=== PATIENT | female | born 1935 | race Caucasian/White ===

== ENCOUNTER 2017-02-02 20:00 | Inpatient (IN) ==
--- NOTE | 2017-02-02 20:14 | Emergency Department Note ---
Disposition Clinical Impression: Hypercalcemia, Frail elderly, Confusion, Fall, Diabetes, Head injury, Chest wall injury, Back injury, Epigastric abdominal pain, Thyroid nodule, Anemia, Renal failure, Rib fractures, Lactic acidosis, Abnormal urinalysis, Hypertension Disposition: Admitted As Inpatient General Adult HPI - General Stated complaint: fall, AMS, heartburn Time Seen by Provider: 02/02/17 20:06 - History of Present Illness HPI Narrative: 81-year-old female brought in by 2 relatives who she lives with, her son and [id number], they are concerned because the patien has been progressively confused worsening this week. The patient also fell down today. She was at home and had a simple fall. She fell onto her buttocks and then went backward and hit her head. The patient complains of left rib pain as well as low back pain. She also complains of anterior abdominal pain in the midepigastric area. She thinks she may have heartburn. She denies any upper chest pain there is no history of left arm or left jaw pain. No lacerations or convulsions. No loss of consciousness. The patient has had no unilateral weakness or numbness in arms or legs. No paresis or bowel or bladder dysfunction there is no history of fever or cough no vomiting diarrhea or bleeding. The patient is usually fairly self-sufficient and can be left alone at home. The family members report a definite change in the patient's mental status, perseveration, forgetfulness and disorientation regarding time. There is no history of laceration or bleeding. No upper or lower extremity pain. The patient is known to be diabetic. She is type II. - Related Data Home Medications Medication Instructions Recorded Confirmed Atenolol [Tenormin] 50 mg PO DAILY 08/14/16 08/14/16 Atorvastatin Calcium [Lipitor] 20 mg PO DAILY 08/14/16 08/14/16 Calcitriol 0.5 mcg PO DAILY 08/14/16 08/14/16 Calcium Carbonate [Calcium] 600 mg PO DAILY 08/14/16 08/14/16 Denosumab [Prolia (For Outpatient 60 mg SQ [id number] 08/14/16 08/14/16 Infusion)] Ferrous Sulfate 325 mg PO BIDWM 08/14/16 08/14/16 Furosemide [Lasix] 20 mg PO DAILY 08/14/16 08/14/16 Gemfibrozil [Lopid] 600 mg PO BIDWM 08/14/16 08/14/16 Glipizide/Metformin HCl 1 tab PO DAILY 08/14/16 08/14/16 [Glipizide-Metformin 2.5-500 mg] Losartan Potassium [Cozaar] 100 mg PO DAILY 08/14/16 08/14/16 Multivitamin [Multi-Day Vitamins] 1 tab PO DAILY 08/14/16 08/14/16 Omeprazole [PriLOSEC] 20 mg PO DAILY 08/14/16 08/14/16 Sitagliptin Phosphate [Januvia] 50 mg PO DAILY 08/14/16 08/14/16 Vit C/Vit E/Lutein/Min/Juntura-3 1 cap PO DAILY 08/14/16 08/14/16 [Ocuvite Softgel] Allergies Allergy/AdvReac Type Severity Reaction Status Date / Time Penicillins Allergy Intermediate Hives Verified 12/29/15 11:31 All systems ED: reviewed and negative except as stated. Past Medical History - Past Medical History Medical history: Reports: diabetes, GERD, hyperlipidemia, hypertension Surgical history: Reports: cholecystectomy Psychiatric history: Reports: no psych history - Social History Smoking Status: Never smoker Smokeless Tobacco Status: No Alcohol use: Reports: none Drug use: Reports: none Physical Exam - General Limitations: no limitations General appearance: alert, in no apparent distress - Head Head exam: atraumatic, normocephalic, normal inspection - Eye Eye exam: Present: normal appearance, PERRL, EOMI. Absent: scleral icterus, conjunctival injection, miosis, mydriasis - ENT ENT exam: normal exam, normal oropharynx, mucous membranes moist, TM's normal bilaterally, normal external ear exam - Neck Neck exam: Present: normal inspection, full ROM, trachea midline. Absent: tenderness - Chest Chest inspection: Present: normal inspection, symmetric chest wall rise, tenderness (Left ribs) - Respiratory Respiratory exam: Present: normal lung sounds bilaterally. Absent: respiratory distress - Cardiovascular Cardiovascular exam: Present: regular rate, normal rhythm, normal heart sounds - Abdominal Exam Abdominal exam: Present: soft, trauma. Absent: distention, guarding, rebound, rigidity, normal bowel sounds, pulsatile mass Abdominal tenderness: Present: epigastrium - Extremities Exam Extremities exam: Present: normal inspection, full ROM, normal capillary refill. Absent: tenderness, pedal edema, joint swelling, calf tenderness - Expanded Lower Extremity Exam Hip/Pelvis exam: Present: full ROM. Absent: tenderness, deformity Upper leg exam: Present: full ROM. Absent: tenderness, deformity Knee exam: Present: full ROM. Absent: tenderness, deformity Lower leg exam: Present: full ROM. Absent: tenderness, Homans' sign Foot/toe exam: Present: full ROM. Absent: tenderness, deformity Neurovascular/Tendon exam: Absent: motor deficit, sensory deficit, tendon deficit, extremity cold to touch, pallor - Back Exam Back exam: Present: normal inspection, full ROM, tenderness, other (Low lumbar region tenderness no obvious trauma apart from some erythema in the thoracic area). Absent: CVA tenderness (L) - Neurological Exam Neurological exam: Present: alert, CN II-XII intact. Absent: motor sensory deficit - Psychiatric Psychiatric exam: Present: normal affect, normal mood - Skin Skin exam: Present: warm, dry, intact, normal color. Absent: rash, cyanosis, diaphoresis, erythema, pallor, mottled Course - Reevaluation(s) Reevaluation #1: The patient appears to have rib fractures, she has defecated in the bed, where awaiting a urinalysis. The patient does have an elevated white count, as well as a low-grade lactic acid, fluids and been initiated. A clear source for infection has not been identified yet. A Mojica catheter was ordered urinalysis is pending. He acidosis may simply be secondary to her diabetic state on Glucophage, her white count may be just due to demargination and not related to infection. If the patient does have a UTI she will certainly be treated with antibiotics. Cultures were ordered. The patient is currently stable. I discussed the case with the hospitalist on-call who has accepted the patient to their care. Vital Signs Temperature 98.3 F 02/02/17 20:12 Pulse Rate 60 02/02/17 20:12 Respiratory Rate 14 02/02/17 20:12 Blood Pressure 166/61 02/02/17 20:12 O2 Sat by Pulse Oximetry 99 02/02/17 20:12 Temperature 97.3 F L 02/03/17 01:29 Pulse Rate 64 02/03/17 01:34 Respiratory Rate 20 02/03/17 01:34 Blood Pressure 177/67 02/03/17 01:34 O2 Sat by Pulse Oximetry 98 02/03/17 01:34 Oxygen Delivery Oxygen Delivery Room Air Medical Decision Making - MDM Narrative Medical decision making narrative: The patient is elderly, has been progressively confused and fell today. She is not really oriented to time. The patient appears to have a nondisplaced 11th 12th rib fractures on the left. She also has thyroid nodules in association with the significantly elevated calcium. The patient's renal failure is also worsening, she is beyond baseline regarding her BUN/creatinine an element of dehydration is also possible and/or acute kidney injury. The patient's urinalysis came back abnormal, Cipro has been ordered. A second lactate level has been ordered. The patient's acidosis may be secondary to diabetic medication. Particularly Glucophage. Alternatively the patient may meet sepsis criteria based on an elevated white count, an element of tachypnea, potential infection, elevated lactate, elevated creatinine, and confusion. Based on multiple abnormal findings, I thought it would be appropriate to admit the patient to the hospital. The patient received IV fluids in the ED, I discussed the case with the hospitalist on-call who has accepted the patient to their care. - Lab Data Lab results reviewed: Yes I reviewed the patient's lab results. Result diagrams: 02/02/17 20:44 02/02/17 20:44 Lab Results 02/02/17 02/02/17 02/02/17 Range/Units 20:19 20:44 20:44 WBC 15.3 H (4.3-11.1) K/mcL RBC 3.58 L (3.82-4.97) M/mcL Hgb 11.2 L (11.5-15.4) g/dL Hct 35.1 L (35.3-44.9) % MCV 98.0 (83.0-100.0) fL MCH 31.3 (28.0-33.3) pg MCHC 31.9 (31.6-35.5) g/dL RDW 12.9 (11.5-14.5) % Plt Count 263 (140-400) K/mcL MPV 11.0 (9.4-12.4) fL Immature Gran % 0.7 (0-4) % Seg Neutrophils % 85.8 % Lymphocytes % 8.3 % Monocytes % 4.4 % Eosinophils % 0.5 % Basophils % 0.3 % Neutrophils # 13.1 H (1.6-8.9) K/mcL Lymphocytes # 1.3 (0.6-4.6) K/mcL Monocytes # 0.7 (0.0-1.3) K/mcL Eosinophils # 0.1 (0.0-0.6) K/mcL Basophils # 0.1 (0.0-0.2) K/mcL PT 13.0 H (9.4-12.1) Seconds INR 1.2 APTT 29.0 (26.0-36.0) Seconds Sodium (136-145) mEq/L Potassium (3.5-4.5) mEq/L Chloride (98-109) mEq/L Carbon Dioxide (19-29) mEq/L BUN (7-20) mg/dL Creatinine (0.57-1.11) mg/dL Est GFR ( Amer) (> 60) Est GFR (Non-Af Amer) (> 60) BUN/Creatinine Ratio (6-26) Glucose (70-99) mg/dL POC Glucose 123 H (58-89) Calculated Osmolality (280-300) Lactic Acid (0.5-2.2) mmol/L Calcium (8.6-10.8) mg/dL Total Bilirubin (0.2-1.2) mg/dL Direct Bilirubin (0.0-0.5) mg/dL Indirect Bilirubin (0.0-1.2) mg/dL AST (5-34) Units/L ALT (0-55) Units/L Alkaline Phosphatase (38-126) Units/L Troponin I (0-0.03) ng/mL C-Reactive Protein (Less than 5) mg/L Serum Total Protein (6.0-8.3) g/dL Albumin (3.5-5.0) g/dL Globulin (2.4-3.5) g/dL Albumin/Globulin Ratio (1.1-2.2) Lipase (8-78) Units/L TSH (0.350-4.840) mcIU/mL Free T4 (0.70-1.48) ng/dl Urine Color (Yellow) Urine Clarity (Clear) Urine pH (5.0-8.0) pH Units Ur Specific Dittmer (1.010-1.025) Urine Protein (Neg-Trace) mg/dL Urine Glucose (UA) (Normal) mg/dL Urine Ketones (Negative) mg/dL Urine Blood (Negative) Urine Nitrite (Negative) Urine Bilirubin (Negative) Urine Urobilinogen (Normal) mg/dL Ur Leukocyte Esterase (Negative) Urine Microscopic RBC (0-3) per hpf Urine Microscopic WBC (0-3) per hpf Ur Squamous Epith Cells (None-Few) per lpf Urine Bacteria (None-Few) per hpf Hyaline Casts (None-Few) per lpf Ur Culture Indicated? (NO) 02/02/17 02/02/17 02/02/17 Range/Units 20:44 20:44 20:44 WBC (4.3-11.1) K/mcL RBC (3.82-4.97) M/mcL Hgb (11.5-15.4) g/dL Hct (35.3-44.9) % MCV (83.0-100.0) fL MCH (28.0-33.3) pg MCHC (31.6-35.5) g/dL RDW (11.5-14.5) % Plt Count (140-400) K/mcL MPV (9.4-12.4) fL Immature Gran % (0-4) % Seg Neutrophils % % Lymphocytes % % Monocytes % % Eosinophils % % Basophils % % Neutrophils # (1.6-8.9) K/mcL Lymphocytes # (0.6-4.6) K/mcL Monocytes # (0.0-1.3) K/mcL Eosinophils # (0.0-0.6) K/mcL Basophils # (0.0-0.2) K/mcL PT (9.4-12.1) Seconds INR APTT (26.0-36.0) Seconds Sodium 142 (136-145) mEq/L Potassium 3.9 (3.5-4.5) mEq/L Chloride 99 (98-109) mEq/L Carbon Dioxide 28 (19-29) mEq/L BUN 50 H (7-20) mg/dL Creatinine 2.07 H (0.57-1.11) mg/dL Est GFR ( Amer) 28 L (> 60) Est GFR (Non-Af Amer) 23 L (> 60) BUN/Creatinine Ratio 24 (6-26) Glucose 140 H (70-99) mg/dL POC Glucose (58-89) Calculated Osmolality 310 H (280-300) Lactic Acid 2.4 H (0.5-2.2) mmol/L Calcium 13.6 H* (8.6-10.8) mg/dL Total Bilirubin 0.5 (0.2-1.2) mg/dL Direct Bilirubin 0.2 (0.0-0.5) mg/dL Indirect Bilirubin 0.3 (0.0-1.2) mg/dL AST 23 (5-34) Units/L ALT 15 (0-55) Units/L Alkaline Phosphatase 94 (38-126) Units/L Troponin I (0-0.03) ng/mL C-Reactive Protein 0 (Less than 5) mg/L Serum Total Protein 7.5 (6.0-8.3) g/dL Albumin 3.9 (3.5-5.0) g/dL Globulin 3.6 H (2.4-3.5) g/dL Albumin/Globulin Ratio 1.1 (1.1-2.2) Lipase 47 (8-78) Units/L TSH (0.350-4.840) mcIU/mL Free T4 (0.70-1.48) ng/dl Urine Color (Yellow) Urine Clarity (Clear) Urine pH (5.0-8.0) pH Units Ur Specific Dittmer (1.010-1.025) Urine Protein (Neg-Trace) mg/dL Urine Glucose (UA) (Normal) mg/dL Urine Ketones (Negative) mg/dL Urine Blood (Negative) Urine Nitrite (Negative) Urine Bilirubin (Negative) Urine Urobilinogen (Normal) mg/dL Ur Leukocyte Esterase (Negative) Urine Microscopic RBC (0-3) per hpf Urine Microscopic WBC (0-3) per hpf Ur Squamous Epith Cells (None-Few) per lpf Urine Bacteria (None-Few) per hpf Hyaline Casts (None-Few) per lpf Ur Culture Indicated? (NO) 02/02/17 02/02/17 02/02/17 Range/Units 20:44 20:44 23:30 WBC (4.3-11.1) K/mcL RBC (3.82-4.97) M/mcL Hgb (11.5-15.4) g/dL Hct (35.3-44.9) % MCV (83.0-100.0) fL MCH (28.0-33.3) pg MCHC (31.6-35.5) g/dL RDW (11.5-14.5) % Plt Count (140-400) K/mcL MPV (9.4-12.4) fL Immature Gran % (0-4) % Seg Neutrophils % % Lymphocytes % % Monocytes % % Eosinophils % % Basophils % % Neutrophils # (1.6-8.9) K/mcL Lymphocytes # (0.6-4.6) K/mcL Monocytes # (0.0-1.3) K/mcL Eosinophils # (0.0-0.6) K/mcL Basophils # (0.0-0.2) K/mcL PT (9.4-12.1) Seconds INR APTT (26.0-36.0) Seconds Sodium (136-145) mEq/L Potassium (3.5-4.5) mEq/L Chloride (98-109) mEq/L Carbon Dioxide (19-29) mEq/L BUN (7-20) mg/dL Creatinine (0.57-1.11) mg/dL Est GFR ( Amer) (> 60) Est GFR (Non-Af Amer) (> 60) BUN/Creatinine Ratio (6-26) Glucose (70-99) mg/dL POC Glucose (58-89) Calculated Osmolality (280-300) Lactic Acid (0.5-2.2) mmol/L Calcium (8.6-10.8) mg/dL Total Bilirubin (0.2-1.2) mg/dL Direct Bilirubin (0.0-0.5) mg/dL Indirect Bilirubin (0.0-1.2) mg/dL AST (5-34) Units/L ALT (0-55) Units/L Alkaline Phosphatase (38-126) Units/L Troponin I 0.01 (0-0.03) ng/mL C-Reactive Protein (Less than 5) mg/L Serum Total Protein (6.0-8.3) g/dL Albumin (3.5-5.0) g/dL Globulin (2.4-3.5) g/dL Albumin/Globulin Ratio (1.1-2.2) Lipase (8-78) Units/L TSH 3.386 (0.350-4.840) mcIU/mL Free T4 1.02 (0.70-1.48) ng/dl Urine Color Yellow (Yellow) Urine Clarity Slightly Hazy (Clear) Urine pH 6.0 (5.0-8.0) pH Units Ur Specific Dittmer 1.013 (1.010-1.025) Urine Protein Negative (Neg-Trace) mg/dL Urine Glucose (UA) Normal (Normal) mg/dL Urine Ketones Negative (Negative) mg/dL Urine Blood Negative (Negative) Urine Nitrite Negative (Negative) Urine Bilirubin Negative (Negative) Urine Urobilinogen Normal (Normal) mg/dL Ur Leukocyte Esterase Small H (Negative) Urine Microscopic RBC 3-5 H (0-3) per hpf Urine Microscopic WBC 5-15 H (0-3) per hpf Ur Squamous Epith Cells Many H (None-Few) per lpf Urine Bacteria Many H (None-Few) per hpf Hyaline Casts None Seen (None-Few) per lpf Ur Culture Indicated? YES A (NO) - Radiology Data Radiology results reviewed: Yes I reviewed the patient's radiology results.
[2017-02-02] MEDS ORDERED: 0.9 % Sodium Chloride 1,000 ML IVC ONE ×2 (20:35→23:07)
[2017-02-02 20:58] LABS: Basophils # 0.1 K/mcL (0.0-0.2); Basophils % 0.3 %; Eosinophils # 0.1 K/mcL (0.0-0.6); Eosinophils % 0.5 %; Hematocrit 35.1 % (35.3-44.9); Hemoglobin 11.2 g/dL (11.5-15.4); Immature Granulocytes % 0.7 % (0-4); Lymphocytes # 1.3 K/mcL (0.6-4.6); Lymphocytes % 8.3 %; Mean Corpuscular HGB Conc 31.9 g/dL (31.6-35.5); Mean Corpuscular Hemoglobin 31.3 pg (28.0-33.3); Monocytes # 0.7 K/mcL (0.0-1.3); Monocytes % 4.4 %; Neutrophils # 13.1 K/mcL (1.6-8.9); Platelet Count 263 K/mcL (140-400); Red Blood Count 3.58 M/mcL (3.82-4.97); Red Cell Distribution Width 12.9 % (11.5-14.5); Segmented Neutrophils % 85.8 %
[2017-02-02 21:03] LABS: INR 1.2
[2017-02-02 21:11] LABS: Potassium 3.9 mEq/L (3.5-4.5)
[2017-02-02 21:12] LABS: Albumin 3.9 g/dL (3.5-5.0); Albumin/Globulin Ratio 1.1 (1.1-2.2); Bilirubin,Direct 0.2 mg/dL (0.0-0.5); Bilirubin,Indirect 0.3 mg/dL (0.0-1.2); Bilirubin,Total 0.5 mg/dL (0.2-1.2); Globulin 3.6 g/dL (2.4-3.5); Total Protein 7.5 g/dL (6.0-8.3)
[2017-02-02 21:14] LABS: Calcium 13.6 mg/dL (8.6-10.8)
[2017-02-02 23:39] LABS: Thyroid Stimulating Hormone 3.386 mcIU/mL (0.350-4.840)
[2017-02-02 23:39] LABS: Bilirubin,Urine Negative (Negative); Blood,Urine Negative (Negative); Color,Urine Yellow (Yellow); Glucose,Urine (UA) Normal (Normal); Ketones,Urine Negative (Negative); Leukocyte Esterase,Urine Small (Negative); Nitrite,Urine Negative (Negative); Protein,Urine Negative (Neg-Trace); Specific Gravity,Urine 1.013 (1.010-1.025); Urobilinogen,Urine Normal (Normal)
[2017-02-02 23:40] LABS: Bacteria,Urine Many per hpf (None-Few); Clarity,Urine Slightly Hazy (Clear); Hyaline Casts,Urine None Seen per lpf (None-Few); Squamous Epithelial Cell,Urine Many per lpf (None-Few)
[2017-02-03] MEDS ORDERED: Ondansetron 4 MG/2 ML VIAL IVP PRN (02:32)
[2017-02-03] MEDS ORDERED: Acetaminophen 325 MG TABLET PO PRN (02:32)
[2017-02-03] MEDS ORDERED: Naloxone 0.4 MG/ML INJ IVP PRN (02:32)
--- NOTE | 2017-02-03 03:07 | Internal Med History&Physical ---
Date of Encounter: 02/03/17 Time of Encounter: 02:00 Assessment and Plan (1) Altered mental status, unspecified Status: Acute . Qualifiers: Altered mental status type: disorientation Qualified Code(s): R41.0 - Disorientation, unspecified (2) Toxic metabolic encephalopathy Status: Acute . (3) Delirium due to conditions classified elsewhere Status: Acute . (4) Multiple falls Status: Acute . (5) Acute kidney injury superimposed on CKD Status: Acute . (6) UTI (urinary tract infection) Status: Suspected . Qualifiers: Urinary tract infection type: site unspecified Hematuria presence: without hematuria Qualified Code(s): N39.0 - Urinary tract infection, site not specified (7) SIRS due to infectious process with acute organ dysfunction Status: Acute . (8) Sepsis Status: Acute . Qualifiers: Sepsis type: sepsis due to unspecified organism Qualified Code(s): A41.9 - Sepsis, unspecified organism (9) Hypercalcemia of malignancy Status: Acute . (10) High anion gap metabolic acidosis Status: Acute . (11) Osteoarthritis involving multiple joints on both sides of body Status: Chronic . (12) Osteoporosis Status: Chronic . Qualifiers: Osteoporosis type: age-related Presence of current pathological fracture: with current pathological fracture Encounter type: initial encounter Qualified Code(s): M80.00XA - Age-related osteoporosis with current pathological fracture, unspecified site, initial encounter for fracture (13) Anemia Status: Chronic . Qualifiers: Anemia type: unspecified type Qualified Code(s): D64.9 - Anemia, unspecified (14) Back injury Status: Acute . Qualifiers: Encounter type: initial encounter Qualified Code(s): S39.92XA - Unspecified injury of lower back, initial encounter (15) Chest wall injury Status: Acute . Qualifiers: Encounter type: initial encounter Qualified Code(s): S29.9XXA - Unspecified injury of thorax, initial encounter (16) Diabetes Status: Chronic . 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 (19) Head injury Status: Acute . Qualifiers: Encounter type: initial encounter Qualified Code(s): S09.90XA - Unspecified injury of head, initial encounter (20) Hypertension Status: Chronic . Qualifiers: Hypertension type: essential hypertension Qualified Code(s): I10 - Essential (primary) hypertension (21) Lactic acidosis Status: Acute . (22) Rib fractures Status: Acute . Qualifiers: Encounter type: initial encounter Rib fracture type: multiple ribs Fracture type: closed Laterality: left Qualified Code(s): S22.42XA - Multiple fractures of ribs, left side, initial encounter for closed fracture (23) Thyroid nodule Status: Acute . Internal Medicine - H&P: HPI Chief complaint: Confusion. Admitted From: Emergency Dept Plans for Post Hospital Care: Home History of present illness: Ms. Mann is a 81 year old female admitted with concerns of alteration in mental status, generalized weakness associated with mechanical fall and loss of ability to complete activities of daily living safely and independently. Symptoms seemed progressive over a week's period of time noticed by her son and [id number] whom she lives with. Additional findings suggest delirium in the setting of sepsis/SIRS with stage IV acute kidney injury, severe hypercalcemia of uncertin etiology (worrisome for malignancy) with high anion gap metabolic acidosis-lactic acidosis and associated UTI. Workup and treatments will proceed comprehensively. The patient was visited and interviewed and examined. Cumulative laboratory and radiographic data base will be considered and discussed. Pertinent ancillary medical records including ECW and PCI documentation when available was reviewed and considered. Given the patient's presenting concerns, past medical history, clinical findings and symptoms, she is admitted at this time will undergo further evaluation and disposition. Orders were written as per Computerized physician pharmacy order entry technician system.......................................................................... .................... Consultative opinion and will be sought as clinical circumstances justify. Pain management needs will be addressed. Laboratory radiographic data base will be updated as appropriate. Studies include: Cultures of blood and urine and sputum, Coag's, cardiac injury panel, BNP, UA, UDS, metabolic and hematologic panel, magnesium phosphorus, ionized calcium, thyroid panel lipid profile, A1c C-peptide, CRP sedimentation rate, respiratory infection profile, respiratory virus panel, blood gas, lactic acid, serologies, etc. Precautions: Aspiration, fall, delirium protocol/surveillance initiated. Telemetry with continuous hemodynamic monitoring and pulse oximetry initiated. Empiric antibiotic coverage: Intravenous Azactam pending culture data. Special studies: CT chest, CT head, chest x-ray, telemetry, EKG. Pulmonary toilet: Incentive spirometry, aerosol bronchodilator, mucolytic, antitussive, supplemental oxygen. Corticosteroid therapy prn. CPAP/BiPAP supplemental oxygen delivery employed. Aerosol Mucomyst therapy may be employed. Fluid and electrolyte repletion efforts will proceed. Careful attention to fluid balance and renal recovery will be emphasized. Avoidance of nephrotoxic exposure and adverse drug drug interaction in the setting of impaired renal function will be monitored closely. Acute coronary syndrome protocol/surveillance initiated. DVT and PUD prophylaxis initiated: PPI therapy, intermittent pneumatic cuffs. Subcutaneous heparin. Early ambulation will be encouraged. Immunization updates recommended. Influenza and pneumococcal vaccinations as part of ongoing preventative healthcare recommendations strongly recommended. Smoke cessation counseling addressed. Patient is a nonsmoker. Advanced care directive discussion briefly addressed. Patient does not declare any healthcare restrictions at this time. Cardiovascular risk appraisal and cardiovascular risk reduction efforts will be emphasized. Physical occupational therapy may be counseled to evaluate patient's function capacity and progressive mobility of her circumstances justify. Sliding scale insulin coverage, ADA dietary restraint and schedule an as-needed basis fingerstick glucose assessments were initiated. Nutrition/diabetes education counseling may be considered as circumstances justify. Outpatient medication schedules will be reviewed confirmed and facilitated as appropriate. Reconciliation of home treatments including adjustment substitutions and reintroduction into the treatment regimen as necessary maintenance therapies for chronic pre-existing medical conditions. Plan of care has been reviewed and discussed in detail with the patient's family. Questions addressed. Hospital course dictated by clinical findings, treatment response and potential consultative interventions. Patient is a risk for further acute clinical decline due to her age, chief complaints and comorbid conditions. Condition is serious. Prognosis is guarded. CODE STATUS is full. Past Med Surg Social Fam HX - Past Medical History Source: old records reviewed Medical history: arthritis, diabetes, GERD, hyperlipidemia, hypertension, osteoporosis (Remedy deficiency), renal disease (CKD III.), other (Iron deficiency anemia) Psychiatric history: no psych history - Past Surgical History Surgical History: cholecystectomy, orthopedic, other (Back surgery.), other ( Colonoscopy.) - Social History Smoking Status: Never smoker Smokeless Tobacco Status: No Alcohol use: none Drug use: none Occupational status: retired Current living situation: Home - Independent Activity Level: Independent ambulation, Mostly sedentary Recent Out of Country Travel Within the Last 8 Weeks: No Exposure or Possible Exposure to Illness During Travel: No Internal Medicine - H&P: Meds Atenolol [Tenormin] 50 mg PO DAILY 08/14/16 [History] Atorvastatin Calcium [Lipitor] 20 mg PO DAILY 08/14/16 [History] Calcitriol 0.5 mcg PO DAILY 08/14/16 [History] Calcium Carbonate [Calcium] 600 mg PO DAILY 08/14/16 [History] Denosumab [Prolia (For Outpatient Infusion)] 60 mg SQ [id number] 08/14/16 [History ] Ferrous Sulfate 325 mg PO BIDWM 08/14/16 [History] Furosemide [Lasix] 20 mg PO DAILY 08/14/16 [History] Gemfibrozil [Lopid] 600 mg PO BIDWM 08/14/16 [History] Losartan Potassium [Cozaar] 100 mg PO DAILY 08/14/16 [History] Multivitamin [Multi-Day Vitamins] 1 tab PO DAILY 08/14/16 [History] Omeprazole [PriLOSEC] 20 mg PO DAILY 08/14/16 [History] Sitagliptin Phosphate [Januvia] 50 mg PO DAILY 08/14/16 [History] Vit C/Vit E/Lutein/Min/Herbster-3 [Ocuvite Softgel] 1 cap PO DAILY 08/14/16 [ History] Amlodipine [Norvasc] 10 mg PO DAILY #30 tablet 02/06/17 [Rx] GlipiZIDE [Glucotrol Xl] 2.5 mg PO QPM #30 tab.er.24 02/06/17 [Rx] GlipiZIDE [Glucotrol] 5 mg PO 0800 #30 tablet 02/06/17 [Rx] Oxycodone HCl/Acetaminophen [Percocet 5-325 mg Tablet] 1 each PO Q6H PRN #20 tablet 02/06/17 [Rx] Allergies Penicillins Allergy (Intermediate, Verified 12/29/15 11:31) Hives ROS unobtainable: due to mental status All Systems PM: A 10-system review of systems was performed and is negative for pertinent findings except as documented above in the HPI. - Constitutional Constitutional: as per HPI - EENT Eyes: as per HPI Ears: as per HPI Nose, mouth and throat: as per HPI - Cardiovascular Cardiovascular ROS IM: as per HPI - Respiratory Respiratory: as per HPI - Gastrointestinal Gastrointestinal: as per HPI - Genitourinary Genitourinary: as per HPI - Musculoskeletal Musculoskeletal ROS IM: as per HPI - Integumentary Integumentary IM: as per HPI - Neurological Neurological ROS: as per HPI - Psychiatric Psychiatric: as per HPI - Endocrine Endocrine IM: as per HPI - Hematologic/Lymphatic Hematologic/Lymphatic: as per HPI - Allergic/Immunologic Allergic/Immunologic: as per HPI - Constitutional Vitals: Temp Pulse Resp BP Pulse Ox 97.3 F L 64 20 177/67 98 02/03/17 01:29 02/03/17 01:34 02/03/17 01:34 02/03/17 01:34 02/03/17 01:34 General appearance: Present: A&O X 1, disheveled, no acute distress. Absent: cooperative, answers questions appropriately - Head Head exam: Present: atraumatic, normocephalic - Eye Eye exam: Present: EOMI, PERRL, conjuntiva pink, sclera anicteric Pupils: Present: normal accommodation, PERRL - ENT ENT exam: Present: mucous membranes moist, normal oropharynx - Neck Neck exam general surgery: Present: supple, trachea midline. Absent: lymphadenopathy - Respiratory Respiratory exam: Present: chest wall tenderness, decreased breath sounds. Absent: accessory muscle use, CTAB, rales, rhonchi, wheezes - Cardiovascular Cardiovascular exam: Present: distant heart sounds, RRR, +S1, +S2. Absent: diastolic murmur, gallop, rubs, systolic murmur - GI/Abdominal GI/Abdominal exam: Present: normal bowel sounds, soft, no peritoneal signs. Absent: distended, tenderness - Extremities Exam Extremities exam: Present: warm, radial pulses palpable and symetrical. Absent : calf tenderness, cyanotic, pedal edema - Neurological Exam Neurological exam: Present: alert, altered, CN II-XII intact, oriented X3, no focal deficits. Absent: pronater drift, facial droop, speech deficit - Expanded Neurological Exam Neurological exam expanded: Present: ataxia, inattentive, protecting the airway. Absent: expressive aphasia, receptive aphasia Patient oriented to: Present: person. Absent: place, time Speech: Present: garbled Coma Scale Eye Opening: To Voice Coma Scale Motor Response: Localizes to Pain Coma Scale Verbal Response: Inappropriate Coma Scale Total: 11 - Psychiatric Psychiatric exam: Present: agitated, flat affect - Skin Skin exam: Present: dry, intact, warm Internal Med - H&P Results - Labs CBC & Chem 7: 02/06/17 04:19 02/06/17 04:19 Labs: Vital Signs Temp Pulse Resp BP Pulse Ox 02/03/17 01:34 64 20 177/67 98 02/03/17 01:29 97.3 F L 70 19 197/83 100 02/03/17 00:18 16 171/64 02/02/17 22:05 67 16 153/56 97 02/02/17 21:34 72 16 160/65 97 02/02/17 20:50 65 16 162/55 97 02/02/17 20:12 98.3 F 60 14 166/61 99 Intake and Output 02/02/17 02/02/17 02/03/17 15:59 23:59 07:59 Intake Total 1000 / 1000 Balance 1000 / 1000 Intake: IV Fluids 1000 / 1000 0.9 % Sodium Chloride 1, 1000 / 1000 000 ML @ 3750 mls/hr IVC .Q16M ONE Rx#:[id number] Other: Weight 54.431 kg 54.3 kg Blood Glucose* 123 Patient Weight 02/03/17 23:59 Weight 54.3 kg Short CBC 02/02/17 Range/Units 20:44 WBC 15.3 H (4.3-11.1) K/mcL Hgb 11.2 L (11.5-15.4) g/dL Hct 35.1 L (35.3-44.9) % Plt Count 263 (140-400) K/mcL Neutrophils # 13.1 H (1.6-8.9) K/mcL BMP 02/02/17 Range/Units 20:44 Sodium 142 (136-145) mEq/L Potassium 3.9 (3.5-4.5) mEq/L Chloride 99 (98-109) mEq/L Carbon Dioxide 28 (19-29) mEq/L BUN 50 H (7-20) mg/dL Creatinine 2.07 H (0.57-1.11) mg/dL Glucose 140 H (70-99) mg/dL Calcium 13.6 H* (8.6-10.8) mg/dL Cardiac Enzymes 02/02/17 Range/Units 20:44 Troponin I 0.01 (0-0.03) ng/mL Liver Function 02/02/17 Range/Units 20:44 Total Bilirubin 0.5 (0.2-1.2) mg/dL Direct Bilirubin 0.2 (0.0-0.5) mg/dL AST 23 (5-34) Units/L ALT 15 (0-55) Units/L Alkaline Phosphatase 94 (38-126) Units/L Albumin 3.9 (3.5-5.0) g/dL Urine 02/02/17 Range/Units 23:30 Urine Color Yellow (Yellow) Urine Clarity Slightly Hazy (Clear) Urine pH 6.0 (5.0-8.0) pH Units Ur Specific [place] 1.013 (1.010-1.025) Urine Protein Negative (Neg-Trace) mg/dL Urine Glucose (UA) Normal (Normal) mg/dL Allergies Allergy/AdvReac Type Severity Reaction Status Date / Time Penicillins Allergy Intermediate Hives Verified 12/29/15 11:31 - Impressions Abnormal lab results WBC 15.3 K/mcL (4.3-11.1) H 02/02/17 20:44 RBC 3.58 M/mcL (3.82-4.97) L 02/02/17 20:44 Hgb 11.2 g/dL (11.5-15.4) L 02/02/17 20:44 Hct 35.1 % (35.3-44.9) L 02/02/17 20:44 Neutrophils # 13.1 K/mcL (1.6-8.9) H 02/02/17 20:44 PT 13.0 Seconds (9.4-12.1) H 02/02/17 20:44 BUN 50 mg/dL (7-20) H 02/02/17 20:44 Creatinine 2.07 mg/dL (0.57-1.11) H 02/02/17 20:44 Est GFR ( Amer) 28 (> 60) L 02/02/17 20:44 Est GFR (Non-Af Amer) 23 (> 60) L 02/02/17 20:44 Glucose 140 mg/dL (70-99) H 02/02/17 20:44 POC Glucose 123 (58-89) H 02/02/17 20:19 Calculated Osmolality 310 (280-300) H 02/02/17 20:44 Calcium 13.6 mg/dL (8.6-10.8) H* 02/02/17 20:44 Globulin 3.6 g/dL (2.4-3.5) H 02/02/17 20:44 Ur Leukocyte Esterase Small (Negative) H 02/02/17 23:30 Urine Microscopic RBC 3-5 per hpf (0-3) H 02/02/17 23:30 Urine Microscopic WBC 5-15 per hpf (0-3) H 02/02/17 23:30 Ur Squamous Epith Cells Many per lpf (None-Few) H 02/02/17 23:30 Urine Bacteria Many per hpf (None-Few) H 02/02/17 23:30 Ur Culture Indicated? YES (NO) A 02/02/17 23:30 Laboratory Results WBC 15.3 K/mcL (4.3-11.1) H 02/02/17 20:44 RBC 3.58 M/mcL (3.82-4.97) L 02/02/17 20:44 Hgb 11.2 g/dL (11.5-15.4) L 02/02/17 20:44 Hct 35.1 % (35.3-44.9) L 02/02/17 20:44 MCV 98.0 fL (83.0-100.0) 02/02/17 20:44 MCH 31.3 pg (28.0-33.3) 02/02/17 20:44 MCHC 31.9 g/dL (31.6-35.5) 02/02/17 20:44 RDW 12.9 % (11.5-14.5) 02/02/17 20:44 Plt Count 263 K/mcL (140-400) 02/02/17 20:44 MPV 11.0 fL (9.4-12.4) 02/02/17 20:44 Immature Gran % 0.7 % (0-4) 02/02/17 20:44 Seg Neutrophils % 85.8 % 02/02/17 20:44 Lymphocytes % 8.3 % 02/02/17 20:44 Monocytes % 4.4 % 02/02/17 20:44 Eosinophils % 0.5 % 02/02/17 20:44 Basophils % 0.3 % 02/02/17 20:44 Neutrophils # 13.1 K/mcL (1.6-8.9) H 02/02/17 20:44 Lymphocytes # 1.3 K/mcL (0.6-4.6) 02/02/17 20:44 Monocytes # 0.7 K/mcL (0.0-1.3) 02/02/17 20:44 Eosinophils # 0.1 K/mcL (0.0-0.6) 02/02/17 20:44 Basophils # 0.1 K/mcL (0.0-0.2) 02/02/17 20:44 PT 13.0 Seconds (9.4-12.1) H 02/02/17 20:44 INR 1.2 02/02/17 20:44 APTT 29.0 Seconds (26.0-36.0) 02/02/17 20:44 Sodium 142 mEq/L (136-145) 02/02/17 20:44 Potassium 3.9 mEq/L (3.5-4.5) 02/02/17 20:44 Chloride 99 mEq/L (98-109) 02/02/17 20:44 Carbon Dioxide 28 mEq/L (19-29) 02/02/17 20:44 BUN 50 mg/dL (7-20) H 02/02/17 20:44 Creatinine 2.07 mg/dL (0.57-1.11) H 02/02/17 20:44 Est GFR ( Amer) 28 (> 60) L 02/02/17 20:44 Est GFR (Non-Af Amer) 23 (> 60) L 02/02/17 20:44 BUN/Creatinine Ratio 24 (6-26) 02/02/17 20:44 Glucose 140 mg/dL (70-99) H 02/02/17 20:44 POC Glucose 123 (58-89) H 02/02/17 20:19 Calculated Osmolality 310 (280-300) H 02/02/17 20:44 Lactic Acid 1.0 mmol/L (0.5-2.2) 02/03/17 02:44 Calcium 13.6 mg/dL (8.6-10.8) H* 02/02/17 20:44 Total Bilirubin 0.5 mg/dL (0.2-1.2) 02/02/17 20:44 Direct Bilirubin 0.2 mg/dL (0.0-0.5) 02/02/17 20:44 Indirect Bilirubin 0.3 mg/dL (0.0-1.2) 02/02/17 20:44 AST 23 Units/L (5-34) 02/02/17 20:44 ALT 15 Units/L (0-55) 02/02/17 20:44 Alkaline Phosphatase 94 Units/L (38-126) 02/02/17 20:44 Troponin I 0.01 ng/mL (0-0.03) 02/02/17 20:44 C-Reactive Protein 0 mg/L (Less than 5) 02/02/17 20:44 Serum Total Protein 7.5 g/dL (6.0-8.3) 02/02/17 20:44 Albumin 3.9 g/dL (3.5-5.0) 02/02/17 20:44 Globulin 3.6 g/dL (2.4-3.5) H 02/02/17 20:44 Albumin/Globulin Ratio 1.1 (1.1-2.2) 02/02/17 20:44 Lipase 47 Units/L (8-78) 02/02/17 20:44 TSH 3.386 mcIU/mL (0.350-4.840) 02/02/17 20:44 Free T4 1.02 ng/dl (0.70-1.48) 02/02/17 20:44 Urine Color Yellow (Yellow) 02/02/17 23:30 Urine Clarity Slightly Hazy (Clear) 02/02/17 23:30 Urine pH 6.0 pH Units (5.0-8.0) 02/02/17 23:30 Ur Specific [place] 1.013 (1.010-1.025) 02/02/17 23:30 Urine Protein Negative mg/dL (Neg-Trace) 02/02/17 23:30 Urine Glucose (UA) Normal mg/dL (Normal) 02/02/17 23:30 Urine Ketones Negative mg/dL (Negative) 02/02/17 23:30 Urine Blood Negative (Negative) 02/02/17 23:30 Urine Nitrite Negative (Negative) 02/02/17 23:30 Urine Bilirubin Negative (Negative) 02/02/17 23:30 Urine Urobilinogen Normal mg/dL (Normal) 02/02/17 23:30 Ur Leukocyte Esterase Small (Negative) H 02/02/17 23:30 Urine Microscopic RBC 3-5 per hpf (0-3) H 02/02/17 23:30 Urine Microscopic WBC 5-15 per hpf (0-3) H 02/02/17 23:30 Ur Squamous Epith Cells Many per lpf (None-Few) H 02/02/17 23:30 Urine Bacteria Many per hpf (None-Few) H 02/02/17 23:30 Hyaline Casts None Seen per lpf (None-Few) 02/02/17 23:30 Ur Culture Indicated? YES (NO) A 02/02/17 23:[address] 02/02/17 20:37 IMPRESSION: No acute intracranial abnormality. D/ / Raoul Bullock MD / Raoul Bullock MD Interpreting Provider: Raoul Bullock MD Abdomen/Pelvis CT 02/02/17 20:38 IMPRESSION: No acute abnormality detected. D/ / Raoul Bullock MD / Raoul Bullock MD Interpreting Provider: Raoul Bullock MD Cervical Spine CT 02/02/17 20:38 IMPRESSION: 1. Spondylosis with no definite fracture. 2. Heterogeneous thyroid gland left-sided nodules. Thyroid ultrasound is recommended unless the patient has significant comorbidities or has a limited life expectancy. D/ / Nii Brown MD / Nii Brown MD Interpreting Provider: Nii Brown MD Chest CT 02/02/17 20:39 IMPRESSION: No evidence of an acute injury. Mild thyroid goiter. D/ / Guanakito Decker MD / Guanakito Decker MD Interpreting Provider: Guanakito Decker MD Lumbar Spine CT 02/02/17 20:39 IMPRESSION: 1. Spondylosis with no acute spine fracture. 2. Acute or subacute fracture of the left 12th rib at the costovertebral facet D/ / Nii Brown MD / Nii Brown MD Interpreting Provider: Nii Brown MD Thoracic Spine CT 02/02/17 20:39 IMPRESSION: Acute nondisplaced fractures of the posteromedial aspects of the left 11th and 12th ribs. D/ / Guanakito Decker MD / Guanakito Decker MD Interpreting Provider: Guanakito Decker MD - Attending Attestation Allergies Penicillins Allergy (Intermediate, Verified 12/29/15 11:31) Hives Home Medications Medication Instructions Recorded Confirmed Type Atenolol [Tenormin] 50 mg PO DAILY 08/14/16 02/03/17 History Atorvastatin Calcium [Lipitor] 20 mg PO DAILY 08/14/16 02/03/17 History Calcitriol 0.5 mcg PO DAILY 08/14/16 02/03/17 History Calcium Carbonate [Calcium] 600 mg PO DAILY 08/14/16 02/03/17 History Denosumab [Prolia (For Outpatient 60 mg SQ [id number] 08/14/16 02/03/17 History Infusion)] Ferrous Sulfate 325 mg PO BIDWM 08/14/16 02/03/17 History Furosemide [Lasix] 20 mg PO DAILY 08/14/16 02/03/17 History Gemfibrozil [Lopid] 600 mg PO BIDWM 08/14/16 02/03/17 History Losartan Potassium [Cozaar] 100 mg PO DAILY 08/14/16 02/03/17 History Multivitamin [Multi-Day Vitamins] 1 tab PO DAILY 08/14/16 02/03/17 History Omeprazole [PriLOSEC] 20 mg PO DAILY 08/14/16 02/03/17 History Sitagliptin Phosphate [Januvia] 50 mg PO DAILY 08/14/16 02/03/17 History Vit C/Vit E/Lutein/Min/Herbster-3 1 cap PO DAILY 08/14/16 02/03/17 History [Ocuvite Softgel] Prescriptions Medication Instructions Recorded Type Amlodipine [Norvasc] 10 mg PO DAILY #30 tablet 02/06/17 Rx GlipiZIDE [Glucotrol Xl] 2.5 mg PO QPM #30 tab.er.24 02/06/17 Rx GlipiZIDE [Glucotrol] 5 mg PO 0800 #30 tablet 02/06/17 Rx Oxycodone HCl/Acetaminophen 1 each PO Q6H PRN #20 tablet 02/06/17 Rx [Percocet 5-325 mg Tablet] Medications Discontinued Medications Acetaminophen (Tylenol) 650 mg PO Q6HR PRN PRN Reason: Mild Pain (1-3) Stop: 08/05/17 02:33 Last Admin: 02/04/17 13:47 Dose: 650 mg Amlodipine Besylate (Norvasc) 5 mg PO DAILY KWAME PRN Reason: Protocol Stop: 08/05/17 09:31 Last Admin: 02/04/17 09:53 Dose: 5 mg Amlodipine Besylate (Norvasc) 10 mg PO DAILY KWAME PRN Reason: Protocol Stop: 08/05/17 09:31 Last Admin: 02/06/17 10:47 Dose: 10 mg Atenolol (Tenormin) 50 mg PO DAILY KWAME Stop: 08/05/17 09:01 Last Admin: 02/06/17 10:45 Dose: 50 mg Dextrose/Water (Dextrose 50% (Syg)) 25 ml IVP AD PRN PRN Reason: Hypoglycemia Stop: 08/06/17 12:19 Diphenhydramine HCl (Benadryl) 25 mg PO HS PRN PRN Reason: sleeplessness Stop: 08/05/17 19:22 Last Admin: 02/05/17 00:35 Dose: 25 mg Docusate Sodium (Colace) 100 mg PO BID PRN PRN Reason: Constipation Stop: 08/05/17 02:33 Gemfibrozil (Lopid) 600 mg PO BIDWM [facility] Stop: 08/05/17 08:01 Glucagon (Glucagen) 1 mg IM ONCE PRN PRN Reason: Hypoglycemia Stop: 08/06/17 12:19 Glucose (Gluctose) 15 gm PO ONCE PRN PRN Reason: Hypoglycemia Stop: 08/06/17 12:19 Glucose (Gluctose) 30 gm PO ONCE PRN PRN Reason: Hypoglycemia Stop: 08/06/17 12:19 Heparin Sodium (Porcine) (Heparin) 5,000 unit SQ Q12HCO [facility] Stop: 08/05/17 18:01 Last Admin: 02/06/17 05:53 Dose: 5,000 unit Hydralazine HCl (Hydralazine) 10 mg IVP Q6HR PRN PRN Reason: SBP>170 OR DBP>110 Stop: 08/05/17 09:23 Last Admin: 02/05/17 07:44 Dose: 10 mg Sodium Chloride (0.9 % Sodium Chloride) 1,000 mls @ 3,750 mls/hr IVC .Q16M ONE Stop: 02/02/17 20:50 Last Infusion: 02/02/17 23:36 Dose: 0 mls/hr Sodium Chloride (0.9 % Sodium Chloride) 1,000 mls @ 3,750 mls/hr IVC .Q16M ONE Stop: 02/02/17 23:22 Last Admin: 02/02/17 23:51 Dose: 3,750 mls/hr Ciprofloxacin Lactate (Cipro 400 Mg/200 Ml) 400 mg in 200 mls @ 200 mls/hr IVPB ONCE ONE Stop: 02/03/17 02:34 Last Infusion: 02/03/17 11:22 Dose: 0 mls/hr Sodium Chloride (0.9 % Sodium Chloride) 1,000 mls @ 100 mls/hr IVC .Q10H [facility] Stop: 08/05/17 02:46 Last Admin: 02/03/17 22:00 Dose: 100 mls/hr Ceftriaxone Sodium 1,000 mg/ (Dextrose) 100 mls @ 200 mls/hr IVPB Q24H [facility] Stop: 08/05/17 03:01 Last Admin: 02/04/17 06:21 Dose: 200 mls/hr Aztreonam 1,000 mg/ Dextrose 100 mls @ 200 mls/hr IVPB Q8HR [facility] Stop: 08/05/17 08:01 Magnesium Sulfate 2 gm/ (Dextrose) 104 mls @ 100 mls/hr IVPB ONCE ONE Stop: 02/03/17 10:30 Last Infusion: 02/03/17 14:21 Dose: 0 mls/hr Dextrose (Dextrose 5%) 1,000 mls @ 100 mls/hr IV CONT PRN PRN Reason: HYPOGLYCEMIA Stop: 08/06/17 12:19 Sodium Chloride (0.9 % Sodium Chloride) 1,000 mls @ 60 mls/hr IVC .[id number] [facility] Stop: 08/05/17 02:46 Last Admin: 02/06/17 13:53 Dose: 60 mls/hr Insulin Human Lispro (Humalog) 0 units SQ HS [facility] PRN Reason: Protocol Stop: 08/06/17 21:01 Last Admin: 02/05/17 20:29 Dose: 4 units Comments: accu check 290 Insulin Human Lispro (Humalog) 0 units SQ TIDAC [facility] PRN Reason: Protocol Stop: 08/06/17 16:31 Last Admin: 02/06/17 13:52 Dose: 12 units Morphine Sulfate (Morphine Sulfate) 2 mg IVP Q4HR PRN PRN Reason: Severe Pain (7-10) Stop: 08/05/17 02:33 Last Admin: 02/05/17 00:35 Dose: 2 mg Re-Assess: [facility] [facility] Pain Assessment Document 02/05/17 01:05 SALOMON (Rec: 02/05/17 03:38 DWT [id number]) Patient's Stated Pain Level Pain Intensity 0 Naloxone HCl (Narcan) 0.4 mg IVP Q2MIN PRN PRN Reason: Opioid Reversal Stop: 08/05/17 02:33 Omeprazole (Prilosec) 20 mg PO DAILY@0630 [facility] PRN Reason: Protocol Stop: 08/07/17 06:31 Last Admin: 02/06/17 05:53 Dose: 20 mg Ondansetron HCl (Zofran) 4 mg IVP Q8HR PRN PRN Reason: Nausea And Vomiting Stop: 08/05/17 02:33 Oxycodone HCl (Roxicodone) 5 mg PO Q6HR PRN PRN Reason: Moderate Pain (4-6) Stop: 08/05/17 02:33 Last Admin: 02/05/17 09:21 Dose: 5 mg Re-Assess: PHYLLIS Pain Assessment Document 02/05/17 10:06 NCF (Rec: 02/05/17 12:33 NCF [id number]) Patient's Stated Pain Level Pain Intensity 5 Oxycodone HCl (Roxicodone) 10 mg PO Q6HR PRN PRN Reason: Moderate Pain Stop: 08/07/17 12:32 Last Admin: 02/06/17 15:48 Dose: 10 mg Pantoprazole Sodium (Protonix) 40 mg IVP DAILY KWAME Stop: 08/05/17 09:01 Last Admin: 02/04/17 09:53 Dose: 40 mg Polyethylene Glycol (Miralax) 17 gm PO DAILY PRN PRN Reason: Constipation Stop: 08/07/17 18:33 Simvastatin (Zocor) 10 mg PO DAILY KWAME Stop: 08/05/17 09:01 Last Admin: 02/06/17 10:45 Dose: 10 mg Microbiology Results 02/02/17 23:41 Peripheral Venipuncture Blood Culture - Final No growth. 02/02/17 23:36 Peripheral Venipuncture Blood Culture - Final No growth. 02/02/17 23:30 Urine,Clean Catch Urine Culture - Final Culture is grossly mixed, unable to properly interpret. Please repeat if indicated. Nursing Notes 02/06/17 16:27 Nurse Note by Kaylen Camacho RN gave report to marck at [facility] faxed report RN is calling for ambulance. Initialized on 02/06/17 16:27 - END OF NOTE 02/06/17 15:38 PT Acute Daily Note by Josette Tony Physical Therapy PT Acute Daily Note. Start: 02/05/17 12: 55 Freq: Status: Active Document 02/06/17 15:30 ADH (Rec: 02/06/17 15:37 ADH [id number]) General/Subjective General Date of Admission 02/03/17 Referring Provider Kellie Bowens PT Visit # 2 Diagnosis Disorientation, unspecified PT Treatment Diagnosis Other abnormalities of gait and mobility Subjective Subjective Pt sitting in chair upon entry with [id number] present. Pt agreeable to work with PICU NURSE but also requesting asssit to restroom to have a BM. Precautions Restrictions/Precautions Fall Precautions/Risk Restrictions/Precautions Rib fx L side - No UE theraband. Objective Functional Mobility Transfers Pt performed all functional transfers with CGA noting pt to have good stability and was cued to place less WB through L arm due to having pain from rib fractures. Gait Pt ambulated with PERFORMANCE ARCHITECT into restroom 2x15 ft noting pt to have good stability and not LOB observed with this activity. Therapeutic Exercise General Exercise Trunk/Lower Extremity Seated Hip Abduction/Adduction Alternating Seated Long Arc Quad Alernating Seated Ankle Heel/Toe Raises Standing Hip Flexion (January) Regional Exercise Completed Bilateral Lower Extremity Exercise Type Active Range of Motion # Sets 1 Repetitions 10 Exercise Tolerance Good Exercise Comment Pt attempted to perform hip flexion exercise in sitting with reports of pain in L side at ribs with this movement. Attempted to reduce the motion but pt stil reported pain therefore performed in standing with PERFORMANCE ARCHITECT noting pt to tolerate transition very well with no LOB observed while standing. Pt performed all other tasks well. Assessment and Plan Assessment Assessment Pt is compliant and pleasant with good family support noted . Pt was stable with activity and showed good ROM with exercises. More of her family entered room therefore pt elected to remain seated in chair. Disposition at end of Eval/Treatment Up in chair Lines intact Family in room Call light/phone within reach Tray table within reach All needs met Plan Plan Continue to progress gait training. Time Started 14:28 Time Ended 14:45 Total Treatment Time (Min) (min) 17 Timed Code Treatment Minutes (min) 15 D/C Needs Estimated PT Needs at Discharge SNF/ECF Charge Sheet G-Code Therapies Therapeutic Exercise 1 Documentation Complete PT Charges/Documentation Finished? Yes Last Visit Is patient being discharged from PT No today? Preliminary Draft Until Electronically Signed by Supervising Therapist Initialized on 02/06/17 15:38 - END OF NOTE 02/06/17 13:30 OT Acute/Nursery Daily N. by Pipo Dominguez Occupational Therapy OT Acute Daily Note Start: 02/05/17 14: 01 Freq: Status: Active Document 02/06/17 13:25 MDS (Rec: 02/06/17 13:29 MDS [id number]) General/Subjective General Date of Admission 02/03/17 Referring Provider Kellie Bowens OT Visit # 2 Diagnosis Disorientation, unspecified OT Treatment Diagnosis Weakness Subjective Subjective Upon arrival pt was sitting in bed side chair. Pt stated that she was feeling alright today. Pt pleasant and willing to participate in therapy. Precautions Restrictions/Precautions Fall Precautions/Risk Restrictions/Precautions Rib fx L side - No UE theraband. Objective Functional Ability Transfers Pt perforing 3 sit-stands with CGA using walker. Pt performed functional mobility through room while being educated on safety with transfers and walker with CGA using walker. Balance F+ Endurance F+ Rehab Education Education Provided Education Topic ADLs Transfers Safety Awareness Conservation Techniques Teaching Recipient Patient Teaching Method Verbal Response to Teaching Verbalize understanding Assessment/Plan Assessment Assessment Pt needing mod rest breaks throughout treatment and min verbal cues for safety. Progression Toward Goals Pt progressing well towards goals at this time. Disposition at end of Eval/Treatment Up in chair Lines intact Family in room Call light/phone within reach Tray table within reach All needs met Plan Plan Continue to increase I with adls and transfers while collaborating with OTR. Time Started 10:00 Time Ended 10:10 Total Treatment Time (Min) (min) 10 Timed Code Treatment Minutes (min) 10 Estimated OT Needs at Discharge SNF/ECF Charge Sheet G-Code Therapies Therapeutic Activity 1 Documentation Complete OT Charges/Documentation Finished? Yes Last Visit Is patient being discharged from OT No today? Preliminary Draft Until Electronically Signed by Supervising Therapist Initialized on 02/06/17 13:30 - END OF NOTE 02/06/17 09:07 Social Work Note by Abbey Irene SURVEYOR HELPER notified Britney at [facility] of possible d/c today. Initialized on 02/06/17 09:07 - END OF NOTE 02/05/17 14:09 OT Evaluation by Pina Mayer (Please sign and return this section for non-electronic signatures) I have reviewed, and agree with, the below stated plan of care: Referring Provider Signature/Printed Name Date OT Treatment Diagnosis Weakness Assessment pt demo'ed the above areas of OT concern during acute OT eval. Pt can benefit from skilled OT services to increase functional (I) during acute stay. Based on current performance, highly recommend Pt d/c to SNF. Rehab Potential Good Planned OT Interventions Therapeutic Exercise,Therapeutic Activity,Self Care/Home Management,OT Evaluation,Re- Evaluation OT Treatment Frequency Once a Day, Mon-Fri Estimated OT Needs at SNF/ECF Discharge Patient will participate Minimal Assistance Patient will improve AM-PAC 6 CLICKS Patient will perform paced 5-7 minutes functional activity/ADLs while st Patient will improve B/L ue WITH 1-3 LB FREE WEIGHTS ONLY strength by 1/2 grade Patient will complete 10-15 min with breaks Patient will complete bed Modified Independent Patient will improve Modified Independent Patient will verbally/ Walker Safety/Assistive D demonstrate recall of precautio Occupational Therapy OT Acute Eval Start: 02/05/17 14: 01 Freq: Status: Active Document 02/05/17 14:01 WERNERB (Rec: 02/05/17 14:08 TNB [id number]) Inpatient Rehab Intake History Date of Admission 02/03/17 Chief Complaint confusion, fall PMH/Surgical History Relevant to Rehab arthritis, DM, GERD, HTN, osteoporosis, CKD, iron deficiency anemia, back surgery Factors/Comorbidities Impacting POC DM HTN Prior Treatment/Testing x-ray - fx. ribs left 11th and 12th Medical Diagnosis Diagnosis Disorientation, unspecified Reason for Referral/Orders Evaluate, develop, and implement POC Safety/Limitations History of falls in past 6 months Has fallen 1-2 times Restrictions/Precautions Fall Precautions/Risk Additional Restrictions/Precautions Rib fx L side - No UE theraband. Home/PLOF History Provided By Patient Lives With: lives with son and his family. They are not available 24/06 Type of Dwelling Single Family Home Number of Floors (Floors) 2 Number of Stairs to Enter (Stairs) 5 Are there handrails? Bilateral Bathing Environment Shower Home Environment Details first floor setup from pt. Current DME Front Wheeled Walker Four Wheeled Walker/Rollator Cane Shower Chair Grab Bars in Shower Prior Level Of Function independent Prior Mobility Level independent Driving yes, son can also provide transportation Patient/Family Goal Return home but open to rehab Pain Assessment Pain Present Pain Present Reports Pain Pain left ribs Intensity 8 Scale Used when moving Functional Mobility Assessment Bed Mobility Bed Mobility Ability Minimum Assistance 1 Person Assist Bed Mobility Assistive Devices Bed Rail Elevated HOB Bed Transfers Bed Transfer Ability Minimum Assistance 1 Person Assist Bed Transfer Assistive Devices Rolling Walker Transfer Belt Chair Transfers Chair Transfer Ability Minimum Assistance 1 Person Assist Chair Transfer Assistive Devices Rolling Walker Transfer Belt Balance Static Sitting Balance Ability Good Dynamic Sitting Balance Ability Good Static Standing Balance Ability Good -/Fair + Dynamic Standing Balance Ability Good -/Fair + Ambulation Assistive Devices Rolling Walker Endurance Activity Tolerance Good ADL Assessment Grooming Grooming Ability Setup Upper Body Dressing Upper Body Dressing Ability Setup Lower Body Dressing Lower Body Dressing Ability Minimum Assistance Bathing Washing/Drying Upper Body Ability Setup Washing/Drying Lower Extremities Ability Minimum Assistance Eating Eating (Feeding) Ability Setup Toileting Performing Toilet Hygiene Ability Setup Managing Clothing Ability Minimum Assistance Functional Activity Tolerance Activity Tolerance Fair Comment ADL's pt able to stand for ~3 minutes with use of FWW before requiring sit down rest break with minimal physical exertion. Gross Strength/ROM Upper Extremity Gross UE Strength Other (See Detail) Gross UE ROM Other (See Detail) UE ROM/Strength Detail No MMT performed 2/2 to Rib fx 's and pain. UE weakness observed with bed mobility and functional transfers . Edema/Skin Integrity Skin Integrity Comment intact and functional Gross Sensorimotor Sensory Gross Sensation No Deficit Noted Coordination Gross Coordination No Deficit Noted Fine Motor Coordination No Deficit Noted Cognition/Visual Assessment Alertness/Orientation Level of Alertness Alert Active Patient Orientation Person Place Date of Awareness/Safety Safety Awareness Situational Awareness Attention to Task No Deficits Noted Safety Awareness Comment Pt with intermittent confusion noted. Son had to re-orient patient at times. Visual Visual Acuity No Deficits Noted Visual Processing Visual Spatial Deficit No Deficits Noted Auditory Hearing Ability Normal Comprehension Ability to Follow Directions Follows Two Step Comprehension Ability No Impairment Expression/Communication Patient Behavior Appropriate Cooperative Speech Pattern Clear Appropriate Eye Contact Maintains Eye Contact Problem Solving Problem Solving Ability Able To Solve Simple Problems Rehab Education Education Provided Education Topic Bed Mobility Transfers Gait Safety Awareness Teaching Recipient Patient Teaching Method Verbal Response to Teaching Return demonstration Verbalize understanding Acute OT POC Stroke Is patient being assessed for No rehabilitation for diagnosis of stroke? Summary [facility] OT Inpatient Daily Activity Raw 20 Score -[facility] 0-100% Impaired Score 38 Problems/Impairments/Functional Decreased Functional Endurance Limitation Decreased ADL's/IADL's Decreased Safety/Judgement/ Cognition Decreased Functional Mobility/ Transfers Decreased Standing Tolerance Needs AE/Compensatory Education Decreased Functional Reach Assessment pt demo'ed the above areas of OT concern during acute OT eval. Pt can benefit from skilled OT services to increase functional (I) during acute stay. Based on current performance, highly recommend Pt d/c to SNF. Rehab Potential Good Disposition at end of Eval/Treatment Up in chair Lines intact Family in room Call light/phone within reach Tray table within reach All needs met Plan of Care OT Treatment Diagnosis Weakness Planned OT Interventions Therapeutic Exercise Therapeutic Activity Self Care/Home Management OT Evaluation Re-Evaluation OT Treatment Frequency Once a Day, Mon-Fri Estimated OT Needs at Discharge SNF/ECF OT Estimated DME Needs at D/C Front Wheeled Walker Shower Chair Grab Bars in Shower ADL/Outcome Goals Patient will participate in ADLs of Minimal Assistance various media (dressing,bathing) with___ __ to improve ADL I/participation by hospital discharge. Patient will improve functional outcome [facility] 6 CLICKS score on by noted improvement of score (increase or decrease as measured on tool by 2 points) within short term hospitalization stay. Strength/ROM/Endurance Goals Patient will perform paced functional 5-7 minutes activity/ADLs while standing for to improve functional activity tolerance as needed for improved ADL performance prior to discharge. Patient will improve strength by 1 B/L ue WITH 1-3 LB FREE /2 grade to improve ADL participation & WEIGHTS ONLY independence by short term hospial stay. Patient will complete of paced 10-15 min with breaks therapeutic exercise to improve functional stamina as needed for daily routine & ADLs by hosptial discharge. Functional Mobility/Standing Goals Patient will complete bed mobility to Modified Independent improve functional mobility as needed for ADL participation with by hospital discharge. Patient will improve functional transfer Modified Independent ability to to improve independence with ADLs by dicharge from hospital. Compensation/Educational Goals Patient will verbally/demonstrate recall Walker Safety/Assistive Device of precautions in order to increase safety with ADLs & promote proper healing by discharge. Supervising Therapist Supervising Therapist Pina Mayer Eval and Re-Eval Charges G-Code Evaluation Time Evaluation Time: Minutes with Patient 35 Complexity Eval/Re-eval Occupational Therapy Evaluation Moderate Yes Complexity Documentation Complete OT Charges/Documentation Finished? Yes Last Visit Is patient being discharged from OT No today? Business Needs Financial Class MCR Secondary Payer Y OT G-code Therapy Billing Start: 02/05/17 14: 01 Freq: Status: Active Document 02/05/17 14:08 TNB (Rec: 02/05/17 14:09 TNB [id number]) OT G-codes G-Code Required G-code Required For This Visit No Current G-code Status OT Current Status Carry OT Current Status Modifier At least 20% but less than 40% impaired, limited or restricted Goal G-code Status OT Goal Status Self Care OT Goal Status Modifier At least 20% but less than 40% impaired, limited or restricted Preliminary Draft Until Electronically Signed by Supervising Therapist Initialized on 02/05/17 14:09 - END OF NOTE 02/05/17 13:34 Clinical Case Mgmt by Nayeli Stiles Clinical Case Mgmt Is Patient Currently Being No Followed By Navigation What Brought The Patient To [facility] on CKD; Fall; Hyperkalemia; Rib fractures; The Hospital Poss UTI Does The Patient Have A Yes Physician That They See Regularly Regular Provider Jody Ellington Does The PT Have Any Trouble No Getting To Their Appointment Are There Any Meds The PT Has No Trouble Getting Filled Monthly Does The Patient Plan To No: Referral to [facility] for rehab Return Home Is The Patient Appropriate For No Case Management Is The Patient Appropriate For Yes: Referral to [facility] for rehab. Social Work Consult Referrals Made Yes Is The PT Appropriate For No Navigation Or Payer Case Mgmt Initialized on 02/05/17 13:34 - END OF NOTE 02/05/17 13:11 PT Evaluation by Ursula Ramírez (Please sign and return this section for non-electronic signatures) I have reviewed, and agree with, the below stated plan of care: Referring Provider Signature/Printed Name Date Assessment Pt. is an 81y/o female admitted with disorientation and fall sustaining left rib fxs. x 2. Pt. lives with son and his family but is alone throughout the day d/t their work schedules. Pt. independent with all mobility prior to admit without device. Pt. now min/CGA for all mobility using WW. Recommend continued PT during hospital and discharge to SNF for continued therapy services for strengthening, pt . education, mobility, and gait to increase independence for return home PT Treatment Diagnosis Other abnormalities of gait and mobility Rehab Potential Good Planned Interventions Therapeutic Exercise,Therapeutic Activity,Gait Training,Re-Evaluation PT Treatment Frequency Once a Day, Mon-Fri Duration of Treatment 10 visits Estimated PT Needs at SNF/ECF Discharge Pt. will perform all bed Contact Guard Assistance mobility Pt. will perform all transfers Contact Guard Assistance Pt. will demonstrate at least 50 feet with WW and SBA static/dynamic balance Pt. will verbally recall Walker Safety/Assistive D precautions without cues Physical Therapy PT Acute Eval Start: 02/05/17 12: 55 Freq: Status: Active Document 02/05/17 12:55 GREG (Rec: 02/05/17 13:10 GREG [id number]) Inpatient Rehab Intake History Date of Admission 02/03/17 Chief Complaint confusion, fall PMH/Surgical History Relevant to Rehab arthritis, DM, GERD, HTN, osteoporosis, CKD, iron deficiency anemia, back surgery Factors/Comorbidities Impacting POC DM HTN Prior Treatment/Testing x-ray - fx. ribs left 11th and 12th Medical Diagnosis Diagnosis Disorientation, unspecified Reason for Referral/Orders Evaluate, develop, and implement POC Safety/Limitations History of falls in past 6 months Has fallen 1-2 times Restrictions/Precautions Fall Precautions/Risk Home/PLOF History Provided By Patient Lives With: lives with son and his family. They are not available 24/06 Type of Dwelling Single Family Home Number of Floors (Floors) 2 Number of Stairs to Enter (Stairs) 5 Are there handrails? Bilateral Bathing Environment Shower Home Environment Details first floor setup from pt. Current DME Front Wheeled Walker Four Wheeled Walker/Rollator Cane Shower Chair Grab Bars in Shower Prior Level Of Function independent Prior Mobility Level independent Driving yes, son can also provide transportation Patient/Family Goal Return home but open to rehab Pain Assessment Pain Present Pain Present Reports Pain Pain left ribs Pain Description With Movement Highest Pain Intensity 8 Lowest Pain Intensity 0 Scale Used Numeric (1 - 10) Functional Mobility Assessment Bed Mobility Bed Mobility Ability Minimum Assistance 1 Person Assist Bed Mobility Assistive Devices Bed Rail Elevated HOB Bed Transfers Bed Transfer Ability Minimum Assistance 1 Person Assist Bed Transfer Assistive Devices Rolling Walker Transfer Belt Chair Transfers Chair Transfer Ability Minimum Assistance 1 Person Assist Chair Transfer Assistive Devices Rolling Walker Transfer Belt Balance Static Sitting Balance Ability Good Dynamic Sitting Balance Ability Good Static Standing Balance Ability Good -/Fair + Dynamic Standing Balance Ability Good -/Fair + Ambulation Assistive Devices Rolling Walker Endurance Activity Tolerance Good Additional Info Additional Information Pt. required cueing for proper hand placement for safety with transfers. No shortness of breath with activity. Increased pain geoffrey. with transitional movements Gait/Stairs Deviation Assess. General Ambulation Ability Contact Guard Assist (CGA) 1 Person Assist Ambulation Distance (ft) (feet) 22 Ambulation Assistive Device Rolling Walker Gait Belt General Gait Pattern Trunk Anterior to Pelvis Ambulation Ability Comments Decreased ant with gait. Pt. normally independent ambulator without device but now requiring WW for increased stability Gross Strength/ROM Upper Extremity UE ROM/Strength Detail See OT eval Lower Extremity Gross LE Strength Impaired Gross LE ROM Within Functional Limits LE ROM/Strength Detail 4- to 4/5 Torso/Spine Torso/Spine Detail trunk 4/5 Limitations/Factors of Tone Rating Muscle Tone Description Normal Edema/Skin Integrity Skin Integrity Comment intact Gross Sensorimotor Sensory Gross Sensation No Deficit Noted Coordination Assessment General Gross Coordination No Deficit Noted Cognition/Visual Assessment Alertness/Orientation Level of Alertness Alert Patient Orientation Person Place Date of Awareness/Safety Safety Awareness Situational Awareness Attention to Task No Deficits Noted Visual Visual Acuity No Deficits Noted Visual Processing Visual Spatial Deficit No Deficits Noted Auditory Hearing Ability Normal Comprehension Ability to Follow Directions Follows Two Step Comprehension Ability No Impairment Expression/Communication Patient Behavior Appropriate Cooperative Speech Pattern Clear Appropriate Eye Contact Maintains Eye Contact Problem Solving Problem Solving Ability Able To Solve Simple Problems Rehab Education Education Provided Education Topic Bed Mobility Transfers Gait Safety Awareness Teaching Recipient Patient Teaching Method Verbal Response to Teaching Return demonstration Verbalize understanding Acute Care PT POC Stroke Is patient being assessed for No rehabilitation for diagnosis of stroke? Summary [facility] PT Basic Mobility Raw Score 14 [facility] CMS 0-100% Impaired Score 48 Standardized Testing/Functional Outcomes [facility] 5 items Utilized/Results Problems/Impairments/Functional Decreased Functional Mobility/ Limitation Transfers Decreased Standing Tolerance Needs AE/Compensatory Education Balance Impaired Gait Decreased Strength Assessment Pt. is an 81y/o female admitted with disorientation and fall sustaining left rib fxs. x 2. Pt. lives with son and his family but is alone throughout the day d/t their work schedules. Pt. independent with all mobility prior to admit without device. Pt. now min/CGA for all mobility using WW. Recommend continued PT during hospital and discharge to SNF for continued therapy services for strengthening, pt. education, mobility, and gait to increase independence for return home Rehab Potential Good Disposition at end of Eval/Treatment Up in chair Lines intact Family in room Call light/phone within reach Tray table within reach All needs met Plan of Care PT Treatment Diagnosis Other abnormalities of gait and mobility Planned Interventions Therapeutic Exercise Therapeutic Activity Gait Training Re-Evaluation PT Treatment Frequency Once a Day, Mon-Fri Duration of Treatment 10 visits Goals Determined With Patient/Family Yes Estimated PT Needs at Discharge SNF/ECF Functional Mobility Goals Pt. will perform all bed mobility with__ Contact Guard Assistance ___to increase functional indendence. Pt. will perform all transfers with Contact Guard Assistance to increase safe functional mobility and independence. Pt. will demonstrate static/dynamic at least 50 feet with WW and balance during all functional activities SBA allowing increased safety awareness. Education Goals Pt. will verbally recall precautions Walker Safety/Assistive Device without cues for increased safety & compliance in discharge environment. Supervising Therapist Supervising Therapist Ursula Ramírez Eval and Re-Eval Charges G-Code Evaluation Time Evaluation Time: Minutes with Patient 21 Complexity Eval/Re-eval Physical Therapy Evaluation Low Yes Complexity Documentation Complete PT Charges/Documentation Finished? Yes Last Visit Is patient being discharged from PT No today? Business Needs Please Select All That Apply To Today's Myra-godes Documented Visit Financial Class MCR Secondary Payer Y PT G-code Therapy Billing Start: 02/05/17 12: 55 Freq: Status: Active Document 02/05/17 12:55 GREG (Rec: 02/05/17 13:10 GREG PTC12) PT G-codes G-Code Required G-code Required For This Visit No Current G-code Status PT Current Status Mobility PT Current Status Modifier At least 40% but less than 60% impaired, limited or restricted Goal G-code Status PT Goal Status Mobility PT Goal Status Modifer At least 20% but less than 40% impaired, limited or restricted Preliminary Draft Until Electronically Signed by Supervising Therapist Initialized on 02/05/17 13:11 - END OF NOTE 02/05/17 12:57 Cooler Conveyor Loader Note by Glo Dick Spoke with Britney/rosario via phone. Stated they needed further info on pt. Printed notes and faxed to her. Initialized on 02/05/17 12:57 - END OF NOTE 02/05/17 10:50 Social Work Note by Abbey Irene Addendum entered and electronically signed by Abbey Irene 02/05/17 16:06 : SURVEYOR HELPER faxed PT OT notes to [facility] when they became available. Britney from [facility] contacted SURVEYOR HELPER stating that patient is approved for their facility. SURVEYOR HELPER relayed this to LISA Rowan. SURVEYOR HELPER attempted to meet with patient to relay information, but patient had visitors in room. HENS complete. Original Note: SURVEYOR HELPER received a request for PT OT and nursing notes from Britney at [facility]. SURVEYOR HELPER passed request on to Margarette [facility], and SURVEYOR HELPER also let Britney at [facility] know that PT OT notes were not yet available. Initialized on 02/05/17 10:50 - END OF NOTE 02/05/17 05:20 Nurse Note by Ilana Demarco informed primary RN of current BP: current BP 179/62 previous 148/61 Initialized on 02/05/17 05:20 - END OF NOTE 02/05/17 00:21 Nurse Note by Ilana Demarco informed primary RN of current BP: 169/68. provided [facility] . patient denies needs at this time Initialized on 02/05/17 00:21 - END OF NOTE 02/04/17 21:16 Nurse Note by Ilana Demarco patient denies needs at this time Initialized on 02/04/17 21:16 - END OF NOTE 02/04/17 14:55 Cooler Conveyor Loader Note by Glo Dick Per request from [facility] sent referral packet to [facility]. Initialized on 02/04/17 14:55 - END OF NOTE 02/04/17 14:38 Social Work Note by Abbey Irene SURVEYOR HELPER met with patient and daughter in law to discuss ECF placement. Daughter in law stated that she preferred [facility] or [facility]. Patient stated she would prefer to go to [facility], as she has friends who are there. SURVEYOR HELPER left a voicemail for Britney at [facility], and Margarette from [facility] will fax clinical info. Initialized on 02/04/17 14:38 - END OF NOTE 02/04/17 14:19 Medicare IM by Domenica Ayers A Important Message from Medicare reviewed with Gerri Mann and patient verbalized understanding. Original notice provided to patient and signed copy placed on chart. Initialized on 02/04/17 14:19 - END OF NOTE 02/04/17 07:41 Transport Report by Josefa Peng Date: 02/04/17 Transport Method: Ambulatory Penicillins Allergy (Intermediate, Verified 12/29/15 11:31) Hives Resuscitation Status 02/04/17 08:00 US thyroid [US] Routine Mode Of Transportation: Ambulatory Reason For Exam: hypercalcemia; thyroid goiter Order Doctor: Juma Mina Exam Performed At:: [facility] Additional Notes/Special Instructions: FLOOR AWARE, TRANSPORT AWARE Oxygen: Room Air Mental Status: Agitation/Confusion Fall Risk: Isolation: Nurse Required for Transport: No ___ Yes Limb Restrictions: No ___ Yes Behavioral issue/Risk for Elopement: No ___ Yes Telemetry Room Notification: Destination: MRI XRAY STRESS ULTRASOUND CT DIALYSIS ENDO OTHER: Depart Time: Nurse: Transporter: Arrive Time: Received by: ___ Return Time: Nurse: Transporter: ] Initialized on 02/04/17 07:41 - END OF NOTE 02/03/17 18:21 Nurse Note by Mary Anne Mercado charting by student nurse Libia Lama reviewed Initialized on 02/03/17 18:21 - END OF NOTE 02/03/17 10:10 (created 02/03/17 11:01) Nurse Note by Mary Anne Mercado returned from testing without incident - assisted back into bed with call light in reach - family at bedside Initialized on 02/03/17 11:01 - END OF NOTE 02/03/17 09:50 (created 02/03/17 10:50) Nurse Note by Mary Anne Mercado patient off of unit in W/C accompanied by transport staff for testing Initialized on 02/03/17 10:50 - END OF NOTE 02/02/17 20:51 Transport Report by Colby Mccabe Date: 02/02/17 Transport Method: Ambulatory Penicillins Allergy (Intermediate, Verified 12/29/15 11:31) Hives Resuscitation Status 02/02/17 20:36 ECG 12 lead ECG [ECG] Stat Mode Of Transportation: Ambulatory Reason For Exam: Fall, confusion Order Doctor: Bipin Kingston Exam Performed At:: [facility] 02/02/17 20:37 CT head/brain wo con [CT] Stat Mode Of Transportation: Ambulatory Reason For Exam: Confusion, fall, head injury Order Doctor: Bipin Kingston Exam Performed At:: [facility] Allergic to Contrast: No 02/02/17 20:38 CT abd pelvis w iv no oral [CT] Stat Mode Of Transportation: Ambulatory Quantity: 1 Reason For Exam: Fall, abdominal pain Order Doctor: Bipin Kingston Exam Performed At:: [facility] Allergic to Contrast: No CT cervical spine wo con [CT] Stat Mode Of Transportation: Ambulatory Reason For Exam: Confusion, fall, head injury Order Doctor: Bipin Kingston Exam Performed At:: [facility] 02/02/17 20:39 CT chest w con [CT] Stat Mode Of Transportation: Ambulatory Reason For Exam: Fall, chest pain left side Order Doctor: Bipin Kingston Exam Performed At:: [facility] Allergic to Contrast: No CT lumbar spine wo con [CT] Stat Mode Of Transportation: Ambulatory Reason For Exam: Fall, back pain Order Doctor: Bipin Kingston Exam Performed At:: [facility] Allergic to Contrast: No CT thoracic spine wo con [CT] Stat Mode Of Transportation: Ambulatory Reason For Exam: Fall, chest and back pain Order Doctor: Bipin Kingston Exam Performed At:: [facility] Allergic to Contrast: No Oxygen: Mental Status: Fall Risk: Isolation: Nurse Required for Transport: No ___ Yes Limb Restrictions: No ___ Yes Behavioral issue/Risk for Elopement: No ___ Yes Telemetry Room Notification: Destination: MRI XRAY STRESS ULTRASOUND CT DIALYSIS ENDO OTHER: Depart Time: Nurse: Transporter: Arrive Time: Received by: ___ Return Time: Nurse: Transporter: ] Initialized on 02/02/17 20:51 - END OF NOTE Orders 02/02/17 20:19 POC Glucometer Test [POC] Routine 02/02/17 20:35 Saline lock [RC] .ONCE 0.9 % Sodium Chloride 1,000 ml IVC 3,750 mls/hr 02/02/17 20:36 ECG 12 lead ECG [ECG] Stat Mode Of Transportation: Ambulatory Reason For Exam: Fall, confusion Order Doctor: Bipin Kingston Exam Performed At:: [facility] 02/02/17 20:37 12 lead ECG assessment [RC] NOW CT head/brain wo con [CT] Stat Mode Of Transportation: Ambulatory Reason For Exam: Confusion, fall, head injury Order Doctor: Bipin Kingston Exam Performed At:: [facility] Allergic to Contrast: No 02/02/17 20:38 CT abd pelvis wo no iv no oral [CT] Stat Mode Of Transportation: Ambulatory Reason For Exam: Fall, abdominal pain Order Doctor: Bipin Kingston Exam Performed At:: [facility] Allergic to Contrast: No CT cervical spine wo con [CT] Stat Mode Of Transportation: Ambulatory Reason For Exam: Confusion, fall, head injury Order Doctor: Bipin Kingston Exam Performed At:: [facility] 02/02/17 20:39 CT chest wo con [CT] Stat Mode Of Transportation: Ambulatory Reason For Exam: Fall, chest pain left side Order Doctor: Bipin Kingston Exam Performed At:: [facility] Allergic to Contrast: No CT lumbar spine wo con [CT] Stat Mode Of Transportation: Ambulatory Reason For Exam: Fall, back pain Order Doctor: Bipin Kingston Exam Performed At:: [facility] Allergic to Contrast: No CT thoracic spine wo con [CT] Stat Mode Of Transportation: Ambulatory Reason For Exam: Fall, chest and back pain Order Doctor: Bipin Kingston Exam Performed At:: [facility] Allergic to Contrast: No 02/02/17 20:44 Activated Partial Thrombo Time [COAG] Stat Comment: Specimen: Send someone from the department to collect Basic Metabolic Panel Stat Comment: Specimen: Send someone from the department to collect CRP [C-Reactive Protein] Stat Comment: Specimen: Send someone from the department to collect Complete Blood Count [HEME] Stat Comment: Specimen: Send someone from the department to collect Lactic Acid ([facility] Only) Stat Comment: Specimen: Send someone from the department to collect Lipase Stat Comment: Specimen: Send someone from the department to collect Parathyroid Hormone Intact Routine Prothrombin Time INR [COAG] Stat Comment: Specimen: Send someone from the department to collect TSH [Thyroid Stimulating Hormone] Stat Comment: Specimen: Send someone from the department to collect Thyroxine (T4) Free Stat Troponin I Stat Comment: Specimen: Send someone from the department to collect liver [Hepatic Panel] Stat Comment: Specimen: Send someone from the department to collect 02/02/17 23:07 0.9 % Sodium Chloride 1,000 ml IVC 3,750 mls/hr 02/02/17 23:[address] Stat Comment: Reason for Visit: Fall, rib fx, Hypercalcemia, confusion 02/02/17 23:29 Mojica [Urinary cath initate/manage] [RC] .ONCE 02/02/17 23:30 Culture,Urine [RM] Stat LAKISHA Source: C Specimen Description: Urinalysis Reflex Cult & Micro [URIN] Stat Comment: Specimen: Has been collected 02/02/17 23:36 Culture,Blood [BC] Stat Comment: LAKISHA Source: Peripheral Venipuncture Quantity: 1 Specimen: Send someone from the department to collect Specimen Description: 02/02/17 23:41 Culture,Blood,Additional [BC] Stat Comment: [place] Source: Peripheral Venipuncture Quantity: 2 Specimen: Send someone from the department to collect Specimen Description: 02/03/17 01:16 POC Glucometer Test [POC] Routine 02/03/17 01:35 Ciprofloxacin 400 MG/200 ML [Cipro 400 MG/200 ML] 400 mg in 200 ml IVPB ONCE 02/03/17 02:32 Bed rest [RC] .CONT Physician Instructions: Bed rest w/bedside commode [RC] .PRN Cardiac Monitoring Med/Surg [RC] .CONT Telemetry Reason: Stroke/Syncope/TIA Continuous pulse oximetry [RC] CONT Comment: Measure intake and output [RC] QSHIFT Measure weight [RC] DAILY Peripheral IV [RC] CONT Placement to Observation Routine Physician Instructions: Reason for Visit: Altered mental status Is VTE Prophylaxis Indicated?: Yes Vital Signs Assessment [RC] Q4H Acetaminophen [Tylenol] 650 mg PO Q6HR PRN Docusate [Colace] 100 mg PO BID PRN Morphine [Morphine Sulfate] 2 mg IVP Q4HR PRN Naloxone [Narcan] 0.4 mg IVP Q2MIN PRN Ondansetron [Zofran] 4 mg IVP Q8HR PRN OxyCODONE Immed Rel [Roxicodone] 5 mg PO Q6HR PRN 02/03/17 02:33 Oxygen via nasal cannula Nasal Cannula 2 lpm Comment: Titrate O2 to main O2 sat greater than: 92% RT has an order or consult [RC] NOW 02/03/17 02:37 Consult to Occupational Therapy [CONS] Routine Comment: Evaluate, develop and implement POC Consult to Physical Therapy [CONS] Routine Comment: Evaluate, develop and implement POC 02/03/17 02:44 Lactic Acid ([facility] Only) Stat Comment: Yes #2 Specimen: Send someone from the department to collect 02/03/17 02:45 0.9 % Sodium Chloride 1,000 ml IVC 100 mls/hr Up with Assist Daily Comment: Physician Instructions: 02/03/17 02:52 CT soft tissue neck wo con [CT] Routine Mode Of Transportation: Ambulatory Reason For Exam: thyoid nodules;hypercalcemia Order Doctor: Juma Mina Exam Performed At:: [facility] Allergic to Contrast: No 02/03/17 02:58 B-Type Natriuretic Peptide AM 0400 Comment: Specimen: Send someone from the department to collect Complete Blood Count [HEME] AM 0400 Comment: Specimen: Send someone from the department to collect Troponin I Q6H Comment: Specimen: Send someone from the department to collect 02/03/17 03:00 CefTRIAXone [Rocephin] 1,000 mg D5% in Water (Mini-Bag+) [Dextrose 5% (Minibag +) 100 ML] 100 ml IVPB Q24H 02/03/17 03:43 Comprehensive Metabolic Panel Routine Ionized Calcium AM 0400 Comment: Specimen: Send someone from the department to collect Lipid Panel Routine Magnesium Routine Parathormone Related Peptide AM 0400 Comment: Specimen: Send someone from the department to collect Phosphorous Routine Thyroxine (T4) Free AM 0400 Comment: Specimen: Send someone from the department to collect Thyroxine (T4) Total AM 0400 Comment: Specimen: Send someone from the department to collect 02/03/17 07:21 POC Glucometer Test [POC] Routine 02/03/17 08:00 Aztreonam [Azactam] 1,000 mg D5% in Water (Mini-Bag+) [Dextrose 5% (Minibag+) 100 ML] 100 ml IVPB Q8HR Gemfibrozil [Lopid] 600 mg PO BIDWM 02/03/17 09:00 Atenolol [Tenormin] 50 mg PO DAILY Pantoprazole [Protonix] 40 mg IVP DAILY Simvastatin [Zocor] 10 mg PO DAILY How will this medication be supplied?: Pharmacy to Subsitute 02/03/17 09:22 HydrALAZINE 10 mg IVP Q6HR PRN 02/03/17 09:25 Troponin I Q6H Comment: Specimen: Send someone from the department to collect 02/03/17 09:28 Magnesium Sulfate 2 gm D5% in Water [Dextrose 5%] 100 ml IVPB ONCE 02/03/17 09:30 Amlodipine [Norvasc] 5 mg PO DAILY 02/03/17 10:21 Admit as Inpatient Routine Estimated Total Length of Stay (Days): 2 Plans for Post Hospital Care: Home Inpatient Status Required: Unable to take po meds Explain each choice below Explain Concerns: IV antibiotics, hydration, PT/OT Potential Adverse Outcome: Sepsis Is VTE Prophylaxis Indicated?: Yes 02/03/17 11:37 POC Glucometer Test [POC] Routine 02/03/17 14:44 Troponin I Q6H Comment: Specimen: Send someone from the department to collect 02/03/17 15:55 POC Glucometer Test [POC] Routine 02/03/17 18:00 Heparin 5,000 unit SQ Q12HCO 02/03/17 19:21 DiphenhydraMINE [Benadryl] 25 mg PO HS PRN 02/03/17 21:05 POC Glucometer Test [POC] Routine 02/03/17 Breakfast Diabetic Diet Diet Modifications: 02/04/17 02:45 Up with Assist Daily Comment: Physician Instructions: 02/04/17 06:00 Basic Metabolic Panel AM 0400 Comment: Specimen: Send someone from the department to collect Complete Blood Count [HEME] AM 0400 Comment: Specimen: Send someone from the department to collect 02/04/17 08:00 US thyroid [US] Routine Mode Of Transportation: Ambulatory Reason For Exam: hypercalcemia; thyroid goiter Order Doctor: Juma Mina Exam Performed At:: [facility] Additional Notes/Special Instructions: FLOOR AWARE, TRANSPORT AWARE 02/04/17 08:13 POC Glucometer Test [POC] Routine 02/04/17 11:06 Consult to Coal Inspector [CONS] Routine Reason for SW Consult: Possible home health or placement 02/04/17 11:43 POC Glucometer Test [POC] Routine 02/04/17 12:18 Glucose, blood poc measurement [RC] ACHS Hypoglycemia Treatment Orders [RC] .once Notify provider [RC] once Physician Instructions: D5% in Water [Dextrose 5%] 1,000 ml IV CONT Dextrose 50 % in Water (Syg) [Dextrose 50% (Syg)] 25 ml IVP AD PRN Dextrose Gel [Gluctose] 15 gm PO ONCE PRN Dextrose Gel [Gluctose] 30 gm PO ONCE PRN Glucagon, Human Recombinant [GlucaGen] 1 mg IM ONCE PRN 02/04/17 12:27 0.9 % Sodium Chloride 1,000 ml IVC 60 mls/hr 02/04/17 16:18 POC Glucometer Test [POC] Routine 02/04/17 16:30 Insulin LISPRO [HumaLOG] See Protocol SQ TIDAC 02/04/17 20:10 POC Glucometer Test [POC] Routine 02/04/17 21:00 Insulin LISPRO [HumaLOG] See Protocol SQ HS 02/05/17 02:45 Up with Assist Daily Comment: Physician Instructions: 02/05/17 06:10 Basic Metabolic Panel AM 0400 Comment: Specimen: Send someone from the department to collect Complete Blood Count [HEME] AM 0400 Comment: Specimen: Send someone from the department to collect Hgb A1C AM 0400 Comment: Specimen: Send someone from the department to collect 02/05/17 06:30 Omeprazole [PriLOSEC] 20 mg PO DAILY@0630 02/05/17 07:47 POC Glucometer Test [POC] Routine 02/05/17 08:05 Amlodipine [Norvasc] 10 mg PO DAILY 02/05/17 11:34 POC Glucometer Test [POC] Routine 02/05/17 12:31 OxyCODONE Immed Rel [Roxicodone] 10 mg PO Q6HR PRN 02/05/17 16:26 POC Glucometer Test [POC] Routine 02/05/17 18:32 Polyethylene Glycol 3350 [MiraLAX] 17 gm PO DAILY PRN 02/05/17 20:07 POC Glucometer Test [POC] Routine 02/06/17 02:45 Up with Assist Daily Comment: Physician Instructions: 02/06/17 04:19 BMP [Basic Metabolic Panel] AM 0400 Comment: Specimen: Send someone from the department to collect Complete Blood Count [HEME] AM 0400 Comment: Specimen: Send someone from the department to collect Magnesium AM 0400 Comment: Specimen: Send someone from the department to collect 02/06/17 07:06 POC Glucometer Test [POC] Routine 02/06/17 11:37 POC Glucometer Test [POC] Routine 02/06/17 15:46 Discharge Order [DISCHARGE] Routine Comment: 02/06/17 16:23 POC Glucometer Test [POC] Routine Vital Signs Temp Pulse Resp BP Pulse Ox 02/06/17 15:36 98.9 F 67 15 136/56 97 02/06/17 10:00 93 L 02/06/17 07:13 98.9 F 67 15 162/58 93 L 02/06/17 04:39 99.1 F 74 16 168/63 96 02/05/17 20:45 94 L 02/05/17 20:10 98.2 F 65 18 153/55 96 02/05/17 15:28 98.4 F 66 16 138/70 94 L 02/05/17 11:35 98.2 F 62 18 141/55 94 L 02/05/17 07:52 95 02/05/17 07:45 98.2 F 65 16 177/73 95 02/05/17 05:00 98.1 F 68 18 179/62 02/05/17 00:00 98.1 F 66 17 169/68 02/04/17 21:35 97 02/04/17 21:00 98.1 F 69 17 148/61 02/04/17 15:55 98.6 F 65 16 142/54 97 02/04/17 11:39 98.3 F 58 16 145/56 98 02/04/17 08:11 98.5 F 69 16 172/98 96 02/04/17 08:00 98 02/04/17 05:59 97.7 F 57 156 167/59 97 02/04/17 01:16 98.3 F 59 18 140/66 90 L 02/03/17 20:58 98.2 F 67 16 154/55 95 02/03/17 11:37 97.6 F 60 15 138/52 95 02/03/17 09:50 98 02/03/17 07:22 97.4 F L 52 15 162/77 98 02/03/17 05:01 98.1 F 63 16 172/58 94 L 02/03/17 01:34 64 20 177/67 98 02/03/17 01:29 97.3 F L 70 19 197/83 100 02/03/17 00:18 16 171/64 02/02/17 22:05 67 16 153/56 97 02/02/17 21:34 72 16 160/65 97 02/02/17 20:50 65 16 162/55 97 02/02/17 20:12 98.3 F 60 14 166/61 99 Laboratory Results 02/02/17 02/02/17 02/02/17 Range/Units 20:19 20:44 20:44 WBC 15.3 H (4.3-11.1) K/mcL RBC 3.58 L (3.82-4.97) M/mcL Hgb 11.2 L (11.5-15.4) g/dL Hct 35.1 L (35.3-44.9) % MCV 98.0 (83.0-100.0) fL MCH 31.3 (28.0-33.3) pg MCHC 31.9 (31.6-35.5) g/dL RDW 12.9 (11.5-14.5) % Plt Count 263 (140-400) K/mcL MPV 11.0 (9.4-12.4) fL Immature Gran % 0.7 (0-4) % Seg Neutrophils % 85.8 % Lymphocytes % 8.3 % Monocytes % 4.4 % Eosinophils % 0.5 % Basophils % 0.3 % Neutrophils # 13.1 H (1.6-8.9) K/mcL Lymphocytes # 1.3 (0.6-4.6) K/mcL Monocytes # 0.7 (0.0-1.3) K/mcL Eosinophils # 0.1 (0.0-0.6) K/mcL Basophils # 0.1 (0.0-0.2) K/mcL PT 13.0 H (9.4-12.1) Seconds INR 1.2 APTT 29.0 (26.0-36.0) Seconds Sodium (136-145) mEq/L Potassium (3.5-4.5) mEq/L Chloride (98-109) mEq/L Carbon Dioxide (19-29) mEq/L BUN (7-20) mg/dL Creatinine (0.57-1.11) mg/dL Est GFR ( Amer) (> 60) Est GFR (Non-Af Amer) (> 60) BUN/Creatinine Ratio (6-26) Glucose (70-99) mg/dL POC Glucose 123 H (58-89) Est Mean Plasma Glucose mg/dl Hemoglobin A1c ( - 5.6) % Calculated Osmolality (280-300) Lactic Acid (0.5-2.2) mmol/L Calcium (8.6-10.8) mg/dL Ionized Calcium (1.15-1.35) mmol/L Phosphorus (2.3-4.7) mg/dL Magnesium (1.6-2.6) mg/dL Total Bilirubin (0.2-1.2) mg/dL Direct Bilirubin (0.0-0.5) mg/dL Indirect Bilirubin (0.0-1.2) mg/dL AST (5-34) Units/L ALT (0-55) Units/L Alkaline Phosphatase (38-126) Units/L Troponin I (0-0.03) ng/mL C-Reactive Protein (Less than 5) mg/L B-Natriuretic Peptide (0-100) pg/mL Serum Total Protein (6.0-8.3) g/dL Albumin (3.5-5.0) g/dL Globulin (2.4-3.5) g/dL Albumin/Globulin Ratio (1.1-2.2) Triglycerides (< 150) mg/dL Cholesterol (< 200) mg/dL LDL Cholesterol, Calc (0-99) mg/dL VLDL Cholesterol, Calc (< 31) mg/dL HDL Cholesterol (40-59) mg/dL Cholesterol/HDL Ratio (0-4.9) Lipase (8-78) Units/L TSH (0.350-4.840) mcIU/mL Free T4 (0.70-1.48) ng/dl Thyroxine (T4) (4.87-11.72) mcg/dL PTH Intact (8.5-72.5) pg/ml PTH Related Peptide (0.0-3.4) pmol/L Urine Color (Yellow) Urine Clarity (Clear) Urine pH (5.0-8.0) pH Units Ur Specific [place] (1.010-1.025) Urine Protein (Neg-Trace) mg/dL Urine Glucose (UA) (Normal) mg/dL Urine Ketones (Negative) mg/dL Urine Blood (Negative) Urine Nitrite (Negative) Urine Bilirubin (Negative) Urine Urobilinogen (Normal) mg/dL Ur Leukocyte Esterase (Negative) Urine Microscopic RBC (0-3) per hpf Urine Microscopic WBC (0-3) per hpf Ur Squamous Epith Cells (None-Few) per lpf Urine Bacteria (None-Few) per hpf Hyaline Casts (None-Few) per lpf Ur Culture Indicated? (NO) 02/02/17 02/02/17 02/02/17 Range/Units 20:44 20:44 20:44 WBC (4.3-11.1) K/mcL RBC (3.82-4.97) M/mcL Hgb (11.5-15.4) g/dL Hct (35.3-44.9) % MCV (83.0-100.0) fL MCH (28.0-33.3) pg MCHC (31.6-35.5) g/dL RDW (11.5-14.5) % Plt Count (140-400) K/mcL MPV (9.4-12.4) fL Immature Gran % (0-4) % Seg Neutrophils % % Lymphocytes % % Monocytes % % Eosinophils % % Basophils % % Neutrophils # (1.6-8.9) K/mcL Lymphocytes # (0.6-4.6) K/mcL Monocytes # (0.0-1.3) K/mcL Eosinophils # (0.0-0.6) K/mcL Basophils # (0.0-0.2) K/mcL PT (9.4-12.1) Seconds INR APTT (26.0-36.0) Seconds Sodium 142 (136-145) mEq/L Potassium 3.9 (3.5-4.5) mEq/L Chloride 99 (98-109) mEq/L Carbon Dioxide 28 (19-29) mEq/L BUN 50 H (7-20) mg/dL Creatinine 2.07 H (0.57-1.11) mg/dL Est GFR ( Amer) 28 L (> 60) Est GFR (Non-Af Amer) 23 L (> 60) BUN/Creatinine Ratio 24 (6-26) Glucose 140 H (70-99) mg/dL POC Glucose (58-89) Est Mean Plasma Glucose mg/dl Hemoglobin A1c ( - 5.6) % Calculated Osmolality 310 H (280-300) Lactic Acid 2.4 H (0.5-2.2) mmol/L Calcium 13.6 H* (8.6-10.8) mg/dL Ionized Calcium (1.15-1.35) mmol/L Phosphorus (2.3-4.7) mg/dL Magnesium (1.6-2.6) mg/dL Total Bilirubin 0.5 (0.2-1.2) mg/dL Direct Bilirubin 0.2 (0.0-0.5) mg/dL Indirect Bilirubin 0.3 (0.0-1.2) mg/dL AST 23 (5-34) Units/L ALT 15 (0-55) Units/L Alkaline Phosphatase 94 (38-126) Units/L Troponin I (0-0.03) ng/mL C-Reactive Protein 0 (Less than 5) mg/L B-Natriuretic Peptide (0-100) pg/mL Serum Total Protein 7.5 (6.0-8.3) g/dL Albumin 3.9 (3.5-5.0) g/dL Globulin 3.6 H (2.4-3.5) g/dL Albumin/Globulin Ratio 1.1 (1.1-2.2) Triglycerides (< 150) mg/dL Cholesterol (< 200) mg/dL LDL Cholesterol, Calc (0-99) mg/dL VLDL Cholesterol, Calc (< 31) mg/dL HDL Cholesterol (40-59) mg/dL Cholesterol/HDL Ratio (0-4.9) Lipase 47 (8-78) Units/L TSH (0.350-4.840) mcIU/mL Free T4 (0.70-1.48) ng/dl Thyroxine (T4) (4.87-11.72) mcg/dL PTH Intact (8.5-72.5) pg/ml PTH Related Peptide (0.0-3.4) pmol/L Urine Color (Yellow) Urine Clarity (Clear) Urine pH (5.0-8.0) pH Units Ur Specific [place] (1.010-1.025) Urine Protein (Neg-Trace) mg/dL Urine Glucose (UA) (Normal) mg/dL Urine Ketones (Negative) mg/dL Urine Blood (Negative) Urine Nitrite (Negative) Urine Bilirubin (Negative) Urine Urobilinogen (Normal) mg/dL Ur Leukocyte Esterase (Negative) Urine Microscopic RBC (0-3) per hpf Urine Microscopic WBC (0-3) per hpf Ur Squamous Epith Cells (None-Few) per lpf Urine Bacteria (None-Few) per hpf Hyaline Casts (None-Few) per lpf Ur Culture Indicated? (NO) 02/02/17 02/02/17 02/02/17 Range/Units 20:44 20:44 20:44 WBC (4.3-11.1) K/mcL RBC (3.82-4.97) M/mcL Hgb (11.5-15.4) g/dL Hct (35.3-44.9) % MCV (83.0-100.0) fL MCH (28.0-33.3) pg MCHC (31.6-35.5) g/dL RDW (11.5-14.5) % Plt Count (140-400) K/mcL MPV (9.4-12.4) fL Immature Gran % (0-4) % Seg Neutrophils % % Lymphocytes % % Monocytes % % Eosinophils % % Basophils % % Neutrophils # (1.6-8.9) K/mcL Lymphocytes # (0.6-4.6) K/mcL Monocytes # (0.0-1.3) K/mcL Eosinophils # (0.0-0.6) K/mcL Basophils # (0.0-0.2) K/mcL PT (9.4-12.1) Seconds INR APTT (26.0-36.0) Seconds Sodium (136-145) mEq/L Potassium (3.5-4.5) mEq/L Chloride (98-109) mEq/L Carbon Dioxide (19-29) mEq/L BUN (7-20) mg/dL Creatinine (0.57-1.11) mg/dL Est GFR ( Amer) (> 60) Est GFR (Non-Af Amer) (> 60) BUN/Creatinine Ratio (6-26) Glucose (70-99) mg/dL POC Glucose (58-89) Est Mean Plasma Glucose mg/dl Hemoglobin A1c ( - 5.6) % Calculated Osmolality (280-300) Lactic Acid (0.5-2.2) mmol/L Calcium (8.6-10.8) mg/dL Ionized Calcium (1.15-1.35) mmol/L Phosphorus (2.3-4.7) mg/dL Magnesium (1.6-2.6) mg/dL Total Bilirubin (0.2-1.2) mg/dL Direct Bilirubin (0.0-0.5) mg/dL Indirect Bilirubin (0.0-1.2) mg/dL AST (5-34) Units/L ALT (0-55) Units/L Alkaline Phosphatase (38-126) Units/L Troponin I 0.01 (0-0.03) ng/mL C-Reactive Protein (Less than 5) mg/L B-Natriuretic Peptide 27 (0-100) pg/mL Serum Total Protein (6.0-8.3) g/dL Albumin (3.5-5.0) g/dL Globulin (2.4-3.5) g/dL Albumin/Globulin Ratio (1.1-2.2) Triglycerides (< 150) mg/dL Cholesterol (< 200) mg/dL LDL Cholesterol, Calc (0-99) mg/dL VLDL Cholesterol, Calc (< 31) mg/dL HDL Cholesterol (40-59) mg/dL Cholesterol/HDL Ratio (0-4.9) Lipase (8-78) Units/L TSH 3.386 (0.350-4.840) mcIU/mL Free T4 1.02 (0.70-1.48) ng/dl Thyroxine (T4) (4.87-11.72) mcg/dL PTH Intact 13.6 (8.5-72.5) pg/ml PTH Related Peptide (0.0-3.4) pmol/L Urine Color (Yellow) Urine Clarity (Clear) Urine pH (5.0-8.0) pH Units Ur Specific [place] (1.010-1.025) Urine Protein (Neg-Trace) mg/dL Urine Glucose (UA) (Normal) mg/dL Urine Ketones (Negative) mg/dL Urine Blood (Negative) Urine Nitrite (Negative) Urine Bilirubin (Negative) Urine Urobilinogen (Normal) mg/dL Ur Leukocyte Esterase (Negative) Urine Microscopic RBC (0-3) per hpf Urine Microscopic WBC (0-3) per hpf Ur Squamous Epith Cells (None-Few) per lpf Urine Bacteria (None-Few) per hpf Hyaline Casts (None-Few) per lpf Ur Culture Indicated? (NO) 02/02/17 02/03/17 02/03/17 Range/Units 23:30 01:16 02:44 WBC (4.3-11.1) K/mcL RBC (3.82-4.97) M/mcL Hgb (11.5-15.4) g/dL Hct (35.3-44.9) % MCV (83.0-100.0) fL MCH (28.0-33.3) pg MCHC (31.6-35.5) g/dL RDW (11.5-14.5) % Plt Count (140-400) K/mcL MPV (9.4-12.4) fL Immature Gran % (0-4) % Seg Neutrophils % % Lymphocytes % % Monocytes % % Eosinophils % % Basophils % % Neutrophils # (1.6-8.9) K/mcL Lymphocytes # (0.6-4.6) K/mcL Monocytes # (0.0-1.3) K/mcL Eosinophils # (0.0-0.6) K/mcL Basophils # (0.0-0.2) K/mcL PT (9.4-12.1) Seconds INR APTT (26.0-36.0) Seconds Sodium (136-145) mEq/L Potassium (3.5-4.5) mEq/L Chloride (98-109) mEq/L Carbon Dioxide (19-29) mEq/L BUN (7-20) mg/dL Creatinine (0.57-1.11) mg/dL Est GFR ( Amer) (> 60) Est GFR (Non-Af Amer) (> 60) BUN/Creatinine Ratio (6-26) Glucose (70-99) mg/dL POC Glucose 103 H (58-89) Est Mean Plasma Glucose mg/dl Hemoglobin A1c ( - 5.6) % Calculated Osmolality (280-300) Lactic Acid 1.0 (0.5-2.2) mmol/L Calcium (8.6-10.8) mg/dL Ionized Calcium (1.15-1.35) mmol/L Phosphorus (2.3-4.7) mg/dL Magnesium (1.6-2.6) mg/dL Total Bilirubin (0.2-1.2) mg/dL Direct Bilirubin (0.0-0.5) mg/dL Indirect Bilirubin (0.0-1.2) mg/dL AST (5-34) Units/L ALT (0-55) Units/L Alkaline Phosphatase (38-126) Units/L Troponin I (0-0.03) ng/mL C-Reactive Protein (Less than 5) mg/L B-Natriuretic Peptide (0-100) pg/mL Serum Total Protein (6.0-8.3) g/dL Albumin (3.5-5.0) g/dL Globulin (2.4-3.5) g/dL Albumin/Globulin Ratio (1.1-2.2) Triglycerides (< 150) mg/dL Cholesterol (< 200) mg/dL LDL Cholesterol, Calc (0-99) mg/dL VLDL Cholesterol, Calc (< 31) mg/dL HDL Cholesterol (40-59) mg/dL Cholesterol/HDL Ratio (0-4.9) Lipase (8-78) Units/L TSH (0.350-4.840) mcIU/mL Free T4 (0.70-1.48) ng/dl Thyroxine (T4) (4.87-11.72) mcg/dL PTH Intact (8.5-72.5) pg/ml PTH Related Peptide (0.0-3.4) pmol/L Urine Color Yellow (Yellow) Urine Clarity Slightly Hazy (Clear) Urine pH 6.0 (5.0-8.0) pH Units Ur Specific [place] 1.013 (1.010-1.025) Urine Protein Negative (Neg-Trace) mg/dL Urine Glucose (UA) Normal (Normal) mg/dL Urine Ketones Negative (Negative) mg/dL Urine Blood Negative (Negative) Urine Nitrite Negative (Negative) Urine Bilirubin Negative (Negative) Urine Urobilinogen Normal (Normal) mg/dL Ur Leukocyte Esterase Small H (Negative) Urine Microscopic RBC 3-5 H (0-3) per hpf Urine Microscopic WBC 5-15 H (0-3) per hpf Ur Squamous Epith Cells Many H (None-Few) per lpf Urine Bacteria Many H (None-Few) per hpf Hyaline Casts None Seen (None-Few) per lpf Ur Culture Indicated? YES A (NO) 02/03/17 02/03/17 02/03/17 Range/Units 02:58 02:58 03:43 WBC 15.6 H (4.3-11.1) K/mcL RBC 3.22 L (3.82-4.97) M/mcL Hgb 10.5 L (11.5-15.4) g/dL Hct 31.4 L (35.3-44.9) % MCV 97.5 (83.0-100.0) fL MCH 32.6 (28.0-33.3) pg MCHC 33.4 (31.6-35.5) g/dL RDW 13.0 (11.5-14.5) % Plt Count 217 (140-400) K/mcL MPV 11.2 (9.4-12.4) fL Immature Gran % 0.5 (0-4) % Seg Neutrophils % 75.9 % Lymphocytes % 15.4 % Monocytes % 7.8 % Eosinophils % 0.2 % Basophils % 0.2 % Neutrophils # 11.8 H (1.6-8.9) K/mcL Lymphocytes # 2.4 (0.6-4.6) K/mcL Monocytes # 1.2 (0.0-1.3) K/mcL Eosinophils # 0.0 (0.0-0.6) K/mcL Basophils # 0.0 (0.0-0.2) K/mcL PT (9.4-12.1) Seconds INR APTT (26.0-36.0) Seconds Sodium 142 (136-145) mEq/L Potassium 3.7 (3.5-4.5) mEq/L Chloride 105 (98-109) mEq/L Carbon Dioxide 26 (19-29) mEq/L BUN 45 H (7-20) mg/dL Creatinine 1.67 H (0.57-1.11) mg/dL Est GFR ( Amer) 36 L (> 60) Est GFR (Non-Af Amer) 29 L (> 60) BUN/Creatinine Ratio 27 H (6-26) Glucose 97 (70-99) mg/dL POC Glucose (58-89) Est Mean Plasma Glucose mg/dl Hemoglobin A1c ( - 5.6) % Calculated Osmolality 305 H (280-300) Lactic Acid (0.5-2.2) mmol/L Calcium 11.1 H D (8.6-10.8) mg/dL Ionized Calcium 1.55 H (1.15-1.35) mmol/L Phosphorus 2.2 L (2.3-4.7) mg/dL Magnesium 1.4 L (1.6-2.6) mg/dL Total Bilirubin 0.4 (0.2-1.2) mg/dL Direct Bilirubin (0.0-0.5) mg/dL Indirect Bilirubin (0.0-1.2) mg/dL AST 20 (5-34) Units/L ALT 12 (0-55) Units/L Alkaline Phosphatase 85 (38-126) Units/L Troponin I 0.03 (0-0.03) ng/mL C-Reactive Protein (Less than 5) mg/L B-Natriuretic Peptide (0-100) pg/mL Serum Total Protein 6.4 (6.0-8.3) g/dL Albumin 3.3 L (3.5-5.0) g/dL Globulin 3.1 (2.4-3.5) g/dL Albumin/Globulin Ratio 1.1 (1.1-2.2) Triglycerides 75 (< 150) mg/dL Cholesterol 125 (< 200) mg/dL LDL Cholesterol, Calc 72 (0-99) mg/dL VLDL Cholesterol, Calc 15 (< 31) mg/dL HDL Cholesterol 38 L (40-59) mg/dL Cholesterol/HDL Ratio 3.3 (0-4.9) Lipase (8-78) Units/L TSH (0.350-4.840) mcIU/mL Free T4 0.92 (0.70-1.48) ng/dl Thyroxine (T4) 4.96 (4.87-11.72) mcg/dL PTH Intact (8.5-72.5) pg/ml PTH Related Peptide (0.0-3.4) pmol/L Urine Color (Yellow) Urine Clarity (Clear) Urine pH (5.0-8.0) pH Units Ur Specific [place] (1.010-1.025) Urine Protein (Neg-Trace) mg/dL Urine Glucose (UA) (Normal) mg/dL Urine Ketones (Negative) mg/dL Urine Blood (Negative) Urine Nitrite (Negative) Urine Bilirubin (Negative) Urine Urobilinogen (Normal) mg/dL Ur Leukocyte Esterase (Negative) Urine Microscopic RBC (0-3) per hpf Urine Microscopic WBC (0-3) per hpf Ur Squamous Epith Cells (None-Few) per lpf Urine Bacteria (None-Few) per hpf Hyaline Casts (None-Few) per lpf Ur Culture Indicated? (NO) 02/03/17 02/03/17 02/03/17 Range/Units 03:43 07:21 09:25 WBC (4.3-11.1) K/mcL RBC (3.82-4.97) M/mcL Hgb (11.5-15.4) g/dL Hct (35.3-44.9) % MCV (83.0-100.0) fL MCH (28.0-33.3) pg MCHC (31.6-35.5) g/dL RDW (11.5-14.5) % Plt Count (140-400) K/mcL MPV (9.4-12.4) fL Immature Gran % (0-4) % Seg Neutrophils % % Lymphocytes % % Monocytes % % Eosinophils % % Basophils % % Neutrophils # (1.6-8.9) K/mcL Lymphocytes # (0.6-4.6) K/mcL Monocytes # (0.0-1.3) K/mcL Eosinophils # (0.0-0.6) K/mcL Basophils # (0.0-0.2) K/mcL PT (9.4-12.1) Seconds INR APTT (26.0-36.0) Seconds Sodium (136-145) mEq/L Potassium (3.5-4.5) mEq/L Chloride (98-109) mEq/L Carbon Dioxide (19-29) mEq/L BUN (7-20) mg/dL Creatinine (0.57-1.11) mg/dL Est GFR ( Amer) (> 60) Est GFR (Non-Af Amer) (> 60) BUN/Creatinine Ratio (6-26) Glucose (70-99) mg/dL POC Glucose 112 H (58-89) Est Mean Plasma Glucose mg/dl Hemoglobin A1c ( - 5.6) % Calculated Osmolality (280-300) Lactic Acid (0.5-2.2) mmol/L Calcium (8.6-10.8) mg/dL Ionized Calcium (1.15-1.35) mmol/L Phosphorus (2.3-4.7) mg/dL Magnesium (1.6-2.6) mg/dL Total Bilirubin (0.2-1.2) mg/dL Direct Bilirubin (0.0-0.5) mg/dL Indirect Bilirubin (0.0-1.2) mg/dL AST (5-34) Units/L ALT (0-55) Units/L Alkaline Phosphatase (38-126) Units/L Troponin I 0.01 (0-0.03) ng/mL C-Reactive Protein (Less than 5) mg/L B-Natriuretic Peptide (0-100) pg/mL Serum Total Protein (6.0-8.3) g/dL Albumin (3.5-5.0) g/dL Globulin (2.4-3.5) g/dL Albumin/Globulin Ratio (1.1-2.2) Triglycerides (< 150) mg/dL Cholesterol (< 200) mg/dL LDL Cholesterol, Calc (0-99) mg/dL VLDL Cholesterol, Calc (< 31) mg/dL HDL Cholesterol (40-59) mg/dL Cholesterol/HDL Ratio (0-4.9) Lipase (8-78) Units/L TSH (0.350-4.840) mcIU/mL Free T4 (0.70-1.48) ng/dl Thyroxine (T4) (4.87-11.72) mcg/dL PTH Intact (8.5-72.5) pg/ml PTH Related Peptide 3.4 (0.0-3.4) pmol/L Urine Color (Yellow) Urine Clarity (Clear) Urine pH (5.0-8.0) pH Units Ur Specific [place] (1.010-1.025) Urine Protein (Neg-Trace) mg/dL Urine Glucose (UA) (Normal) mg/dL Urine Ketones (Negative) mg/dL Urine Blood (Negative) Urine Nitrite (Negative) Urine Bilirubin (Negative) Urine Urobilinogen (Normal) mg/dL Ur Leukocyte Esterase (Negative) Urine Microscopic RBC (0-3) per hpf Urine Microscopic WBC (0-3) per hpf Ur Squamous Epith Cells (None-Few) per lpf Urine Bacteria (None-Few) per hpf Hyaline Casts (None-Few) per lpf Ur Culture Indicated? (NO) 02/03/17 02/03/17 02/03/17 Range/Units 11:37 14:44 15:55 WBC (4.3-11.1) K/mcL RBC (3.82-4.97) M/mcL Hgb (11.5-15.4) g/dL Hct (35.3-44.9) % MCV (83.0-100.0) fL MCH (28.0-33.3) pg MCHC (31.6-35.5) g/dL RDW (11.5-14.5) % Plt Count (140-400) K/mcL MPV (9.4-12.4) fL Immature Gran % (0-4) % Seg Neutrophils % % Lymphocytes % % Monocytes % % Eosinophils % % Basophils % % Neutrophils # (1.6-8.9) K/mcL Lymphocytes # (0.6-4.6) K/mcL Monocytes # (0.0-1.3) K/mcL Eosinophils # (0.0-0.6) K/mcL Basophils # (0.0-0.2) K/mcL PT (9.4-12.1) Seconds INR APTT (26.0-36.0) Seconds Sodium (136-145) mEq/L Potassium (3.5-4.5) mEq/L Chloride (98-109) mEq/L Carbon Dioxide (19-29) mEq/L BUN (7-20) mg/dL Creatinine (0.57-1.11) mg/dL Est GFR ( Amer) (> 60) Est GFR (Non-Af Amer) (> 60) BUN/Creatinine Ratio (6-26) Glucose (70-99) mg/dL POC Glucose 150 H 204 H (58-89) Est Mean Plasma Glucose mg/dl Hemoglobin A1c ( - 5.6) % Calculated Osmolality (280-300) Lactic Acid (0.5-2.2) mmol/L Calcium (8.6-10.8) mg/dL Ionized Calcium (1.15-1.35) mmol/L Phosphorus (2.3-4.7) mg/dL Magnesium (1.6-2.6) mg/dL Total Bilirubin (0.2-1.2) mg/dL Direct Bilirubin (0.0-0.5) mg/dL Indirect Bilirubin (0.0-1.2) mg/dL AST (5-34) Units/L ALT (0-55) Units/L Alkaline Phosphatase (38-126) Units/L Troponin I 0.02 (0-0.03) ng/mL C-Reactive Protein (Less than 5) mg/L B-Natriuretic Peptide (0-100) pg/mL Serum Total Protein (6.0-8.3) g/dL Albumin (3.5-5.0) g/dL Globulin (2.4-3.5) g/dL Albumin/Globulin Ratio (1.1-2.2) Triglycerides (< 150) mg/dL Cholesterol (< 200) mg/dL LDL Cholesterol, Calc (0-99) mg/dL VLDL Cholesterol, Calc (< 31) mg/dL HDL Cholesterol (40-59) mg/dL Cholesterol/HDL Ratio (0-4.9) Lipase (8-78) Units/L TSH (0.350-4.840) mcIU/mL Free T4 (0.70-1.48) ng/dl Thyroxine (T4) (4.87-11.72) mcg/dL PTH Intact (8.5-72.5) pg/ml PTH Related Peptide (0.0-3.4) pmol/L Urine Color (Yellow) Urine Clarity (Clear) Urine pH (5.0-8.0) pH Units Ur Specific [place] (1.010-1.025) Urine Protein (Neg-Trace) mg/dL Urine Glucose (UA) (Normal) mg/dL Urine Ketones (Negative) mg/dL Urine Blood (Negative) Urine Nitrite (Negative) Urine Bilirubin (Negative) Urine Urobilinogen (Normal) mg/dL Ur Leukocyte Esterase (Negative) Urine Microscopic RBC (0-3) per hpf Urine Microscopic WBC (0-3) per hpf Ur Squamous Epith Cells (None-Few) per lpf Urine Bacteria (None-Few) per hpf Hyaline Casts (None-Few) per lpf Ur Culture Indicated? (NO) 02/03/17 02/04/17 02/04/17 Range/Units 21:05 06:00 06:00 WBC 6.9 D (4.3-11.1) K/mcL RBC 2.76 L (3.82-4.97) M/mcL Hgb 9.0 L D (11.5-15.4) g/dL Hct 27.4 L (35.3-44.9) % MCV 99.3 (83.0-100.0) fL MCH 32.6 (28.0-33.3) pg MCHC 32.8 (31.6-35.5) g/dL RDW 13.2 (11.5-14.5) % Plt Count 155 (140-400) K/mcL MPV 11.4 (9.4-12.4) fL Immature Gran % 0.3 (0-4) % Seg Neutrophils % 55.5 % Lymphocytes % 32.8 % Monocytes % 8.6 % Eosinophils % 2.2 % Basophils % 0.6 % Neutrophils # 3.8 (1.6-8.9) K/mcL Lymphocytes # 2.3 (0.6-4.6) K/mcL Monocytes # 0.6 (0.0-1.3) K/mcL Eosinophils # 0.2 (0.0-0.6) K/mcL Basophils # 0.0 (0.0-0.2) K/mcL PT (9.4-12.1) Seconds INR APTT (26.0-36.0) Seconds Sodium 141 (136-145) mEq/L Potassium 3.7 (3.5-4.5) mEq/L Chloride 108 (98-109) mEq/L Carbon Dioxide 24 (19-29) mEq/L BUN 36 H (7-20) mg/dL Creatinine 1.56 H (0.57-1.11) mg/dL Est GFR ( Amer) 39 L (> 60) Est GFR (Non-Af Amer) 32 L (> 60) BUN/Creatinine Ratio 23 (6-26) Glucose 221 H (70-99) mg/dL POC Glucose 261 H (58-89) Est Mean Plasma Glucose mg/dl Hemoglobin A1c ( - 5.6) % Calculated Osmolality 307 H (280-300) Lactic Acid (0.5-2.2) mmol/L Calcium 9.2 D (8.6-10.8) mg/dL Ionized Calcium (1.15-1.35) mmol/L Phosphorus (2.3-4.7) mg/dL Magnesium (1.6-2.6) mg/dL Total Bilirubin (0.2-1.2) mg/dL Direct Bilirubin (0.0-0.5) mg/dL Indirect Bilirubin (0.0-1.2) mg/dL AST (5-34) Units/L ALT (0-55) Units/L Alkaline Phosphatase (38-126) Units/L Troponin I (0-0.03) ng/mL C-Reactive Protein (Less than 5) mg/L B-Natriuretic Peptide (0-100) pg/mL Serum Total Protein (6.0-8.3) g/dL Albumin (3.5-5.0) g/dL Globulin (2.4-3.5) g/dL Albumin/Globulin Ratio (1.1-2.2) Triglycerides (< 150) mg/dL Cholesterol (< 200) mg/dL LDL Cholesterol, Calc (0-99) mg/dL VLDL Cholesterol, Calc (< 31) mg/dL HDL Cholesterol (40-59) mg/dL Cholesterol/HDL Ratio (0-4.9) Lipase (8-78) Units/L TSH (0.350-4.840) mcIU/mL Free T4 (0.70-1.48) ng/dl Thyroxine (T4) (4.87-11.72) mcg/dL PTH Intact (8.5-72.5) pg/ml PTH Related Peptide (0.0-3.4) pmol/L Urine Color (Yellow) Urine Clarity (Clear) Urine pH (5.0-8.0) pH Units Ur Specific [place] (1.010-1.025) Urine Protein (Neg-Trace) mg/dL Urine Glucose (UA) (Normal) mg/dL Urine Ketones (Negative) mg/dL Urine Blood (Negative) Urine Nitrite (Negative) Urine Bilirubin (Negative) Urine Urobilinogen (Normal) mg/dL Ur Leukocyte Esterase (Negative) Urine Microscopic RBC (0-3) per hpf Urine Microscopic WBC (0-3) per hpf Ur Squamous Epith Cells (None-Few) per lpf Urine Bacteria (None-Few) per hpf Hyaline Casts (None-Few) per lpf Ur Culture Indicated? (NO) 02/04/17 02/04/17 02/04/17 Range/Units 08:13 11:43 16:18 WBC (4.3-11.1) K/mcL RBC (3.82-4.97) M/mcL Hgb (11.5-15.4) g/dL Hct (35.3-44.9) % MCV (83.0-100.0) fL MCH (28.0-33.3) pg MCHC (31.6-35.5) g/dL RDW (11.5-14.5) % Plt Count (140-400) K/mcL MPV (9.4-12.4) fL Immature Gran % (0-4) % Seg Neutrophils % % Lymphocytes % % Monocytes % % Eosinophils % % Basophils % % Neutrophils # (1.6-8.9) K/mcL Lymphocytes # (0.6-4.6) K/mcL Monocytes # (0.0-1.3) K/mcL Eosinophils # (0.0-0.6) K/mcL Basophils # (0.0-0.2) K/mcL PT (9.4-12.1) Seconds INR APTT (26.0-36.0) Seconds Sodium (136-145) mEq/L Potassium (3.5-4.5) mEq/L Chloride (98-109) mEq/L Carbon Dioxide (19-29) mEq/L BUN (7-20) mg/dL Creatinine (0.57-1.11) mg/dL Est GFR ( Amer) (> 60) Est GFR (Non-Af Amer) (> 60) BUN/Creatinine Ratio (6-26) Glucose (70-99) mg/dL POC Glucose 216 H 287 H 262 H (58-89) Est Mean Plasma Glucose mg/dl Hemoglobin A1c ( - 5.6) % Calculated Osmolality (280-300) Lactic Acid (0.5-2.2) mmol/L Calcium (8.6-10.8) mg/dL Ionized Calcium (1.15-1.35) mmol/L Phosphorus (2.3-4.7) mg/dL Magnesium (1.6-2.6) mg/dL Total Bilirubin (0.2-1.2) mg/dL Direct Bilirubin (0.0-0.5) mg/dL Indirect Bilirubin (0.0-1.2) mg/dL AST (5-34) Units/L ALT (0-55) Units/L Alkaline Phosphatase (38-126) Units/L Troponin I (0-0.03) ng/mL C-Reactive Protein (Less than 5) mg/L B-Natriuretic Peptide (0-100) pg/mL Serum Total Protein (6.0-8.3) g/dL Albumin (3.5-5.0) g/dL Globulin (2.4-3.5) g/dL Albumin/Globulin Ratio (1.1-2.2) Triglycerides (< 150) mg/dL Cholesterol (< 200) mg/dL LDL Cholesterol, Calc (0-99) mg/dL VLDL Cholesterol, Calc (< 31) mg/dL HDL Cholesterol (40-59) mg/dL Cholesterol/HDL Ratio (0-4.9) Lipase (8-78) Units/L TSH (0.350-4.840) mcIU/mL Free T4 (0.70-1.48) ng/dl Thyroxine (T4) (4.87-11.72) mcg/dL PTH Intact (8.5-72.5) pg/ml PTH Related Peptide (0.0-3.4) pmol/L Urine Color (Yellow) Urine Clarity (Clear) Urine pH (5.0-8.0) pH Units Ur Specific [place] (1.010-1.025) Urine Protein (Neg-Trace) mg/dL Urine Glucose (UA) (Normal) mg/dL Urine Ketones (Negative) mg/dL Urine Blood (Negative) Urine Nitrite (Negative) Urine Bilirubin (Negative) Urine Urobilinogen (Normal) mg/dL Ur Leukocyte Esterase (Negative) Urine Microscopic RBC (0-3) per hpf Urine Microscopic WBC (0-3) per hpf Ur Squamous Epith Cells (None-Few) per lpf Urine Bacteria (None-Few) per hpf Hyaline Casts (None-Few) per lpf Ur Culture Indicated? (NO) 02/04/17 02/05/17 02/05/17 Range/Units 20:10 06:10 06:10 WBC 8.6 (4.3-11.1) K/mcL RBC 2.74 L (3.82-4.97) M/mcL Hgb 8.7 L (11.5-15.4) g/dL Hct 27.1 L (35.3-44.9) % MCV 98.9 (83.0-100.0) fL MCH 31.8 (28.0-33.3) pg MCHC 32.1 (31.6-35.5) g/dL RDW 13.0 (11.5-14.5) % Plt Count 144 (140-400) K/mcL MPV 11.4 (9.4-12.4) fL Immature Gran % 0.6 (0-4) % Seg Neutrophils % 67.2 % Lymphocytes % 20.4 % Monocytes % 9.0 % Eosinophils % 2.3 % Basophils % 0.5 % Neutrophils # 5.8 (1.6-8.9) K/mcL Lymphocytes # 1.8 (0.6-4.6) K/mcL Monocytes # 0.8 (0.0-1.3) K/mcL Eosinophils # 0.2 (0.0-0.6) K/mcL Basophils # 0.0 (0.0-0.2) K/mcL PT (9.4-12.1) Seconds INR APTT (26.0-36.0) Seconds Sodium 140 (136-145) mEq/L Potassium 3.8 (3.5-4.5) mEq/L Chloride 110 H (98-109) mEq/L Carbon Dioxide 21 (19-29) mEq/L BUN 31 H (7-20) mg/dL Creatinine 1.50 H (0.57-1.11) mg/dL Est GFR ( Amer) 40 L (> 60) Est GFR (Non-Af Amer) 33 L (> 60) BUN/Creatinine Ratio 21 (6-26) Glucose 248 H (70-99) mg/dL POC Glucose 316 H (58-89) Est Mean Plasma Glucose mg/dl Hemoglobin A1c ( - 5.6) % Calculated Osmolality 305 H (280-300) Lactic Acid (0.5-2.2) mmol/L Calcium 8.5 L (8.6-10.8) mg/dL Ionized Calcium (1.15-1.35) mmol/L Phosphorus (2.3-4.7) mg/dL Magnesium (1.6-2.6) mg/dL Total Bilirubin (0.2-1.2) mg/dL Direct Bilirubin (0.0-0.5) mg/dL Indirect Bilirubin (0.0-1.2) mg/dL AST (5-34) Units/L ALT (0-55) Units/L Alkaline Phosphatase (38-126) Units/L Troponin I (0-0.03) ng/mL C-Reactive Protein (Less than 5) mg/L B-Natriuretic Peptide (0-100) pg/mL Serum Total Protein (6.0-8.3) g/dL Albumin (3.5-5.0) g/dL Globulin (2.4-3.5) g/dL Albumin/Globulin Ratio (1.1-2.2) Triglycerides (< 150) mg/dL Cholesterol (< 200) mg/dL LDL Cholesterol, Calc (0-99) mg/dL VLDL Cholesterol, Calc (< 31) mg/dL HDL Cholesterol (40-59) mg/dL Cholesterol/HDL Ratio (0-4.9) Lipase (8-78) Units/L TSH (0.350-4.840) mcIU/mL Free T4 (0.70-1.48) ng/dl Thyroxine (T4) (4.87-11.72) mcg/dL PTH Intact (8.5-72.5) pg/ml PTH Related Peptide (0.0-3.4) pmol/L Urine Color (Yellow) Urine Clarity (Clear) Urine pH (5.0-8.0) pH Units Ur Specific [place] (1.010-1.025) Urine Protein (Neg-Trace) mg/dL Urine Glucose (UA) (Normal) mg/dL Urine Ketones (Negative) mg/dL Urine Blood (Negative) Urine Nitrite (Negative) Urine Bilirubin (Negative) Urine Urobilinogen (Normal) mg/dL Ur Leukocyte Esterase (Negative) Urine Microscopic RBC (0-3) per hpf Urine Microscopic WBC (0-3) per hpf Ur Squamous Epith Cells (None-Few) per lpf Urine Bacteria (None-Few) per hpf Hyaline Casts (None-Few) per lpf Ur Culture Indicated? (NO) 02/05/17 02/05/1717 Range/Units 06:10 07:47 11:34 WBC (4.3-11.1) K/mcL RBC (3.82-4.97) M/mcL Hgb (11.5-15.4) g/dL Hct (35.3-44.9) % MCV (83.0-100.0) fL MCH (28.0-33.3) pg MCHC (31.6-35.5) g/dL RDW (11.5-14.5) % Plt Count (140-400) K/mcL MPV (9.4-12.4) fL Immature Gran % (0-4) % Seg Neutrophils % % Lymphocytes % % Monocytes % % Eosinophils % % Basophils % % Neutrophils # (1.6-8.9) K/mcL Lymphocytes # (0.6-4.6) K/mcL Monocytes # (0.0-1.3) K/mcL Eosinophils # (0.0-0.6) K/mcL Basophils # (0.0-0.2) K/mcL PT (9.4-12.1) Seconds INR APTT (26.0-36.0) Seconds Sodium (136-145) mEq/L Potassium (3.5-4.5) mEq/L Chloride (98-109) mEq/L Carbon Dioxide (19-29) mEq/L BUN (7-20) mg/dL Creatinine (0.57-1.11) mg/dL Est GFR ( Amer) (> 60) Est GFR (Non-Af Amer) (> 60) BUN/Creatinine Ratio (6-26) Glucose (70-99) mg/dL POC Glucose 222 H 217 H (58-89) Est Mean Plasma Glucose 123 mg/dl Hemoglobin A1c 5.9 H ( - 5.6) % Calculated Osmolality (280-300) Lactic Acid (0.5-2.2) mmol/L Calcium (8.6-10.8) mg/dL Ionized Calcium (1.15-1.35) mmol/L Phosphorus (2.3-4.7) mg/dL Magnesium (1.6-2.6) mg/dL Total Bilirubin (0.2-1.2) mg/dL Direct Bilirubin (0.0-0.5) mg/dL Indirect Bilirubin (0.0-1.2) mg/dL AST (5-34) Units/L ALT (0-55) Units/L Alkaline Phosphatase (38-126) Units/L Troponin I (0-0.03) ng/mL C-Reactive Protein (Less than 5) mg/L B-Natriuretic Peptide (0-100) pg/mL Serum Total Protein (6.0-8.3) g/dL Albumin (3.5-5.0) g/dL Globulin (2.4-3.5) g/dL Albumin/Globulin Ratio (1.1-2.2) Triglycerides (< 150) mg/dL Cholesterol (< 200) mg/dL LDL Cholesterol, Calc (0-99) mg/dL VLDL Cholesterol, Calc (< 31) mg/dL HDL Cholesterol (40-59) mg/dL Cholesterol/HDL Ratio (0-4.9) Lipase (8-78) Units/L TSH (0.350-4.840) mcIU/mL Free T4 (0.70-1.48) ng/dl Thyroxine (T4) (4.87-11.72) mcg/dL PTH Intact (8.5-72.5) pg/ml PTH Related Peptide (0.0-3.4) pmol/L Urine Color (Yellow) Urine Clarity (Clear) Urine pH (5.0-8.0) pH Units Ur Specific [place] (1.010-1.025) Urine Protein (Neg-Trace) mg/dL Urine Glucose (UA) (Normal) mg/dL Urine Ketones (Negative) mg/dL Urine Blood (Negative) Urine Nitrite (Negative) Urine Bilirubin (Negative) Urine Urobilinogen (Normal) mg/dL Ur Leukocyte Esterase (Negative) Urine Microscopic RBC (0-3) per hpf Urine Microscopic WBC (0-3) per hpf Ur Squamous Epith Cells (None-Few) per lpf Urine Bacteria (None-Few) per hpf Hyaline Casts (None-Few) per lpf Ur Culture Indicated? (NO) 02/05/17 02/05/17 02/06/17 Range/Units 16:26 20:07 04:19 WBC (4.3-11.1) K/mcL RBC (3.82-4.97) M/mcL Hgb (11.5-15.4) g/dL Hct (35.3-44.9) % MCV (83.0-100.0) fL MCH (28.0-33.3) pg MCHC (31.6-35.5) g/dL RDW (11.5-14.5) % Plt Count (140-400) K/mcL MPV (9.4-12.4) fL Immature Gran % (0-4) % Seg Neutrophils % % Lymphocytes % % Monocytes % % Eosinophils % % Basophils % % Neutrophils # (1.6-8.9) K/mcL Lymphocytes # (0.6-4.6) K/mcL Monocytes # (0.0-1.3) K/mcL Eosinophils # (0.0-0.6) K/mcL Basophils # (0.0-0.2) K/mcL PT (9.4-12.1) Seconds INR APTT (26.0-36.0) Seconds Sodium (136-145) mEq/L Potassium (3.5-4.5) mEq/L Chloride (98-109) mEq/L Carbon Dioxide (19-29) mEq/L BUN (7-20) mg/dL Creatinine (0.57-1.11) mg/dL Est GFR ( Amer) (> 60) Est GFR (Non-Af Amer) (> 60) BUN/Creatinine Ratio (6-26) Glucose (70-99) mg/dL POC Glucose 253 H 290 H (58-89) Est Mean Plasma Glucose mg/dl Hemoglobin A1c ( - 5.6) % Calculated Osmolality (280-300) Lactic Acid (0.5-2.2) mmol/L Calcium (8.6-10.8) mg/dL Ionized Calcium (1.15-1.35) mmol/L Phosphorus (2.3-4.7) mg/dL Magnesium 1.6 (1.6-2.6) mg/dL Total Bilirubin (0.2-1.2) mg/dL Direct Bilirubin (0.0-0.5) mg/dL Indirect Bilirubin (0.0-1.2) mg/dL AST (5-34) Units/L ALT (0-55) Units/L Alkaline Phosphatase (38-126) Units/L Troponin I (0-0.03) ng/mL C-Reactive Protein (Less than 5) mg/L B-Natriuretic Peptide (0-100) pg/mL Serum Total Protein (6.0-8.3) g/dL Albumin (3.5-5.0) g/dL Globulin (2.4-3.5) g/dL Albumin/Globulin Ratio (1.1-2.2) Triglycerides (< 150) mg/dL Cholesterol (< 200) mg/dL LDL Cholesterol, Calc (0-99) mg/dL VLDL Cholesterol, Calc (< 31) mg/dL HDL Cholesterol (40-59) mg/dL Cholesterol/HDL Ratio (0-4.9) Lipase (8-78) Units/L TSH (0.350-4.840) mcIU/mL Free T4 (0.70-1.48) ng/dl Thyroxine (T4) (4.87-11.72) mcg/dL PTH Intact (8.5-72.5) pg/ml PTH Related Peptide (0.0-3.4) pmol/L Urine Color (Yellow) Urine Clarity (Clear) Urine pH (5.0-8.0) pH Units Ur Specific [place] (1.010-1.025) Urine Protein (Neg-Trace) mg/dL Urine Glucose (UA) (Normal) mg/dL Urine Ketones (Negative) mg/dL Urine Blood (Negative) Urine Nitrite (Negative) Urine Bilirubin (Negative) Urine Urobilinogen (Normal) mg/dL Ur Leukocyte Esterase (Negative) Urine Microscopic RBC (0-3) per hpf Urine Microscopic WBC (0-3) per hpf Ur Squamous Epith Cells (None-Few) per lpf Urine Bacteria (None-Few) per hpf Hyaline Casts (None-Few) per lpf Ur Culture Indicated? (NO) 02/06/17 02/06/17 02/06/17 Range/Units 04:19 04:19 07:06 WBC 10.1 (4.3-11.1) K/mcL RBC 2.76 L (3.82-4.97) M/mcL Hgb 8.7 L (11.5-15.4) g/dL Hct 27.3 L (35.3-44.9) % MCV 98.9 (83.0-100.0) fL MCH 31.5 (28.0-33.3) pg MCHC 31.9 (31.6-35.5) g/dL RDW 13.3 (11.5-14.5) % Plt Count 148 (140-400) K/mcL MPV 11.4 (9.4-12.4) fL Immature Gran % 0.5 (0-4) % Seg Neutrophils % 72.6 % Lymphocytes % 16.9 % Monocytes % 7.9 % Eosinophils % 1.8 % Basophils % 0.3 % Neutrophils # 7.3 (1.6-8.9) K/mcL Lymphocytes # 1.7 (0.6-4.6) K/mcL Monocytes # 0.8 (0.0-1.3) K/mcL Eosinophils # 0.2 (0.0-0.6) K/mcL Basophils # 0.0 (0.0-0.2) K/mcL PT (9.4-12.1) Seconds INR APTT (26.0-36.0) Seconds Sodium 141 (136-145) mEq/L Potassium 3.9 (3.5-4.5) mEq/L Chloride 113 H (98-109) mEq/L Carbon Dioxide 18 L (19-29) mEq/L BUN 30 H (7-20) mg/dL Creatinine 1.41 H (0.57-1.11) mg/dL Est GFR ( Amer) 43 L (> 60) Est GFR (Non-Af Amer) 36 L (> 60) BUN/Creatinine Ratio 21 (6-26) Glucose 319 H (70-99) mg/dL POC Glucose 312 H (58-89) Est Mean Plasma Glucose mg/dl Hemoglobin A1c ( - 5.6) % Calculated Osmolality 310 H (280-300) Lactic Acid (0.5-2.2) mmol/L Calcium 8.2 L (8.6-10.8) mg/dL Ionized Calcium (1.15-1.35) mmol/L Phosphorus (2.3-4.7) mg/dL Magnesium (1.6-2.6) mg/dL Total Bilirubin (0.2-1.2) mg/dL Direct Bilirubin (0.0-0.5) mg/dL Indirect Bilirubin (0.0-1.2) mg/dL AST (5-34) Units/L ALT (0-55) Units/L Alkaline Phosphatase (38-126) Units/L Troponin I (0-0.03) ng/mL C-Reactive Protein (Less than 5) mg/L B-Natriuretic Peptide (0-100) pg/mL Serum Total Protein (6.0-8.3) g/dL Albumin (3.5-5.0) g/dL Globulin (2.4-3.5) g/dL Albumin/Globulin Ratio (1.1-2.2) Triglycerides (< 150) mg/dL Cholesterol (< 200) mg/dL LDL Cholesterol, Calc (0-99) mg/dL VLDL Cholesterol, Calc (< 31) mg/dL HDL Cholesterol (40-59) mg/dL Cholesterol/HDL Ratio (0-4.9) Lipase (8-78) Units/L TSH (0.350-4.840) mcIU/mL Free T4 (0.70-1.48) ng/dl Thyroxine (T4) (4.87-11.72) mcg/dL PTH Intact (8.5-72.5) pg/ml PTH Related Peptide (0.0-3.4) pmol/L Urine Color (Yellow) Urine Clarity (Clear) Urine pH (5.0-8.0) pH Units Ur Specific [place] (1.010-1.025) Urine Protein (Neg-Trace) mg/dL Urine Glucose (UA) (Normal) mg/dL Urine Ketones (Negative) mg/dL Urine Blood (Negative) Urine Nitrite (Negative) Urine Bilirubin (Negative) Urine Urobilinogen (Normal) mg/dL Ur Leukocyte Esterase (Negative) Urine Microscopic RBC (0-3) per hpf Urine Microscopic WBC (0-3) per hpf Ur Squamous Epith Cells (None-Few) per lpf Urine Bacteria (None-Few) per hpf Hyaline Casts (None-Few) per lpf Ur Culture Indicated? (NO) 02/06/17 02/06/17 Range/Units 11:37 16:23 WBC (4.3-11.1) K/mcL RBC (3.82-4.97) M/mcL Hgb (11.5-15.4) g/dL Hct (35.3-44.9) % MCV (83.0-100.0) fL MCH (28.0-33.3) pg MCHC (31.6-35.5) g/dL RDW (11.5-14.5) % Plt Count (140-400) K/mcL MPV (9.4-12.4) fL Immature Gran % (0-4) % Seg Neutrophils % % Lymphocytes % % Monocytes % % Eosinophils % % Basophils % % Neutrophils # (1.6-8.9) K/mcL Lymphocytes # (0.6-4.6) K/mcL Monocytes # (0.0-1.3) K/mcL Eosinophils # (0.0-0.6) K/mcL Basophils # (0.0-0.2) K/mcL PT (9.4-12.1) Seconds INR APTT (26.0-36.0) Seconds Sodium (136-145) mEq/L Potassium (3.5-4.5) mEq/L Chloride (98-109) mEq/L Carbon Dioxide (19-29) mEq/L BUN (7-20) mg/dL Creatinine (0.57-1.11) mg/dL Est GFR ( Amer) (> 60) Est GFR (Non-Af Amer) (> 60) BUN/Creatinine Ratio (6-26) Glucose (70-99) mg/dL POC Glucose 352 H 206 H (58-89) Est Mean Plasma Glucose mg/dl Hemoglobin A1c ( - 5.6) % Calculated Osmolality (280-300) Lactic Acid (0.5-2.2) mmol/L Calcium (8.6-10.8) mg/dL Ionized Calcium (1.15-1.35) mmol/L Phosphorus (2.3-4.7) mg/dL Magnesium (1.6-2.6) mg/dL Total Bilirubin (0.2-1.2) mg/dL Direct Bilirubin (0.0-0.5) mg/dL Indirect Bilirubin (0.0-1.2) mg/dL AST (5-34) Units/L ALT (0-55) Units/L Alkaline Phosphatase (38-126) Units/L Troponin I (0-0.03) ng/mL C-Reactive Protein (Less than 5) mg/L B-Natriuretic Peptide (0-100) pg/mL Serum Total Protein (6.0-8.3) g/dL Albumin (3.5-5.0) g/dL Globulin (2.4-3.5) g/dL Albumin/Globulin Ratio (1.1-2.2) Triglycerides (< 150) mg/dL Cholesterol (< 200) mg/dL LDL Cholesterol, Calc (0-99) mg/dL VLDL Cholesterol, Calc (< 31) mg/dL HDL Cholesterol (40-59) mg/dL Cholesterol/HDL Ratio (0-4.9) Lipase (8-78) Units/L TSH (0.350-4.840) mcIU/mL Free T4 (0.70-1.48) ng/dl Thyroxine (T4) (4.87-11.72) mcg/dL PTH Intact (8.5-72.5) pg/ml PTH Related Peptide (0.0-3.4) pmol/L Urine Color (Yellow) Urine Clarity (Clear) Urine pH (5.0-8.0) pH Units Ur Specific [place] (1.010-1.025) Urine Protein (Neg-Trace) mg/dL Urine Glucose (UA) (Normal) mg/dL Urine Ketones (Negative) mg/dL Urine Blood (Negative) Urine Nitrite (Negative) Urine Bilirubin (Negative) Urine Urobilinogen (Normal) mg/dL Ur Leukocyte Esterase (Negative) Urine Microscopic RBC (0-3) per hpf Urine Microscopic WBC (0-3) per hpf Ur Squamous Epith Cells (None-Few) per lpf Urine Bacteria (None-Few) per hpf Hyaline Casts (None-Few) per lpf Ur Culture Indicated? (NO) Assessments/Treatments 12 lead ECG assessment Start: 02/02/17 20: 21 Freq: Status: Complete Document 02/02/17 20:22 LAP (Rec: 02/02/17 20:28 LAP [id number]) EKG Time EKG Completed 20:12 EKG performed by Cy PAYNE EKG shown to and signed by Dr Kingston Ambulation assistance Start: 02/03/17 08: 07 Freq: Status: Discharge Document 02/03/17 15:00 AYW (Rec: 02/03/17 15:02 AYW [id number]) Cardiac Monitoring Med/Surg Start: 02/03/17 02: 32 Freq: .CONT Status: Discharge Document 02/03/17 08:00 AYW (Rec: 02/03/17 12:48 AYW [id number]) Cardiac Monitoring Monitor Number bed 11 Strip placed in Chart Yes Alarms/Limits EKG Method Telemetry Rhythm Paced Rhythm Document 02/03/17 12:50 AYW (Rec: 02/03/17 12:51 AYW [id number]) Cardiac Monitoring Monitor Number HW Strip placed in Chart Yes Alarms/Limits HR Alarm 120/50 Heart Rate 60 EKG Method Telemetry Rhythm Sinus Rhythm [place] Interval 0.14 QRS Interval 0.10 QT Interval 0.43 Document 02/03/17 18:20 AYW (Rec: 02/03/17 18:21 AYW [id number]) Cardiac Monitoring Monitor Number HW Strip placed in Chart Yes Memory Cleared No Alarms/Limits HR Alarm 120/50 Heart Rate 67 EKG Method Telemetry Rhythm Sinus Rhythm [place] Interval 0.10 QRS Interval 0.11 QT Interval 0.54 Document 02/05/17 00:28 DWT (Rec: 02/05/17 00:29 DWT [id number]) Cardiac Monitoring Monitor Number [id number] Strip placed in Chart Yes Alarms/Limits HR Alarm 120/50 Heart Rate 61 EKG Method Telemetry Rhythm Sinus Rhythm Paced Rhythm [place] Interval 0.15 QRS Interval 0.09 QT Interval 0.44 Document 02/05/17 11:56 NCF (Rec: 02/05/17 11:56 NCF [id number]) Cardiac Monitoring Monitor Number [id number] Strip placed in Chart Yes Alarms/Limits HR Alarm 120/50 Heart Rate 64 EKG Method Telemetry Rhythm Sinus Rhythm Document 02/05/17 23:50 DWT (Rec: 02/06/17 04:04 T [id number]) Cardiac Monitoring Monitor Number [id number] Strip placed in Chart Yes Alarms/Limits HR Alarm 120/50 Heart Rate 63 EKG Method Telemetry Rhythm Sinus Rhythm [place] Interval 0.16 QRS Interval 0.08 QT Interval 0.42 Document 02/06/17 08:00 KMR (Rec: 02/06/17 14:39 KMR [id number]) Cardiac Monitoring Monitor Number [id number] Strip placed in Chart Yes Alarms/Limits HR Alarm 120/50 Heart Rate 66 EKG Method Telemetry Rhythm Sinus Rhythm [place] Interval 0.09 QRS Interval 0.02 QT Interval 0.37 Document 02/06/17 11:30 KMR (Rec: 02/06/17 14:40 KMR [id number]) Cardiac Monitoring Monitor Number [id number] Strip placed in Chart Yes Alarms/Limits HR Alarm 120/50 Heart Rate 60 EKG Method Telemetry Rhythm Sinus Bradycardia [place] Interval 0.15 QRS Interval 0.05 QT Interval 0.39 Cardiac monitoring Start: 02/02/17 20: 21 Freq: Status: Discharge Document 02/02/17 20:22 LAP (Rec: 02/02/17 20:28 LAP [id number]) Cardiac Monitoring Heart Rate 67 Monitoring Method Telemetry Rhythm Sinus Rhythm Monitor Number bed 11 Communication, business english instructor Start: 02/03/17 11: 38 Freq: Status: Discharge Document 02/03/17 15:00 AYW (Rec: 02/03/17 15:02 AYW [id number]) Communication, pharmacist Start: 02/03/17 08: 07 Freq: Status: Discharge Document 02/03/17 15:00 AYW (Rec: 02/03/17 15:02 AYW [id number]) Critical Value Reporting Start: 02/02/17 21: 16 Freq: Status: Discharge Document 02/02/17 21:16 LAP (Rec: 02/02/17 21:16 LAP [id number]) Critical Values Reporting Test(s) and Results CA 13.6 Time Results Received 21:16 Lab Results Repeated Back Yes Provider Notified Yes Time Provider Contacted 21:[address] Kingston Discharge Assessment Start: 02/02/17 23: 34 Freq: Status: Discharge Document 02/06/17 15:55 KMR (Rec: 02/06/17 16:03 KMR [id number]) Discharge Assessment Discharge Disposition Inpatient Rehab Unit Mode of Discharge Ambulance/EMS Accompanied By Ambulance Personnel Belongings sent with patient Yes Summary of Care Provided Yes Patient was provided information on Yes accessing patient portal Level Of Consciousness Awake Alert Appropriate Follows Commands Eating (Feeding) Ability Independent Bathing Ability 1 Person Assist Upper Body Dressing Ability Minimum Assistance Lower Body Dressing Ability Moderate Assistance Ambulation Ability Standby Assistance Toileting Ability Moderate Assistance Date of Last Bowel Movement 02/06/17 Bowel Continent Bladder Occasionally Incontinent Doctor's Appointment Made Yes Patient Education Given Yes Discharge Instructions Given To Patient Discharge Instructions Address Medications Follow Up Patient instructed regarding new Yes medications and to provide the list to their Primary Care Provider Patient instructed to carry their Yes medication list with them at all times in case of emergency Prescriptions Given To Patient Was patient discharged on Warfarin for No confirmed VTE diagnosis? Was patient discharged with diagnosis of No ischemic or hemmorrhagic stroke? Flu Vaccine Given No Reason Flu Vaccine Not Given Previously Received Current Flu Season Vaccine administration documented on No EMAR Nursing Summary IV was removed. report was called to rosario, patient had a fall at home and fractured her left ribs. Daughter in law is at bedside and has the patient's belonings. ED Discharge Assessment Start: 02/02/17 20: 21 Freq: Status: Discharge Document 02/03/17 00:18 LAP (Rec: 02/03/17 00:19 LAP [id number]) ED Discharge Assessment ED Discharge Disposition Admitted ED Condition on Discharge Good Med Rec/Patient Pharmacy Completed? No Admitted to 2NE Bed assigned 2NE20 Transported by technician test systems Transported with IV Report given to Nurse Care transferred to (name/credentials) Rehana RN Information relayed patient's care treatments medications given condition recent/anticipated changes Clinical Documentation Summary Provided Yes Pain Scale 0 Pain Scale Used Standard (1-10) Blood Pressure 171/64 Heart rate 66 Respiratory Rate 16 Oxygen Delivery Room Air Oxygen Saturation 98 Critical Care Minutes 0 ED Fall Assessment Start: 02/02/17 20: 21 Freq: Status: Discharge Document 02/02/17 20:22 LAP (Rec: 02/02/17 20:28 LAP [id number]) Fall Assessment Symptoms/Complaint Fall Onset 1800 today Fall From Standing Fall Comment pt fell on her behind then hit back of head, pt states she went to bathroom and fell again in bathroom hitting her rt ribs on vainty. pt denies loc, lightheaded or dizzines, states she "just lost her balance" Fall Witnessed Yes, by Family Place Fall Occurred Home Loss of Consciousness None Prolonged Down Time No Symptoms Prior to Fall None Context Unknown Associated Symptoms Denies Level Of Consciousness Awake Alert Appropriate Follows Commands Patient Orientation Person Place Time Name Age Date of Day of Month Day of Week Month Year Time of Day Respiratory Depth Normal Respiratory Effort Spontaneous Non-Labored Right Chest Intensity 7 Scale Used Numeric (1 - 10) Coma Scale Eye Opening Spontaneous Coma Scale Motor Response Obeys Commands Coma Scale Verbal Response Oriented Education, hyperglycemia signs/symptoms Start: 02/03/17 11: 38 Freq: Status: Discharge Document 02/03/17 15:00 AYW (Rec: 02/03/17 15:02 AYW [id number]) Education, hypoglycemia signs/symptoms Start: 02/03/17 11: 38 Freq: Status: Discharge Document 02/03/17 15:00 AYW (Rec: 02/03/17 15:02 AYW [id number]) Education, postdischarge follow-up Start: 02/03/17 11: 38 Freq: Status: Discharge Document 02/03/17 15:00 AYW (Rec: 02/03/17 15:02 AYW [id number]) Encourage expression of feelings Start: 02/03/17 14: 59 Freq: Status: Discharge Document 02/03/17 15:00 AYW (Rec: 02/03/17 15:02 AYW [id number]) Environmental safety management Start: 02/03/17 08: 07 Freq: Status: Discharge Document 02/03/17 15:00 AYW (Rec: 02/03/17 15:02 AYW [id number]) Fall Precautions Acute Start: 02/03/17 01: 20 Freq: Q12H Status: Discharge Document 02/03/17 02:32 [facility] (Rec: 02/03/17 08:07 [facility] [id number]) [facility] Fall Risk Assessment Tool Age greater than or equal to 80 years (3 points) Fall History No falls within last 6 months (0 points) Elimination, Bowel, and Urine N/A (0 pts) Medications: Includes MILKER MACHINE/opiates, On 1 high fall risk drug (3 antivulsants, ant-hypertensives, points) diuretics, hypnotics, Patient Care Equipment: Any equipment One present (1 point) that tethers patient (e.g. IV infusions, chest tube, indwelling Mobility N/A (0 points) Cognition Altered awareness of immediate physical environment (1 point ) N/A (0 points) Total Fall Risk Score 8 Fall Risk Category Moderate Risk (6-13) Fall Risk Interventions Low Risk Interventions Bed in lowest position Top side rails up x 2 Secure brake on bed Use properly fitting non-skid footwear Call light and frequently needed objects within reach Encourage patients/families to call for assistance when needed Fall education including risk assessment, injury risk and routine/ Inspect environment for safety and communication risk Supervise and assist with toileting/ADLs as needed Moderate Risk Interventions Institue fall-risk tooklit ( yellow flag, yellow non-skid socks and Document 02/03/17 09:50 AYW (Rec: 02/03/17 10:59 AYW [id number]) [facility] Fall Risk Assessment Tool High Fall Risk-Implement High Fall Risk History of more than one fall interventions per protocol within 6 months before admission Fall Risk Category High Risk Fall Risk Interventions Low Risk Interventions Bed in lowest position Top side rails up x 2 Secure brake on bed Use properly fitting non-skid footwear Call light and frequently needed objects within reach Encourage patients/families to call for assistance when needed Fall education including risk assessment, injury risk and routine/ Inspect environment for safety and communication risk Supervise and assist with toileting/ADLs as needed Moderate Risk Interventions Institue fall-risk tooklit ( yellow flag, yellow non-skid socks and Frequent reorientation for confused patients High Risk Interventions Remain with patient while toileting Activate bed/chair exit Move patient to room with best visual access Obtain PT consult, if pat Document 02/03/17 21:00 LE (Rec: 02/03/17 23:50 LE [id number]) [facility] Fall Risk Assessment Tool High Fall Risk-Implement High Fall Risk History of more than one fall interventions per protocol within 6 months before admission Fall Risk Category High Risk Fall Risk Interventions Low Risk Interventions Bed in lowest position Top side rails up x 2 Secure brake on bed Use properly fitting non-skid footwear Call light and frequently needed objects within reach Encourage patients/families to call for assistance when needed Fall education including risk assessment, injury risk and routine/ Inspect environment for safety and communication risk Supervise and assist with toileting/ADLs as needed Moderate Risk Interventions Institue fall-risk tooklit ( yellow flag, yellow non-skid socks and High Risk Interventions Remain with patient while toileting Document 02/04/17 08:00 BES (Rec: 02/04/17 12:39 BES [id number]) [facility] Fall Risk Assessment Tool High Fall Risk-Implement High Fall Risk History of more than one fall interventions per protocol within 6 months before admission Fall Risk Category High Risk Fall Risk Interventions Low Risk Interventions Bed in lowest position Top side rails up x 2 Secure brake on bed Use properly fitting non-skid footwear Call light and frequently needed objects within reach Encourage patients/families to call for assistance when needed Fall education including risk assessment, injury risk and routine/ Inspect environment for safety and communication risk Supervise and assist with toileting/ADLs as needed Moderate Risk Interventions Institue fall-risk tooklit ( yellow flag, yellow non-skid socks and High Risk Interventions Remain with patient while toileting Activate bed/chair exit Obtain PT consult, if pat Document 02/04/17 21:35 DWT (Rec: 02/05/17 00:20 DWT [id number]) [facility] Fall Risk Assessment Tool High Fall Risk-Implement High Fall Risk History of more than one fall interventions per protocol within 6 months before admission Fall Risk Category High Risk Fall Risk Interventions Low Risk Interventions Bed in lowest position Top side rails up x 2 Secure brake on bed Use properly fitting non-skid footwear Call light and frequently needed objects within reach Encourage patients/families to call for assistance when needed Fall education including risk assessment, injury risk and routine/ Inspect environment for safety and communication risk Supervise and assist with toileting/ADLs as needed Moderate Risk Interventions Institue fall-risk tooklit ( yellow flag, yellow non-skid socks and High Risk Interventions Remain with patient while toileting Activate bed/chair exit Obtain PT consult, if pat Document 02/05/17 07:52 NCF (Rec: 02/05/17 07:55 NCF [id number]) [facility] Fall Risk Assessment Tool High Fall Risk-Implement High Fall Risk History of more than one fall interventions per protocol within 6 months before admission Fall Risk Category High Risk Fall Risk Interventions Low Risk Interventions Bed in lowest position Top side rails up x 2 Secure brake on bed Use properly fitting non-skid footwear Call light and frequently needed objects within reach Encourage patients/families to call for assistance when needed Fall education including risk assessment, injury risk and routine/ Inspect environment for safety and communication risk Supervise and assist with toileting/ADLs as needed Moderate Risk Interventions Institue fall-risk tooklit ( yellow flag, yellow non-skid socks and High Risk Interventions Remain with patient while toileting Activate bed/chair exit Obtain PT consult, if pat Document 02/05/17 20:45 DWT (Rec: 02/05/17 20:53 DWT [id number]) [facility] Fall Risk Assessment Tool High Fall Risk-Implement High Fall Risk History of more than one fall interventions per protocol within 6 months before admission Fall Risk Category High Risk Fall Risk Interventions Low Risk Interventions Bed in lowest position Top side rails up x 2 Secure brake on bed Use properly fitting non-skid footwear Call light and frequently needed objects within reach Encourage patients/families to call for assistance when needed Fall education including risk assessment, injury risk and routine/ Inspect environment for safety and communication risk Supervise and assist with toileting/ADLs as needed Moderate Risk Interventions Institue fall-risk tooklit ( yellow flag, yellow non-skid socks and High Risk Interventions Remain with patient while toileting Activate bed/chair exit Obtain PT consult, if pat Document 02/06/17 10:00 KMR (Rec: 02/06/17 11:08 KMR [id number]) [facility] Fall Risk Assessment Tool High Fall Risk-Implement High Fall Risk History of more than one fall interventions per protocol within 6 months before admission Fall Risk Category High Risk Fall Risk Interventions Low Risk Interventions Bed in lowest position Top side rails up x 2 Secure brake on bed Use properly fitting non-skid footwear Call light and frequently needed objects within reach Encourage patients/families to call for assistance when needed Fall education including risk assessment, injury risk and routine/ Inspect environment for safety and communication risk Supervise and assist with toileting/ADLs as needed Moderate Risk Interventions Institue fall-risk tooklit ( yellow flag, yellow non-skid socks and High Risk Interventions Remain with patient while toileting Activate bed/chair exit Obtain PT consult, if pat Flu Vaccine Screen Start: 02/02/17 23: 34 Freq: Status: Discharge Document 02/06/17 15:55 KMR (Rec: 02/06/17 16:03 KMR [id number]) Flu Vaccine Screen Influenza vaccine indications 6 months of age or older Flu Vaccine Contraindications Previously Received Current Flu Season Vaccine Information Sheet Given(Version No 07/08/2015) Patient meets criteria for vaccination No and consents to receive it Glucose, blood point of care measurement Start: 02/02/17 20: 21 Freq: Status: Complete Document 02/02/17 20:22 LAP (Rec: 02/02/17 20:28 LAP [id number]) Blood Glucose Assessment Blood Glucose* 123 Hypoglycemia Symptoms None Hyperglycemia Symptoms None Glucose, blood point of care measurement Start: 02/03/17 07: 21 Freq: ACHS Status: Discharge Document 02/03/17 07:22 [id number] (Rec: 02/03/17 07:25 [id number]) Blood Glucose Assessment Blood Glucose* 112 Hypoglycemia Symptoms None Hyperglycemia Symptoms None Action Taken NURSE NOTIFIED Document 02/03/17 11:37 [id number] (Rec: 02/03/17 11:38 [id number]) Blood Glucose Assessment Blood Glucose* 150 Hypoglycemia Symptoms None Hyperglycemia Symptoms None Action Taken NURSE NOTIFIED Document 02/03/17 21:02 WJS (Rec: 02/03/17 21:06 WJS [id number]) Blood Glucose Assessment Blood Glucose* 261 Action Taken RN Notified Document 02/04/17 08:11 JAB (Rec: 02/04/17 08:16 JAB [id number]) Blood Glucose Assessment Blood Glucose* 216 Document 02/04/17 11:39 JAB (Rec: 02/04/17 11:44 JAB [id number]) Blood Glucose Assessment Blood Glucose* 287 Glucose, blood point of care measurement Start: 02/04/17 12: 18 Freq: ACHS Status: Discharge Document 02/04/17 16:17 JAB (Rec: 02/04/17 16:19 JAB [id number]) Blood Glucose Assessment Blood Glucose* 262 Document 02/04/17 21:00 TRM (Rec: 02/04/17 21:16 TRM [id number]) Blood Glucose Assessment Blood Glucose* 316 Hypoglycemia Symptoms None Hyperglycemia Symptoms None Action Taken informing primary RN 02/04/17 21:16 Nurse Note by Ilana Demarco patient denies needs at this time Initialized on 02/04/17 21:16 - END OF NOTE Document 02/05/17 07:45 Z (Rec: 02/05/17 07:49 [id number] Blood Glucose Assessment Blood Glucose* 222 Action Taken rn notified Document 02/05/17 11:35 ZC (Rec: 02/05/17 11:36 Z [id number]) Blood Glucose Assessment Blood Glucose* 217 Action Taken rn notified Document 02/05/17 16:00 ZC (Rec: 02/05/17 16:28 Z [id number]) Blood Glucose Assessment Blood Glucose* 253 Action Taken rn notified Document 02/05/17 20:10 WJS (Rec: 02/05/17 22:55 WJS [id number]) Blood Glucose Assessment Blood Glucose* 290 Action Taken RN Notified Document 02/06/17 07:13 [id number] (Rec: 02/06/17 07:14 [id number]) Blood Glucose Assessment Blood Glucose* 312 Hypoglycemia Symptoms None Hyperglycemia Symptoms None Action Taken RN NOITFIED Document 02/06/17 11:36 [id number] (Rec: 02/06/17 11:38 [id number]) Blood Glucose Assessment Blood Glucose* 352 Hypoglycemia Symptoms None Hyperglycemia Symptoms None Action Taken RN NOTIFIED Document 02/06/17 16:24 [id number] (Rec: 02/06/17 16:24 [id number]) Blood Glucose Assessment Blood Glucose* 206 Hypoglycemia Symptoms None Hyperglycemia Symptoms None Action Taken RN NOTIFIED Hygiene activity Start: 02/03/17 01: 20 Freq: .PRN Status: Discharge Document 02/06/17 10:10 [id number] (Rec: 02/06/17 10:10 [id number]) Hygiene Bath Type Shower Bathing Ability Independent [place] Care Completed By N/A Linen Change Complete Oral Care Teeth Brushing Oral Care Assist Independent IV-Invasive Line Management Start: 02/03/17 01: 20 Freq: Q4H Status: Discharge Document 02/03/17 02:32 LEH (Rec: 02/03/17 08:07 LE [id number]) IV/Invasive Line Assessment Left Antecubital Date of Insertion 02/03/17 Reason for Line Insertion/Rationale for Replace Lost Fluids Insertion Maintain Electrolyte Balance Line Care Catheter Removed Line Complications Patient Pulled Catheter Out Labs drawn from Line* No Document 02/03/17 06:00 LEH (Rec: 02/03/17 08:08 LEH [id number]) IV/Invasive Line Assessment Left Antecubital Date of Insertion 02/03/17 Reason for Line Insertion/Rationale for Replace Lost Fluids Insertion Maintain Electrolyte Balance Line Care Catheter Removed Line Complications Patient Pulled Catheter Out Labs drawn from Line* No Document 02/03/17 09:50 AYW (Rec: 02/03/17 10:59 AYW [id number]) IV/Invasive Line Assessment Labs drawn from Line* No Document 02/03/17 11:00 AYW (Rec: 02/03/17 11:25 AYW [id number]) IV/Invasive Line Assessment RFA Date of Insertion 02/03/17 Time of Insertion 11:00 Insertion Attempts 3 Reason for Line Insertion/Rationale for Provide Access for IV Insertion Medication(s) Line Insertion Patient Tolerance Tolerated Well Gauge (gauge) 20 IV Catheter Type Peripheral IV Site Observation Patent Site Observation Intervention [place] IV Inserted Dressing Applied Transparent Dressing Dry/Intact Line Care Saline Flush Document 02/03/17 12:50 AYW (Rec: 02/03/17 12:51 AYW [id number]) IV/Invasive Line Assessment RFA Date of Insertion 02/03/17 Reason for Line Insertion/Rationale for Provide Access for IV Insertion Medication(s) Gauge (gauge) 20 IV Catheter Type Peripheral IV Site Observation Patent Site Observation Intervention Inspected Line Dressing Applied Dry/Intact Line Care Saline Flush Labs drawn from Line* No Document 02/03/17 17:04 MARLYN (Rec: 02/03/17 17:11 MARLYN [id number]) IV/Invasive Line Assessment RFA Reason for Line Insertion/Rationale for Provide Access for IV Insertion Medication(s) Provide Access for Emergency Gauge (gauge) 20 IV Catheter Type Peripheral IV Site Observation Patent Site Observation Intervention Inspected Line Dressing Applied Window Dressing Dry/Intact Line Care Saline Flush Labs drawn from Line* No Document 02/03/17 21:00 LEH (Rec: 02/03/17 23:50 LEH [id number]) IV/Invasive Line Assessment RFA Reason for Line Insertion/Rationale for Replace Lost Fluids Insertion Provide Access for IV Medication(s) Provide Access for Emergency Gauge (gauge) 20 IV Catheter Type Peripheral IV Site Observation Patent Site Observation Intervention Inspected Line Dressing Applied Window Dressing Dry/Intact Line Care Saline Flush Labs drawn from Line* No Document 02/04/17 05:00 LEH (Rec: 02/04/17 08:25 LEH [id number]) IV/Invasive Line Assessment RFA Reason for Line Insertion/Rationale for Replace Lost Fluids Insertion Provide Access for IV Medication(s) Provide Access for Emergency Gauge (gauge) 20 IV Catheter Type Peripheral IV Site Observation Patent Site Observation Intervention Inspected Line Dressing Applied Window Dressing Dry/Intact Line Care Saline Flush Document 02/04/17 08:00 BES (Rec: 02/04/17 12:39 BES [id number]) IV/Invasive Line Assessment RFA Reason for Line Insertion/Rationale for Replace Lost Fluids Insertion Provide Access for IV Medication(s) Provide Access for Emergency Gauge (gauge) 20 IV Catheter Type Peripheral IV Site Observation Patent Site Observation Intervention Inspected Line Dressing Applied Window Dressing Dry/Intact Line Care Saline Flush Labs drawn from Line* No Document 02/04/17 21:35 DWT (Rec: 02/05/17 00:20 DWT [id number]) IV/Invasive Line Assessment Left Hand Reason for Line Insertion/Rationale for Maintain Electrolyte Balance Insertion Provide Access for IV Medication(s) Gauge (gauge) 22 IV Catheter Type Peripheral IV Site Observation Patent Dressing Applied Window Dressing Dry/Intact Line Care Saline Flush RFA Reason for Line Insertion/Rationale for Replace Lost Fluids Insertion Provide Access for IV Medication(s) Provide Access for Emergency Gauge (gauge) 20 IV Catheter Type Peripheral IV Site Observation Patent Site Observation Intervention Inspected Line Dressing Applied Window Dressing Dry/Intact Line Care Saline Flush Labs drawn from Line* No Document 02/05/17 00:28 DWT (Rec: 02/05/17 00:29 DWT [id number]) IV/Invasive Line Assessment Left Hand Reason for Line Insertion/Rationale for Maintain Electrolyte Balance Insertion Provide Access for IV Medication(s) Gauge (gauge) 22 IV Catheter Type Peripheral IV Site Observation Patent Dressing Applied Window Dressing Dry/Intact Line Care Saline Flush Labs drawn from Line* No Document 02/05/17 03:40 DWT (Rec: 02/05/17 06:26 DWT [id number]) IV/Invasive Line Assessment Left Hand Reason for Line Insertion/Rationale for Maintain Electrolyte Balance Insertion Provide Access for IV Medication(s) Gauge (gauge) 22 IV Catheter Type Peripheral IV Site Observation Patent Dressing Applied Window Dressing Dry/Intact Line Care Saline Flush Labs drawn from Line* No Document 02/05/17 07:52 NCF (Rec: 02/05/17 07:55 NCF [id number]) IV/Invasive Line Assessment Left Hand Reason for Line Insertion/Rationale for Maintain Electrolyte Balance Insertion Provide Access for IV Medication(s) Gauge (gauge) 22 IV Catheter Type Peripheral IV Site Observation Patent Site Observation Intervention Inspected Line Dressing Applied Window Dressing Dry/Intact Line Care Saline Flush Labs drawn from Line* No Document 02/05/17 11:56 NCF (Rec: 02/05/17 11:56 NCF [id number]) IV/Invasive Line Assessment Left Hand Reason for Line Insertion/Rationale for Maintain Electrolyte Balance Insertion Provide Access for IV Medication(s) Gauge (gauge) 22 IV Catheter Type Peripheral IV Site Observation Patent Site Observation Intervention Inspected Line Dressing Applied Window Dressing Dry/Intact Line Care Saline Flush Labs drawn from Line* No Document 02/05/17 15:17 NCF (Rec: 02/05/17 15:19 NCF [id number]) IV/Invasive Line Assessment Left Hand Reason for Line Insertion/Rationale for Maintain Electrolyte Balance Insertion Provide Access for IV Medication(s) Gauge (gauge) 22 IV Catheter Type Peripheral IV Site Observation Patent Site Observation Intervention Inspected Line Dressing Applied Window Dressing Dry/Intact Line Care Saline Flush Labs drawn from Line* No Document 02/05/17 20:45 DWT (Rec: 02/05/17 20:53 DWT [id number]) IV/Invasive Line Assessment Left Hand Reason for Line Insertion/Rationale for Maintain Electrolyte Balance Insertion Provide Access for IV Medication(s) Gauge (gauge) 22 IV Catheter Type Peripheral IV Site Observation Patent Site Observation Intervention Inspected Line Dressing Applied Window Dressing Dry/Intact Line Care Saline Flush Labs drawn from Line* No Document 02/06/17 04:53 DWT (Rec: 02/06/17 04:56 DWT [id number]) IV/Invasive Line Assessment Left Hand Reason for Line Insertion/Rationale for Maintain Electrolyte Balance Insertion Provide Access for IV Medication(s) Gauge (gauge) 22 IV Catheter Type Peripheral IV Site Observation Patent Site Observation Intervention Inspected Line Dressing Applied Window Dressing Dry/Intact Line Care Saline Flush Labs drawn from Line* No Document 02/06/17 05:30 DWT (Rec: 02/06/17 07:04 DWT [id number]) IV/Invasive Line Assessment Right Hand Date of Insertion 02/06/17 Time of Insertion 05:30 Reason for Line Insertion/Rationale for Maintain Electrolyte Balance Insertion Provide Access for IV Medication(s) Line Insertion Patient Tolerance Tolerated Well Gauge (gauge) 22 IV Catheter Type Peripheral IV Site Observation Patent Dressing Applied Window Dressing Dry/Intact Line Care Saline Flush Date IV Line Discontinued 02/06/17 Time IV Line Discontinued 05:30 IV Line Discontinue Reason patient pulled out Condition of IV Line Removed catheter tip intact, bleeding controlled IV Line Removal Patient Tolerance Tolerated Well Sterile Dressing Applied IV removed/ tip intact Bleeding Controlled Education Completed Expresses Understanding Document 02/06/17 10:00 KMR (Rec: 02/06/17 11:08 KMR [id number]) IV/Invasive Line Assessment Right Hand Date of Insertion 02/06/17 Time of Insertion 05:30 Reason for Line Insertion/Rationale for Maintain Electrolyte Balance Insertion Provide Access for IV Medication(s) Line Insertion Patient Tolerance Tolerated Well Gauge (gauge) 22 IV Catheter Type Peripheral IV Site Observation Patent Dressing Applied Window Dressing Dry/Intact Line Care Saline Flush Labs drawn from Line* No Initial Patient Assessment Start: 02/03/17 01: 20 Freq: .ONCE Status: Discharge Document 02/03/17 01:22 [facility] (Rec: 02/03/17 01:27 [facility] [id number]) General Questions Date of Arrival on Unit 02/03/17 Time of Arrival on Unit 01:22 Admitted From Emergency Dept Chief Complaint Fall Onset of Chief Complaint 02/03/17 Emergency Contact Name Serafin mann Relationship to Patient Son Emergency Contact Bands applied ID band Patient Health Portal Patient was provided information on Yes accessing patient portal Patient Requests Portal Enrollment Yes Reason No Portal Enrollment Patient Declines Malnutrition Screening Tool (MST) Have You Recently Lost Weight Without No Trying Advance Directives Advance Directives No Advance Directives Information Provided No Reason Not Provided Patient declined Patient Rights Copy of Rights Given and Verbalizes Yes Understanding Tobacco Free [place]: Copy of [facility] Yes Statement Given and Patient Verbalizes Understanding Communication Ability Preferred Language Sinhala Qa Test Analyst Required No Ability to Follow Directions Good Able to Read Yes Able to Write Yes Hearing Ability Normal Visual Assistive Devices Glasses Pain Assessment Do You Have Any Ongoing (Chronic) Pain No Problems Educated on Pain Scale Yes Past Medical History Medical history diabetes GERD hyperlipidemia hypertension Female Surgical History cholecystectomy Psychiatric history no psych history Smoking Status Never smoker Smokeless Tobacco Status No Alcohol use none Drug use none Recent Out of Country Travel Within the No Last 8 Weeks Exposure or Possible Exposure to Illness No During Travel Spiritual Needs Spiritual Referral None Psychosocial Over Age 75 and Lives Alone or Over Age No 80 Potential Need for Follow-up Care (ECF, No Home Health, ECT) Developmentally Disabled or History of No 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 Need or No Terminal Implications Responsible for Care of Others No Financial Concerns No Suspected Abuse or Neglect No Suicidal or Homicidal Ideation No Social Service Consult Needed No Functional Assessment Eating (Feeding) Ability Independent Bathing Ability Independent Upper Body Dressing Ability Independent Lower Body Dressing Ability Independent Ambulation Ability Independent Toileting Ability Independent Intake and Output, Strict Start: 02/03/17 01: 20 Freq: Q8H Status: Discharge Document 02/03/17 05:01 WJS (Rec: 02/03/17 05:02 WJS [id number]) Intake and Output Intake, Oral Amount 0 Number of Voids 0 Document 02/03/17 07:22 [id number] (Rec: 02/03/17 07:25 [id number]) Intake and Output Intake, Oral Amount 0 Output, Urine Amount 0 Document 02/03/17 11:37 [id number] (Rec: 02/03/17 11:38 [id number]) Intake and Output Intake, Oral Amount 0 Output, Urine Amount 0 Document 02/03/17 13:30 KSR (Rec: 02/03/17 13:30 KSR [id number]) Intake and Output Intake, Oral Amount 100 Meal Lunch Percent of Meal Consumed 60% Oral Supplements* None Document 02/03/17 17:56 MARLYN (Rec: 02/03/17 17:57 MARLYN [id number]) Intake and Output Meal Dinner Percent of Meal Consumed 80% Oral Supplements* None Document 02/03/17 20:58 WJS (Rec: 02/03/17 21:01 WJS [id number]) Intake and Output Intake, Oral Amount 360 Meal Dinner Percent of Meal Consumed 100% Oral Supplements* None Number of Voids 0 Document 02/04/17 01:16 WJS (Rec: 02/04/17 01:20 WJS [id number]) Intake and Output Intake, Oral Amount 0 Number of Voids 0 Document 02/04/17 05:59 WJS (Rec: 02/04/17 06:02 WJS [id number]) Intake and Output Intake, Oral Amount 0 Number of Voids 0 Document 02/04/17 15:55 JAB (Rec: 02/04/17 15:56 JAB [id number]) Intake and Output Number of Voids 2 Document 02/05/17 09:42 JTD (Rec: 02/05/17 09:42 JTD [id number]) Intake and Output Intake, Oral Amount 240 Meal Breakfast Percent of Meal Consumed 100% Oral Supplements* None Document 02/05/17 11:38 ZC (Rec: 02/05/17 11:39 ZC [id number]) Intake and Output Intake, Oral Amount 250 Document 02/05/17 20:10 WJS (Rec: 02/05/17 22:55 WJS [id number]) Intake and Output Intake, Oral Amount 0 Number of Voids 0 Document 02/05/17 22:19 [id number] (Rec: 02/05/17 22:19 [id number]) Intake and Output Output, Urine Amount 300 Urine Color Bright Yellow Document 02/06/17 04:39 WJS (Rec: 02/06/17 04:42 WJS [id number]) Intake and Output Intake, Oral Amount 100 Number of Voids 0 Document 02/06/17 13:17 JAB (Rec: 02/06/17 13:17 JAB [id number]) Intake and Output Intake, Oral Amount 240 Meal Lunch Percent of Meal Consumed 100% Oral Supplements* None Measure intake and output Start: 02/03/17 02: 32 Freq: QSHIFT Status: Discharge Document 02/03/17 09:57 KSR (Rec: 02/03/17 09:58 KSR [id number]) Intake and Output Intake, Oral Amount 240 Meal Breakfast Percent of Meal Consumed 100% Oral Supplements* None Document 02/03/17 21:00 LEH (Rec: 02/03/17 23:50 LEH [id number]) Intake and Output Output, Urine Amount 200 Urine Color Bright Yellow Document 02/04/17 08:11 JAB (Rec: 02/04/17 08:16 JAB [id number]) Intake and Output Number of Voids 1 Document 02/04/17 14:10 JAB (Rec: 02/04/17 14:11 JAB [id number]) Intake and Output Intake, Oral Amount 360 Meal Breakfast Percent of Meal Consumed 100% Oral Supplements* None Document 02/04/17 21:00 TRM (Rec: 02/04/17 21:16 TRM [id number]) Intake and Output Intake, Oral Amount 0 Output, Urine Amount 0 Document 02/05/17 00:00 TRM (Rec: 02/05/17 00:22 TRM [id number]) Intake and Output Intake, Oral Amount 200 Number of Voids 2 02/05/17 00:21 Nurse Note by Ilana Demarco informed primary RN of current BP: 169/68. provided caridad care . patient denies needs at this time Initialized on 02/05/17 00:21 - END OF NOTE Document 02/05/17 05:00 TRM (Rec: 02/05/17 05:20 TRM [id number]) Intake and Output Intake, Oral Amount 100 Output, Urine Amount 0 Document 02/05/17 08:00 ZC (Rec: 02/05/17 08:01 ZC [id number]) Intake and Output Output, Urine Amount 100 Document 02/06/17 07:13 [id number] (Rec: 02/06/17 07:[id number] [place], [place] [id number]) Intake and Output Intake, Oral Amount 0 Output, Urine Amount 0 Document 02/06/17 09:00 [id number] (Rec: 02/06/17 10:[id number] [place], [place] [id number]) Intake and Output Intake, Oral Amount 600 Meal Breakfast Percent of Meal Consumed 100% Oral Supplements* None Output, Urine Amount 500 Number of Bowel Movements 2 Stool Size Moderate Stool Consistency loose Stool Characteristics Normal for Patient Stool Color Brown Document 02/06/17 15:36 [id number] (Rec: 02/06/17 15:[id number] [place], [place] [id number]) Intake and Output Intake, Oral Amount 300 Output, Urine Amount 200 Measure weight Start: 02/03/17 01: 20 Freq: Status: Discharge Document 02/03/17 01:29 [facility] (Rec: 02/03/17 01:30 [facility] [id number]) Height and Weight Weight 54.3 kg Weight Measurement Method Built in Bedscale Measure weight Start: 02/03/17 02: 32 Freq: DAILY Status: Discharge Document 02/04/17 05:59 WJS (Rec: 02/04/17 06:02 WJS [id number]) Height and Weight Weight 55.3 kg Weight Measurement Method Built in Bedscale Document 02/05/17 00:00 TRM (Rec: 02/05/17 00:22 TRM [id number]) Height and Weight Weight 56.6 kg Weight Measurement Method Built in Bedscale Document 02/05/17 05:00 TRM (Rec: 02/05/17 05:20 TRM [id number]) Height and Weight Weight 56.6 kg Weight Measurement Method Built in Bedscale 02/05/17 05:20 Nurse Note by Ilana Demarco informed primary RN of current BP: current BP 179/62 previous 148/61 Initialized on 02/05/17 05:20 - END OF NOTE Document 02/06/17 04:39 WJS (Rec: 02/06/17 04:42 WJS [id number]) Height and Weight Weight 57.6 kg Weight Measurement Method Built in Bedscale Document 02/06/17 09:00 [id number] (Rec: 02/06/17 10:09 [id number]) Height and Weight Weight 57.6 kg Weight Measurement Method Built in Bedscale Med [facility] [employer] Start: 02/03/17 15: 01 Freq: Status: Discharge Document 02/03/17 15:01 MRB (Rec: 02/03/17 15:02 MRB [id number]) Pharmacy Med [facility] [employer] Home Medicatons Reconciled? Yes Was this to catch up from previous day Yes Does patient take 10 or more medications Yes ? Does patient request medication Yes education Do home meds include Coumadin, Xarelto, No Pradaxa, Eliquis Added Patient Preferred Pharmacy Yes Verified Allergies Yes Would Patient Like to use [facility] No Patient Pharmacy Notify provider Start: 02/04/17 12: 18 Freq: once Status: Discharge Document 02/05/17 20:45 DWT (Rec: 02/05/17 20:53 DWT [id number]) OT Acute Daily Note Start: 02/05/17 14: 01 Freq: Status: Discharge Document 02/06/17 13:25 MDS (Rec: 02/06/17 13:29 MDS [id number]) General/Subjective Date of Admission 02/03/17 Referring Provider Kellie Bowens OT Visit # 2 Diagnosis Disorientation, unspecified OT Treatment Diagnosis Weakness Subjective Upon arrival pt was sitting in bed side chair. Pt stated that she was feeling alright today. Pt pleasant and willing to participate in therapy. Restrictions/Precautions Fall Precautions/Risk Restrictions/Precautions Rib fx L side - No UE theraband. Objective Transfers Pt perforing 3 sit-stands with CGA using walker. Pt performed functional mobility through room while being educated on safety with transfers and walker with CGA using walker. Balance F+ Endurance F+ Rehab Education Education Topic ADLs Transfers Safety Awareness Conservation Techniques Teaching Recipient Patient Teaching Method Verbal Response to Teaching Verbalize understanding Assessment/Plan Assessment Pt needing mod rest breaks throughout treatment and min verbal cues for safety. Progression Toward Goals Pt progressing well towards goals at this time. Disposition at end of Eval/Treatment Up in chair Lines intact Family in room Call light/phone within reach Tray table within reach All needs met Plan Continue to increase I with adls and transfers while collaborating with OTR. Time Started 10:00 Time Ended 10:10 Total Treatment Time (Min) (min) 10 Timed Code Treatment Minutes (min) 10 Estimated OT Needs at Discharge SNF/ECF Charge Sheet Therapeutic Activity 1 OT Charges/Documentation Finished? Yes Is patient being discharged from OT No today? OT Acute Eval Start: 02/05/17 14: 01 Freq: Status: Discharge Document 02/05/17 14:01 TNB (Rec: 02/05/17 14:08 TNB [id number]) Inpatient Rehab Intake Date of Admission 02/03/17 Chief Complaint confusion, fall PMH/Surgical History Relevant to Rehab arthritis, DM, GERD, HTN, osteoporosis, CKD, iron deficiency anemia, back surgery Factors/Comorbidities Impacting POC DM HTN Prior Treatment/Testing x-ray - fx. ribs left 11th and 12th Diagnosis Disorientation, unspecified Reason for Referral/Orders Evaluate, develop, and implement POC History of falls in past 6 months Has fallen 1-2 times Restrictions/Precautions Fall Precautions/Risk Additional Restrictions/Precautions Rib fx L side - No UE theraband. History Provided By Patient Lives With: lives with son and his family. They are not available 24/06 Type of Dwelling Single Family Home Number of Floors (Floors) 2 Number of Stairs to Enter (Stairs) 5 Are there handrails? Bilateral Bathing Environment Shower Home Environment Details first floor setup from pt. Current DME Front Wheeled Walker Four Wheeled Walker/Rollator Cane Shower Chair Grab Bars in Shower Prior Level Of Function independent Prior Mobility Level independent Driving yes, son can also provide transportation Patient/Family Goal Return home but open to rehab Pain Assessment Pain Present Reports Pain left ribs Intensity 8 Scale Used when moving Functional Mobility Assessment Bed Mobility Ability Minimum Assistance 1 Person Assist Bed Mobility Assistive Devices Bed Rail Elevated HOB Bed Transfer Ability Minimum Assistance 1 Person Assist Bed Transfer Assistive Devices Rolling Walker Transfer Belt Chair Transfer Ability Minimum Assistance 1 Person Assist Chair Transfer Assistive Devices Rolling Walker Transfer Belt Static Sitting Balance Ability Good Dynamic Sitting Balance Ability Good Static Standing Balance Ability Good -/Fair + Dynamic Standing Balance Ability Good -/Fair + Ambulation Assistive Devices Rolling Walker Activity Tolerance Good ADL Assessment Grooming Ability Setup Upper Body Dressing Ability Setup Lower Body Dressing Ability Minimum Assistance Washing/Drying Upper Body Ability Setup Washing/Drying Lower Extremities Ability Minimum Assistance Eating (Feeding) Ability Setup Performing Toilet Hygiene Ability Setup Managing Clothing Ability Minimum Assistance Activity Tolerance Fair ADL's pt able to stand for ~3 minutes with use of FWW before requiring sit down rest break with minimal physical exertion. Gross Strength/ROM Gross UE Strength Other (See Detail) Gross UE ROM Other (See Detail) UE ROM/Strength Detail No MMT performed 2/2 to Rib fx 's and pain. UE weakness observed with bed mobility and functional transfers . Edema/Skin Integrity Comment intact and functional Gross Sensorimotor Gross Sensation No Deficit Noted Gross Coordination No Deficit Noted Fine Motor Coordination No Deficit Noted Cognition/Visual Assessment Level of Alertness Alert Active Patient Orientation Person Place Date of Safety Awareness Situational Awareness Attention to Task No Deficits Noted Safety Awareness Comment Pt with intermittent confusion noted. Son had to re-orient patient at times. Visual Acuity No Deficits Noted Visual Spatial Deficit No Deficits Noted Hearing Ability Normal Ability to Follow Directions Follows Two Step Comprehension Ability No Impairment Patient Behavior Appropriate Cooperative Speech Pattern Clear Appropriate Eye Contact Maintains Eye Contact Problem Solving Ability Able To Solve Simple Problems Rehab Education Education Topic Bed Mobility Transfers Gait Safety Awareness Teaching Recipient Patient Teaching Method Verbal Response to Teaching Return demonstration Verbalize understanding Acute OT POC Is patient being assessed for No rehabilitation for diagnosis of stroke? [facility] OT Inpatient Daily Activity Raw 20 Score [facility] CMS 0-100% Impaired Score 38 Problems/Impairments/Functional Decreased Functional Endurance Limitation Decreased ADL's/IADL's Decreased Safety/Judgement/ Cognition Decreased Functional Mobility/ Transfers Decreased Standing Tolerance Needs AE/Compensatory Education Decreased Functional Reach Assessment pt demo'ed the above areas of OT concern during acute OT eval. Pt can benefit from skilled OT services to increase functional (I) during acute stay. Based on current performance, highly recommend Pt d/c to SNF. Rehab Potential Good Disposition at end of Eval/Treatment Up in chair Lines intact Family in room Call light/phone within reach Tray table within reach All needs met OT Treatment Diagnosis Weakness Planned OT Interventions Therapeutic Exercise Therapeutic Activity Self Care/Home Management OT Evaluation Re-Evaluation OT Treatment Frequency Once a Day, Mon-Fri Estimated OT Needs at Discharge SNF/ECF OT Estimated DME Needs at D/C Front Wheeled Walker Shower Chair Grab Bars in Shower Patient will participate in ADLs of Minimal Assistance various media (dressing,bathing) with___ __ to improve ADL I/participation by hospital discharge. Patient will improve functional outcome AM-PAC 6 CLICKS score on by noted improvement of score (increase or decrease as measured on tool by 2 points) within short term hospitalization stay. Patient will perform paced functional 5-7 minutes activity/ADLs while standing for to improve functional activity tolerance as needed for improved ADL performance prior to discharge. Patient will improve strength by 1 B/L ue WITH 1-3 LB FREE /2 grade to improve ADL participation & WEIGHTS ONLY independence by short term hospial stay. Patient will complete of paced 10-15 min with breaks therapeutic exercise to improve functional stamina as needed for daily routine & ADLs by hosptial discharge. Patient will complete bed mobility to Modified Independent improve functional mobility as needed for ADL participation with by hospital discharge. Patient will improve functional transfer Modified Independent ability to to improve independence with ADLs by dicharge from hospital. Patient will verbally/demonstrate recall Walker Safety/Assistive Device of precautions in order to increase safety with ADLs & promote proper healing by discharge. Supervising Therapist Pina Zhengal and Re-Eval Charges Evaluation Time: Minutes with Patient 35 Occupational Therapy Evaluation Moderate Yes Complexity OT Charges/Documentation Finished? Yes Is patient being discharged from OT No today? Financial Class MCR Secondary Payer Y OT G-code Therapy Billing Start: 02/05/17 14: 01 Freq: Status: Discharge Document 02/05/17 14:08 TNB (Rec: 02/05/17 14:09 TNB [id number]) OT G-codes G-code Required For This Visit No OT Current Status Carry OT Current Status Modifier At least 20% but less than 40% impaired, limited or restricted OT Goal Status Self Care OT Goal Status Modifier At least 20% but less than 40% impaired, limited or restricted Oxygen administration Start: 02/03/17 01: 20 Freq: Q12H Status: Discharge Document 02/03/17 09:50 AYW (Rec: 02/03/17 10:59 AYW [id number]) Oxygen Heart rate 52 O2 Sat by Pulse Oximetry (95-100) 98 Oxygen Delivery Method Room Air Document 02/04/17 08:00 BES (Rec: 02/04/17 12:39 BES [id number]) Oxygen O2 Sat by Pulse Oximetry (95-100) 98 Oxygen Delivery Method Nasal Cannula Oxygen Flow Rate (LPM) 2 Document 02/04/17 21:35 DWT (Rec: 02/05/17 00:20 DWT [id number]) Oxygen Heart rate 64 O2 Sat by Pulse Oximetry (95-100) 97 Oxygen Delivery Method Room Air Oxygen Flow Rate (LPM) 0 FIO2 (%) 21 Document 02/05/17 07:52 NCF (Rec: 02/05/17 07:55 NCF [id number]) Oxygen O2 Sat by Pulse Oximetry (95-100) 95 Oxygen Delivery Method Room Air Document 02/05/17 20:45 DWT (Rec: 02/05/17 20:53 DWT [id number]) Oxygen Heart rate 62 O2 Sat by Pulse Oximetry (95-100) 94 L Oxygen Delivery Method Room Air Oxygen Flow Rate (LPM) 0 FIO2 (%) 21 Document 02/06/17 10:00 KMR (Rec: 02/06/17 11:08 KMR [id number]) Oxygen Heart rate 74 O2 Sat by Pulse Oximetry (95-100) 93 L Oxygen Delivery Method Room Air Comment ax3 sitting in chair educated on code sta PT Acute Daily Note. Start: 02/05/17 12: 55 Freq: Status: Discharge Document 02/06/17 15:30 ADH (Rec: 02/06/17 15:37 ADH [id number]) General/Subjective Date of Admission 02/03/17 Referring Provider Kellie Bowens PT Visit # 2 Diagnosis Disorientation, unspecified PT Treatment Diagnosis Other abnormalities of gait and mobility Subjective Pt sitting in chair upon entry with [id number] present. Pt agreeable to work with PICU NURSE but also requesting asssit to restroom to have a BM. Restrictions/Precautions Fall Precautions/Risk Restrictions/Precautions Rib fx L side - No UE theraband. Objective Transfers Pt performed all functional transfers with CGA noting pt to have good stability and was cued to place less WB through L arm due to having pain from rib fractures. Gait Pt ambulated with PERFORMANCE ARCHITECT into restroom 2x15 ft noting pt to have good stability and not LOB observed with this activity. General Exercise Trunk/Lower Extremity Seated Hip Abduction/Adduction Alternating Seated Long Arc Quad Alernating Seated Ankle Heel/Toe Raises Standing Hip Flexion (January) Regional Exercise Completed Bilateral Lower Extremity Exercise Type Active Range of Motion # Sets 1 Repetitions 10 Exercise Tolerance Good Exercise Comment Pt attempted to perform hip flexion exercise in sitting with reports of pain in L side at ribs with this movement. Attempted to reduce the motion but pt stil reported pain therefore performed in standing with PERFORMANCE ARCHITECT noting pt to tolerate transition very well with no LOB observed while standing. Pt performed all other tasks well. Assessment and Plan Assessment Pt is compliant and pleasant with good family support noted . Pt was stable with activity and showed good ROM with exercises. More of her family entered room therefore pt elected to remain seated in chair. Disposition at end of Eval/Treatment Up in chair Lines intact Family in room Call light/phone within reach Tray table within reach All needs met Plan Continue to progress gait training. Time Started 14:28 Time Ended 14:45 Total Treatment Time (Min) (min) 17 Timed Code Treatment Minutes (min) 15 Estimated PT Needs at Discharge SNF/ECF Charge Sheet Therapeutic Exercise 1 PT Charges/Documentation Finished? Yes Is patient being discharged from PT No today? PT Acute Eval Start: 02/05/17 12: 55 Freq: Status: Discharge Document 02/05/17 12:55 GREG (Rec: 02/05/17 13:10 GREG [id number]) Inpatient Rehab Intake Date of Admission 02/03/17 Chief Complaint confusion, fall PMH/Surgical History Relevant to Rehab arthritis, DM, GERD, HTN, osteoporosis, CKD, iron deficiency anemia, back surgery Factors/Comorbidities Impacting POC DM HTN Prior Treatment/Testing x-ray - fx. ribs left 11th and 12th Diagnosis Disorientation, unspecified Reason for Referral/Orders Evaluate, develop, and implement POC History of falls in past 6 months Has fallen 1-2 times Restrictions/Precautions Fall Precautions/Risk History Provided By Patient Lives With: lives with son and his family. They are not available 24/06 Type of Dwelling Single Family Home Number of Floors (Floors) 2 Number of Stairs to Enter (Stairs) 5 Are there handrails? Bilateral Bathing Environment Shower Home Environment Details first floor setup from pt. Current DME Front Wheeled Walker Four Wheeled Walker/Rollator Cane Shower Chair Grab Bars in Shower Prior Level Of Function independent Prior Mobility Level independent Driving yes, son can also provide transportation Patient/Family Goal Return home but open to rehab Pain Assessment Pain Present Reports Pain left ribs Pain Description With Movement Highest Pain Intensity 8 Lowest Pain Intensity 0 Scale Used Numeric (1 - 10) Functional Mobility Assessment Bed Mobility Ability Minimum Assistance 1 Person Assist Bed Mobility Assistive Devices Bed Rail Elevated HOB Bed Transfer Ability Minimum Assistance 1 Person Assist Bed Transfer Assistive Devices Rolling Walker Transfer Belt Chair Transfer Ability Minimum Assistance 1 Person Assist Chair Transfer Assistive Devices Rolling Walker Transfer Belt Static Sitting Balance Ability Good Dynamic Sitting Balance Ability Good Static Standing Balance Ability Good -/Fair + Dynamic Standing Balance Ability Good -/Fair + Ambulation Assistive Devices Rolling Walker Activity Tolerance Good Additional Information Pt. required cueing for proper hand placement for safety with transfers. No shortness of breath with activity. Increased pain geoffrey. with transitional movements Gait/Stairs Deviation Assess. Ambulation Ability Contact Guard Assist (CGA) 1 Person Assist Ambulation Distance (ft) (feet) 22 Ambulation Assistive Device Rolling Walker Gait Belt General Gait Pattern Trunk Anterior to Pelvis Ambulation Ability Comments Decreased ant with gait. Pt. normally independent ambulator without device but now requiring WW for increased stability Gross Strength/ROM UE ROM/Strength Detail See OT eval Gross LE Strength Impaired Gross LE ROM Within Functional Limits LE ROM/Strength Detail 4- to 4/5 Torso/Spine Detail trunk 4/5 Limitations/Factors of Tone Muscle Tone Description Normal Edema/Skin Integrity Comment intact Gross Sensorimotor Gross Sensation No Deficit Noted Coordination Assessment Gross Coordination No Deficit Noted Cognition/Visual Assessment Level of Alertness Alert Patient Orientation Person Place Date of Safety Awareness Situational Awareness Attention to Task No Deficits Noted Visual Acuity No Deficits Noted Visual Spatial Deficit No Deficits Noted Hearing Ability Normal Ability to Follow Directions Follows Two Step Comprehension Ability No Impairment Patient Behavior Appropriate Cooperative Speech Pattern Clear Appropriate Eye Contact Maintains Eye Contact Problem Solving Ability Able To Solve Simple Problems Rehab Education Education Topic Bed Mobility Transfers Gait Safety Awareness Teaching Recipient Patient Teaching Method Verbal Response to Teaching Return demonstration Verbalize understanding Acute Care PT POC Is patient being assessed for No rehabilitation for diagnosis of stroke? [facility] PT Basic Mobility Raw Score 14 [facility] CMS 0-100% Impaired Score 48 Standardized Testing/Functional Outcomes [facility] 5 items Utilized/Results Problems/Impairments/Functional Decreased Functional Mobility/ Limitation Transfers Decreased Standing Tolerance Needs AE/Compensatory Education Balance Impaired Gait Decreased Strength Assessment Pt. is an 81y/o female admitted with disorientation and fall sustaining left rib fxs. x 2. Pt. lives with son and his family but is alone throughout the day d/t their work schedules. Pt. independent with all mobility prior to admit without device. Pt. now min/CGA for all mobility using WW. Recommend continued PT during hospital and discharge to SNF for continued therapy services for strengthening, pt. education, mobility, and gait to increase independence for return home Rehab Potential Good Disposition at end of Eval/Treatment Up in chair Lines intact Family in room Call light/phone within reach Tray table within reach All needs met PT Treatment Diagnosis Other abnormalities of gait and mobility Planned Interventions Therapeutic Exercise Therapeutic Activity Gait Training Re-Evaluation PT Treatment Frequency Once a Day, Mon-Fri Duration of Treatment 10 visits Goals Determined With Patient/Family Yes Estimated PT Needs at Discharge SNF/ECF Pt. will perform all bed mobility with__ Contact Guard Assistance ___to increase functional indendence. Pt. will perform all transfers with Contact Guard Assistance to increase safe functional mobility and independence. Pt. will demonstrate static/dynamic at least 50 feet with WW and balance during all functional activities SBA allowing increased safety awareness. Pt. will verbally recall precautions Walker Safety/Assistive Device without cues for increased safety & compliance in discharge environment. Supervising Therapist Ursula Ramírez Eval and Re-Eval Charges Evaluation Time: Minutes with Patient 21 Physical Therapy Evaluation Low Yes Complexity PT Charges/Documentation Finished? Yes Is patient being discharged from PT No today? Please Select All That Apply To Today's Elly Documented Visit Financial Class MCR Secondary Payer Y PT G-code Therapy Billing Start: 02/05/17 12: 55 Freq: Status: Discharge Document 02/05/17 12:55 GREG (Rec: 02/05/17 13:10 GREG [id number]) PT G-codes G-code Required For This Visit No PT Current Status Mobility PT Current Status Modifier At least 40% but less than 60% impaired, limited or restricted PT Goal Status Mobility PT Goal Status Modifer At least 20% but less than 40% impaired, limited or restricted Patient Belongings Start: 02/03/17 01: 20 Freq: .ONCE Status: Discharge Document 02/03/17 02:32 [facility] (Rec: 02/03/17 08:07 [facility] [id number]) Patient Belongings Belongings With Patient on Admission No Patient Rounding Start: 02/03/17 01: 20 Freq: Q1H Status: Discharge Document 02/03/17 01:29 [facility] (Rec: 02/03/17 01:30 [facility] [id number]) Hourly Rounding Hourly Rounding Checked for Patient Positioning Patient Personal Items Placed Within Reach Hourly Rounding Completed Yes Patient Awake Is family present? Yes Safety Call Light Within Reach Bed Position Low Phone Within Reach Bed Brake On Side Rails Up X2 Are the Floors Free From Trip Hazards? Yes Is the Room Free From Clutter? Yes Turn and Postion Bedrest No Turn Q 2HR No Patient Position Back Document 02/03/17 02:32 LE (Rec: 02/03/17 08:07 [facility] [id number]) Hourly Rounding Hourly Rounding Checked for Patient Positioning Patient Personal Items Placed Within Reach Checked Patient Pain Level Hourly Rounding Completed Yes Patient Resting With Eyes Closed Is family present? No Equipment in Use Specialty Bed Safety Call Light Within Reach Bed Position Low Bed Exit Alarm Fall Precautions Phone Within Reach Bed Brake On Side Rails Up X2 Are the Floors Free From Trip Hazards? Yes Is the Room Free From Clutter? Yes Turn and Postion Bedrest Yes Turn Q 2HR No Patient Position Back Positioning Aides Pillows Document 02/03/17 04:30 [facility] (Rec: 02/03/17 04:31 [facility] [id number]) Hourly Rounding Hourly Rounding Checked for Patient Positioning Patient Personal Items Placed Within Reach Checked Patient Pain Level Hourly Rounding Completed Yes Patient Awake Is family present? No Safety Call Light Within Reach Bed Position Low Phone Within Reach Bed Brake On Side Rails Up X2 Are the Floors Free From Trip Hazards? Yes Is the Room Free From Clutter? Yes Turn and Postion Bedrest No Turn Q 2HR No Patient Position Back Positioning Aides Pillows Document 02/03/17 05:01 WJS (Rec: 02/03/17 05:02 WJS [id number]) Hourly Rounding Hourly Rounding Checked for Patient Positioning Checked Patient Pain Level Hourly Rounding Completed Yes Patient Awake Is family present? No Safety Call Light Within Reach Bed Position Low Bed Exit Alarm Fall Precautions Phone Within Reach Bed Brake On Side Rails Up X2 Are the Floors Free From Trip Hazards? Yes Is the Room Free From Clutter? Yes Document 02/03/17 06:00 LE (Rec: 02/03/17 08:08 [facility] [id number]) Hourly Rounding Hourly Rounding Checked for Patient Positioning Checked Patient Pain Level Hourly Rounding Completed Yes Patient Awake Is family present? No Equipment in Use Specialty Bed Safety Call Light Within Reach Bed Position Low Bed Exit Alarm Fall Precautions Phone Within Reach Bed Brake On Side Rails Up X2 Are the Floors Free From Trip Hazards? Yes Is the Room Free From Clutter? Yes Turn and Postion Bedrest No Turn Q 2HR No Patient Position Back Positioning Aides Pillows Document 02/03/17 07:00 AYW (Rec: 02/03/17 11:00 AYW [id number]) Hourly Rounding Hourly Rounding Checked for Patient Positioning Patient Personal Items Placed Within Reach Checked Patient Pain Level Hourly Rounding Completed Yes Patient Awake Is family present? No Equipment in Use Specialty Bed Safety Call Light Within Reach Bed Position Low Bed Exit Alarm Fall Precautions Phone Within Reach Bed Brake On Side Rails Up X2 Are the Floors Free From Trip Hazards? Yes Is the Room Free From Clutter? Yes Turn and Postion Bedrest No Turn Q 2HR No Patient Position Back Head of Bed Position (degrees) 35 Document 02/03/17 09:50 AYW (Rec: 02/03/17 10:59 AYW [id number]) Hourly Rounding Hourly Rounding Checked for Patient Positioning Patient Personal Items Placed Within Reach Checked Patient Pain Level Hourly Rounding Completed Yes Patient Awake Is family present? Yes Equipment in Use Specialty Bed Safety Call Light Within Reach Bed Position Low Bed Exit Alarm Fall Precautions Phone Within Reach Bed Brake On Side Rails Up X2 Are the Floors Free From Trip Hazards? Yes Is the Room Free From Clutter? Yes Turn and Postion Bedrest No Turn Q 2HR No Patient Position Back Positioning Aides Pillows Head of Bed Position (degrees) 35 Document 02/03/17 11:20 AYW (Rec: 02/03/17 12:49 AYW [id number]) Hourly Rounding Hourly Rounding Checked for Patient Positioning Patient Personal Items Placed Within Reach Checked Patient Pain Level Hourly Rounding Completed Yes Patient Awake Is family present? Yes Equipment in Use Specialty Bed Safety Call Light Within Reach Bed Position Low Bed Exit Alarm Fall Precautions Phone Within Reach Bed Brake On Side Rails Up X2 Are the Floors Free From Trip Hazards? Yes Is the Room Free From Clutter? Yes Turn and Postion Bedrest No Turn Q 2HR No Patient Position Back Head of Bed Position (degrees) 35 Document 02/03/17 13:55 AYW (Rec: 02/03/17 14:22 AYW [id number]) Hourly Rounding Hourly Rounding Checked for Patient Positioning Patient Helped to Bathroom or Assisted with Bedpan or Urinal Patient Personal Items Placed Within Reach Checked Patient Pain Level Hourly Rounding Completed Yes Patient Awake Is family present? Yes Equipment in Use Specialty Bed Safety Call Light Within Reach Bed Position Low Bed Exit Alarm Fall Precautions Phone Within Reach Bed Brake On Side Rails Up X2 Are the Floors Free From Trip Hazards? Yes Is the Room Free From Clutter? Yes Turn and Postion Bedrest No Turn Q 2HR No Document 02/03/17 15:00 AYW (Rec: 02/03/17 18:20 AYW [id number]) Hourly Rounding Hourly Rounding Checked for Patient Positioning Patient Personal Items Placed Within Reach Checked Patient Pain Level Hourly Rounding Completed Yes Patient Awake Is family present? Yes Equipment in Use Specialty Bed Safety Call Light Within Reach Bed Position Low Bed Exit Alarm Fall Precautions Phone Within Reach Bed Brake On Side Rails Up X2 Are the Floors Free From Trip Hazards? Yes Is the Room Free From Clutter? Yes Turn and Postion Bedrest No Turn Q 2HR No Patient Position Back Positioning Aides Pillows Head of Bed Position (degrees) 30 Document 02/03/17 17:04 [facility] (Rec: 02/03/17 17:11 [facility] [id number]) Hourly Rounding Hourly Rounding Checked for Patient Positioning Patient Personal Items Placed Within Reach Checked Patient Pain Level Hourly Rounding Completed Yes Patient Awake Is family present? Yes Equipment in Use Specialty Bed Safety Call Light Within Reach Bed Position Low Bed Exit Alarm Fall Precautions Phone Within Reach Bed Brake On Side Rails Up X2 Are the Floors Free From Trip Hazards? Yes Is the Room Free From Clutter? Yes Turn and Postion Bedrest No Turn Q 2HR No Patient Position Back Positioning Aides Pillows Document 02/03/17 17:55 AY (Rec: 02/03/17 18:01 AY [id number]) Hourly Rounding Hourly Rounding Checked for Patient Positioning Patient Personal Items Placed Within Reach Checked Patient Pain Level Hourly Rounding Completed Yes Patient Awake Is family present? Yes Equipment in Use Specialty Bed Safety Call Light Within Reach Bed Position Low Bed Exit Alarm Fall Precautions Phone Within Reach Bed Brake On Side Rails Up X2 Are the Floors Free From Trip Hazards? Yes Is the Room Free From Clutter? Yes Turn and Postion Bedrest No Turn Q 2HR No Patient Position Sitting on Side of Bed Positioning Aides Pillows Document 02/03/17 20:58 WJS (Rec: 02/03/17 21:01 WJS [id number]) Hourly Rounding Hourly Rounding Checked for Patient Positioning Patient Personal Items Placed Within Reach Hourly Rounding Completed Yes Patient Awake Is family present? No Safety Call Light Within Reach Bed Position Low Bed Exit Alarm Fall Precautions Phone Within Reach Bed Brake On Side Rails Up X3 Are the Floors Free From Trip Hazards? Yes Is the Room Free From Clutter? Yes Document 02/03/17 21:00 [facility] (Rec: 02/03/17 23:50 [id number] Hourly Rounding Hourly Rounding Checked for Patient Positioning Patient Helped to Bathroom or Assisted with Bedpan or Urinal Patient Personal Items Placed Within Reach Checked Patient Pain Level Hourly Rounding Completed Yes Patient Awake Is family present? No Equipment in Use Specialty Bed Safety Call Light Within Reach Bed Position Low Bed Exit Alarm Fall Precautions Phone Within Reach Bed Brake On Side Rails Up X3 Are the Floors Free From Trip Hazards? Yes Is the Room Free From Clutter? Yes Turn and Postion Bedrest No Turn Q 2HR No Patient Position Back Positioning Aides Pillows Document 02/04/17 01:16 WJS (Rec: 02/04/17 01:20 WJS [id number]) Hourly Rounding Hourly Rounding Checked for Patient Positioning Patient Personal Items Placed Within Reach Hourly Rounding Completed Yes Patient Resting With Eyes Closed Is family present? No Safety Call Light Within Reach Bed Position Low Bed Exit Alarm Fall Precautions Phone Within Reach Bed Brake On Side Rails Up X2 Are the Floors Free From Trip Hazards? Yes Is the Room Free From Clutter? Yes Document 02/04/17 05:59 WJS (Rec: 02/04/17 06:02 WJS [id number]) Hourly Rounding Hourly Rounding Checked for Patient Positioning Patient Personal Items Placed Within Reach Hourly Rounding Completed Yes Patient Awake Is family present? No Safety Call Light Within Reach Bed Position Low Bed Exit Alarm Fall Precautions Phone Within Reach Bed Brake On Side Rails Up X3 Are the Floors Free From Trip Hazards? Yes Is the Room Free From Clutter? Yes Document 02/04/17 07:53 [facility] (Rec: 02/04/17 07:55 [id number] Hourly Rounding Hourly Rounding Checked for Patient Positioning Patient Personal Items Placed Within Reach Checked Patient Pain Level Hourly Rounding Completed Yes Patient Awake Is family present? No Equipment in Use Specialty Bed Safety Call Light Within Reach Bed Position Low Bed Exit Alarm Fall Precautions Phone Within Reach Bed Brake On Side Rails Up X3 Are the Floors Free From Trip Hazards? Yes Is the Room Free From Clutter? Yes Turn and Postion Bedrest No Turn Q 2HR No Patient Position Back Positioning Aides Pillows Document 02/04/17 08:11 [facility] (Rec: 02/04/17 08:16 RAD[facility] [id number]) Hourly Rounding Hourly Rounding Checked for Patient Positioning Patient Personal Items Placed Within Reach Hourly Rounding Completed Yes Patient Awake Is family present? Yes Safety Call Light Within Reach Bed Position Low Fall Precautions Phone Within Reach Bed Brake On Side Rails Up X3 Are the Floors Free From Trip Hazards? Yes Is the Room Free From Clutter? Yes Turn and Postion Bedrest No Turn Q 2HR No Document 02/04/17 11:39 [facility] (Rec: 02/04/17 11:44 RADHA [id number]) Hourly Rounding Hourly Rounding Checked for Patient Positioning Patient Personal Items Placed Within Reach Hourly Rounding Completed Yes Patient Awake Is family present? Yes Safety Call Light Within Reach Bed Position Low Fall Precautions Side Rails Up X2 Are the Floors Free From Trip Hazards? Yes Is the Room Free From Clutter? Yes Turn and Postion Bedrest No Turn Q 2HR No Document 02/04/17 15:55 [facility] (Rec: 02/04/17 15:56 [facility] [id number]) Hourly Rounding Hourly Rounding Checked for Patient Positioning Patient Personal Items Placed Within Reach Hourly Rounding Completed Yes Patient Awake Is family present? Yes Safety Call Light Within Reach Bed Position Low Fall Precautions Phone Within Reach Bed Brake On Side Rails Up X2 Are the Floors Free From Trip Hazards? Yes Is the Room Free From Clutter? Yes Turn and Postion Bedrest No Turn Q 2HR No Document 02/04/17 21:00 [facility] (Rec: 02/04/17 21:16 [facility] [id number]) Hourly Rounding Hourly Rounding Checked for Patient Positioning Patient Helped to Bathroom or Assisted with Bedpan or Urinal Patient Personal Items Placed Within Reach Checked Patient Pain Level Hourly Rounding Completed Yes Patient Awake Is family present? No Safety Call Light Within Reach Bed Position Low Phone Within Reach Bed Brake On Side Rails Up X2 Are the Floors Free From Trip Hazards? Yes Is the Room Free From Clutter? Yes Turn and Postion Bedrest No Turn Q 2HR No Document 02/04/17 21:35 DWT (Rec: 02/05/17 00:20 [facility] [id number]) Hourly Rounding Hourly Rounding Checked for Patient Positioning Patient Personal Items Placed Within Reach Checked Patient Pain Level Hourly Rounding Completed Yes Patient Awake Is family present? No Comment rib pain Equipment in Use Specialty Bed Safety Call Light Within Reach Bed Position Low Bed Exit Alarm Fall Precautions Phone Within Reach Bed Brake On Side Rails Up X2 Are the Floors Free From Trip Hazards? Yes Is the Room Free From Clutter? Yes Turn and Postion Bedrest No Turn Q 2HR No Patient Position Back Document 02/05/17 00:00 [facility] (Rec: 02/05/17 00:22 [facility] [id number]) Hourly Rounding Hourly Rounding Checked for Patient Positioning Patient Helped to Bathroom or Assisted with Bedpan or Urinal Patient Personal Items Placed Within Reach Checked Patient Pain Level Hourly Rounding Completed Yes Patient Awake Is family present? No Safety Call Light Within Reach Bed Position Low Bed Exit Alarm Fall Precautions Phone Within Reach Bed Brake On Side Rails Up X3 Are the Floors Free From Trip Hazards? Yes Is the Room Free From Clutter? Yes Turn and Postion Bedrest No Turn Q 2HR No Document 02/05/17 00:28 [facility] (Rec: 02/05/17 00:29 [facility] [id number]) Hourly Rounding Hourly Rounding Checked for Patient Positioning Patient Personal Items Placed Within Reach Hourly Rounding Completed Yes Patient Resting With Eyes Closed Is family present? No Equipment in Use Specialty Bed Safety Call Light Within Reach Bed Position Low Bed Exit Alarm Fall Precautions Phone Within Reach Bed Brake On Side Rails Up X3 Are the Floors Free From Trip Hazards? Yes Is the Room Free From Clutter? Yes Turn and Postion Bedrest No Turn Q 2HR No Patient Position Back Document 02/05/17 03:40 DWT (Rec: 02/05/17 06:26 DWT [id number]) Hourly Rounding Hourly Rounding Checked for Patient Positioning Patient Helped to Bathroom or Assisted with Bedpan or Urinal Patient Personal Items Placed Within Reach Checked Patient Pain Level Hourly Rounding Completed Yes Patient Awake Is family present? No Equipment in Use Specialty Bed Safety Call Light Within Reach Bed Position Low Bed Exit Alarm Fall Precautions Phone Within Reach Bed Brake On Side Rails Up X2 Are the Floors Free From Trip Hazards? Yes Is the Room Free From Clutter? Yes Turn and Postion Bedrest No Turn Q 2HR No Patient Position Back Document 02/05/17 05:00 TRM (Rec: 02/05/17 05:20 TRM [id number]) Hourly Rounding Hourly Rounding Checked for Patient Positioning Patient Helped to Bathroom or Assisted with Bedpan or Urinal Patient Personal Items Placed Within Reach Checked Patient Pain Level Hourly Rounding Completed Yes Patient Awake Is family present? No Safety Call Light Within Reach Bed Position Low Bed Exit Alarm Fall Precautions Phone Within Reach Bed Brake On Side Rails Up X2 Are the Floors Free From Trip Hazards? Yes Is the Room Free From Clutter? Yes Turn and Postion Bedrest No Turn Q 2HR No Document 02/05/17 08:00 (Rec: 02/05/17 08:01 [id number]) Hourly Rounding Hourly Rounding Checked for Patient Positioning Patient Personal Items Placed Within Reach Hourly Rounding Completed Yes Patient Awake Is family present? No Equipment in Use Specialty Bed Safety Call Light Within Reach Bed Position Low Bed Exit Alarm Fall Precautions Phone Within Reach Bed Brake On Side Rails Up X2 Are the Floors Free From Trip Hazards? Yes Is the Room Free From Clutter? Yes Document 02/05/17 10:00 (Rec: 02/05/17 12:10 [id number]) Hourly Rounding Hourly Rounding Checked for Patient Positioning Patient Personal Items Placed Within Reach Hourly Rounding Completed Yes Patient Awake Is family present? No Equipment in Use Specialty Bed Safety Call Light Within Reach Bed Position Low Bed Exit Alarm Fall Precautions Phone Within Reach Bed Brake On Side Rails Up X2 Are the Floors Free From Trip Hazards? Yes Is the Room Free From Clutter? Yes Document 02/05/17 12:10 (Rec: 02/05/17 12:10 [id number] Hourly Rounding Hourly Rounding Checked for Patient Positioning Patient Personal Items Placed Within Reach Hourly Rounding Completed Yes Patient Awake Is family present? No Equipment in Use Specialty Bed Safety Call Light Within Reach Bed Position Low Bed Exit Alarm Fall Precautions Phone Within Reach Bed Brake On Side Rails Up X2 Are the Floors Free From Trip Hazards? Yes Is the Room Free From Clutter? Yes Document 02/05/17 14:00 (Rec: 02/05/17 15:28 [id number]) Hourly Rounding Hourly Rounding Checked for Patient Positioning Patient Personal Items Placed Within Reach Hourly Rounding Completed Yes Patient Awake Is family present? No Equipment in Use Specialty Bed Safety Call Light Within Reach Bed Position Low Bed Exit Alarm Fall Precautions Phone Within Reach Bed Brake On Side Rails Up X2 Are the Floors Free From Trip Hazards? Yes Is the Room Free From Clutter? Yes Document 02/05/17 16:00 (Rec: 02/05/17 16:28 [id number]) Hourly Rounding Hourly Rounding Checked for Patient Positioning Patient Personal Items Placed Within Reach Hourly Rounding Completed Yes Patient Awake Is family present? No Equipment in Use Specialty Bed Safety Call Light Within Reach Bed Position Low Bed Exit Alarm Fall Precautions Phone Within Reach Bed Brake On Side Rails Up X2 Are the Floors Free From Trip Hazards? Yes Is the Room Free From Clutter? Yes Document 02/05/17 20:10 WJS (Rec: 02/05/17 22:55 WJS [id number]) Hourly Rounding Hourly Rounding Checked for Patient Positioning Patient Personal Items Placed Within Reach Hourly Rounding Completed Yes Patient Awake Is family present? No Safety Call Light Within Reach Bed Position Low Bed Exit Alarm Fall Precautions Phone Within Reach Bed Brake On Side Rails Up X2 Side Rails Up X3 Are the Floors Free From Trip Hazards? Yes Is the Room Free From Clutter? Yes Document 02/05/17 20:45 DWT (Rec: 02/05/17 20:53 DWT [id number]) Hourly Rounding Hourly Rounding Checked for Patient Positioning Patient Helped to Bathroom or Assisted with Bedpan or Urinal Patient Personal Items Placed Within Reach Checked Patient Pain Level Hourly Rounding Completed Yes Patient Awake Is family present? No Comment patient denies pain at this time Equipment in Use Specialty Bed Safety Call Light Within Reach Bed Position Low Bed Exit Alarm Fall Precautions Phone Within Reach Bed Brake On Side Rails Up X2 Are the Floors Free From Trip Hazards? Yes Is the Room Free From Clutter? Yes Turn and Postion Bedrest No Turn Q 2HR No Patient Position Back Document 02/05/17 23:50 DW (Rec: 02/06/17 04:04 [id number] Hourly Rounding Hourly Rounding Checked for Patient Positioning Patient Personal Items Placed Within Reach Hourly Rounding Completed Yes Patient Sleeping Is family present? No Equipment in Use Specialty Bed Safety Call Light Within Reach Bed Position Low Bed Exit Alarm Fall Precautions Phone Within Reach Bed Brake On Side Rails Up X2 Are the Floors Free From Trip Hazards? Yes Is the Room Free From Clutter? Yes Turn and Postion Bedrest No Turn Q 2HR No Patient Position Back Document 02/06/17 00:00 W (Rec: 02/06/17 00:22 [id number] Hourly Rounding Hourly Rounding Checked for Patient Positioning Patient Personal Items Placed Within Reach Hourly Rounding Completed Yes Patient Resting With Eyes Closed Is family present? No Safety Call Light Within Reach Bed Position Low Bed Exit Alarm Fall Precautions Phone Within Reach Bed Brake On Side Rails Up X3 Are the Floors Free From Trip Hazards? Yes Is the Room Free From Clutter? Yes Document 02/06/17 04:39 W (Rec: 02/06/17 04:42 [id number]) Hourly Rounding Hourly Rounding Checked for Patient Positioning Patient Personal Items Placed Within Reach Hourly Rounding Completed Yes Patient Awake Is family present? No Safety Call Light Within Reach Bed Position Low Bed Exit Alarm Fall Precautions Phone Within Reach Bed Brake On Side Rails Up X3 Are the Floors Free From Trip Hazards? Yes Is the Room Free From Clutter? Yes Document 02/06/17 04:53 DW (Rec: 02/06/17 04:56 [id number]) Hourly Rounding Hourly Rounding Checked for Patient Positioning Patient Helped to Bathroom or Assisted with Bedpan or Urinal Patient Personal Items Placed Within Reach Checked Patient Pain Level Hourly Rounding Completed Yes Patient Awake Is family present? No Equipment in Use Specialty Bed Safety Call Light Within Reach Bed Position Low Bed Exit Alarm Fall Precautions Phone Within Reach Bed Brake On Side Rails Up X3 Are the Floors Free From Trip Hazards? Yes Is the Room Free From Clutter? Yes Turn and Postion Bedrest No Turn Q 2HR No Patient Position Back Document 02/06/17 06:00 [id number] (Rec: 02/06/17 07:14 [id number]) Hourly Rounding Hourly Rounding Checked for Patient Positioning Patient Personal Items Placed Within Reach Hourly Rounding Completed Yes Patient Awake Is family present? No Equipment in Use Specialty Bed Safety Call Light Within Reach Bed Position Low Bed Exit Alarm Fall Precautions Phone Within Reach Bed Brake On Side Rails Up X3 Are the Floors Free From Trip Hazards? Yes Is the Room Free From Clutter? Yes Turn and Postion Bedrest No Turn Q 2HR No Patient Position Back Document 02/06/17 08:00 [id number] (Rec: 02/06/17 10:10 [id number]) Hourly Rounding Hourly Rounding Checked for Patient Positioning Patient Personal Items Placed Within Reach Hourly Rounding Completed Yes Patient Awake Is family present? No Equipment in Use Specialty Bed Safety Call Light Within Reach Bed Position Low Bed Exit Alarm Fall Precautions Phone Within Reach Bed Brake On Side Rails Up X3 Are the Floors Free From Trip Hazards? Yes Is the Room Free From Clutter? Yes Turn and Postion Bedrest No Turn Q 2HR No Patient Position Back Document 02/06/17 10:00 KMR (Rec: 02/06/17 11:08 KMR [id number]) Hourly Rounding Hourly Rounding Checked for Patient Positioning Patient Helped to Bathroom or Assisted with Bedpan or Urinal Patient Personal Items Placed Within Reach Checked Patient Pain Level Hourly Rounding Completed Yes Patient Awake Is family present? No Equipment in Use Specialty Bed Safety Call Light Within Reach Bed Position Low Bed Exit Alarm Fall Precautions Phone Within Reach Bed Brake On Side Rails Up X3 Are the Floors Free From Trip Hazards? Yes Is the Room Free From Clutter? Yes Turn and Postion Bedrest No Turn Q 2HR No Patient Position Back Document 02/06/17 12:00 (Rec: 02/06/17 14:11 [id number]) Hourly Rounding Hourly Rounding Checked for Patient Positioning Patient Personal Items Placed Within Reach Hourly Rounding Completed Yes Patient Awake Is family present? No Equipment in Use Specialty Bed Safety Call Light Within Reach Bed Position Low Bed Exit Alarm Fall Precautions Phone Within Reach Bed Brake On Side Rails Up X3 Are the Floors Free From Trip Hazards? Yes Is the Room Free From Clutter? Yes Turn and Postion Bedrest No Turn Q 2HR No Patient Position Chair Document 02/06/17 14:00 [id number] (Rec: 02/06/17 15:38 [id number]) Hourly Rounding Hourly Rounding Checked for Patient Positioning Patient Personal Items Placed Within Reach Hourly Rounding Completed Yes Patient Awake Is family present? No Equipment in Use Specialty Bed Safety Call Light Within Reach Bed Position Low Bed Exit Alarm Fall Precautions Phone Within Reach Bed Brake On Side Rails Up X3 Are the Floors Free From Trip Hazards? Yes Is the Room Free From Clutter? Yes Turn and Postion Bedrest No Turn Q 2HR No Patient Position Chair Document 02/06/17 15:36 (Rec: 02/06/17 15:38 [id number]) Hourly Rounding Hourly Rounding Checked for Patient Positioning Patient Personal Items Placed Within Reach Hourly Rounding Completed Yes Patient Awake Is family present? No Equipment in Use Specialty Bed Safety Call Light Within Reach Bed Position Low Bed Exit Alarm Fall Precautions Phone Within Reach Bed Brake On Side Rails Up X3 Are the Floors Free From Trip Hazards? Yes Is the Room Free From Clutter? Yes Turn and Postion Bedrest No Turn Q 2HR No Patient Position Chair Peripheral venous cannula mgmt/flush Start: 02/03/17 02: 32 Freq: CONT Status: Discharge Document 02/03/17 09:50 AYW (Rec: 02/03/17 10:59 AYW [id number]) Document 02/04/17 08:00 BES (Rec: 02/04/17 12:39 BES [id number]) RT Continuous Pulse Oximetry Start: 02/03/17 02: 32 Freq: CONT Status: Discharge Document 02/03/17 09:50 AYW (Rec: 02/03/17 10:59 AYW [id number]) Pulse Oximetry O2 Sat by Pulse Oximetry (95-100) 98 Heart rate 52 Oxygen Delivery Method Room Air Saline lock insertion/management Start: 02/02/17 20: 35 Freq: .ONCE Status: Complete Document 02/02/17 20:47 LAP (Rec: 02/02/17 20:47 LAP [id number]) IV Insertion/Site Assessment IV Attempt 1 Successful Successful Blood drawn and sent to Lab Yes Left Antecubital Date of Insertion 02/02/17 Time of Insertion 20:47 Reason for IV Insertion Replace Lost Fluids IV Catheter Type Peripheral IV Gauge (gauge) 20 Site Observation Patent [place] Dressing Applied Transparent Dressing Dry/Intact Patient Tolerance Tolerated Well Sepsis Screening Start: 02/03/17 01: 20 Freq: Q8H Status: Discharge Document 02/03/17 02:32 LEH (Rec: 02/03/17 08:07 LEH [id number]) Sepsis Screening Sepsis Infection Criteria Present none Sepsis SIRS Criteria none Sepsis Screen No Definite Risk Sepsis Action Taken no action required Document 02/03/17 09:50 AYW (Rec: 02/03/17 10:59 AYW [id number]) Sepsis Screening Sepsis Infection Criteria Present suspected infection Sepsis SIRS Criteria WBC > 12k or < 4k or bands > 10% Sepsis Screen No Definite Risk Sepsis Action Taken no action required Document 02/03/17 17:04 MARLYN (Rec: 02/03/17 17:11 MARLYN [id number]) Sepsis Screening Sepsis Infection Criteria Present suspected infection Sepsis SIRS Criteria WBC > 12k or < 4k or bands > 10% Sepsis Screen No Definite Risk Sepsis Action Taken no action required Document 02/03/17 21:00 LEH (Rec: 02/03/17 23:50 LEH [id number]) Sepsis Screening Sepsis Infection Criteria Present suspected infection Sepsis SIRS Criteria none Sepsis Screen No Definite Risk Sepsis Action Taken no action required Document 02/04/17 05:00 LEH (Rec: 02/04/17 08:25 LEH [id number]) Sepsis Screening Sepsis Infection Criteria Present suspected infection Sepsis SIRS Criteria none Sepsis Screen No Definite Risk Sepsis Action Taken no action required Document 02/04/17 08:00 BES (Rec: 02/04/17 12:39 BES [id number]) Sepsis Screening Sepsis Infection Criteria Present suspected infection Sepsis SIRS Criteria none Sepsis Screen No Definite Risk Sepsis Action Taken no action required Document 02/04/17 21:35 DWT (Rec: 02/05/17 00:20 DWT [id number]) Sepsis Screening Sepsis Infection Criteria Present confirmed infection Sepsis SIRS Criteria none Sepsis Screen No Definite Risk Sepsis Action Taken no action required Document 02/05/17 03:40 DWT (Rec: 02/05/17 06:26 DWT [id number]) Sepsis Screening Sepsis Infection Criteria Present confirmed infection Sepsis SIRS Criteria none Sepsis Screen No Definite Risk Sepsis Action Taken no action required Document 02/05/17 07:52 NCF (Rec: 02/05/17 07:55 NCF [id number]) Sepsis Screening Sepsis Infection Criteria Present confirmed infection Sepsis SIRS Criteria none Sepsis Screen No Definite Risk Sepsis Action Taken no action required Document 02/05/17 15:17 NCF (Rec: 02/05/17 15:19 NCF [id number]) Sepsis Screening Sepsis Infection Criteria Present none Sepsis SIRS Criteria none Sepsis Screen No Definite Risk Sepsis Action Taken no action required Document 02/05/17 20:45 DWT (Rec: 02/05/17 20:53 DWT [id number]) Sepsis Screening Sepsis Infection Criteria Present none Sepsis SIRS Criteria none Sepsis Screen No Definite Risk Sepsis Action Taken no action required Document 02/06/17 04:53 DWT (Rec: 02/06/17 04:56 DWT [id number]) Sepsis Screening Sepsis Infection Criteria Present none Sepsis SIRS Criteria none Sepsis Screen No Definite Risk Sepsis Action Taken no action required Document 02/06/17 10:00 KMR (Rec: 02/06/17 11:08 KMR [id number]) Sepsis Screening Sepsis Infection Criteria Present none Sepsis SIRS Criteria none Sepsis Screen No Definite Risk Sepsis Action Taken no action required Skin Risk Assessment Scale Start: 02/03/17 01: 20 Freq: Q12H Status: Discharge Document 02/03/17 02:32 LEH (Rec: 02/03/17 08:07 LEH [id number]) Skin Risk Assessment Scale Moisture Risk Occasionally Moist Sensory Perception Slightly Limited Activity Risk Walks Frequently Mobility Risk Very Limited Nutrition Risk Adequate Friction & Shear Risk No Apparent Problem Skin Risk Total Score (points) 18 Document 02/03/17 09:50 AYW (Rec: 02/03/17 10:59 AYW [id number]) Skin Risk Assessment Scale Moisture Risk Occasionally Moist Sensory Perception Slightly Limited Activity Risk Walks Occasionally Mobility Risk Slightly Limited Nutrition Risk Probably Inadequate Friction & Shear Risk Potential Problem Skin Risk Total Score (points) 16 Document 02/03/17 21:00 LEH (Rec: 02/03/17 23:50 LEH [id number]) Skin Risk Assessment Scale Moisture Risk Occasionally Moist Sensory Perception Slightly Limited Activity Risk Walks Occasionally Mobility Risk Slightly Limited Nutrition Risk Probably Inadequate Friction & Shear Risk Potential Problem Skin Risk Total Score (points) 16 Document 02/04/17 08:00 BES (Rec: 02/04/17 12:39 BES [id number]) Skin Risk Assessment Scale Moisture Risk Occasionally Moist Sensory Perception Slightly Limited Activity Risk Walks Occasionally Mobility Risk Slightly Limited Nutrition Risk Probably Inadequate Friction & Shear Risk Potential Problem Skin Risk Total Score (points) 16 Document 02/04/17 21:35 DWT (Rec: 02/05/17 00:20 DWT [id number]) Skin Risk Assessment Scale Moisture Risk Occasionally Moist Sensory Perception Slightly Limited Activity Risk Walks Occasionally Mobility Risk Slightly Limited Nutrition Risk Probably Inadequate Friction & Shear Risk Potential Problem Skin Risk Total Score (points) 16 Document 02/05/17 07:52 NCF (Rec: 02/05/17 07:55 NCF [id number]) Skin Risk Assessment Scale Moisture Risk Occasionally Moist Sensory Perception Slightly Limited Activity Risk Walks Occasionally Mobility Risk Slightly Limited Nutrition Risk Probably Inadequate Friction & Shear Risk Potential Problem Skin Risk Total Score (points) 16 Document 02/05/17 20:45 DWT (Rec: 02/05/17 20:53 DWT [id number]) Skin Risk Assessment Scale Moisture Risk Occasionally Moist Sensory Perception Slightly Limited Activity Risk Walks Occasionally Mobility Risk Slightly Limited Nutrition Risk Probably Inadequate Friction & Shear Risk Potential Problem Skin Risk Total Score (points) 16 Document 02/06/17 10:00 KMR (Rec: 02/06/17 11:08 KMR [id number]) Skin Risk Assessment Scale Moisture Risk Occasionally Moist Sensory Perception Slightly Limited Activity Risk Walks Occasionally Mobility Risk Slightly Limited Nutrition Risk Probably Inadequate Friction & Shear Risk Potential Problem Skin Risk Total Score (points) 16 System Review Start: 02/03/17 01: 20 Freq: Q8H Status: Discharge Document 02/03/17 02:32 LEH (Rec: 02/03/17 08:07 LEH [id number]) Pain Assessment Pain Present Reports No Pain Neurological Assessment Eye Opening Spontaneous Motor Obeys Commands Verbal Confused Coma Scale Total 14 Neurologic Status Agitation/Confusion Patient Orientation Person Time Arousable To Name Speech Pattern Normal rate Normal rhythm Normal tone Patient Behavior Confused Manager Banking Strength Equal Push/Pull Equal Numbness/Tingling No Facial Symmetry Symmetrical Cardiovascular Assessment Signs and Symptoms None Dizziness Heart Sounds S1 & S2 Jugular Vein Distention None Capillary Refill < 3 Seconds Circulatory Tenderness Description None Right Radial 2+ Left Radial 2+ Right Dorsalis Pedis 1+ Left Dorsalis Pedis 1+ Has Confirmed Diagnosis of DVT, PE or No VTE VTE Prophylaxis SQ Treatment Mechanical Prophylaxis No Respiratory Assessment Respiratory Symptoms None Effort Spontaneous Depth Normal Respiratory Pattern Regular Chest Shape Normal Expansion Symmetrical All Lung Narayan Clear Sputum Amount None Gastrointestinal Assessment Abdomen Description Soft 3 or more loose stools, in less than 24 No hours Nausea/Vomiting Presence None All Four Quadrants Active Integumentary Assessment Temperature Warm Moisture Dry Turgor Normal Color Pale All Pressure Points Assessed Yes Evidence of Incision/Wounds/Breakdown No Mucous membranes moist, pink and intact Yes Musculoskeletal Assessment Musculoskeletal Symptoms Generalized Weakness Document 02/03/17 09:50 AYW (Rec: 02/03/17 10:59 AYW [id number]) Pain Assessment Pain Present Reports No Pain Neurological Assessment Eye Opening Spontaneous Motor Obeys Commands Verbal Confused Coma Scale Total 14 Neurologic Status Agitation/Confusion Patient Orientation Person Place Arousable To Name Speech Pattern Normal rate Normal rhythm Normal tone Clear Coherent Patient Behavior Cooperative Confused Mood Description Calm Relaxed Bilateral Pupil Reaction Reactive Pupil [place] Equal Scleral Edema No Manager Banking Strength Equal Push/Pull Equal Numbness/Tingling No Facial Symmetry Symmetrical Cardiovascular Assessment Signs and Symptoms None Heart Sounds S1 & S2 Jugular Vein Distention None Capillary Refill < 3 Seconds Circulatory Tenderness Description None Right Radial 2+ Left Radial 2+ Right Dorsalis Pedis 1+ Left Dorsalis Pedis 1+ Has Confirmed Diagnosis of DVT, PE or No VTE VTE Prophylaxis SQ Treatment Mechanical Prophylaxis No Respiratory Assessment Respiratory Symptoms None Effort Normal for Patient Spontaneous Non-Labored Depth Normal Respiratory Pattern Regular Chest Shape Normal Expansion Symmetrical All Lung Narayan Clear Oxygen Delivery Method Room Air Cough Description None Sputum Amount None Gastrointestinal Assessment Abdomen Description Flat Soft Non-Tender 3 or more loose stools, in less than 24 No hours Nausea/Vomiting Presence None All Four Quadrants Active Genitourinary Assessment Genitourinary Symptoms None Bladder Pattern Normal Voiding Method Toilet Bladder Distention None Suprapubic Tenderness with Palpation No Comment: no urine to assess at this time Integumentary Assessment Nail Bed Appearance Pale Temperature Warm Moisture Dry Turgor Loose Color Normal All Pressure Points Assessed Yes Evidence of Incision/Wounds/Breakdown No Mucous membranes moist, pink and intact Yes Oral Cavity Normal Musculoskeletal Assessment Musculoskeletal Symptoms Generalized Weakness Document 02/03/17 17:04 [facility] (Rec: 02/03/17 17:11 [facility] [id number]) Pain Assessment Pain Present Reports No Pain Neurological Assessment Eye Opening Spontaneous Motor Obeys Commands Verbal Confused Coma Scale Total 14 Neurologic Status Agitation/Confusion Patient Orientation Person Place Arousable To Name Speech Pattern Normal rate Normal rhythm Normal tone Clear Coherent Patient Behavior Cooperative Confused Mood Description Calm Sad Bilateral Pupil Reaction Reactive Pupil [place] Equal Scleral Edema No Manager Banking Strength Equal Push/Pull Equal Numbness/Tingling No Facial Symmetry Symmetrical Cardiovascular Assessment Signs and Symptoms None Heart Sounds S1 & S2 Jugular Vein Distention None Capillary Refill < 3 Seconds Circulatory Tenderness Description None Right Radial 2+ Left Radial 2+ Right Dorsalis Pedis 1+ Left Dorsalis Pedis 1+ Has Confirmed Diagnosis of DVT, PE or No VTE VTE Prophylaxis SQ Treatment Mechanical Prophylaxis No Cardiac Monitoring Monitoring Method Dial Maker Number HW Strip placed in Chart Yes Monitor History Reviewed Yes Memory Cleared No Respiratory Assessment Respiratory Symptoms None Effort Normal for Patient Spontaneous Non-Labored Depth Normal Respiratory Pattern Regular Chest Shape Normal Expansion Symmetrical All Lung Narayan Clear Oxygen Delivery Method Room Air Cough Description None Sputum Amount None Gastrointestinal Assessment Abdomen Description Flat Soft Non-Tender 3 or more loose stools, in less than 24 No hours Nausea/Vomiting Presence None All Four Quadrants Active Right Upper Quadrant Active Left Upper Quadrant Active Right Lower Quadrant Active Left Lower Quadrant Active Genitourinary Assessment Genitourinary Symptoms None Bladder Pattern Normal Voiding Method Toilet Bladder Distention None Suprapubic Tenderness with Palpation No Comment: No urine to assess at this time. Integumentary Assessment Nail Bed Appearance Pale [place] Temperature Warm Moisture Dry Turgor Normal Color Normal All Pressure Points Assessed Yes Evidence of Incision/Wounds/Breakdown No Mucous membranes moist, pink and intact Yes Oral Cavity Normal Musculoskeletal Assessment Musculoskeletal Symptoms Generalized Weakness Document 02/03/17 21:00 [facility] (Rec: 02/03/17 23:50 [facility] [id number]) Neurological Assessment Eye Opening Spontaneous Motor Obeys Commands Verbal Confused Coma Scale Total 14 Neurologic Status Agitation/Confusion Patient Orientation Person Place Arousable To Name Speech Pattern Normal rate Normal rhythm Normal tone Patient Behavior Cooperative Confused Mood Description Calm Sad Bilateral Pupil Reaction Reactive Pupil [place] Equal Scleral Edema No Manager Banking Strength Equal Push/Pull Equal Numbness/Tingling No Facial Symmetry Symmetrical Cardiovascular Assessment Signs and Symptoms None Heart Sounds S1 & S2 Jugular Vein Distention None Capillary Refill < 3 Seconds Circulatory Tenderness Description None Right Radial 2+ Left Radial 2+ Right Dorsalis Pedis 1+ Left Dorsalis Pedis 1+ Chest Pain Complaint No Has Confirmed Diagnosis of DVT, PE or No VTE VTE Prophylaxis SQ Treatment Mechanical Prophylaxis No Respiratory Assessment Respiratory Symptoms None Effort Spontaneous Non-Labored Depth Normal Respiratory Pattern Regular Chest Shape Normal Expansion Symmetrical All Lung Narayan Clear Oxygen Delivery Method Room Air Cough Description None Sputum Amount None Gastrointestinal Assessment Abdomen Description Flat Soft Non-Tender 3 or more loose stools, in less than 24 No hours Nausea/Vomiting Presence None All Four Quadrants Active Integumentary Assessment Temperature Warm Moisture Dry Turgor Normal Color Normal All Pressure Points Assessed Yes Evidence of Incision/Wounds/Breakdown No Musculoskeletal Assessment Musculoskeletal Symptoms Generalized Weakness Document 02/04/17 05:00 LE (Rec: 02/04/17 08:25 LE [id number]) Neurological Assessment Eye Opening Spontaneous Motor Obeys Commands Verbal Confused Coma Scale Total 14 Neurologic Status Alert Patient Orientation Person Place Arousable To Name Speech Pattern Normal rate Normal rhythm Normal tone Patient Behavior Cooperative Confused Mood Description Calm Sad Bilateral Pupil Reaction Reactive Pupil [place] Equal Scleral Edema No Manager Banking Strength Equal Push/Pull Equal Numbness/Tingling No Facial Symmetry Symmetrical Neurological Comment: Pt remains confused and is now refusing care. primary made aware. son was called and Vicenta, daughter in law, to come in and calm patient Cardiovascular Assessment Signs and Symptoms None Chest Pain Complaint No Has Confirmed Diagnosis of DVT, PE or No VTE VTE Prophylaxis SQ Treatment Mechanical Prophylaxis No Respiratory Assessment Respiratory Symptoms None Effort Spontaneous Non-Labored Depth Normal Respiratory Pattern Regular Chest Shape Normal Expansion Symmetrical All Lung Narayan Clear Oxygen Delivery Method Room Air Cough Description None Sputum Amount None Gastrointestinal Assessment Abdomen Description Soft All Four Quadrants Active Integumentary Assessment Temperature Warm Moisture Dry Turgor Normal Color Normal All Pressure Points Assessed Yes Evidence of Incision/Wounds/Breakdown No Musculoskeletal Assessment Musculoskeletal Symptoms Generalized Weakness Document 02/04/17 08:00 BES (Rec: 02/04/17 12:39 BES [id number]) Pain Assessment Pain Present Reports No Pain Neurological Assessment Eye Opening Spontaneous Motor Obeys Commands Verbal Confused Coma Scale Total 14 Neurologic Status Alert Patient Orientation Person Arousable To Name Speech Pattern Normal rate Normal rhythm Normal tone Patient Behavior Resistive to Care Confused Mood Description Suspicious Bilateral Pupil Reaction Reactive Pupil [place] Equal Scleral Edema No Manager Banking Strength Equal Push/Pull Equal Numbness/Tingling No Facial Symmetry Symmetrical Blink Present Cough/Gag Normal Neurological Comment: Alert and Oriented to self only. Cardiovascular Assessment Signs and Symptoms None Heart Sounds S1 & S2 Jugular Vein Distention None Capillary Refill < 3 Seconds Circulatory Tenderness Description None Right Radial 2+ Left Radial 2+ Right Dorsalis Pedis 1+ Left Dorsalis Pedis 1+ Chest Pain Complaint No Has Confirmed Diagnosis of DVT, PE or No VTE VTE Prophylaxis SQ Treatment Mechanical Prophylaxis No Cardiac Monitoring Heart Rate 59 Monitoring Method Telemetry Rhythm Sinus Rhythm Paced Rhythm [place] Interval 0.16 QRS Interval 0.8 QT Interval 0.40 Monitor Number HW Strip placed in Chart Yes Monitor History Reviewed Yes Memory Cleared No Respiratory Assessment Respiratory Symptoms None Effort Spontaneous Non-Labored Depth Normal Respiratory Pattern Regular Chest Shape Normal Expansion Symmetrical All Lung Narayan Clear Oxygen Delivery Method Nasal Cannula Oxygen Flow Rate (LPM) 2 Cough Description None Sputum Amount None Gastrointestinal Assessment Abdomen Description Soft Nausea/Vomiting Presence None All Four Quadrants Active Genitourinary Assessment Genitourinary Symptoms None Bladder Pattern Normal Voiding Method Toilet Suprapubic Tenderness with Palpation No Comment: No urine to assess at this time. Integumentary Assessment Nail Bed Appearance Pale [place] Temperature Warm Moisture Dry Turgor Normal Color Normal All Pressure Points Assessed Yes Evidence of Incision/Wounds/Breakdown No Mucous membranes moist, pink and intact Yes Oral Cavity Normal Musculoskeletal Assessment Musculoskeletal Symptoms Generalized Weakness Document 02/04/17 21:35 [facility] (Rec: 02/05/17 00:20 [facility] [id number]) Pain Assessment Pain Present Reports Pain Right Chest Pain Intensity 6 Description Sharp Scale Used Numeric (1 - 10) Pain Intervention Medication Position Reduced Environmental Stimuli Darkened Room Neurological Assessment Eye Opening Spontaneous Motor Obeys Commands Verbal Oriented Coma Scale Total 15 Neurologic Status Alert Patient Orientation Person Place Time Arousable To Name Speech Pattern Normal rate Normal rhythm Normal tone Patient Behavior Appropriate Cooperative Resistive to Care Confused Mood Description Calm Relaxed Suspicious Bilateral Pupil Reaction Reactive Pupil Size (mm) 2 Pupil [place] Equal Scleral Edema No Manager Banking Strength Equal Push/Pull Equal Numbness/Tingling No Facial Symmetry Symmetrical Blink Present Cough/Gag Normal Doll's-Eye Absent Neurological Comment: Patient at this time is alert and oriented x 3. Patient states that she becomes confused at times and does not recall anything from that point on. Will continue to monitor but at this time patient is alert and oriented x 3 Cardiovascular Assessment Signs and Symptoms None Heart Sounds S1 & S2 Jugular Vein Distention None Capillary Refill < 3 Seconds Circulatory Tenderness Description None Right Radial 2+ Left Radial 2+ Right Dorsalis Pedis 1+ Left Dorsalis Pedis 1+ Chest Pain Complaint No Has Confirmed Diagnosis of DVT, PE or No VTE VTE Prophylaxis SQ Treatment Mechanical Prophylaxis No Cardiac Monitoring Heart Rate 64 Monitoring Method Telemetry Rhythm Sinus Rhythm Paced Rhythm [place] Interval 0.14 QRS Interval 0.07 QT Interval 0.42 Monitor Number [id number] Strip placed in Chart Yes Respiratory Assessment Respiratory Symptoms Pain with Cough Pain on Inspiration Effort Spontaneous Non-Labored Depth Normal Respiratory Pattern Regular Chest Shape Normal Expansion Symmetrical Right Upper Lobe Clear Right Middle Lobe Clear Right Lower Lobe Clear Left Upper Lobe Clear Left Lower Lobe Clear Right Upper Lobe Clear Right Middle Lobe Clear Right Lower Lobe Fine Crackles Left Upper Lobe Clear Left Lower Lobe Fine Crackles Oxygen Delivery Method Nasal Cannula Oxygen Flow Rate (LPM) 2 Cough Description None Sputum Amount None Respiratory Comment: patient denies SOB at this time will continue to monitor, patient complains of pain on inspiration and expiration Gastrointestinal Assessment Abdomen Description Soft Nausea/Vomiting Presence None GI Comment: patient states BM 17 All Four Quadrants Active Right Upper Quadrant Active Left Upper Quadrant Active Right Lower Quadrant Active Left Lower Quadrant Active Flatus Presence Absent Genitourinary Assessment Genitourinary Symptoms None Bladder Pattern Normal Voiding Method Toilet Bladder Distention None Suprapubic Tenderness with Palpation No Comment: No urine to assess at this time. Integumentary Assessment Nail Bed Appearance Pale [place] Temperature Warm Moisture Dry Turgor Normal Color Normal All Pressure Points Assessed Yes Evidence of Incision/Wounds/Breakdown No Mucous membranes moist, pink and intact Yes Oral Cavity Normal Integumentary Comment: Patient has brusing noted on bilateral upper extremities Musculoskeletal Assessment Musculoskeletal Symptoms Generalized Weakness Document 02/05/17 03:40 DWT (Rec: 02/05/17 06:26 T [id number]) Pain Assessment Pain Present Reports No Pain Neurological Assessment Eye Opening Spontaneous Motor Obeys Commands Verbal Oriented Coma Scale Total 15 Neurologic Status Alert Patient Orientation Person Place Time Arousable To Name Speech Pattern Normal rate Normal rhythm Normal tone Patient Behavior Appropriate Cooperative Resistive to Care Confused Mood Description Calm Relaxed Suspicious Bilateral Pupil Reaction Reactive Pupil Size (mm) 2 Pupil [place] Equal Scleral Edema No Manager Banking Strength Equal Push/Pull Equal Numbness/Tingling No Facial Symmetry Symmetrical Blink Present Cough/Gag Normal Doll's-Eye Absent Neurological Comment: Patient remained alert and oriented x 3 throughout the night, still continuing to monitor Cardiovascular Assessment Signs and Symptoms None Heart Sounds S1 & S2 Jugular Vein Distention None Capillary Refill < 3 Seconds Circulatory Tenderness Description None Right Radial 2+ Left Radial 2+ Right Dorsalis Pedis 1+ Left Dorsalis Pedis 1+ Chest Pain Complaint No Has Confirmed Diagnosis of DVT, PE or No VTE VTE Prophylaxis SQ Treatment Mechanical Prophylaxis No Cardiac Monitoring Heart Rate 66 Monitoring Method Telemetry Rhythm Sinus Rhythm Paced Rhythm [place] Interval 0.15 QRS Interval 0.11 QT Interval 0.40 Monitor Number [id number] Strip placed in Chart Yes Respiratory Assessment Respiratory Symptoms Pain with Cough Pain on Inspiration Effort Spontaneous Non-Labored Depth Normal Respiratory Pattern Regular Chest Shape Normal Expansion Symmetrical All Lung Narayan Clear Right Upper Lobe Clear Right Middle Lobe Clear Right Lower Lobe Clear Left Upper Lobe Clear Left Lower Lobe Clear Right Upper Lobe Clear Right Middle Lobe Clear Right Lower Lobe Fine Crackles Left Upper Lobe Clear Left Lower Lobe Fine Crackles Oxygen Delivery Method Room Air Oxygen Flow Rate (LPM) 0 FIO2 (%) (%) 21 Cough Description None Sputum Amount None Respiratory Comment: patient denies SOB at this time will continue to monitor, patient complains of pain on inspiration and expiration Gastrointestinal Assessment Abdomen Description Soft Nausea/Vomiting Presence None GI Comment: patient states BM 3-6-17 All Four Quadrants Active Right Upper Quadrant Active Left Upper Quadrant Active Right Lower Quadrant Active Left Lower Quadrant Active Flatus Presence Absent Genitourinary Assessment Genitourinary Symptoms None Bladder Pattern Normal Voiding Method Toilet Color Bright Yellow Bladder Distention None Suprapubic Tenderness with Palpation No Comment: No urine to assess at this time. Integumentary Assessment Nail Bed Appearance Pale [place] Temperature Warm Moisture Dry Turgor Normal Color Normal All Pressure Points Assessed Yes Evidence of Incision/Wounds/Breakdown No Mucous membranes moist, pink and intact Yes Oral Cavity Normal Integumentary Comment: Patient has brusing noted on bilateral upper extremities Musculoskeletal Assessment Musculoskeletal Symptoms Generalized Weakness Document 02/05/17 07:52 NCF (Rec: 02/05/17 07:55 NCF [id number]) Pain Assessment Pain Present Reports No Pain Neurological Assessment Eye Opening Spontaneous Motor Obeys Commands Verbal Oriented Coma Scale Total 15 Neurologic Status Alert Patient Orientation Person Place Time Arousable To Name Speech Pattern Normal rate Normal rhythm Normal tone Patient Behavior Appropriate Cooperative Resistive to Care Confused Mood Description Calm Relaxed Suspicious Bilateral Pupil Reaction Reactive Pupil Size (mm) 2 Pupil [place] Equal Scleral Edema No Manager Banking Strength Equal Push/Pull Equal Numbness/Tingling No Facial Symmetry Symmetrical Blink Present Cough/Gag Normal Doll's-Eye Absent Neurological Comment: Patient remained alert and oriented x 3 throughout the night, still continuing to monitor Cardiovascular Assessment Signs and Symptoms None Heart Sounds S1 & S2 Jugular Vein Distention None Capillary Refill < 3 Seconds Circulatory Tenderness Description None Right Radial 2+ Left Radial 2+ Right Dorsalis Pedis 1+ Left Dorsalis Pedis 1+ Chest Pain Complaint No Has Confirmed Diagnosis of DVT, PE or No VTE VTE Prophylaxis PO Treatment Mechanical Prophylaxis No Cardiac Monitoring Heart Rate 65 Monitoring Method Telemetry Rhythm Sinus Rhythm Monitor Number [id number] Strip placed in Chart Yes Respiratory Assessment Respiratory Symptoms Pain with Cough Pain on Inspiration Effort Spontaneous Non-Labored Depth Normal Respiratory Pattern Regular Chest Shape Normal Expansion Symmetrical All Lung Narayan Clear Right Upper Lobe Clear Right Middle Lobe Clear Right Lower Lobe Clear Left Upper Lobe Clear Left Lower Lobe Clear Right Upper Lobe Clear Right Middle Lobe Clear Right Lower Lobe Clear Left Upper Lobe Clear Left Lower Lobe Clear Oxygen Delivery Method Room Air Oxygen Flow Rate (LPM) 0 FIO2 (%) (%) 21 Cough Description None Sputum Amount None Respiratory Comment: patient denies SOB at this time will continue to monitor, patient complains of pain on inspiration and expiration Gastrointestinal Assessment Abdomen Description Soft 3 or more loose stools, in less than 24 No hours Nausea/Vomiting Presence None GI Comment: patient states BM 3-6-17 All Four Quadrants Active Right Upper Quadrant Active Left Upper Quadrant Active Right Lower Quadrant Active Left Lower Quadrant Active Flatus Presence Absent Genitourinary Assessment Genitourinary Symptoms None Bladder Pattern Normal Voiding Method Toilet Urine Appearance Clear Color Bright Yellow Odor Normal Bladder Distention None Suprapubic Tenderness with Palpation No Comment: No urine to assess at this time. Integumentary Assessment Nail Bed Appearance Pale [place] Temperature Warm Moisture Dry Turgor Normal Color Normal All Pressure Points Assessed Yes Evidence of Incision/Wounds/Breakdown No Mucous membranes moist, pink and intact Yes Oral Cavity Normal Integumentary Comment: Patient has brusing noted on bilateral upper extremities Musculoskeletal Assessment Musculoskeletal Symptoms Generalized Weakness Document 02/05/17 15:17 NCF (Rec: 02/05/17 15:19 NCF [id number]) Pain Assessment Pain Present Reports Pain left ribs Pain Intensity 5 Description Ache Scale Used Numeric (1 - 10) Pain Intervention Medication Neurological Assessment Eye Opening Spontaneous Motor Obeys Commands Verbal Oriented Coma Scale Total 15 Neurologic Status Alert Patient Orientation Person Place Time Arousable To Name Speech Pattern Normal rate Normal rhythm Normal tone Patient Behavior Appropriate Cooperative Mood Description Calm Relaxed Suspicious Bilateral Pupil Reaction Reactive Pupil Size (mm) 2 Pupil [place] Equal Scleral Edema No Manager Banking Strength Equal Push/Pull Equal Numbness/Tingling No Facial Symmetry Symmetrical Blink Present Cough/Gag Normal Doll's-Eye Absent Neurological Comment: . Cardiovascular Assessment Signs and Symptoms None Heart Sounds S1 & S2 Jugular Vein Distention None Capillary Refill < 3 Seconds Circulatory Tenderness Description None Right Radial 2+ Left Radial 2+ Right Dorsalis Pedis 1+ Left Dorsalis Pedis 1+ Chest Pain Complaint No Has Confirmed Diagnosis of DVT, PE or No VTE VTE Prophylaxis PO Treatment Mechanical Prophylaxis No Cardiac Monitoring Heart Rate 63 Monitoring Method Telemetry Rhythm Sinus Rhythm Monitor Number [id number] Strip placed in Chart Yes Respiratory Assessment Respiratory Symptoms Pain with Cough Pain on Inspiration Effort Spontaneous Non-Labored Depth Normal Respiratory Pattern Regular Chest Shape Normal Expansion Symmetrical All Lung Narayan Clear Right Upper Lobe Clear Right Middle Lobe Clear Right Lower Lobe Clear Left Upper Lobe Clear Left Lower Lobe Clear Right Upper Lobe Clear Right Middle Lobe Clear Right Lower Lobe Clear Left Upper Lobe Clear Left Lower Lobe Clear Oxygen Delivery Method Room Air Oxygen Flow Rate (LPM) 0 FIO2 (%) (%) 21 Cough Description None Sputum Amount None Respiratory Comment: patient denies SOB at this time will continue to monitor, patient complains of pain on inspiration and expiration Gastrointestinal Assessment Abdomen Description Soft 3 or more loose stools, in less than 24 No hours Nausea/Vomiting Presence None GI Comment: patient states BM 3-6-17 All Four Quadrants Active Right Upper Quadrant Active Left Upper Quadrant Active Right Lower Quadrant Active Left Lower Quadrant Active Flatus Presence Absent Genitourinary Assessment Genitourinary Symptoms None Bladder Pattern Normal Voiding Method Toilet Urine Appearance Clear Color Bright Yellow Odor Normal Bladder Distention None Suprapubic Tenderness with Palpation No Comment: No urine to assess at this time. Integumentary Assessment Nail Bed Appearance Pale [place] Temperature Warm Moisture Dry Turgor Normal Color Normal All Pressure Points Assessed Yes Evidence of Incision/Wounds/Breakdown No Mucous membranes moist, pink and intact Yes Oral Cavity Normal Integumentary Comment: Patient has brusing noted on bilateral upper extremities Musculoskeletal Assessment Musculoskeletal Symptoms Generalized Weakness Document 02/05/17 20:45 DWT (Rec: 02/05/17 20:53 [facility] [id number]) Pain Assessment Pain Present Reports No Pain Neurological Assessment Eye Opening Spontaneous Motor Obeys Commands Verbal Oriented Coma Scale Total 15 Neurologic Status Alert Patient Orientation Person Place Time Arousable To Name Speech Pattern Normal rate Normal rhythm Normal tone Patient Behavior Appropriate Cooperative Mood Description Calm Relaxed Suspicious Bilateral Pupil Reaction Reactive Pupil Size (mm) 2 Pupil [place] Equal Scleral Edema No Manager Banking Strength Equal Push/Pull Equal Numbness/Tingling No Facial Symmetry Symmetrical Blink Present Cough/Gag Normal Doll's-Eye Absent Neurological Comment: Patient continues to be alert and oriented x 3, will continue to monitor Cardiovascular Assessment Signs and Symptoms None Heart Sounds S1 & S2 Jugular Vein Distention None Capillary Refill < 3 Seconds Circulatory Tenderness Description None Right Radial 2+ Left Radial 2+ Right Dorsalis Pedis 1+ Left Dorsalis Pedis 1+ Bilateral Lower Extremity Type None Chest Pain Complaint No Has Confirmed Diagnosis of DVT, PE or No VTE VTE Prophylaxis PO Treatment Mechanical Prophylaxis No Cardiac Monitoring Heart Rate 62 Monitoring Method Telemetry Rhythm Sinus Rhythm [place] Interval 0.14 QRS Interval 0.08 QT Interval 0.41 Monitor Number [id number] [employer] Limits 120-50 Strip placed in Chart Yes Respiratory Assessment Respiratory Symptoms Pain with Cough Pain on Inspiration Effort Spontaneous Non-Labored Depth Normal Respiratory Pattern Regular Chest Shape Normal Expansion Symmetrical All Lung Narayan Clear Right Upper Lobe Clear Right Middle Lobe Clear Right Lower Lobe Clear Left Upper Lobe Clear Left Lower Lobe Clear Right Upper Lobe Clear Right Middle Lobe Clear Right Lower Lobe Clear Left Upper Lobe Clear Left Lower Lobe Clear Oxygen Delivery Method Room Air Oxygen Flow Rate (LPM) 0 FIO2 (%) (%) 21 Cough Description None Sputum Amount None Respiratory Comment: Patient complains of pain when taking deep inspiration and deep expiration Gastrointestinal Assessment Abdomen Description Soft 3 or more loose stools, in less than 24 No hours Nausea/Vomiting Presence None GI Comment: patient states BM 3-6-17 All Four Quadrants Active Right Upper Quadrant Active Left Upper Quadrant Active Right Lower Quadrant Active Left Lower Quadrant Active Flatus Presence Absent Genitourinary Assessment Genitourinary Symptoms None Bladder Pattern Normal Voiding Method Toilet Urine Appearance Clear Color Bright Yellow Odor Normal Bladder Distention None Suprapubic Tenderness with Palpation No Comment: No urine to assess at this time. Integumentary Assessment Nail Bed Appearance Pale [place] Temperature Warm Moisture Dry Turgor Normal Color Normal All Pressure Points Assessed Yes Evidence of Incision/Wounds/Breakdown No Mucous membranes moist, pink and intact Yes Oral Cavity Normal Integumentary Comment: Patient has brusing noted on bilateral upper extremities Musculoskeletal Assessment Musculoskeletal Symptoms Generalized Weakness Document 02/06/17 04:53 DW (Rec: 02/06/17 04:56 [facility] [id number]) Pain Assessment Pain Present Reports No Pain Neurological Assessment Eye Opening Spontaneous Motor Obeys Commands Verbal Oriented Coma Scale Total 15 Neurologic Status Alert Patient Orientation Person Place Time Arousable To Name Speech Pattern Normal rate Normal rhythm Normal tone Patient Behavior Appropriate Cooperative Mood Description Calm Relaxed Suspicious Bilateral Pupil Reaction Reactive Pupil Size (mm) 2 Pupil [place] Equal Scleral Edema No Manager Banking Strength Equal Push/Pull Equal Numbness/Tingling No Facial Symmetry Symmetrical Blink Present Cough/Gag Normal Doll's-Eye Absent Neurological Comment: Patient continues to be alert and oriented x 3, will continue to monitor Cardiovascular Assessment Signs and Symptoms None Heart Sounds S1 & S2 Jugular Vein Distention None Capillary Refill < 3 Seconds Circulatory Tenderness Description None Right Radial 2+ Left Radial 2+ Right Dorsalis Pedis 1+ Left Dorsalis Pedis 1+ Bilateral Lower Extremity Type None Chest Pain Complaint No Has Confirmed Diagnosis of DVT, PE or No VTE VTE Prophylaxis PO Treatment Mechanical Prophylaxis No Cardiac Monitoring Heart Rate 72 Monitoring Method Telemetry Rhythm Sinus Rhythm [place] Interval 0.14 QRS Interval 0.08 QT Interval 0.40 Monitor Number [id number] Strip placed in Chart Yes Respiratory Assessment Respiratory Symptoms Pain with Cough Pain on Inspiration Effort Spontaneous Non-Labored Depth Normal Respiratory Pattern Regular Chest Shape Normal Expansion Symmetrical All Lung Narayan Clear Right Upper Lobe Clear Right Middle Lobe Clear Right Lower Lobe Clear Left Upper Lobe Clear Left Lower Lobe Clear Right Upper Lobe Clear Right Middle Lobe Clear Right Lower Lobe Clear Left Upper Lobe Clear Left Lower Lobe Clear Oxygen Delivery Method Room Air Oxygen Flow Rate (LPM) 0 FIO2 (%) (%) 21 Cough Description None Sputum Amount None Respiratory Comment: . Gastrointestinal Assessment Abdomen Description Soft 3 or more loose stools, in less than 24 No hours Nausea/Vomiting Presence None GI Comment: patient states BM 17 All Four Quadrants Active Right Upper Quadrant Active Left Upper Quadrant Active Right Lower Quadrant Active Left Lower Quadrant Active Flatus Presence Absent Genitourinary Assessment Genitourinary Symptoms None Bladder Pattern Normal Voiding Method Toilet Urine Appearance Clear Color Bright Yellow Odor Normal Bladder Distention None Suprapubic Tenderness with Palpation No Comment: No urine to assess at this time. Integumentary Assessment Nail Bed Appearance Pale [place] Temperature Warm Moisture Dry Turgor Normal Color Normal All Pressure Points Assessed Yes Evidence of Incision/Wounds/Breakdown No Mucous membranes moist, pink and intact Yes Oral Cavity Normal Integumentary Comment: Patient has brusing noted on bilateral upper extremities Musculoskeletal Assessment Musculoskeletal Symptoms Generalized Weakness Document 02/06/17 10:00 K[facility] (Rec: 02/06/17 11:08 KMR [id number]) Pain Assessment Pain Present Reports No Pain Neurological Assessment Eye Opening Spontaneous Motor Obeys Commands Verbal Oriented Coma Scale Total 15 Neurologic Status Alert Patient Orientation Person Place Time Arousable To Name Speech Pattern Normal rate Normal rhythm Normal tone Patient Behavior Appropriate Cooperative Mood Description Calm Relaxed Suspicious Bilateral Pupil Reaction Reactive Pupil Size (mm) 2 Pupil [place] Equal Scleral Edema No Manager Banking Strength Equal Push/Pull Equal Numbness/Tingling No Facial Symmetry Symmetrical Blink Present Cough/Gag Normal Doll's-Eye Absent Neurological Comment: Patient continues to be alert and oriented x 3, will continue to monitor Cardiovascular Assessment Signs and Symptoms None Heart Sounds S1 & S2 Jugular Vein Distention None Capillary Refill < 3 Seconds Circulatory Tenderness Description None Right Radial 2+ Left Radial 2+ Right Dorsalis Pedis 1+ Left Dorsalis Pedis 1+ Bilateral Lower Extremity Type None Chest Pain Complaint No Has Confirmed Diagnosis of DVT, PE or No VTE VTE Prophylaxis SQ Treatment Mechanical Prophylaxis No Cardiac Monitoring Monitoring Method Dial Maker Number [id number] Strip placed in Chart Yes Respiratory Assessment Respiratory Symptoms Pain with Cough Pain on Inspiration Effort Spontaneous Non-Labored Depth Normal Respiratory Pattern Regular Chest Shape Normal Expansion Symmetrical All Lung Narayan Clear Right Upper Lobe Clear Right Middle Lobe Clear Right Lower Lobe Clear Left Upper Lobe Clear Left Lower Lobe Clear Right Upper Lobe Clear Right Middle Lobe Clear Right Lower Lobe Clear Left Upper Lobe Clear Left Lower Lobe Clear Oxygen Delivery Method Room Air Oxygen Flow Rate (LPM) 0 FIO2 (%) (%) 21 Cough Description None Sputum Amount None Respiratory Comment: patient states pain with deep breathes in . Gastrointestinal Assessment Abdomen Description Soft 3 or more loose stools, in less than 24 No hours Nausea/Vomiting Presence None GI Comment: patient states BM 17 All Four Quadrants Active Right Upper Quadrant Active Left Upper Quadrant Active Right Lower Quadrant Active Left Lower Quadrant Active Flatus Presence Absent Genitourinary Assessment Genitourinary Symptoms None Bladder Pattern Normal Voiding Method Toilet Urine Appearance Clear Color Bright Yellow Odor Normal Bladder Distention None Suprapubic Tenderness with Palpation No Comment: urine is clear no complaints of burning or itching Integumentary Assessment Nail Bed Appearance Pale [place] Temperature Warm Moisture Dry Turgor Normal Color Normal All Pressure Points Assessed Yes Evidence of Incision/Wounds/Breakdown No Mucous membranes moist, pink and intact Yes Oral Cavity Normal Integumentary Comment: Patient has brusing noted on bilateral upper extremities Musculoskeletal Assessment Musculoskeletal Symptoms Generalized Weakness Musculoskeletal Comment: OT had the patient using a walker and she stated she felt much safer with a walker Teaching Record Start: 02/03/17 01: 20 Freq: Q12H Status: Discharge Document 02/03/17 09:50 AYW (Rec: 02/03/17 10:59 AYW [id number]) Teaching Record: General Education Topics Procedures/Tests Response Verbalize understanding Methods Discussion Recipient Patient Family Document 02/03/17 21:00 LEH (Rec: 02/03/17 23:50 LEH [id number]) Teaching Record: General Education Topics Hospital Environment Health Status Response Reinforcement needed Unable to comprehend Methods Discussion Recipient Patient Education Provided: Details Pt reoriented to place multiple times this shift Document 02/04/17 08:00 BES (Rec: 02/04/17 12:39 BES [id number]) Teaching Record: General Education Topics Medications Hospital Environment Health Status Response Reinforcement needed Unable to comprehend Methods Discussion Recipient Patient Education Provided: Details Patient oriented to self, reoriented to surroundings. Explained medications, call light use and the need to call for assistance before attempting to get out of bed Document 02/04/17 21:35 DWT (Rec: 02/05/17 00:20 DWT [id number]) Teaching Record: General Education Topics Medications Hospital Environment Health Status Response Verbalize understanding Reinforcement needed Methods Discussion Recipient Patient Education Provided: Details PM medicaiton, insulin, assessment, use of call light if patient needs assistance, pain medication administration Document 02/05/17 07:52 NCF (Rec: 02/05/17 07:55 NCF [id number]) Teaching Record: General Education Topics Hospital Environment Exercise/Activity Health Status Response Verbalize understanding Methods Discussion Recipient Patient Education Provided: Details informed patient to use call light for assistance to reduce the risk of falling. Document 02/05/17 20:45 DWT (Rec: 02/05/17 20:53 DWT [id number]) Teaching Record: General Education Topics Medications Hospital Environment Diet Response Return demonstration Verbalize understanding Recipient Patient Education Provided: Details ADA diet, PM medication, IV line care, fluids, use of call light if patient needs assistance, falls precautions and bed alarm Document 02/06/17 10:00 KMR (Rec: 02/06/17 11:08 KMR [id number]) Teaching Record: General Education Topics Medications Hospital Environment Diet Response Return demonstration Verbalize understanding Recipient Patient Education Provided: Details educated on morning meications and the plan of care and code status Thrombosis Risk Factor Assessment Start: 02/03/17 01: 20 Freq: .ONCE Status: Discharge Document 02/03/17 02:32 LE (Rec: 02/03/17 08:07 LE [id number]) Thrombosis Risk Factor Assessment Other Risk Factors No Triage Start: 02/02/17 20: 07 Freq: Status: Discharge Document 02/02/17 20:12 LAP (Rec: 02/02/17 20:21 LAP [id number]) Triage Chief Complaint triage ED Fall Patient Stated Complaint fall at home, rt rib pain SHEILA 3 Onset (ago) hour(s) Description of Symptoms family states they witnessed pt fall on home monitor just before 1800 today. Pt states she "just lost her balance", family reports weakness and heart burn for past few days. pt states she crawled to bathroom and lost balance again hitting rt rib on vanity . General Appearance alert in no apparent distress Work Related Injury? No Mode of arrival ambulatory Source patient Limitations no limitations Ebola Risk: Travel/Contact With Anyone No From Affected Area/s Has Patient Experienced Ebola Symptoms No Temperature (97.6 F-99.6 F) 98.3 F Temperature Source Oral Pulse Rate 60 Respiratory Rate 14 Blood Pressure 166/61 O2 Sat by Pulse Oximetry (95-100) 99 Oxygen Delivery Room Air Height 1.63 m Weight 54.431 kg Weight Measurement Method Stated by Patient Pain Scale 7 Pain Scale Used Standard (1-10) Medical history diabetes GERD hyperlipidemia hypertension Additional medical history PMH CKD Female surgical history cholecystectomy Additional surgical history PMH Back sx Psychiatric history no psych history Smoking Status Never smoker Smokeless Tobacco Status No Alcohol Use none Drug Use none Patient resides with/at Children Safety Concerns Feels Safe At This Time Do you currently feel hopless, have No thoughts of self harm, or thoughts of harming others History of fall in last 14 days? Yes Influenza vaccine up to date Yes Tetanus UTD unsure Coma Scale Eye Opening Spontaneous Coma Scale Motor Response Obeys Commands Coma Scale Verbal Response Oriented Coma Scale Total 15 Vital Signs Assessment Start: 02/02/17 20: 21 Freq: Status: Discharge Document 02/02/17 20:50 LAP (Rec: 02/02/17 20:50 LAP [id number]) ED Vital Signs Pain Reported No Pain Reported Blood Pressure 162/55 Pulse Rate 65 Respiratory Rate 16 Effort Spontaneous Non-Labored Pulse Oximetry (95-100) 97 Oxygen Delivery Room Air Document 02/02/17 21:34 LAP (Rec: 02/02/17 21:35 LAP [id number]) ED Vital Signs Pain Reported No Pain Reported Blood Pressure 160/65 Pulse Rate 72 Respiratory Rate 16 Effort Spontaneous Non-Labored Pulse Oximetry (95-100) 97 Oxygen Delivery Room Air Document 02/02/17 22:05 LAP (Rec: 02/02/17 22:05 LAP [id number]) ED Vital Signs Pain Reported No Pain Reported Blood Pressure 153/56 Pulse Rate 67 Respiratory Rate 16 Effort Spontaneous Labored Pulse Oximetry (95-100) 97 Oxygen Delivery Room Air Vital Signs Assessment Start: 02/03/17 01: 20 Freq: Q4H Status: Discharge Document 02/03/17 01:29 [facility] (Rec: 02/03/17 01:30 [facility] [id number]) Vital Signs with MEWS Temperature (97.6 F-99.6 F) 97.3 F L Temperature Source Oral Pulse Rate 70 Respiratory Rate 19 Pulse Oximetry (95-100) 100 Oxygen Delivery Room Air Blood Pressure 197/83 Blood Pressure Location Right Arm Source Automatic Cuff Position HOB Elevated Document 02/03/17 01:34 LEH (Rec: 02/03/17 01:35 LEH [id number]) Vital Signs with MEWS Pulse Rate 64 Respiratory Rate 20 Pulse Oximetry (95-100) 98 Oxygen Delivery Room Air Blood Pressure 177/67 Blood Pressure Location Right Arm Position Supine Neuro Status *recalled from last Alert documentation Vital Signs Assessment Start: 02/03/17 02: 32 Freq: Q4H Status: Discharge Document 02/03/17 05:01 WJS (Rec: 02/03/17 05:02 WJS [id number]) Vital Signs with MEWS Temperature (97.6 F-99.6 F) 98.1 F Temperature Source Oral Pulse Rate 63 Respiratory Rate 16 Pulse Oximetry (95-100) 94 L Oxygen Delivery Room Air Blood Pressure 172/58 Blood Pressure Location Right Arm Source Automatic Cuff Position HOB Elevated Document 02/03/17 07:22 [id number] (Rec: 02/03/17 07:25 [id number]) Vital Signs with MEWS Temperature (97.6 F-99.6 F) 97.4 F L Temperature Source Oral Pulse Rate 52 Respiratory Rate 15 Pulse Oximetry (95-100) 98 Oxygen Delivery Room Air Blood Pressure 162/77 Blood Pressure Location Right Arm Source Automatic Cuff Position Supine Neuro Status *recalled from last Agitation/Confusion documentation MEWS Score 2 Document 02/03/17 11:37 [id number] (Rec: 02/03/17 11:38 [id number]) Vital Signs with MEWS Temperature (97.6 F-99.6 F) 97.6 F Temperature Source Oral Pulse Rate 60 Respiratory Rate 15 Pulse Oximetry (95-100) 95 Oxygen Delivery Room Air Blood Pressure 138/52 Blood Pressure Location Left Arm Source Automatic Cuff Position Supine Document 02/03/17 20:58 WJS (Rec: 02/03/17 21:01 WJS [id number]) Vital Signs with MEWS Temperature (97.6 F-99.6 F) 98.2 F Temperature Source Oral Pulse Rate 67 Respiratory Rate 16 Pulse Oximetry (95-100) 95 Oxygen Delivery Room Air Blood Pressure 154/55 Blood Pressure Location Left Arm Source Automatic Cuff Position HOB Elevated Document 02/04/17 01:16 WJS (Rec: 02/04/17 01:20 WJS [id number]) Vital Signs with MEWS Temperature (97.6 F-99.6 F) 98.3 F Temperature Source Oral Pulse Rate 59 Respiratory Rate 18 Pulse Oximetry (95-100) 90 L Oxygen Delivery Room Air Blood Pressure 140/66 Blood Pressure Location Left Arm Source Automatic Cuff Position HOB Elevated Document 02/04/17 05:59 WJS (Rec: 02/04/17 06:02 WJS [id number]) Vital Signs with MEWS Temperature (97.6 F-99.6 F) 97.7 F Temperature Source Oral Pulse Rate 57 Respiratory Rate 156 Pulse Oximetry (95-100) 97 Oxygen Delivery Room Air Blood Pressure 167/59 Blood Pressure Location Right Arm Source Automatic Cuff Position HOB Elevated Document 02/04/17 08:11 JAB (Rec: 02/04/17 08:16 [facility] [id number]) Vital Signs with MEWS Temperature (97.6 F-99.6 F) 98.5 F Temperature Source Axillary Pulse Rate 69 Respiratory Rate 16 Pulse Oximetry (95-100) 96 Oxygen Delivery Room Air Blood Pressure 172/98 Blood Pressure Location Right Arm Source Automatic Cuff Position HOB Elevated Neuro Status *recalled from last Alert documentation MEWS Score 1 Document 02/04/17 11:39 JAB (Rec: 02/04/17 11:44 [facility] [id number]) Vital Signs with MEWS Temperature (97.6 F-99.6 F) 98.3 F Temperature Source Oral Pulse Rate 58 Respiratory Rate 16 Pulse Oximetry (95-100) 98 Oxygen Delivery Room Air Blood Pressure 145/56 Blood Pressure Location Left Arm Source Automatic Cuff Position HOB Elevated Neuro Status *recalled from last Alert documentation MEWS Score 1 Document 02/04/17 15:55 JAB (Rec: 02/04/17 15:56 [facility] [id number]) Vital Signs with MEWS Temperature (97.6 F-99.6 F) 98.6 F Temperature Source Oral Pulse Rate 65 Respiratory Rate 16 Pulse Oximetry (95-100) 97 Oxygen Delivery Room Air Blood Pressure 142/54 Blood Pressure Location Left Arm Source Automatic Cuff Position HOB Elevated Neuro Status *recalled from last Alert documentation MEWS Score 1 Document 02/04/17 21:00 TRM (Rec: 02/04/17 21:16 [facility] [id number]) Vital Signs with MEWS Temperature (97.6 F-99.6 F) 98.1 F Temperature Source Axillary Pulse Rate 69 Respiratory Rate 17 Blood Pressure 148/61 Blood Pressure Location Right Arm Source Automatic Cuff Position Supine Neuro Status *recalled from last Alert documentation Document 02/05/17 00:00 TRM (Rec: 02/05/17 00:22 [facility] [id number]) Vital Signs with MEWS Temperature (97.6 F-99.6 F) 98.1 F Temperature Source Axillary Pulse Rate 66 Respiratory Rate 17 Blood Pressure 169/68 Blood Pressure Location Right Arm Source Automatic Cuff Position Supine Neuro Status *recalled from last Alert documentation Document 02/05/17 05:00 TRM (Rec: 02/05/17 05:20 [id number] Vital Signs with MEWS Temperature (97.6 F-99.6 F) 98.1 F Temperature Source Axillary Pulse Rate 68 Respiratory Rate 18 Blood Pressure 179/62 Blood Pressure Location Right Arm Source Automatic Cuff Position Supine Neuro Status *recalled from last Alert documentation Document 02/05/17 07:45 (Rec: 02/05/17 07:49 [id number]) Vital Signs with MEWS Temperature (97.6 F-99.6 F) 98.2 F Temperature Source Oral Pulse Rate 65 Respiratory Rate 16 Pulse Oximetry (95-100) 95 Oxygen Delivery Room Air Blood Pressure 177/73 Blood Pressure Location Right Arm Source Automatic Cuff Position HOB Elevated Document 02/05/17 11:35 Z (Rec: 02/05/17 11:36 [id number]) Vital Signs with MEWS Temperature (97.6 F-99.6 F) 98.2 F Temperature Source Oral Pulse Rate 62 Respiratory Rate 18 Pulse Oximetry (95-100) 94 L Oxygen Delivery Room Air Blood Pressure 141/55 Blood Pressure Location Right Arm Source Automatic Cuff Position HOB Elevated Document 02/05/17 15:28 ZC (Rec: 02/05/17 15:30 [id number] Vital Signs with MEWS Temperature (97.6 F-99.6 F) 98.4 F Temperature Source Oral Pulse Rate 66 Respiratory Rate 16 Pulse Oximetry (95-100) 94 L Oxygen Delivery Room Air Blood Pressure 138/70 Blood Pressure Location Right Arm Source Automatic Cuff Position HOB Elevated Document 02/05/17 20:10 WJS (Rec: 02/05/17 22:55 WJS [id number]) Vital Signs with MEWS Temperature (97.6 F-99.6 F) 98.2 F Temperature Source Oral Pulse Rate 65 Respiratory Rate 18 Pulse Oximetry (95-100) 96 Oxygen Delivery Room Air Blood Pressure 153/55 Blood Pressure Location Right Arm Source Automatic Cuff Position HOB Elevated Document 02/06/17 04:39 WJS (Rec: 02/06/17 04:42 [id number]) Vital Signs with MEWS Temperature (97.6 F-99.6 F) 99.1 F Temperature Source Oral Pulse Rate 74 Respiratory Rate 16 Pulse Oximetry (95-100) 96 Oxygen Delivery Room Air Blood Pressure 168/63 Blood Pressure Location Right Arm Source Automatic Cuff Position HOB Elevated Document 02/06/17 07:13 [id number] (Rec: 02/06/17 07:14 [id number]) Vital Signs with MEWS Temperature (97.6 F-99.6 F) 98.9 F Temperature Source Oral Pulse Rate 67 Respiratory Rate 15 Pulse Oximetry (95-100) 93 L Oxygen Delivery Room Air Blood Pressure 162/58 Blood Pressure Location Right Arm Source Automatic Cuff Position HOB Elevated Document 02/06/17 15:36 [id number] (Rec: 02/06/17 15:38 [id number]) Vital Signs with MEWS Temperature (97.6 F-99.6 F) 98.9 F Temperature Source Oral Pulse Rate 67 Respiratory Rate 15 Pulse Oximetry (95-100) 97 Oxygen Delivery Room Air Blood Pressure 136/56 Blood Pressure Location Right Arm Source Automatic Cuff Position Sitting Discharge Information ED Provider: Bipin Kingston Status: Departed Time Seen by Provider: 02/02/17 20:06 Condition: Good Triaged At: 02/02/17 20:12 Emergency Discharge Date/Time: 02/03/17 00:46 Emergency Discharge Disposition: Admitted As Inpatient Clinical Impression Hypercalcemia Frail elderly Confusion Fall Diabetes Head injury Chest wall injury Back injury Epigastric abdominal pain Thyroid nodule Anemia Renal failure Rib fractures Lactic acidosis Abnormal urinalysis Hypertension Emergency Discharge Comment: Admit Intervention Last Done ED Fall Assessment 02/02/17 20:22 Query Result Fall Symptoms/Complaint Fall Fall Onset 1800 today Fall From Standing Fall Comment pt fell on her behind then hit back of head, pt states she went to bathroom and fell again in bathroom hitting her rt ribs on vainty. pt denies loc, lightheaded or dizzines, states she "just lost her balance" Fall Witnessed Yes, by Family Place Fall Occurred Home Fall Loss of Consciousness None Fall Prolonged Down Time No Symptoms Prior to Fall None Fall Context Unknown Fall Associated Symptoms Denies Level Of Consciousness Awake Alert Appropriate Follows Commands Patient Orientation Person Place Time Name Age Date of Day of Month Day of Week Month Year Time of Day Respiratory Depth Normal Respiratory Effort Spontaneous Non-Labored Right Chest -Pain Intensity 7 -Pain Scale Used Numeric (1 - 10) Coma Scale Eye Opening Spontaneous Coma Scale Motor Response Obeys Commands Coma Scale Verbal Response Oriented ED Discharge Assessment 02/03/17 00:18 Query Result ED Discharge Disposition Admitted ED Condition on Discharge Good Med Rec/Patient Phamracy completed? No ED Admit to 2NE Bed assigned 2NE20 Transported by technician test systems Transported with IV Report given to Nurse Care transferred to Rehana RN Information relayed patient's care treatments medications given condition recent/anticipated change Clinical Documentation Summary Provided Yes Severity scale (1-10) 0 Pain Scale Used Standard (1-10) Blood Pressure 171/64 Heart rate 66 Respiratory Rate 16 Oxygen Delivery Room Air Pulse Oximetry Reading 98 Critical Care Minutes 0 Inpatient Discharge Date/Time: 02/06/17 17:00 Inpatient Discharge Disposition: Transfer SNF Inpatient Discharge Comment: Observation Discharge Date/Time: Observation Discharge Disposition: Observation Discharge Comment: Instructions: Oxycodone/Acetaminophen (By mouth) Glipizide (By mouth) Amlodipine (By mouth) Anemia (GEN) Stand-Alone Forms: ED Satisfaction Letter Prescriptions: Amlodipine [Norvasc] Kellie Bowens GlipiZIDE [Glucotrol Xl] Kellie Bowens GlipiZIDE [Glucotrol] Kellie Bowens Oxycodone HCl/Acetaminophen [Percocet 5-325 mg Tablet] Kellie Bowens Visit Report - Forms: - Referrals: Jody Ellington MD (Primary Care Provider) Radiology Results Head CT 02/02/17 20:37 IMPRESSION: No acute intracranial abnormality. D/ / Raoul Bullock MD / Raoul Bullock MD Interpreting Provider: Raoul Bullock MD Abdomen/Pelvis CT 02/02/17 20:38 IMPRESSION: No acute abnormality detected. D/ / Raoul Bullock MD / Raoul Bullock MD Interpreting Provider: Raoul Bullock MD Cervical Spine CT 02/02/17 20:38 IMPRESSION: 1. Spondylosis with no definite fracture. 2. Heterogeneous thyroid gland left-sided nodules. Thyroid ultrasound is recommended unless the patient has significant comorbidities or has a limited life expectancy. D/ / Nii Brown MD / Nii Brown MD Interpreting Provider: Nii Brown MD Chest CT 02/02/17 20:39 IMPRESSION: No evidence of an acute injury. Mild thyroid goiter. D/ / Guanakito Decker MD / Guanakito Decker MD Interpreting Provider: Guanakito Decker MD Lumbar Spine CT 02/02/17 20:39 IMPRESSION: 1. Spondylosis with no acute spine fracture. 2. Acute or subacute fracture of the left 12th rib at the costovertebral facet D/ / Nii Brown MD / Nii Brown MD Interpreting Provider: Nii Brown MD Thoracic Spine CT 02/02/17 20:39 IMPRESSION: Acute nondisplaced fractures of the posteromedial aspects of the left 11th and 12th ribs. D/ / Guanakito Decker MD / Guanakito Decker MD Interpreting Provider: Guanakito Decker MD Soft Tissue Neck CT 02/03/17 02:52 IMPRESSION: The thyroid gland is enlarged and heterogeneous which may represent a goiter. There is a tiny lesion that appears separate from the thyroid inferior to the left lobe of the thyroid on image number 61. This may be related to the parathyroid gland. Correlation is suggested. D/ / 02/03/2017 10:51:48 Libia Nesbitt MD / Ashely Camacho Interpreting Provider: Libia Nesbitt MD Thyroid Ultrasound 02/04/17 08:00 IMPRESSION: 1. Heterogeneous thyroid with diffusely increased vascularity compatible with goiter. 2. Bilateral thyroid nodules, the dominant nodules seen in the left mid and inferior pole as detailed. Consider FNA or imaging follow-up as clinically indicated. D/ / 02/04/2017 09:12:55 Jocelyn Michelle MD / codi Interpreting Provider: Jocelyn Michelle MD
[2017-02-03 03:41] LABS: Parathyroid Hormone Intact 13.6 pg/ml (8.5-72.5)
[2017-02-03 04:00] LABS: Basophils % 0.2 %; Eosinophils % 0.2 %; Hematocrit 31.4 % (35.3-44.9); Hemoglobin 10.5 g/dL (11.5-15.4); Immature Granulocytes % 0.5 % (0-4); Lymphocytes # 2.4 K/mcL (0.6-4.6); Lymphocytes % 15.4 %; Mean Corpuscular HGB Conc 33.4 g/dL (31.6-35.5); Mean Corpuscular Hemoglobin 32.6 pg (28.0-33.3); Mean Corpuscular Volume 97.5 fL (83.0-100.0); Mean Platelet Volume 11.2 fL (9.4-12.4); Monocytes # 1.2 K/mcL (0.0-1.3); Monocytes % 7.8 %; Neutrophils # 11.8 K/mcL (1.6-8.9); Platelet Count 217 K/mcL (140-400); Red Blood Count 3.22 M/mcL (3.82-4.97); Segmented Neutrophils % 75.9 %
[2017-02-03 04:21] LABS: Ionized Calcium 1.55 mmol/L (1.15-1.35)
[2017-02-03 04:32] LABS: Albumin 3.3 g/dL (3.5-5.0); Albumin/Globulin Ratio 1.1 (1.1-2.2); Bilirubin,Total 0.4 mg/dL (0.2-1.2); Chol/HDL Ratio 3.3 (0-4.9); Globulin 3.1 g/dL (2.4-3.5); Magnesium 1.4 mg/dL (1.6-2.6); Phosphorous 2.2 mg/dL (2.3-4.7); Potassium 3.7 mEq/L (3.5-4.5); Total Protein 6.4 g/dL (6.0-8.3)
[2017-02-03 04:33] LABS: Calcium 11.1 mg/dL (8.6-10.8)
[2017-02-03] MEDS: 0.9 % Sodium Chloride 1,000 ML IVC SCH ×2 (06:00→22:00)
[2017-02-03] MEDS ORDERED: Aztreonam 1,000 MG in D5% in Water (Mini-Bag+) 100 ML IVPB SCH (08:00)
[2017-02-03] MEDS ORDERED: Magnesium Sulfate 2 GM in D5% in Water 100 ML IVPB ONE (09:28)
--- NOTE | 2017-02-03 10:00 | Event Note ---
Date of Encounter: 02/03/17 Time of Encounter: 09:55 81-year-old female with history of diabetes, hypertension and chronic kidney disease was admitted with confusion and disorientation after sustaining a mechanical fall at home. Patient is seen and examined. Noted to be alert and awake today, able to answer appropriately. Reports some pain in her left ribs. No chest pain or shortness of breath. No vomiting or diarrhea or abdominal pain. Awake, alert and oriented to person and place. Chest-S1, S2 heard. Lungs are clear to auscultation bilaterally. Abdomen- soft and nontender Extremities-full range of motion, no pedal edema Labs reviewed-continues to have stable leukocytosis, serum magnesium 1.4, improving serum calcium 11.1, improving serum creatinine 1.6, lactic acid normal. Severe sepsis from UTI-improving. Continue IV Rocephin and follow up urine culture. IV hydration. Fall with left 11th and 12th rib fractures- supportive care. Pain control with when necessary Tylenol and oxycodone. Physical and occupational therapy evaluation. Left-sided thyroid nodules-incidental finding on CT chest. Follow-up thyroid ultrasound, and requires outpatient follow-up. Acute on chronic kidney disease-stage III-likely prerenal etiology due to dehydration and underlying sepsis. Serum creatinine noted to be improving with IV hydration. Continue to hold diuretics, ARB at this time. Hypercalcemia-parathyroid hormone level noted to be normal. Follow-up CT neck to evaluate thyroid and parathyroid further. Patient is also noted to be on calcium supplements and calcitriol at home, we will hold these at this time. Serum calcium noted to improve with IV hydration. Essential hypertension-uncontrolled hypertension. Hold Lasix and losartan but continue atenolol. Start Norvasc. We will use when necessary IV hydralazine for appropriate blood pressure control. Plan of care explained to patient and her son at bedside.
[2017-02-03] MEDS: amLODIPine 5 MG TABLET PO SCH (10:23)
[2017-02-03] MEDS: Pantoprazole 40 MG VIAL IVP SCH (11:13)
[2017-02-03] MEDS: *HR* Heparin 5,000 UNIT/ML VIAL SQ SCH (18:08)
[2017-02-03] MEDS: *HR* Morphine 2 MG/ML SYRINGE IVP PRN (21:18)
[2017-02-04] MEDS: *HR* Heparin 5,000 UNIT/ML VIAL SQ SCH ×2 (06:22→20:00)
[2017-02-04 06:42] LABS: Basophils % 0.6 %; Eosinophils # 0.2 K/mcL (0.0-0.6); Eosinophils % 2.2 %; Hematocrit 27.4 % (35.3-44.9); Immature Granulocytes % 0.3 % (0-4); Lymphocytes # 2.3 K/mcL (0.6-4.6); Lymphocytes % 32.8 %; Mean Corpuscular HGB Conc 32.8 g/dL (31.6-35.5); Mean Corpuscular Hemoglobin 32.6 pg (28.0-33.3); Mean Corpuscular Volume 99.3 fL (83.0-100.0); Mean Platelet Volume 11.4 fL (9.4-12.4); Monocytes # 0.6 K/mcL (0.0-1.3); Monocytes % 8.6 %; Neutrophils # 3.8 K/mcL (1.6-8.9); Platelet Count 155 K/mcL (140-400); Red Blood Count 2.76 M/mcL (3.82-4.97); Red Cell Distribution Width 13.2 % (11.5-14.5); Segmented Neutrophils % 55.5 %
[2017-02-04 07:02] LABS: Potassium 3.7 mEq/L (3.5-4.5)
[2017-02-04 07:03] LABS: Calcium 9.2 mg/dL (8.6-10.8)
--- NOTE | 2017-02-04 07:25 | Electrocardiograph Report ---
[address] [place] [id number] Test Date: 2017-02-02 Pat Name: Gerri Jalloh Department: 104 Room: 2NE20 Gender: F Bear Keeper: : 1935 Requested By: Bipin Kingston Order Number: [id number] Reading MD: Vinicius Rayo MD Measurements Intervals [place] Rate: 69 P: 32 MA: 181 QRS: -2 QRSD: 89 T: 5 QT: 382 QTc: 401 Interpretive Statements SINUS RHYTHM WITH SINUS ARRHYTHMIA MINIMAL VOLTAGE CRITERIA FOR LVH SEPTAL MYOCARDIAL INFARCTION, OF INDETERMINATE AGE Electronically Signed On 02-04-2017 7:23:32 EST by Vinicius Raoy MD
[2017-02-04] MEDS: amLODIPine 5 MG TABLET PO SCH (09:53)
[2017-02-04] MEDS: Pantoprazole 40 MG VIAL IVP SCH (09:53)
[2017-02-04] MEDS ORDERED: D5% in Water 1,000 ML IV PRN (12:18)
[2017-02-04] MEDS ORDERED: Dextrose Gel 15 GM PO PRN ×2 (12:18)
[2017-02-04] MEDS ORDERED: *HR* Dextrose 50 % in Water (Syg) 50 ML SYRINGE IVP PRN (12:18)
--- NOTE | 2017-02-04 12:19 | Internal Med Progress Note ---
Date of Encounter: 02/04/17 Time of Encounter: 11:00 - Assessment and plan (1) Acute kidney injury superimposed on CKD Current Visit: Yes Status: Acute Assessment and plan: Likely related to dehydration/prerenal etiology. Improving with IV hydration. Avoid nephrotoxic agents and continue to monitor serum creatinine closely. (2) Fall Current Visit: Yes Status: Acute Assessment and plan: Mechanical fall due to gait imbalance/elderly. Physical and occupational therapy evaluation pending. Fall precautions and supportive care. Qualifiers: Encounter type: initial encounter Qualified Code(s): W19.XXXA - Unspecified fall, initial encounter (3) Hypercalcemia Current Visit: Yes Status: Acute Assessment and plan: Improved. Continue IV hydration. Continue to hold home medications are calcitriol and calcium supplements for now. Patient will need outpatient follow -up for nodular goiter and possible enlarged parathyroid gland. Serum intact PTH is within normal limits. (4) Rib fractures Current Visit: Yes Status: Acute Assessment and plan: Related to mechanical fall. Left-sided 11th and 12th rib nondisplaced fractures. Pain control with when necessary Tylenol, avoid narcotics due to delirium and confusion. Physical therapy. Qualifiers: Encounter type: initial encounter Rib fracture type: multiple ribs Fracture type: closed Laterality: left Qualified Code(s): S22.42XA - Multiple fractures of ribs, left side, initial encounter for closed fracture (5) Thyroid nodule Current Visit: Yes Status: Acute Assessment and plan: Reviewed CT neck and thyroid ultrasound results- diffusely heterogeneous thyroid , compatible with colitis with predominant left-sided nodule and cyst. Thyroid function testing within normal limits. Patient may need follow-up imaging versus FNAC as outpatient. Results have been discussed with family at bedside. (6) UTI (urinary tract infection) Current Visit: Yes Status: Suspected Assessment and plan: Urine culture shows contamination with no significant bacterial growth. We will hold IV Rocephin for now. Qualifiers: Urinary tract infection type: site unspecified Hematuria presence: without hematuria Qualified Code(s): N39.0 - Urinary tract infection, site not specified (7) Diabetes Current Visit: Yes Status: Chronic Assessment and plan: Sugars noted to be elevated today. Continue blood glucose monitoring and start sliding scale insulin. Diabetic diet. Check hemoglobin A1c. Qualifiers: Diabetes mellitus type: type 2 Diabetes mellitus complication status: with unspecified complications Diabetes mellitus vermin exterminator insulin use: without vermin exterminator use Qualified Code(s): E11.8 - Type 2 diabetes mellitus with unspecified complications (8) Hypertension Current Visit: Yes Status: Chronic Assessment and plan: Blood pressure noted to be better controlled today. Continue current medications. Qualifiers: Hypertension type: essential hypertension Qualified Code(s): I10 - Essential (primary) hypertension (9) Osteoarthritis involving multiple joints on both sides of body Current Visit: Yes Status: Chronic - Subjective Interval history: Noted to be confused and slightly disoriented today. Reports some left-sided rib pain due to recent fall, otherwise no chest or abdominal pain, dyspnea, diarrhea. - Constitutional Vitals: Temp Pulse Resp BP Pulse Ox 98.3 F 58 16 145/56 98 02/04/17 11:39 02/04/17 11:39 02/04/17 11:39 02/04/17 11:39 02/04/17 11:39 General appearance: Present: A&O X 1 - Respiratory Respiratory exam: Present: CTAB. Absent: accessory muscle use, rales, rhonchi, wheezes - Cardiovascular Cardiovascular exam: Present: RRR, +S1, +S2. Absent: diastolic murmur, gallop, rubs, systolic murmur - GI/Abdominal GI/Abdominal exam: Present: normal bowel sounds, soft, no peritoneal signs. Absent: distended, tenderness - Extremities Exam Extremities exam: Present: full ROM, warm, radial pulses palpable and symetrical. Absent: calf tenderness, cyanotic, pedal edema - Skin Skin exam: Present: dry, intact Internal Medicine: Result - Labs CBC & Chem 7: 02/04/17 06:00 02/04/17 06:00 Labs: Short CBC 02/04/17 Range/Units 06:00 WBC 6.9 D (4.3-11.1) K/mcL Hgb 9.0 L D (11.5-15.4) g/dL Hct 27.4 L (35.3-44.9) % Plt Count 155 (140-400) K/mcL Neutrophils # 3.8 (1.6-8.9) K/mcL BMP 02/04/17 06:00 Sodium 141 Potassium 3.7 Chloride 108 Carbon Dioxide 24 BUN 36 H Creatinine 1.56 H Glucose 221 H Calcium 9.2 D - ABG Interpretation ABG results: PT/INR, D-dimer PT 13.0 Seconds (9.4-12.1) H 02/02/17 20:44 - Impressions Impressions Thyroid Ultrasound 02/04/17 08:00 IMPRESSION: 1. Heterogeneous thyroid with diffusely increased vascularity compatible with goiter. 2. Bilateral thyroid nodules, the dominant nodules seen in the left mid and inferior pole as detailed. Consider FNA or imaging follow-up as clinically indicated. D/ / 02/04/2017 09:12:55 Jocelyn Michelle MD / codi Interpreting Provider: Jocelyn Michelle MD Consult Discharge Plan - Plan
[2017-02-04] MEDS: 0.9 % Sodium Chloride 1,000 ML IVC SCH (20:00)
[2017-02-04] MEDS: Insulin LISPRO 300 UNITS/3 ML VIAL SQ SCH ×2 (20:25→21:13)
[2017-02-04] MEDS: *HR* OxyCODONE Immed Rel 5 MG TABLET PO PRN (21:24)
[2017-02-05] MEDS: *HR* Morphine 2 MG/ML SYRINGE IVP PRN (00:35)
[2017-02-05] MEDS: 0.9 % Sodium Chloride 1,000 ML IVC SCH ×2 (03:38→20:30)
[2017-02-05] MEDS: *HR* Heparin 5,000 UNIT/ML VIAL SQ SCH ×2 (06:19→18:23)
[2017-02-05 07:02] LABS: Basophils % 0.5 %; Eosinophils # 0.2 K/mcL (0.0-0.6); Eosinophils % 2.3 %; Hematocrit 27.1 % (35.3-44.9); Hemoglobin 8.7 g/dL (11.5-15.4); Immature Granulocytes % 0.6 % (0-4); Lymphocytes # 1.8 K/mcL (0.6-4.6); Lymphocytes % 20.4 %; Mean Corpuscular HGB Conc 32.1 g/dL (31.6-35.5); Mean Corpuscular Hemoglobin 31.8 pg (28.0-33.3); Mean Corpuscular Volume 98.9 fL (83.0-100.0); Mean Platelet Volume 11.4 fL (9.4-12.4); Monocytes # 0.8 K/mcL (0.0-1.3); Neutrophils # 5.8 K/mcL (1.6-8.9); Platelet Count 144 K/mcL (140-400); Red Blood Count 2.74 M/mcL (3.82-4.97); Segmented Neutrophils % 67.2 %
[2017-02-05 07:11] LABS: Hemoglobin A1C 5.9 %
[2017-02-05 07:16] LABS: Calcium 8.5 mg/dL (8.6-10.8); Potassium 3.8 mEq/L (3.5-4.5)
[2017-02-05] MEDS: *HR* OxyCODONE Immed Rel 5 MG TABLET PO PRN ×2 (09:21→13:21)
[2017-02-05] MEDS: amLODIPine 5 MG TABLET PO SCH (09:22)
[2017-02-05] MEDS: Insulin LISPRO 300 UNITS/3 ML VIAL SQ SCH ×4 (09:22→20:29)
--- NOTE | 2017-02-05 15:42 | Internal Med Progress Note ---
Date of Encounter: 02/05/17 Time of Encounter: 10:00 - Assessment and plan (1) Acute kidney injury superimposed on CKD Current Visit: Yes Status: Acute Assessment and plan: Likely related to dehydration/prerenal etiology. Improving with IV hydration. Avoid nephrotoxic agents and continue to monitor serum creatinine closely. (2) Fall Current Visit: Yes Status: Acute Assessment and plan: Mechanical fall due to gait imbalance/elderly. Physical and occupational therapy recommended ECF discharge. Fall precautions and supportive care. Qualifiers: Encounter type: initial encounter Qualified Code(s): W19.XXXA - Unspecified fall, initial encounter (3) Hypercalcemia Current Visit: Yes Status: Acute Assessment and plan: Improved after IV hydration. Continue to hold home medications are calcitriol and calcium supplements for now. Patient will need outpatient follow-up for nodular goiter and possible enlarged parathyroid gland. Serum intact PTH is within normal limits and has been suppressed with hypercalcemia. (4) Rib fractures Current Visit: Yes Status: Acute Assessment and plan: Related to mechanical fall. Left-sided 11th and 12th rib nondisplaced fractures. Pain control with when necessary Tylenol, avoid narcotics due to delirium and confusion. Physical therapy. Qualifiers: Encounter type: initial encounter Rib fracture type: multiple ribs Fracture type: closed Laterality: left Qualified Code(s): S22.42XA - Multiple fractures of ribs, left side, initial encounter for closed fracture (5) Thyroid nodule Current Visit: Yes Status: Acute Assessment and plan: Patient may need follow-up imaging versus FNAC as outpatient. (6) Diabetes Current Visit: Yes Status: Chronic Assessment and plan: Sugars noted to be elevated today. Continue blood glucose monitoring and start sliding scale insulin. Diabetic diet. hemoglobin A1c 5.9. Qualifiers: Diabetes mellitus type: type 2 Diabetes mellitus complication status: with unspecified complications Diabetes mellitus long term acute care registered nurse insulin use: without long term acute care registered nurse use Qualified Code(s): E11.8 - Type 2 diabetes mellitus with unspecified complications (7) Hypertension Current Visit: Yes Status: Chronic Assessment and plan: Blood pressure is still high. Increase amlodipine from 5 mg to 10 mg. Qualifiers: Hypertension type: essential hypertension Qualified Code(s): I10 - Essential (primary) hypertension (8) Osteoarthritis involving multiple joints on both sides of body Current Visit: Yes Status: Chronic Assessment and plan: Pain medication as needed (9) UTI (urinary tract infection) Current Visit: Yes Status: Suspected Assessment and plan: Urine culture shows contamination with no significant bacterial growth. We will hold IV Rocephin. Qualifiers: Urinary tract infection type: site unspecified Hematuria presence: without hematuria Qualified Code(s): N39.0 - Urinary tract infection, site not specified - Time Spent With Patient 25 - 35 minutes - Subjective Interval history: Patient is a 81-year-old female admitted for fall and rib fracture. Past medical history is significant for diabetes, hyperlipidemia, hypertension, CKD. Patient was seen and examined. She is awake alert, oriented 3. Complaint rib pain, controlled by pain medications. Vitals are stable. Hemoglobin drop noticed, possibly dilutional. No signs of active bleeding. We will closely monitor hemoglobin. - Constitutional Vitals: Temp Pulse Resp BP Pulse Ox 98.4 F 66 16 138/70 94 L 02/05/17 15:28 02/05/17 15:28 02/05/17 15:28 02/05/17 15:28 02/05/17 15:28 General appearance: Present: A&O X 3 - Head Head exam: Present: atraumatic, normocephalic - Eye Eye exam: Present: PERRL, conjuntiva pink, sclera anicteric Pupils: Present: PERRL - Neck Neck exam general surgery: Present: supple, trachea midline. Absent: lymphadenopathy - Respiratory Respiratory exam: Present: CTAB. Absent: accessory muscle use, rales, rhonchi, wheezes - Cardiovascular Cardiovascular exam: Present: RRR, +S1, +S2. Absent: diastolic murmur, gallop, rubs, systolic murmur - GI/Abdominal GI/Abdominal exam: Present: normal bowel sounds, soft, no peritoneal signs. Absent: distended, tenderness - Extremities Exam Extremities exam: Present: warm, radial pulses palpable and symetrical. Absent : calf tenderness, cyanotic, pedal edema - Neurological Exam Neurological exam: Present: CN II-XII intact, oriented X3, no focal deficits. Absent: pronater drift, facial droop, speech deficit - Skin Skin exam: Present: dry, intact Internal Medicine: Result - Labs CBC & Chem 7: 02/05/17 06:10 02/05/17 06:10 Labs: Short CBC 02/05/17 Range/Units 06:10 WBC 8.6 (4.3-11.1) K/mcL Hgb 8.7 L (11.5-15.4) g/dL Hct 27.1 L (35.3-44.9) % Plt Count 144 (140-400) K/mcL Neutrophils # 5.8 (1.6-8.9) K/mcL BMP 02/05/17 06:10 Sodium 140 Potassium 3.8 Chloride 110 H Carbon Dioxide 21 BUN 31 H Creatinine 1.50 H Glucose 248 H Calcium 8.5 L - ABG Interpretation ABG results: PT/INR, D-dimer PT 13.0 Seconds (9.4-12.1) H 02/02/17 20:44 Consult Discharge Plan - Plan Referrals: Jody Ellington MD [Primary Care Provider] - 02/14/17 2:00 pm
[2017-02-06 05:27] LABS: Basophils % 0.3 %; Eosinophils # 0.2 K/mcL (0.0-0.6); Eosinophils % 1.8 %; Hematocrit 27.3 % (35.3-44.9); Hemoglobin 8.7 g/dL (11.5-15.4); Immature Granulocytes % 0.5 % (0-4); Lymphocytes # 1.7 K/mcL (0.6-4.6); Lymphocytes % 16.9 %; Mean Corpuscular HGB Conc 31.9 g/dL (31.6-35.5); Mean Corpuscular Hemoglobin 31.5 pg (28.0-33.3); Mean Corpuscular Volume 98.9 fL (83.0-100.0); Mean Platelet Volume 11.4 fL (9.4-12.4); Monocytes # 0.8 K/mcL (0.0-1.3); Monocytes % 7.9 %; Neutrophils # 7.3 K/mcL (1.6-8.9); Platelet Count 148 K/mcL (140-400); Red Blood Count 2.76 M/mcL (3.82-4.97); Red Cell Distribution Width 13.3 % (11.5-14.5); Segmented Neutrophils % 72.6 %
[2017-02-06] MEDS: *HR* Heparin 5,000 UNIT/ML VIAL SQ SCH (05:53)
[2017-02-06 05:56] LABS: Calcium 8.2 mg/dL (8.6-10.8); Potassium 3.9 mEq/L (3.5-4.5)
[2017-02-06] MEDS: amLODIPine 5 MG TABLET PO SCH (10:47)
[2017-02-06] MEDS: Insulin LISPRO 300 UNITS/3 ML VIAL SQ SCH ×2 (10:47→13:52)
[2017-02-06] MEDS: 0.9 % Sodium Chloride 1,000 ML IVC SCH (13:53)
--- NOTE | 2017-02-06 15:02 | Discharge Summary ---
Date of Encounter: 02/06/17 Time of Encounter: 13:00 - Discharge Diagnosis (1) Acute kidney injury superimposed on CKD Priority: Primary Status: Acute (2) Fall Priority: Primary Status: Acute Qualifiers: Encounter type: initial encounter Qualified Code(s): W19.XXXA - Unspecified fall, initial encounter (3) Hypercalcemia Priority: Secondary Status: Acute (4) Rib fractures Priority: Primary Status: Acute Qualifiers: Encounter type: initial encounter Rib fracture type: multiple ribs Fracture type: closed Laterality: left Qualified Code(s): S22.42XA - Multiple fractures of ribs, left side, initial encounter for closed fracture (5) Thyroid nodule Priority: Secondary Status: Acute (6) Diabetes Priority: Secondary Status: Chronic Qualifiers: Diabetes mellitus type: type 2 Diabetes mellitus complication status: with unspecified complications Diabetes mellitus intermodal dispatcher insulin use: without intermodal dispatcher use Qualified Code(s): E11.8 - Type 2 diabetes mellitus with unspecified complications (7) Hypertension Priority: Secondary Status: Chronic Qualifiers: Hypertension type: essential hypertension Qualified Code(s): I10 - Essential (primary) hypertension (8) Osteoarthritis involving multiple joints on both sides of body Priority: Secondary Status: Chronic (9) UTI (urinary tract infection) Priority: Secondary Status: Suspected Qualifiers: Urinary tract infection type: site unspecified Hematuria presence: without hematuria Qualified Code(s): N39.0 - Urinary tract infection, site not specified - Discharge Medications Prescriptions: Amlodipine [Norvasc] 10 mg PO DAILY #30 tablet GlipiZIDE [Glucotrol Xl] 2.5 mg PO QPM #30 tab.er.24 GlipiZIDE [Glucotrol] 5 mg PO 0800 #30 tablet Oxycodone HCl/Acetaminophen [Percocet 5-325 mg Tablet] 1 each PO Q6H PRN #20 tablet PRN Reason: Pain Home Medications: Atenolol [Tenormin] 50 mg PO DAILY 08/14/16 [History] Atorvastatin Calcium [Lipitor] 20 mg PO DAILY 08/14/16 [History] Calcitriol 0.5 mcg PO DAILY 08/14/16 [History] Calcium Carbonate [Calcium] 600 mg PO DAILY 08/14/16 [History] Denosumab [Prolia (For Outpatient Infusion)] 60 mg SQ [id number] 08/14/16 [History ] Ferrous Sulfate 325 mg PO BIDWM 08/14/16 [History] Furosemide [Lasix] 20 mg PO DAILY 08/14/16 [History] Gemfibrozil [Lopid] 600 mg PO BIDWM 08/14/16 [History] Losartan Potassium [Cozaar] 100 mg PO DAILY 08/14/16 [History] Multivitamin [Multi-Day Vitamins] 1 tab PO DAILY 08/14/16 [History] Omeprazole [PriLOSEC] 20 mg PO DAILY 08/14/16 [History] Sitagliptin Phosphate [Januvia] 50 mg PO DAILY 08/14/16 [History] Vit C/Vit E/Lutein/Min/[place]-3 [Ocuvite Softgel] 1 cap PO DAILY 08/14/16 [ History] Amlodipine [Norvasc] 10 mg PO DAILY #30 tablet 02/06/17 [Rx] GlipiZIDE [Glucotrol Xl] 2.5 mg PO QPM #30 tab.er.24 02/06/17 [Rx] GlipiZIDE [Glucotrol] 5 mg PO 0800 #30 tablet 02/06/17 [Rx] Oxycodone HCl/Acetaminophen [Percocet 5-325 mg Tablet] 1 each PO Q6H PRN #20 tablet 02/06/17 [Rx] Allergies/Adverse Reactions: Allergies Penicillins Allergy (Intermediate, Verified 12/29/15 11:31) Hives - Notes to Outpatient Provider 1. Patient has high blood pressure, amlodipine 10 mg by mouth daily was added to her medication list. Please follow-up BP level. 2. Patient has poor renal function, lactate acid level is high on admission, will hold the metformin from home medication list, please follow-up glucose. Date of admission: 02/03/17 15:28 Primary care physician: Jody King Consults: 02/04/17 11:06 Consult to Last Turner [CONS] Routine Reason for SW Consult: Possible home health or placement Discharging clinician: Kellie Bowens Anticipated date of discharge: 02/06/17 - Patient Status Disposition: Transfer SNF Condition: Good Functional capacity at discharge: uses cane/walker Overall status at discharge: patient is progressing back to baseline - Discharge Instructions Follow Up With: Jody Ellington MD [Primary Care Provider] - Forms: ED Satisfaction Letter - Diet and Activity Activity: as per physical therapy Diet: diabetic diet Interval History: 81-year-old female brought in by 2 relatives who she lives with, her son and [id number], they are concerned because the patien has been progressively confused worsening this week. The patient also fell down today. She was at home and had a simple fall. She fell onto her buttocks and then went backward and hit her head. The patient complains of left rib pain as well as low back pain. She also complains of anterior abdominal pain in the midepigastric area. She thinks she may have heartburn. She denies any upper chest pain there is no history of left arm or left jaw pain. No lacerations or convulsions. No loss of consciousness. The patient has had no unilateral weakness or numbness in arms or legs. No paresis or bowel or bladder dysfunction there is no history of fever or cough no vomiting diarrhea or bleeding. The patient is usually fairly self-sufficient and can be left alone at home. The family members report a definite change in the patient's mental status, perseveration, forgetfulness and disorientation regarding time. There is no history of laceration or bleeding. No upper or lower extremity pain. The patient is known to be diabetic. She is type II. Hospital course: Ms. Jalloh is a 81 year old female admitted for fall and rib fracture. She also has some mental status changes on admission. Patient was treated with IV fluid , continuous cardiac monitoring, pain management, and physical therapy. After treatment, her condition has improved. PT OT evaluation recommend the [facility] to [facility]. We will discharge patient today to [facility]. I saw and examined the patient today. She is awake alert, in no acute distress. Vital signs stable. Patient has a low hemoglobin but stable for 3 days, no signs of active bleeding. Patient was found has thyroid nodules, patient and the family was told to follow up US Thyroid in 3 Months, and FNA if necessary. Patient will follow-up with PCP and the [facility] physician. - Time Spent with Patient Total time spent providing and/or coordinating discharge services: 40 minutes Greater than 30 minutes - Constitutional Vitals: Temp Pulse Resp BP Pulse Ox 98.9 F 67 15 162/58 93 L 02/06/17 07:13 02/06/17 07:13 02/06/17 07:13 02/06/17 07:13 02/06/17 10:00 General appearance: Present: A&O X 3, answers questions appropriately - Head Head exam: Present: atraumatic, normocephalic - Eye Eye exam: Present: PERRL, conjuntiva pink, sclera anicteric Pupils: Present: PERRL - Neck Neck exam general surgery: Present: supple, trachea midline. Absent: lymphadenopathy - Respiratory Respiratory exam: Present: CTAB. Absent: accessory muscle use, rales, rhonchi, wheezes - Cardiovascular Cardiovascular exam: Present: RRR, +S1, +S2. Absent: diastolic murmur, gallop, rubs, systolic murmur - GI/Abdominal GI/Abdominal exam: Present: normal bowel sounds, soft, no peritoneal signs. Absent: distended, tenderness - Extremities Exam Extremities exam: Present: warm, radial pulses palpable and symetrical. Absent : calf tenderness, cyanotic, pedal edema - Neurological Exam Neurological exam: Present: CN II-XII intact, oriented X3, no focal deficits. Absent: pronater drift, facial droop, speech deficit - Skin Skin exam: Present: dry, intact
[2017-02-06 15:38] VITALS: BP 136/56
[2017-02-06] MEDS: *HR* OxyCODONE Immed Rel 5 MG TABLET PO PRN (15:48)
--- NOTE | 2017-02-06 15:49 | Physician Discharge Referral ---
[facility] Referral Info Transfer To: F Provider in Charge after Transfer: Other - Diagnosis (1) Acute kidney injury superimposed on CKD Status: Acute (2) Fall Status: Acute (3) Hypercalcemia Status: Acute (4) Rib fractures Status: Acute (5) Thyroid nodule Status: Acute (6) Diabetes Status: Chronic (7) Hypertension Status: Chronic (8) Osteoarthritis involving multiple joints on both sides of body Status: Chronic (9) UTI (urinary tract infection) Status: Suspected - Transfer Medications Prescriptions: Amlodipine [Norvasc] 10 mg PO DAILY #30 tablet GlipiZIDE [Glucotrol Xl] 2.5 mg PO QPM #30 tab.er.24 GlipiZIDE [Glucotrol] 5 mg PO 0800 #30 tablet Oxycodone HCl/Acetaminophen [Percocet 5-325 mg Tablet] 1 each PO Q6H PRN #20 tablet PRN Reason: Pain Home Medications: Atenolol [Tenormin] 50 mg PO DAILY 08/14/16 [History] Atorvastatin Calcium [Lipitor] 20 mg PO DAILY 08/14/16 [History] Calcitriol 0.5 mcg PO DAILY 08/14/16 [History] Calcium Carbonate [Calcium] 600 mg PO DAILY 08/14/16 [History] Denosumab [Prolia (For Outpatient Infusion)] 60 mg SQ [id number] 08/14/16 [History ] Ferrous Sulfate 325 mg PO BIDWM 08/14/16 [History] Furosemide [Lasix] 20 mg PO DAILY 08/14/16 [History] Gemfibrozil [Lopid] 600 mg PO BIDWM 08/14/16 [History] Losartan Potassium [Cozaar] 100 mg PO DAILY 08/14/16 [History] Multivitamin [Multi-Day Vitamins] 1 tab PO DAILY 08/14/16 [History] Omeprazole [PriLOSEC] 20 mg PO DAILY 08/14/16 [History] Sitagliptin Phosphate [Januvia] 50 mg PO DAILY 08/14/16 [History] Vit C/Vit E/Lutein/Min/[place]-3 [Ocuvite Softgel] 1 cap PO DAILY 08/14/16 [ History] Amlodipine [Norvasc] 10 mg PO DAILY #30 tablet 02/06/17 [Rx] GlipiZIDE [Glucotrol Xl] 2.5 mg PO QPM #30 tab.er.24 02/06/17 [Rx] GlipiZIDE [Glucotrol] 5 mg PO 0800 #30 tablet 02/06/17 [Rx] Oxycodone HCl/Acetaminophen [Percocet 5-325 mg Tablet] 1 each PO Q6H PRN #20 tablet 02/06/17 [Rx] Allergies/Adverse Reactions: Allergies Penicillins Allergy (Intermediate, Verified 12/29/15 11:31) Hives - Respiratory Orders Smoking Cessation: Smoking cessation has been advised. For more information, call the [place] Tobacco Quit Line at 2-287-DTKH-NOW. - Mobility Orders Ambulate - Rehabiliation Orders Rehab Potential: Fair Rehab Orders: Evaluation for Physical Therapy, Evaluation for Occupational Therapy CERTIFICATION: I certify that the transfer of the above named patient to an Extended Care Facility is necessary for the continuing treatment of the diagnosis listed. The above information is true and accurate reflection of patient's current condition. Confidential - Redisclosure prohibited without a patient's written consent.
== END 2017-02-06 17:00 | DRG 871 ==
LOC: 2NENU 20:00 → EMEROO 20:00 → 2NENU 02-03 00:46 → SUATTDRO 02-03 15:28
PROVIDERS: ADMIT Internal Medicine; ATTEND Internal Medicine

== ENCOUNTER 2018-09-05 11:51 | Inpatient (IN) ==
[2018-09-05] MEDS ORDERED: 0.9 % Sodium Chloride 1,000 ML IVC ONE ×2 (11:57→13:39)
--- NOTE | 2018-09-05 12:00 | Emergency Department Note ---
Disposition Clinical Impression: Generalized weakness, Failure to thrive in adult, Cachexia UTI (urinary tract infection) Qualifiers: Urinary tract infection type: site unspecified Hematuria presence: without hematuria Qualified Code(s): N39.0 - Urinary tract infection, site not specified Fall Qualifiers: Encounter type: initial encounter Qualified Code(s): W19.XXXA - Unspecified fall, initial encounter Anemia Qualifiers: Anemia type: unspecified type Qualified Code(s): D64.9 - Anemia, unspecified Disposition: Admitted As Inpatient Condition: Fair Referrals: Jody Ellington MD [Primary Care Provider] - Forms: ED Satisfaction Letter General Adult HPI - General Chief complaint: ED Weakness Stated complaint: Weakness Time Seen by Provider: 09/05/18 11:52 Source: family Mode of arrival: EMS Limitations: no limitations Nursing Notes Reviewed: Yes Vital Signs Reviewed: Yes - History of Present Illness HPI Narrative: Patient is an 83-year-old female presenting from home via EMS due to weakness. Son is caregiver at home and provides history. States that for the last 2 weeks she has had pretty much no appetite and really has not want to be interactive. States that he will get home after work and she still laying in bed. States she is usually able to ambulate without difficulty but has started to have to hold on to things to walk. He reports 6 months ago her weight was 113 other doctors check. She is had no appetite and losing weight however she refused to go to her doctor for evaluation. Today he was getting ready for work when he heard her on the ground. She fell hitting her head against her nightstand. He states he is currently taking care of his son who just had knee surgery as well as his mother who has lived with him for 13 years. States that her birthday is in mid July and she is usually upset for a few weeks because her passed around that time however this has persisted since then. Pt Subjective Complaint: Weakness Onset (ago): week(s) Improves with: nothing Worsens with: nothing Treatments Prior to Arrival: none - Related Data Home Medications Medication Instructions Recorded Confirmed Atenolol [Tenormin] 50 mg PO DAILY 08/14/16 03/12/17 Atorvastatin Calcium [Lipitor] 20 mg PO DAILY 08/14/16 03/12/17 Denosumab [Prolia (For Outpatient 60 mg SQ [id number] 08/14/16 03/12/17 Infusion)] Ferrous Sulfate 325 mg PO BIDWM 08/14/16 03/12/17 Furosemide [Lasix] 20 mg PO DAILY 08/14/16 03/12/17 Gemfibrozil [Lopid] 600 mg PO BIDWM 08/14/16 03/12/17 Losartan Potassium [Cozaar] 100 mg PO DAILY 08/14/16 03/12/17 Multivitamin [Multi-Day Vitamins] 1 tab PO DAILY 08/14/16 03/12/17 Omeprazole [PriLOSEC] 20 mg PO DAILY 08/14/16 03/12/17 Sitagliptin Phosphate [Januvia] 50 mg PO DAILY 08/14/16 03/12/17 Vit C/Vit E/Lutein/Min/[place]-3 1 cap PO DAILY 08/14/16 03/12/17 [Ocuvite Softgel] Previous Rx's Medication Instructions Recorded GlipiZIDE [Glucotrol Xl] 2.5 mg PO QPM #30 tab.er.24 02/06/17 Oxycodone HCl/Acetaminophen 1 each PO Q6H PRN #20 tablet 02/06/17 [Percocet 5-325 mg Tablet] amLODIPine [Norvasc] 10 mg PO DAILY #30 tablet 02/06/17 glipiZIDE [Glucotrol] 5 mg PO 0800 #30 tablet 02/06/17 Allergies Allergy/AdvReac Type Severity Reaction Status Date / Time Penicillins Allergy Intermediate Hives Verified 12/29/15 11:31 All systems ED: reviewed and negative except as stated. Constitutional: Denies: fever Cardiovascular: Denies: chest pain Respiratory: Denies: dyspnea Gastrointestinal: Reports: nausea, vomiting. Denies: abdominal pain, diarrhea Genitourinary: Denies: dysuria, hematuria Neurological: Reports: weakness Past Medical History - Past Medical History Attestation: Yes The following information was validated with the patient. Source: patient, obtained from family Medical history: Reports: arthritis, diabetes, GERD, hyperlipidemia, hypertension, osteoporosis, renal disease, other Surgical history: Reports: cholecystectomy, orthopedic, other, other Psychiatric history: Reports: no psych history - Social History Smoking Status: Never smoker Smokeless Tobacco Status: No Alcohol use: Reports: none Drug use: Reports: none Physical Exam - General Limitations: no limitations General appearance: cachectic - Head Head exam: other (abrasion over L eyebrow) - Eye Eye exam: Present: normal appearance - ENT ENT exam: mucous membranes dry - Neck Neck exam: Present: normal inspection - Chest Chest inspection: Present: normal inspection, symmetric chest wall rise - Respiratory Respiratory exam: Present: normal lung sounds bilaterally - Cardiovascular Cardiovascular exam: Present: regular rate, normal rhythm, normal heart sounds - Abdominal Exam Abdominal exam: Present: soft, Non-Tender. Absent: tenderness, distention, rigidity - Extremities Exam Extremities exam: Present: normal inspection, full ROM - Expanded Upper Extremity Exam Shoulder exam: Present: normal inspection, full ROM Arm exam: Present: normal inspection, full ROM Elbow exam: Present: normal inspection, full ROM Forearm/Wrist exam: Present: normal inspection, full ROM Hand exam: Present: normal inspection, full ROM - Expanded Lower Extremity Exam Hip/Pelvis exam: Present: normal inspection, full ROM Upper leg exam: Present: normal inspection, full ROM Knee exam: Present: normal inspection, full ROM Lower leg exam: Present: normal inspection, full ROM Ankle exam: Present: normal inspection, full ROM Foot/toe exam: Present: normal inspection, full ROM - Neurological Exam Neurological exam: Present: alert, other (GCS 15. Answers questions appropriately. Follows commands. Moves all extremities) - Skin Skin exam: Present: warm, dry Course Course Narrative: Patient seen and examined. Vital signs reviewed. Rather cachectic on exam. Plan for labs, CT imaging of her head, chest x-ray, urinalysis, IV fluids and likely admission. - Reevaluation(s) Reevaluation #1: Urinalysis and x-rays UTI. White count of 17. Vitals are stable. Plan to continue IV fluids, Rocephin for UTI and admission. Vital Signs Temperature 98.4 F 09/05/18 11:55 Pulse Rate 88 09/05/18 11:55 Respiratory Rate 16 09/05/18 11:55 Blood Pressure 165/68 09/05/18 11:55 O2 Sat by Pulse Oximetry 100 09/05/18 11:55 Temperature 98.4 F 09/05/18 11:55 Pulse Rate 88 09/05/18 11:55 Respiratory Rate 16 09/05/18 11:55 Blood Pressure 165/68 09/05/18 11:55 O2 Sat by Pulse Oximetry 100 09/05/18 11:55 Oxygen Delivery Oxygen Delivery Room Air Medical Decision Making - [facility] Narrative Medical decision making narrative: 83-year-old female presenting with generalized weakness and foot eversion for 2 weeks. She is very cachectic appearing here and dry on exam. She is hemodynamically stable. Workup demonstrates a UTI with a leukocytosis of 17. Imaging is grossly unremarkable. Patient received 2 L of IV fluids. Rocephin for UTI. Lactate and cultures obtained. Admitted to the hospitalist service. - Lab Data Lab results reviewed: Yes I reviewed the patient's lab results. Result diagrams: 09/05/18 12:07 09/05/18 12:07 Lab Results 09/05/18 09/05/18 09/05/18 Range/Units 12:07 12:07 12:07 WBC 16.9 H (4.3-11.1) K/mcL RBC 2.82 L (3.82-4.97) M/mcL Hgb 7.9 L (11.5-15.4) g/dL Hct 26.8 L (35.3-44.9) % MCV 95.0 (83.0-100.0) fL MCH 28.0 (28.0-33.3) pg MCHC 29.5 L (31.6-35.5) g/dL RDW 16.0 H (11.5-14.5) % Plt Count 407 H (140-400) K/mcL MPV 10.2 (9.4-12.4) fL Immature Gran % 0.9 (0-4) % Seg Neutrophils % 89.7 % Lymphocytes % 3.7 % Monocytes % 5.3 % Eosinophils % 0.3 % Basophils % 0.1 % Neutrophils # 15.1 H (1.6-8.9) K/mcL Lymphocytes # 0.6 (0.6-4.6) K/mcL Monocytes # 0.9 (0.0-1.3) K/mcL Eosinophils # 0.1 (0.0-0.6) K/mcL Basophils # 0.0 (0.0-0.2) K/mcL PT 17.0 H (9.4-12.1) Seconds INR 1.5 Sodium 140 (136-145) mEq/L Potassium 4.5 (3.5-5.1) mEq/L Chloride 114 H (98-107) mEq/L Carbon Dioxide 15 L (23-29) mEq/L BUN 41 H (8-23) mg/dL Creatinine 1.77 H (0.60-1.20) mg/dL Est GFR ( Amer) 33 L (> 60) Est GFR (Non-Af Amer) 27 L (> 60) BUN/Creatinine Ratio 23 (6-26) Glucose 163 H (70-105) mg/dL Calculated Osmolality 304 H (280-300) Calcium 9.1 (8.6-10.3) mg/dL Magnesium 2.0 (1.6-2.6) mg/dL Total Bilirubin 0.2 L (0.3-1.0) mg/dL AST 11 L (13-39) Units/L ALT 6 L (7-52) Units/L Alkaline Phosphatase 131 H (34-104) Units/L Creatine Kinase < 10 L (30-223) Units/L Troponin I < 0.03 (< 0.04) ng/mL Serum Total Protein 7.0 (6.4-8.9) g/dL Albumin 3.1 L (3.5-5.7) g/dL Globulin 3.9 H (2.4-3.5) g/dL Albumin/Globulin Ratio 0.8 L (1.1-2.2) Lipase 27 (11-82) Units/L TSH 0.780 (0.340-5.600) mcIU/mL Urine Color (Yellow) Urine Clarity (Clear) Urine pH (5.0-8.0) pH Units Ur Specific [place] (1.010-1.025) Urine Protein (Neg-Trace) mg/dL Urine Glucose (UA) (Normal) mg/dL Urine Ketones (Negative) mg/dL Urine Blood (Negative) Urine Nitrite (Negative) Urine Bilirubin (Negative) Urine Urobilinogen (Normal) mg/dL Ur Leukocyte Esterase (Negative) Urine Microscopic RBC (0-3) per hpf Urine Microscopic WBC (0-3) per hpf Ur Squamous Epith Cells (None-Few) per lpf Urine Bacteria (None-Few) per hpf Hyaline Casts (None-Few) per lpf 09/05/18 Range/Units 13:00 WBC (4.3-11.1) K/mcL RBC (3.82-4.97) M/mcL Hgb (11.5-15.4) g/dL Hct (35.3-44.9) % MCV (83.0-100.0) fL MCH (28.0-33.3) pg MCHC (31.6-35.5) g/dL RDW (11.5-14.5) % Plt Count (140-400) K/mcL MPV (9.4-12.4) fL Immature Gran % (0-4) % Seg Neutrophils % % Lymphocytes % % Monocytes % % Eosinophils % % Basophils % % Neutrophils # (1.6-8.9) K/mcL Lymphocytes # (0.6-4.6) K/mcL Monocytes # (0.0-1.3) K/mcL Eosinophils # (0.0-0.6) K/mcL Basophils # (0.0-0.2) K/mcL PT (9.4-12.1) Seconds INR Sodium (136-145) mEq/L Potassium (3.5-5.1) mEq/L Chloride (98-107) mEq/L Carbon Dioxide (23-29) mEq/L BUN (8-23) mg/dL Creatinine (0.60-1.20) mg/dL Est GFR ( Amer) (> 60) Est GFR (Non-Af Amer) (> 60) BUN/Creatinine Ratio (6-26) Glucose (70-105) mg/dL Calculated Osmolality (280-300) Calcium (8.6-10.3) mg/dL Magnesium (1.6-2.6) mg/dL Total Bilirubin (0.3-1.0) mg/dL AST (13-39) Units/L ALT (7-52) Units/L Alkaline Phosphatase (34-104) Units/L Creatine Kinase (30-223) Units/L Troponin I (< 0.04) ng/mL Serum Total Protein (6.4-8.9) g/dL Albumin (3.5-5.7) g/dL Globulin (2.4-3.5) g/dL Albumin/Globulin Ratio (1.1-2.2) Lipase (11-82) Units/L TSH (0.340-5.600) mcIU/mL Urine Color Yellow (Yellow) Urine Clarity Cloudy A (Clear) Urine pH 5.0 (5.0-8.0) pH Units Ur Specific [place] 1.008 L (1.010-1.025) Urine Protein 100 H (Neg-Trace) mg/dL Urine Glucose (UA) Normal (Normal) mg/dL Urine Ketones Negative (Negative) mg/dL Urine Blood Small H (Negative) Urine Nitrite Negative (Negative) Urine Bilirubin Negative (Negative) Urine Urobilinogen Normal (Normal) mg/dL Ur Leukocyte Esterase Large H (Negative) Urine Microscopic RBC 0-3 (0-3) per hpf Urine Microscopic WBC TNTC H (0-3) per hpf Ur Squamous Epith Cells Few (None-Few) per lpf Urine Bacteria Many H (None-Few) per hpf Hyaline Casts None Seen (None-Few) per lpf - Radiology Data Radiology results reviewed: Yes I reviewed the patient's radiology results. Chest X-Ray 09/05/18 11:56 IMPRESSION: No acute cardiopulmonary disease D/ / Pipo Smart MD / Pipo Smart MD Interpreting Provider: Pipo Smart MD Head CT 09/05/18 11:56 IMPRESSION: No acute intracranial abnormality. D/ / Franklin Resendez MD / Franklin Resendez MD Interpreting Provider: Franklin Resendez MD - EKG Data EKG #1 EKG attestation: Yes I reviewed and interpreted this EKG. EKG results narrative: EKG demonstrates sinus rhythm rate 92 bpm. Normal axis. Normal intervals. Normal R-wave progression. No gross ST elevations or depressions. No acute ischemic findings. S.B.A.R. - S.B.A.R. Situation: Demographics, MOA Background: Presenting Complaint, Relevant PMH, Meds, & Allergies Assessment: Course and respsone to treatment, Exam Concerns, Patient/Family Expectation, Pertinant Lab Results Recommendation: Barrier(s) to disposition, Recommendation based on pending studies, treatments, or consults S.B.A.R. Report Given to: Dr. Velma Roger Repor Time: 13:56
[2018-09-05 12:22] LABS: Basophils % 0.1 %; Eosinophils # 0.1 K/mcL (0.0-0.6); Eosinophils % 0.3 %; Hematocrit 26.8 % (35.3-44.9); Hemoglobin 7.9 g/dL (11.5-15.4); Immature Granulocytes % 0.9 % (0-4); Lymphocytes # 0.6 K/mcL (0.6-4.6); Lymphocytes % 3.7 %; Mean Corpuscular HGB Conc 29.5 g/dL (31.6-35.5); Mean Platelet Volume 10.2 fL (9.4-12.4); Monocytes # 0.9 K/mcL (0.0-1.3); Monocytes % 5.3 %; Neutrophils # 15.1 K/mcL (1.6-8.9); Platelet Count 407 K/mcL (140-400); Red Blood Count 2.82 M/mcL (3.82-4.97); Segmented Neutrophils % 89.7 %
[2018-09-05 12:27] LABS: INR 1.5
[2018-09-05 12:50] LABS: Troponin I < 0.03 ng/mL (< 0.04)
[2018-09-05 12:53] LABS: Alanine Aminotransferase 6 Units/L (7-52); Albumin 3.1 g/dL (3.5-5.7); Albumin/Globulin Ratio 0.8 (1.1-2.2); Alkaline Phosphatase 131 Units/L (34-104); Aspartate Amino Transferase 11 Units/L (13-39); BUN/Creatinine Ratio 23 (6-26); Bilirubin,Total 0.2 mg/dL (0.3-1.0); Blood Urea Nitrogen 41 mg/dL (8-23); Calcium 9.1 mg/dL (8.6-10.3); Carbon Dioxide 15 mEq/L (23-29); Chloride 114 mEq/L (98-107); Creatine Kinase < 10 Units/L (30-223); Globulin 3.9 g/dL (2.4-3.5); Glucose 163 mg/dL (70-105); Lipase 27 Units/L (11-82); Osmolality,Calculated 304 (280-300); Potassium 4.5 mEq/L (3.5-5.1); Sodium 140 mEq/L (136-145); eGFR For Non-African Americans 27 (> 60)
[2018-09-05 13:23] LABS: Bilirubin,Urine Negative (Negative); Blood,Urine Small (Negative); Clarity,Urine Cloudy (Clear); Color,Urine Yellow (Yellow); Glucose,Urine (UA) Normal (Normal); Ketones,Urine Negative (Negative); Leukocyte Esterase,Urine Large (Negative); Nitrite,Urine Negative (Negative); Protein,Urine 100 mg/dL (Neg-Trace); Specific Gravity,Urine 1.008 (1.010-1.025); Urobilinogen,Urine Normal (Normal)
[2018-09-05 13:28] LABS: Bacteria,Urine Many per hpf (None-Few); Hyaline Casts,Urine None Seen per lpf (None-Few); RBC,Urine 0-3 per hpf (0-3); Squamous Epithelial Cell,Urine Few per lpf (None-Few); WBC,Urine TNTC per hpf (0-3)
[2018-09-05] MEDS ORDERED: cefTRIAXone 1,000 MG in Water for inj. (sterile) 20 ML 10 ML IVP ONE (13:39)
[2018-09-05] MEDS ORDERED: *HR* Dextrose 50 % in Water (Syg) 50 ML SYRINGE IVP PRN (15:32)
[2018-09-05] MEDS ORDERED: Dextrose Gel 15 GM/37.5 ML TUBE PO PRN ×2 (15:32)
[2018-09-05] MEDS ORDERED: D5% in Water 1,000 ML IVC PRN (15:32)
--- NOTE | 2018-09-05 16:13 | Internal Med History&Physical ---
Date of Encounter: 09/05/18 Time of Encounter: 16:11 Internal Medicine - H&P: HPI Chief complaint: fall Admitted From: Home Plans for Post Hospital Care: Home History of present illness: Ms. Jalloh is a 83 year old female with medical history of hypertension and diabetes mellitus, dementia, history of hypercalcemia, osteoporosis on prolia She presented in continue her son for this morning from her bed. History was obtained from the patient's son and the patient herself According to the patient's son, she has been living with him for the past 13 years, however, in the past 12 weeks the patient has been refusing to get out of bed, refusing to eat her meals, stopped doing her daily activities which included reading books and Knitting, no social is in January with family, and acting more confused. He presented to the emergency room this morning because she fell from the bed or trying to get up. He also reports she has been having to hold on to objects while walking, in the past 2 weeks. Prior to this, she was able to ambulate independently. She has also lost a lot of weight her baseline weight is 120 pounds and currently prior to presentation he states she is less than 100 pounds. The patient" NOTHING SOUNDS GOOD TO EAT". She also reports not feeling hungry and that when she does eat, she feels food stuck in her throat. She also denies odynophagia, or change in bowel habits. She reports she has been having nausea and vomiting started 3 weeks ago and that has also made her afraid to eat. She denies hematemesis or hematochezia, she denies hematuria, she denies frequency and change in urinary continence. She does not remember her last screening in terms of mammogram and colonoscopy by primary care. However, she had a visit to her primary care 04/2018 and was told that her blood work was normal. In the ER, work up was initiated and showed Chest x-ray and head CT shows no acute intracranial abnormality. Urine analysis showed mild proteinuria, negative nitrites and large leukocyte esterase. She has leukocytosis with left shift. She has anemia with hemoglobin of 7.9 normocytic. Platelet count is elevated at 407. Renal function is at baseline, slightly elevated. 51. Liver function tests is normal. Ablation panel is normal. EKG was sinus. She is full code and will be placed on observation for suspected UTI, failure to thrive and severe malnutriton, as well as severe depression She denies suicidal ideation and is FULL CODE per her and family Past Med Surg Social Fam HX - Past Medical History Medical history: arthritis, diabetes, GERD, hyperlipidemia, hypertension, osteoporosis, renal disease, other Additional medical history: CKD Psychiatric history: no psych history - Past Surgical History Surgical History: cholecystectomy, orthopedic, other, other Additional surgical history: Back sx - Social History Smoking Status: Never smoker Smokeless Tobacco Status: No Alcohol use: none Drug use: none - Family History Mother History Unknown: Yes Living Status: Hx Family Cardiac Disorders: Yes Father History Unknown: Yes Living Status: Hx Family Cardiac Disorders: Yes Internal Medicine - H&P: Meds Atorvastatin Calcium [Lipitor] 20 mg PO DAILY 08/14/16 [History] Denosumab [Prolia (For Outpatient Infusion)] 60 mg SQ [id number] 08/14/16 [History ] Ferrous Sulfate 325 mg PO BIDWM 08/14/16 [History] Gemfibrozil [Lopid] 600 mg PO BIDWM 08/14/16 [History] Multivitamin [Multi-Day Vitamins] 1 tab PO DAILY 08/14/16 [History] Omeprazole [PriLOSEC] 20 mg PO DAILY 08/14/16 [History] Sitagliptin Phosphate [Januvia] 50 mg PO DAILY 08/14/16 [History] Vit C/Vit E/[place]utein/Min/[place]-3 [Ocuvite Softgel] 1 cap PO DAILY 08/14/16 [ History] Oxycodone HCl/Acetaminophen [Percocet 5-325 mg Tablet] 1 each PO Q6H PRN #20 tablet 02/06/17 [Rx] amLODIPine [Norvasc] 10 mg PO DAILY #30 tablet 02/06/17 [Rx] Memantine HCl/Donepezil HCl [Namzaric 28 mg-10 mg Capsule] 1 tab PO DAILY [History] glipiZIDE [Glucotrol] 2.5 mg PO HS 09/05/18 [History] glipiZIDE [Glucotrol] 5 mg PO QAM 09/05/18 [History] 3 Allergy/AdvReac Type Severity Reaction Status Date / Time Penicillins Allergy Intermediate Hives Verified 12/29/15 11:31 All Systems PM: A 10-system review of systems was performed and is negative for pertinent findings except as documented above in the HPI. - Constitutional Constitutional: anorexia, falls, lethargy, malaise, weight loss, no chills, no fever(s), no night sweats - EENT Eyes: no change in vision, no discharge, no pain, no photophobia Ears: no ear discharge, no ear pain, no tinnitus Nose, mouth and throat: no dysphagia, no nasal discharge, no neck pain, no sore throat - Cardiovascular Cardiovascular ROS IM: no chest pain, no diaphoresis, no dyspnea, no lightheadedness, no palpitations, no syncope - Respiratory Respiratory: no cough, no dyspnea, no wheezing, no excessive phlegm production - Gastrointestinal Gastrointestinal: early satiety, nausea, vomiting, no abdominal pain, no diarrhea, no hematemesis, no hematochezia, no melena, no odynophagia - Genitourinary Genitourinary: no change in urinary stream, no dysuria, no flank pain, no hematuria - Musculoskeletal Musculoskeletal ROS IM: as per HPI - Integumentary Integumentary IM: as per HPI - Neurological Neurological ROS: as per HPI - Hematologic/Lymphatic Hematologic/Lymphatic: as per HPI - Constitutional Vitals: Temp Pulse Resp BP Pulse Ox 97.8 F 76 18 168/67 93 09/05/18 15:44 09/05/18 15:44 09/05/18 15:44 09/05/18 15:44 09/05/18 15:44 General appearance: Present: cachectic, A&O X 3, pleasant, no acute distress, underweight, loss of weight Exam: see below - Head Additional comments: Left. Lipitor bruising from mechanical fall. No hematoma. Patient with alopecia. - Eye Eye exam: Present: PERRL, conjuntiva pink, sclera anicteric Pupils: Present: PERRL - Neck Neck exam general surgery: Present: supple, trachea midline. Absent: lymphadenopathy - Respiratory Respiratory exam: Present: CTAB - Cardiovascular Cardiovascular exam: Present: RRR, +S1, +S2. Absent: systolic murmur - GI/Abdominal GI/Abdominal exam: Present: normal bowel sounds, soft, no peritoneal signs. Absent: tenderness - Extremities Exam Extremities exam: Present: warm, radial pulses palpable and symmetrical. Absent : calf tenderness, cyanotic, pedal edema - Neurological Exam Neurological exam: Present: alert, CN II-XII intact, oriented X3, no focal deficits. Absent: pronater drift, facial droop, speech deficit - Skin Skin exam: Present: dry, intact Internal Med - H&P Results - Labs CBC & Chem 7: 09/05/18 12:07 09/05/18 12:07 - Assessment and plan (1) Anorexia Current Visit: Yes Status: Acute Assessment and plan: Likely due to severe depression Obtain prealbumin, chest, abdomen and pelvis CT without contrast Start ensure-patient prefers chocolate flavor Consult new car driver (2) Depression Current Visit: Yes Status: Acute Assessment and plan: Patient with severe depression based on history of anhedonia, anorexia, loss of appetite, no interest in social activities with associated unintentional weight loss. No suicidal ideation Will start on remeron Will consult psych prior to discharge Qualifiers: Depression Type: major depressive disorder Major depression recurrence: unspecified whether recurrent Active/Remission status: currently active Major depression episode severity: severe Psychotic features: without psychotic features Qualified Code(s): F32.2 - Major depressive disorder, single episode, severe without psychotic features (3) Malnutrition Current Visit: Yes Status: Acute Assessment and plan: suspected, due to poor oral intake Consult new car driver Qualifiers: Malnutrition type: protein-calorie malnutrition Protein-calorie malnutrition severity: moderate Qualified Code(s): E44.0 - Moderate protein- calorie malnutrition (4) HTN (hypertension) Current Visit: Yes Status: Chronic Assessment and plan: controlled at this time, resume home meds Qualifiers: Hypertension type: essential hypertension Qualified Code(s): I10 - Essential (primary) hypertension (5) Anemia Current Visit: Yes Status: Chronic Assessment and plan: Last Hb on record from 2017 10 Presented with Hb of 7.9 without symptoms or signs of bleeding, hemodynamically stable Monitor Hb, type and screen a.m Send anemia work up TSH is WNL Qualifiers: Anemia type: unspecified type Qualified Code(s): D64.9 - Anemia, unspecified (6) CKD (chronic kidney disease), stage III Current Visit: Yes Status: Chronic Assessment and plan: renal function is at her baseline She follows with Dr. Ochoa, no indication for consultation at this time, will consult prn (7) Diabetes Current Visit: Yes Status: Chronic Assessment and plan: hold home meds Check A1C with mrn labs FS ACHS Sliding scale insulin only for now Qualifiers: Diabetes mellitus type: type 2 Diabetes mellitus mcfp insulin use: without mcfp use Diabetes mellitus complication status: with kidney complications Diabetes mellitus complication detail: with chronic kidney disease Chronic kidney disease stage: stage 3 (moderate) Qualified Code(s): E11.22 - Type 2 diabetes mellitus with diabetic chronic kidney disease; N18.3 - Chronic kidney disease, stage 3 (moderate) (8) Failure to thrive in adult Current Visit: Yes Status: Acute Assessment and plan: see nutrition (9) Fall Current Visit: Yes Status: Acute Assessment and plan: falm precautions OOB to chair daily PTOT eval Qualifiers: Encounter type: initial encounter Qualified Code(s): W19.XXXA - Unspecified fall, initial encounter (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: Yes Status: Chronic (11) Hypercalcemia Current Visit: Yes Status: Resolved Assessment and plan: hx of same, resolved, Ca is WNL this time, continue to monitor (12) UTI (urinary tract infection) Current Visit: Yes Status: Suspected Assessment and plan: suspected Continue Ceftriaxone Check urine culture Qualifiers: Urinary tract infection type: site unspecified Hematuria presence: without hematuria Qualified Code(s): N39.0 - Urinary tract infection, site not specified (13) Leukocytosis Current Visit: Yes Status: Acute Qualifiers: Leukocytosis type: unspecified Qualified Code(s): D72.829 - Elevated white blood cell count, unspecified - Time Spent With Patient Total time spent is greater than 50% in coordination of care (as documented) at patient's floor/unit and/or counseling patient:
[2018-09-05] MEDS: Insulin LISPRO 300 UNITS/3 ML VIAL SQ SCH ×2 (17:33→21:07)
--- NOTE | 2018-09-05 17:54 | Electrocardiograph Report ---
[facility] Test Date: 2018-09-05 Pat Name: Gerri Jalloh Department: [id number] Room: 2A26 Gender: F Car Lubricator: : 1935 Requested By: Fabiano Angeles Order Number: [id number] Reading MD: Cruzito Parekh Measurements Intervals [place] Rate: 92 P: 54 MI: 144 QRS: 60 QRSD: 80 T: 27 QT: 386 QTc: 478 Interpretive Statements Sinus rhythm Anteroseptal infarct, old Electronically Signed On 09-05-2018 17:53:00 EDT by Cruzito Parekh
[2018-09-05] MEDS: Ondansetron 4 MG/2 ML VIAL IVP PRN (18:00)
[2018-09-05] MEDS: Ringers Solution, Lactated 1,000 ML IVC SCH (18:02)
--- NOTE | 2018-09-05 18:06 | Event Note ---
Date of Encounter: 09/05/18 Time of Encounter: 17:59 CT ofthe chest, abdomen and pelvis done without contrast showed a severe and proximal R hydroureter with a likely soft tissue mass. I discussed with the radiologist does not believe an MRI would benefit or show more detailed He recommends repeat CT of the abdomen and pelvis with IV and oral contrast with evaluation of the ureters using the patient has chronic kidney disease stage III and I will discuss with her son who is her power of employee benefits attorney and has self prior to obtaining this imaging. I would also consult urology.
[2018-09-05] MEDS: *HR* OxyCODONE/APAP 5/325 TABLET PO PRN (19:42)
[2018-09-05] MEDS: Mirtazapine 15 MG TABLET PO SCH (19:42)
[2018-09-06 03:45] LABS: Basophils % 0.3 %; Eosinophils # 0.2 K/mcL (0.0-0.6); Eosinophils % 1.2 %; Hematocrit 26.7 % (35.3-44.9); Hemoglobin 7.4 g/dL (11.5-15.4); Immature Granulocytes % 0.8 % (0-4); Lymphocytes # 1.1 K/mcL (0.6-4.6); Lymphocytes % 6.9 %; Mean Corpuscular HGB Conc 27.7 g/dL (31.6-35.5); Mean Corpuscular Hemoglobin 27.4 pg (28.0-33.3); Mean Corpuscular Volume 98.9 fL (83.0-100.0); Mean Platelet Volume 10.5 fL (9.4-12.4); Monocytes # 0.9 K/mcL (0.0-1.3); Monocytes % 5.4 %; Neutrophils # 13.6 K/mcL (1.6-8.9); Platelet Count 341 K/mcL (140-400); Red Cell Distribution Width 16.3 % (11.5-14.5); Segmented Neutrophils % 85.4 %
[2018-09-06 03:49] LABS: Basophils # 0.1 K/mcL (0.0-0.2)
[2018-09-06 04:04] LABS: % Iron Saturation 8 % (15-50); Iron 16 mcg/dL (50-170); Transferrin 148 mg/dL (203-362)
[2018-09-06 04:05] LABS: Calcium 8.7 mg/dL (8.6-10.3); Potassium 4.6 mEq/L (3.5-5.1)
[2018-09-06 04:20] LABS: Hypochromasia Present (Not Present); Toxic Granulation Present (Not Present)
[2018-09-06 04:29] LABS: Folate 11.5 ng/mL (3.0-16.0)
[2018-09-06 06:49] LABS: Estimated Average Glucose 151 mg/dl; Hemoglobin A1C 6.9 %
--- NOTE | 2018-09-06 08:43 | Urology - Consult Note ---
Date of Encounter: 09/06/18 Time of Encounter: 08:41 - Assessment and Plan (1) Hydronephrosis Current Visit: Yes Status: Acute Assessment and plan: A 3-year-old woman with concern for right hydroureteronephrosis. I reviewed her CT scan. I am concerned she could have ovarian cancer or colon cancer which is causing obstruction. It is also possible she could have a lymphoma given the location of the soft tissue mass. Further imaging is pending with IV contrast. Management of her right hydronephrosis would be through either a right ureteral stent placement or a right nephrostomy tube. We discussed the cystoscopy and right ureteral stent placement in detail. I reviewed the risks of the procedure which include but are not limited to bleeding, infection, injury to other structures, need for further procedures, potential for recurrent obstruction, and the risk of anesthesia. I will discuss with her son further once he is available. Her renal function is stable and she does not appear septic. Stent placement or nephrostomy tube placement is not urgent at this time. We can discuss further. Urology will follow along. Qualifiers: Hydronephrosis type: unspecified Qualified Code(s): N13.30 - Unspecified hydronephrosis (2) Cachexia Current Visit: Yes Status: Acute Urology CN:HPI Consult date: 09/06/18 Reason for consult Urology: Hydronephrosis Requesting physician: James Vanessa History of present illness: 83-year-old woman is seen in consultation for right hydronephrosis. She has been admitted for failure to thrive and weight loss. She had a CT scan which showed severe right hydroureteronephrosis down into the pelvis and there is evidence of a soft tissue mass which is likely causing right ureteral obstruction. Her creatinine is stable at 1.55. She is not having any flank pain. She says she is able to urinate as normal. Her son is her power of in store representative who cares for her. At the time of my visit he was not present. Past Med Surg Social Fam HX - Past Medical History Medical history: arthritis, diabetes, GERD, hyperlipidemia, hypertension, osteoporosis, renal disease, other Additional medical history: CKD Psychiatric history: no psych history - Past Surgical History Surgical History: cholecystectomy, orthopedic, other, other Additional surgical history: Back sx - Social History Smoking Status: Never smoker Smokeless Tobacco Status: No Alcohol use: none Drug use: none - Family History Mother History Unknown: Yes Living Status: Hx Family Cardiac Disorders: Yes Father History Unknown: Yes Living Status: Hx Family Cardiac Disorders: Yes Medications and Allergies Atorvastatin Calcium [Lipitor] 20 mg PO DAILY 08/14/16 [History] Denosumab [Prolia (For Outpatient Infusion)] 60 mg SQ [id number] 08/14/16 [History ] Ferrous Sulfate 325 mg PO BIDWM 08/14/16 [History] Gemfibrozil [Lopid] 600 mg PO BIDWM 08/14/16 [History] Multivitamin [Multi-Day Vitamins] 1 tab PO DAILY 08/14/16 [History] Omeprazole [PriLOSEC] 20 mg PO DAILY 08/14/16 [History] Sitagliptin Phosphate [Januvia] 50 mg PO DAILY 08/14/16 [History] Vit C/Vit E/Lutein/Min/[place]-3 [Ocuvite Softgel] 1 cap PO DAILY 08/14/16 [ History] Oxycodone HCl/Acetaminophen [Percocet 5-325 mg Tablet] 1 each PO Q6H PRN #20 tablet 02/06/17 [Rx] amLODIPine [Norvasc] 10 mg PO DAILY #30 tablet 02/06/17 [Rx] Memantine HCl/Donepezil HCl [Namzaric 28 mg-10 mg Capsule] 1 tab PO DAILY [History] glipiZIDE [Glucotrol] 2.5 mg PO HS 09/05/18 [History] glipiZIDE [Glucotrol] 5 mg PO QAM 09/05/18 [History] 3 Allergy/AdvReac Type Severity Reaction Status Date / Time Penicillins Allergy Intermediate Hives Verified 12/29/15 11:31 Review of Systems - Constitutional weakness, weight loss, no chills, no fever(s) - EENT Nose, mouth and throat: no dizziness - Cardiovascular no chest pain - Respiratory no dyspnea - Gastrointestinal no nausea, no vomiting - Genitourinary Genitourinary: no flank pain, no hematuria - Musculoskeletal no back pain - Integumentary no erythema, no rash - Neurological no weakness - Psychiatric no suicidal ideation - Hematologic/Lymphatic no easy bleeding - Allergic/Immunologic no wheezing Exam Initial Vital Signs Temp Pulse Resp BP Pulse Ox 98.4 F 88 16 165/68 100 09/05/18 11:55 09/05/18 11:55 09/05/18 11:55 09/05/18 11:55 09/05/18 11:55 - General physical appearance Present: no distress, cachectic - Eyes Absent: icteric - ENT Present: normal nares - Neck Present: trachea midline - Respiratory Present: normal respiratory effort - Cardiovascular Cardiovascular exam IM: RRR - Abdomen Abdomen: Present: soft - Integumentary Present: no rash - Neurologic Present: normal coordination - Musculoskeletal Present: other (Grossly normal) Urology Results - Labs 09/06/18 03:28 09/06/18 03:28 Abnormal lab results WBC 15.9 K/mcL (4.3-11.1) H 09/06/18 03:28 RBC 2.70 M/mcL (3.82-4.97) L 09/06/18 03:28 Hgb 7.4 g/dL (11.5-15.4) L 09/06/18 03:28 Hct 26.7 % (35.3-44.9) L 09/06/18 03:28 MCH 27.4 pg (28.0-33.3) L 09/06/18 03:28 MCHC 27.7 g/dL (31.6-35.5) L 09/06/18 03:28 RDW 16.3 % (11.5-14.5) H 09/06/18 03:28 Neutrophils # 13.6 K/mcL (1.6-8.9) H 09/06/18 03:28 Toxic Granulation Present (Not Present) A 09/06/18 03:28 Hypochromasia Present (Not Present) A 09/06/18 03:28 PT 17.0 Seconds (9.4-12.1) H 09/05/18 12:07 Chloride 117 mEq/L (98-107) H 09/06/18 03:28 Carbon Dioxide 12 mEq/L (23-29) L 09/06/18 03:28 BUN 37 mg/dL (8-23) H 09/06/18 03:28 Creatinine 1.55 mg/dL (0.60-1.20) H 09/06/18 03:28 Est GFR ( Amer) 39 (> 60) L 09/06/18 03:28 Est GFR (Non-Af Amer) 32 (> 60) L 09/06/18 03:28 Glucose 64 mg/dL (70-105) L 09/06/18 03:28 POC Glucose 109 mg/dL (70-99) H 09/05/18 16:27 Hemoglobin A1c 6.9 % (-5.6) H 09/06/18 03:28 Calculated Osmolality 301 (280-300) H 09/06/18 03:28 Iron 16 mcg/dL (50-170) L 09/06/18 03:28 % Saturation 8 % (15-50) L 09/06/18 03:28 Transferrin 148 mg/dL (203-362) L 09/06/18 03:28 Total Bilirubin 0.2 mg/dL (0.3-1.0) L 09/05/18 12:07 AST 11 Units/L (13-39) L 09/05/18 12:07 ALT 6 Units/L (7-52) L 09/05/18 12:07 Alkaline Phosphatase 131 Units/L (34-104) H 09/05/18 12:07 Creatine Kinase < 10 Units/L (30-223) L 09/05/18 12:07 Albumin 3.1 g/dL (3.5-5.7) L 09/05/18 12:07 Globulin 3.9 g/dL (2.4-3.5) H 09/05/18 12:07 Albumin/Globulin Ratio 0.8 (1.1-2.2) L 09/05/18 12:07 Prealbumin 10.4 mg/dL (17.0-34.0) L 09/06/18 03:28 Urine Clarity Cloudy (Clear) A 09/05/18 13:00 Ur Specific [place] 1.008 (1.010-1.025) L 09/05/18 13:00 Urine Protein 100 mg/dL (Neg-Trace) H 09/05/18 13:00 Urine Blood Small (Negative) H 09/05/18 13:00 Ur Leukocyte Esterase Large (Negative) H 09/05/18 13:00 Urine Microscopic WBC TNTC per hpf (0-3) H 09/05/18 13:00 Urine Bacteria Many per hpf (None-Few) H 09/05/18 13:00 Diabetes panel 10/06/18 10/06/18 Range/Units 03:28 03:28 Sodium 142 (136-145) mEq/L Potassium 4.6 (3.5-5.1) mEq/L Chloride 117 H (98-107) mEq/L Carbon Dioxide 12 L (23-29) mEq/L BUN 37 H (8-23) mg/dL Creatinine 1.55 H (0.60-1.20) mg/dL Glucose 64 L (70-105) mg/dL Hemoglobin A1c 6.9 H ( - 5.6) % Calcium 8.7 (8.6-10.3) mg/dL Calcium panel 09/06/18 Range/Units 03:28 Calcium 8.7 (8.6-10.3) mg/dL Pituitary panel 09/06/18 Range/Units 03:28 Sodium 142 (136-145) mEq/L Potassium 4.6 (3.5-5.1) mEq/L Chloride 117 H (98-107) mEq/L Carbon Dioxide 12 L (23-29) mEq/L BUN 37 H (8-23) mg/dL Creatinine 1.55 H (0.60-1.20) mg/dL Glucose 64 L (70-105) mg/dL Calcium 8.7 (8.6-10.3) mg/dL Adrenal panel 09/06/18 Range/Units 03:28 Sodium 142 (136-145) mEq/L Potassium 4.6 (3.5-5.1) mEq/L Chloride 117 H (98-107) mEq/L Carbon Dioxide 12 L (23-29) mEq/L BUN 37 H (8-23) mg/dL Creatinine 1.55 H (0.60-1.20) mg/dL Glucose 64 L (70-105) mg/dL Calcium 8.7 (8.6-10.3) mg/dL All other labs normal. - Imaging CT scan - abdomen: report reviewed, image reviewed CT scan - pelvis: report reviewed, image reviewed Consult Discharge Plan - Plan Referrals: Jody Ellington MD [Primary Care Provider] -
[2018-09-06] MEDS: *HR* Acetylcysteine 20% 600 MG/3 ML ORAL SYRINGE PO SCH (08:52)
[2018-09-06] MEDS: Ondansetron 4 MG/2 ML VIAL IVP PRN (08:52)
[2018-09-06] MEDS: Multivit/Ca/Min/Fe/FA 1 TAB TABLET PO SCH (08:53)
[2018-09-06] MEDS: amLODIPine 5 MG TABLET PO SCH (08:53)
[2018-09-06] MEDS: Ascorbic Acid 500 MG TABLET PO SCH (08:53)
[2018-09-06] MEDS: cefTRIAXone 1,000 MG in Water for inj. (sterile) 20 ML 10 ML IVP SCH (08:55)
[2018-09-06] MEDS: DONEPEZIL HCL PO SCH (08:57)
[2018-09-06] MEDS: MEMANTINE HCL PO SCH (08:57)
[2018-09-06] MEDS: Ringers Solution, Lactated 1,000 ML IVC SCH ×2 (08:57→17:06)
[2018-09-06] MEDS: Insulin LISPRO 300 UNITS/3 ML VIAL SQ SCH ×4 (08:58→20:43)
--- NOTE | 2018-09-06 11:53 | Internal Med Progress Note ---
Hospitalist Progress Note - Encounter Date of Encounter: 09/06/18 Time of Encounter: 11:53 - Subjective Interval History: 83-year-old female with medical history of hypertension and diabetes mellitus was brought in by her son yesterday for recurrent falls, loss of appetite and unintentional weight loss. She also had incidental finding of urinary tract infection. As part of the workup for her cachexia abdomen and pelvis and chest CAT scan was done without contrast 09/05. Imaging findings suggest right severe hydronephrosis and hydroureter and a possible pelvic mass. The patient has chronic kidney disease stage III and the radiologist has recommended a repeat imaging with by mouth and IV contrast. She is seen and evaluated at the bedside this morning, she denies feeling any new symptoms and has unchanged appetite. She has no abdominal swelling. Overnight, she had an episode of urinary retention requiring straight catheterization. Workup also shows severe iron deficiency, we will give iron transfusion from today. Urology has been consulted for hydronephrosis Her son has been contacted multiple times for discussion of possible side effect of IV contrast. The patient was educated about the need for further imaging and she agrees with administration of contrast only if her son also agrees. We will continue current management until we are able to hear back from her son. - Exam Vitals: Temp Pulse Resp BP Pulse Ox 98.8 F 87 17 135/64 98 09/06/18 11:41 09/06/18 11:41 09/06/18 11:41 09/06/18 11:41 09/06/18 11:41 Exam: Gen: NAD, VSS, Awake, alert in bed, cachectic, evidence of muscle wasting noted HEENT: Left frontal bruising from fall, no hematoma Chest: CTAB Heart: S1, S2 only, no m/g/r Abdomen: Scaphoid, no palpable masses Extremities: No pedal edema Neuro: Awake, alert, oriented X3, no focal deficits - Assessment and Plan (1) Anorexia Current Visit: Yes Status: Acute Assessment and Plan: Likely due to severe depression, however, Abd and Pelvis CT shows posssible pelvis mass with severe R hydronephrosis and hydroureter prealbumin is low 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 No suicidal ideation Will start on remeron, continue same Will consult psych prior to discharge (3) Malnutrition Current Visit: Yes Status: Acute Assessment and Plan: suspected, due to poor oral intake Consult facialist (4) HTN (hypertension) Current Visit: Yes Status: Chronic Assessment and Plan: controlled at this time, continue home meds (5) Anemia Current Visit: Yes Status: Chronic Assessment and Plan: see iron deficiency anemia NO current source of bleeding identified (6) CKD (chronic kidney disease), stage III Current Visit: Yes Status: Chronic Assessment and Plan: renal function is at her baseline She follows with Dr. 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 (11) Hypercalcemia Current Visit: Yes Status: Resolved Assessment and Plan: hx of same, resolved, Ca is WNL this time, continue to monitor (12) UTI (urinary tract infection) Current Visit: Yes Status: Suspected Assessment and Plan: suspected Continue Ceftriaxone-day 2 Follow final urine culture (13) Leukocytosis Current Visit: Yes Status: Acute Assessment and Plan: Improving, continue to monitor (14) Mass Current Visit: Yes Status: Acute Assessment and Plan: Repeat abdomen and pelvis imaging with po and IV contrast pending son's approval (15) Hydronephrosis Current Visit: Yes Status: Acute Assessment and Plan: urology consulted, input appreciated Has episode of urinary retention overnight Will place [place] if recurrent (16) Iron deficiency anemia Current Visit: Yes Status: Chronic Assessment and Plan: iron infusion daily X3, then reassess, patient with poor nutrition, Hb stable at this time, will transfuse for HB <7 or hemodynamic instability Vitamin B12 and folate WNL (17) Dementia Current Visit: Yes Status: Chronic Assessment and Plan: continue home meds - Time Spent with Patient Total time spent is greater than 50% in coordination of care (as documented) at patient's floor/unit and/or counseling patient: Plan of Care Discussed with: patient Internal Medicine: Result - Labs CBC & Chem 7: 09/06/18 03:28 09/06/18 03:28 Labs: Short CBC 09/06/18 Range/Units 03:28 WBC 15.9 H (4.3-11.1) K/mcL Hgb 7.4 L (11.5-15.4) g/dL Hct 26.7 L (35.3-44.9) % Plt Count 341 (140-400) K/mcL Neutrophils # 13.6 H (1.6-8.9) K/mcL BMP 09/06/18 03:28 Sodium 142 Potassium 4.6 Chloride 117 H Carbon Dioxide 12 L BUN 37 H Creatinine 1.55 H Glucose 64 L Calcium 8.7 - ABG Interpretation ABG results: PT/INR, D-dimer PT 17.0 Seconds (9.4-12.1) H 09/05/18 12:07 - Impressions Impressions Abdomen/Pelvis CT 09/05/18 16:09 IMPRESSION: 1. Severe right hydronephrosis and proximal hydroureter. In the right hemipelvis, there is a soft tissue density, not well seen due to absence of oral and intravenous contrast. It is unclear whether this finding is related to the hydronephrosis. In the clinical context provided, finding is worrisome for a soft tissue mass. Recommend further evaluation with oral and IV contrast. Delayed images should also be obtained to better assess the course of the ureter. 2. No acute abnormality in the thorax. 3. Coronary artery disease. 4. Mild cardiomegaly. 5. Status post cholecystectomy. 6. Bladder distension. Please correlate with clinical symptoms of urinary retention. D/ / 09/05/2018 18:08:29 Tahir Dinero MD / lgray Interpreting Provider: Tahir Dinero MD Chest CT 09/05/18 16:09 IMPRESSION: 1. Severe right hydronephrosis and proximal hydroureter. In the right hemipelvis, there is a soft tissue density, not well seen due to absence of oral and intravenous contrast. It is unclear whether this finding is related to the hydronephrosis. In the clinical context provided, finding is worrisome for a soft tissue mass. Recommend further evaluation with oral and IV contrast. Delayed images should also be obtained to better assess the course of the ureter. 2. No acute abnormality in the thorax. 3. Coronary artery disease. 4. Mild cardiomegaly. 5. Status post cholecystectomy. 6. Bladder distension. Please correlate with clinical symptoms of urinary retention. D/ / 09/05/2018 18:08:29 Tahir Dinero MD / lgray Interpreting Provider: Tahir Dinero MD Consult Discharge Plan - Plan Referrals: Jody Ellington MD [Primary Care Provider] - (2) Depression Qualifiers: Depression Type: major depressive disorder Major depression recurrence: unspecified whether recurrent Active/Remission status: currently active Major depression episode severity: severe Psychotic features: without psychotic features Qualified Code(s): F32.2 - Major depressive disorder, single episode, severe without psychotic features (3) Malnutrition Qualifiers: Malnutrition type: protein-calorie malnutrition Protein-calorie malnutrition severity: moderate Qualified Code(s): E44.0 - Moderate protein-calorie malnutrition (4) HTN (hypertension) Qualifiers: Hypertension type: essential hypertension Qualified Code(s): I10 - Essential (primary) hypertension (5) Anemia Qualifiers: Anemia type: unspecified type Qualified Code(s): D64.9 - Anemia, unspecified (7) Diabetes Qualifiers: Diabetes mellitus type: type 2 Diabetes mellitus meterman insulin use: without snf use Diabetes mellitus complication status: with kidney complications Diabetes mellitus complication detail: with chronic kidney disease Chronic kidney disease stage: stage 3 (moderate) Qualified Code(s): E11.22 - Type 2 diabetes mellitus with diabetic chronic kidney disease; N18.3 - Chronic kidney disease, stage 3 (moderate) (9) Fall Qualifiers: Encounter type: initial encounter Qualified Code(s): W19.XXXA - Unspecified fall, initial encounter (12) UTI (urinary tract infection) Qualifiers: Urinary tract infection type: site unspecified Hematuria presence: without hematuria Qualified Code(s): N39.0 - Urinary tract infection, site not specified (13) Leukocytosis Qualifiers: Leukocytosis type: unspecified Qualified Code(s): D72.829 - Elevated white blood cell count, unspecified (15) Hydronephrosis Qualifiers: Hydronephrosis type: unspecified Qualified Code(s): N13.30 - Unspecified hydronephrosis (16) Iron deficiency anemia Qualifiers: Iron deficiency anemia type: inadequate dietary iron intake Qualified Code(s) : D50.8 - Other iron deficiency anemias (17) Dementia Qualifiers: Dementia type: unspecified type Dementia behavioral disturbance: without behavioral disturbance Qualified Code(s): F03.90 - Unspecified dementia without behavioral disturbance
[2018-09-06] MEDS: Mirtazapine 15 MG TABLET PO SCH (20:44)
[2018-09-07] MEDS: Ringers Solution, Lactated 1,000 ML IVC SCH ×2 (00:41→12:18)
[2018-09-07] MEDS: *HR* Acetylcysteine 20% 600 MG/3 ML ORAL SYRINGE PO SCH ×3 (00:42→21:14)
[2018-09-07 08:07] LABS: Basophils % 0.3 %; Eosinophils # 0.3 K/mcL (0.0-0.6); Eosinophils % 2.1 %; Hematocrit 22.3 % (35.3-44.9); Hemoglobin 6.5 g/dL (11.5-15.4); Immature Granulocytes % 0.8 % (0-4); Lymphocytes # 0.9 K/mcL (0.6-4.6); Lymphocytes % 7.5 %; Mean Corpuscular HGB Conc 29.1 g/dL (31.6-35.5); Mean Corpuscular Hemoglobin 27.9 pg (28.0-33.3); Mean Corpuscular Volume 95.7 fL (83.0-100.0); Mean Platelet Volume 10.1 fL (9.4-12.4); Monocytes # 0.7 K/mcL (0.0-1.3); Neutrophils # 9.9 K/mcL (1.6-8.9); Platelet Count 321 K/mcL (140-400); Red Blood Count 2.33 M/mcL (3.82-4.97); Red Cell Distribution Width 16.3 % (11.5-14.5); Segmented Neutrophils % 83.3 %
[2018-09-07 08:20] LABS: Calcium 8.4 mg/dL (8.6-10.3); Potassium 4.4 mEq/L (3.5-5.1)
[2018-09-07] MEDS: Insulin LISPRO 300 UNITS/3 ML VIAL SQ SCH ×4 (08:25→20:47)
[2018-09-07] MEDS: cefTRIAXone 1,000 MG in Water for inj. (sterile) 20 ML 10 ML IVP SCH (08:36)
[2018-09-07] MEDS: amLODIPine 5 MG TABLET PO SCH (08:37)
[2018-09-07] MEDS: Multivit/Ca/Min/Fe/FA 1 TAB TABLET PO SCH (08:37)
[2018-09-07] MEDS: Ondansetron 4 MG/2 ML VIAL IVP PRN (08:37)
[2018-09-07] MEDS: Ascorbic Acid 500 MG TABLET PO SCH (08:37)
[2018-09-07] MEDS: *HR* OxyCODONE/APAP 5/325 TABLET PO PRN (08:37)
--- NOTE | 2018-09-07 09:16 | Urology Progress Note ---
Date of Encounter: 09/07/18 Time of Encounter: 09:14 - Assessment and Plan (1) Hydronephrosis Current Visit: Yes Status: Acute Assessment and plan: 83-year-old woman with a history of right hydroureteronephrosis secondary to a pelvic mass. I recommend placement of a right ureteral stent. We reviewed the risks and benefits. I will anticipate trying to get this done on Saturday, 09/09. Qualifiers: Hydronephrosis type: unspecified Qualified Code(s): N13.30 - Unspecified hydronephrosis (2) Cachexia Current Visit: Yes Status: Acute Progress Note Narrative: Doing well today. Catheter was placed for incomplete bladder emptying. Renal function is remaining stable. I spoke with her [id number], Vicenta. I explained the hydronephrosis and my desire to place a right ureteral stent. We reviewed the risks and benefits. She informed me that she will have her , Cristhian, who is the patient's power of a p manager, by tomorrow between 12 and 1 PM to discuss further. Objective Initial Vital Signs Temp Pulse Resp BP Pulse Ox 98.4 F 88 16 165/68 100 09/05/18 11:55 09/05/18 11:55 09/05/18 11:55 09/05/18 11:55 09/05/18 11:55 - General physical appearance Present: well developed, well nourished, no distress - Respiratory Present: normal respiratory effort - Abdomen Present: soft - Genitourinary Urine Appearance: Present: Clear - Labs 09/07/18 07:50 09/07/18 07:50 Diabetes panel 09/07/18 Range/Units 07:50 Sodium 139 (136-145) mEq/L Potassium 4.4 (3.5-5.1) mEq/L Chloride 114 H (98-107) mEq/L Carbon Dioxide 16 L (23-29) mEq/L BUN 31 H (8-23) mg/dL Creatinine 1.62 H (0.60-1.20) mg/dL Glucose 84 (70-105) mg/dL Calcium 8.4 L (8.6-10.3) mg/dL Calcium panel 09/07/18 Range/Units 07:50 Calcium 8.4 L (8.6-10.3) mg/dL Pituitary panel 09/07/18 Range/Units 07:50 Sodium 139 (136-145) mEq/L Potassium 4.4 (3.5-5.1) mEq/L Chloride 114 H (98-107) mEq/L Carbon Dioxide 16 L (23-29) mEq/L BUN 31 H (8-23) mg/dL Creatinine 1.62 H (0.60-1.20) mg/dL Glucose 84 (70-105) mg/dL Calcium 8.4 L (8.6-10.3) mg/dL Adrenal panel 09/07/18 Range/Units 07:50 Sodium 139 (136-145) mEq/L Potassium 4.4 (3.5-5.1) mEq/L Chloride 114 H (98-107) mEq/L Carbon Dioxide 16 L (23-29) mEq/L BUN 31 H (8-23) mg/dL Creatinine 1.62 H (0.60-1.20) mg/dL Glucose 84 (70-105) mg/dL Calcium 8.4 L (8.6-10.3) mg/dL Consult Discharge Plan - Plan Referrals: Jody Ellington MD [Primary Care Provider] -
--- NOTE | 2018-09-07 09:58 | Internal Med Progress Note ---
Hospitalist Progress Note - Encounter Date of Encounter: 09/07/18 Time of Encounter: 09:58 - Subjective Interval History: 83-year-old female with medical history of hypertension and diabetes mellitus was brought in by her son yesterday for recurrent falls, loss of appetite and unintentional weight loss. She also had incidental finding of urinary tract infection. As part of the workup for her cachexia abdomen and pelvis and chest CAT scan was done without contrast 09/05. Imaging findings suggest right severe hydronephrosis and hydroureter and a possible pelvic mass. The patient has chronic kidney disease stage III and the radiologist has recommended a repeat imaging with by mouth and IV contrast. She is seen and evaluated at the bedside this morning, she denies feeling any new symptoms and has unchanged appetite. She has no abdominal swelling. She now has a Kelly catheter She denies any new complains I am yet to hear back from patient's son. urology progress note, noted for presence of family member this a.m The patient told me this a.m, she wants to have the testing with contrast done and that she no longer wishes to wait for her son's decision, she is AAOX3 We will continue renal protection strategy with mucomyst and IVF Ordered Imaging as recommended by radiologist, according to Moriah from radiology , they cannot give contrast due to patient's GFR, she will discuss with the radiologt and get back to me Urine is growing GNR, she is on ceftriaxone - Exam Vitals: Temp Pulse Resp BP Pulse Ox 98.9 F 80 16 127/65 98 09/07/18 08:00 09/07/18 08:00 09/07/18 08:00 09/07/18 08:00 09/07/18 08:00 Exam: Gen: NAD, VSS, Awake, alert in bed, cachectic, evidence of muscle wasting noted HEENT: Left frontal bruising from fall, no hematoma Chest: CTAB Heart: S1, S2 only, no m/g/r Abdomen: Scaphoid, no palpable masses Extremities: No pedal edema : kelly with clear urine Neuro: Awake, alert, oriented X3, no focal deficits - Assessment and Plan (1) Anorexia Current Visit: Yes Status: Acute Assessment and Plan: Likely due to severe depression, however, Abd and Pelvis CT shows possible pelvis mass with severe R hydronephrosis and hydroureter prealbumin is low Sand Shoveler consulted Continue to monitor (2) Depression Current Visit: Yes Status: Acute Assessment and Plan: Patient with severe depression based on history of anhedonia, anorexia, loss of appetite, no interest in social activities with associated unintentional weight loss. No suicidal ideation continue remeron Will consult psych prior to discharge (3) Malnutrition Current Visit: Yes Status: Acute Assessment and Plan: suspected, due to poor oral intake Consult bindery machine setter-recjosé manuel noted, patient has severe PCM (4) HTN (hypertension) Current Visit: Yes Status: Chronic Assessment and Plan: controlled at this time, continue home meds (5) Anemia Current Visit: Yes Status: Chronic Assessment and Plan: see iron deficiency anemia NO current source of bleeding identified (6) CKD (chronic kidney disease), stage III Current Visit: Yes Status: Chronic Assessment and Plan: renal function is at her baseline She follows with Dr. 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 (11) Hypercalcemia Current Visit: Yes Status: Resolved Assessment and Plan: hx of same, resolved, Ca is WNL this time, continue to monitor (12) UTI (urinary tract infection) Current Visit: Yes Status: Acute Assessment and Plan: urine culture with GNR Continue Ceftriaxone-day 3 Follow final urine culture (13) Leukocytosis Current Visit: Yes Status: Acute Assessment and Plan: Improving, continue to monitor (14) Mass Current Visit: Yes Status: Acute Assessment and Plan: Repeat abdomen and pelvis imaging with po and IV contrast pending approval (15) Hydronephrosis Current Visit: Yes Status: Acute (16) Iron deficiency anemia Current Visit: Yes Status: Acute Assessment and Plan: Patient received iron infusion daily X2 Vitamin B12 and folate WNL Hb today 6.5 Will transfuse 2 units of red cells, hold IVF while transfusing Will discontinue iron, hematology will be consulted No source of bleeding identified at this time (17) Dementia Current Visit: Yes Status: Chronic Assessment and Plan: continue home meds - Time Spent with Patient Total time spent is greater than 50% in coordination of care (as documented) at patient's floor/unit and/or counseling patient: Plan of Care Discussed with: nurse Internal Medicine: Result - Labs CBC & Chem 7: 09/07/18 07:50 09/07/18 07:50 Labs: Short CBC 09/07/18 Range/Units 07:50 WBC 11.9 H (4.3-11.1) K/mcL Hgb 6.5 L (11.5-15.4) g/dL Hct 22.3 L (35.3-44.9) % Plt Count 321 (140-400) K/mcL Neutrophils # 9.9 H (1.6-8.9) K/mcL BMP 09/07/18 07:50 Sodium 139 Potassium 4.4 Chloride 114 H Carbon Dioxide 16 L BUN 31 H Creatinine 1.62 H Glucose 84 Calcium 8.4 L - ABG Interpretation ABG results: PT/INR, D-dimer PT 17.0 Seconds (9.4-12.1) H 09/05/18 12:07 Consult Discharge Plan - Plan Referrals: Jody Ellington MD [Primary Care Provider] - (2) Depression Qualifiers: Depression Type: major depressive disorder Major depression recurrence: unspecified whether recurrent Active/Remission status: currently active Major depression episode severity: severe Psychotic features: without psychotic features Qualified Code(s): F32.2 - Major depressive disorder, single episode, severe without psychotic features (3) Malnutrition Qualifiers: Malnutrition type: protein-calorie malnutrition Protein-calorie malnutrition severity: severe Qualified Code(s): E43 - Unspecified severe protein-calorie malnutrition (4) HTN (hypertension) Qualifiers: Hypertension type: essential hypertension Qualified Code(s): I10 - Essential (primary) hypertension (5) Anemia Qualifiers: Anemia type: unspecified type Qualified Code(s): D64.9 - Anemia, unspecified (7) Diabetes Qualifiers: Diabetes mellitus type: type 2 Diabetes mellitus mcc insulin use: without truck terminal manager use Diabetes mellitus complication status: with kidney complications Diabetes mellitus complication detail: with chronic kidney disease Chronic kidney disease stage: stage 3 (moderate) Qualified Code(s): E11.22 - Type 2 diabetes mellitus with diabetic chronic kidney disease; N18.3 - Chronic kidney disease, stage 3 (moderate) (9) Fall Qualifiers: Encounter type: initial encounter Qualified Code(s): W19.XXXA - Unspecified fall, initial encounter (12) UTI (urinary tract infection) Qualifiers: Urinary tract infection type: site unspecified Hematuria presence: without hematuria Qualified Code(s): N39.0 - Urinary tract infection, site not specified (13) Leukocytosis Qualifiers: Leukocytosis type: unspecified Qualified Code(s): D72.829 - Elevated white blood cell count, unspecified (15) Hydronephrosis Qualifiers: Hydronephrosis type: unspecified Qualified Code(s): N13.30 - Unspecified hydronephrosis (16) Iron deficiency anemia Qualifiers: Iron deficiency anemia type: inadequate dietary iron intake Qualified Code(s) : D50.8 - Other iron deficiency anemias (17) Dementia Qualifiers: Dementia type: unspecified type Dementia behavioral disturbance: without behavioral disturbance Qualified Code(s): F03.90 - Unspecified dementia without behavioral disturbance
[2018-09-07] MEDS: DONEPEZIL HCL PO SCH (10:44)
[2018-09-07] MEDS: MEMANTINE HCL PO SCH (10:44)
[2018-09-07] MEDS ORDERED: Isovue-370 500 ML INFUS..BTL IV ONE (12:19)
[2018-09-07] MEDS ORDERED: 0.9 % Sodium Chloride 250 ML ONE ×2 (17:12→21:09)
[2018-09-07 20:30] LABS: Hematocrit 25.9 % (35.3-44.9); Hemoglobin 7.7 g/dL (11.5-15.4)
[2018-09-07] MEDS: Mirtazapine 15 MG TABLET PO SCH (21:13)
[2018-09-08 05:36] LABS: Basophils % 0.3 %; Eosinophils # 0.3 K/mcL (0.0-0.6); Eosinophils % 1.8 %; Hematocrit 28.4 % (35.3-44.9); Hemoglobin 8.8 g/dL (11.5-15.4); Immature Granulocytes % 1.1 % (0-4); Lymphocytes % 7.4 %; Mean Corpuscular Hemoglobin 28.3 pg (28.0-33.3); Mean Corpuscular Volume 91.3 fL (83.0-100.0); Mean Platelet Volume 10.2 fL (9.4-12.4); Monocytes # 0.8 K/mcL (0.0-1.3); Monocytes % 5.6 %; Neutrophils # 11.7 K/mcL (1.6-8.9); Platelet Count 321 K/mcL (140-400); Red Blood Count 3.11 M/mcL (3.82-4.97); Red Cell Distribution Width 16.2 % (11.5-14.5); Segmented Neutrophils % 83.8 %
[2018-09-08 05:59] LABS: Calcium 8.5 mg/dL (8.6-10.3); Potassium 4.6 mEq/L (3.5-5.1)
--- NOTE | 2018-09-08 09:27 | Internal Med Progress Note ---
Hospitalist Progress Note - Encounter Date of Encounter: 09/08/18 Time of Encounter: 09:25 - Subjective Interval History: 83-year-old female with medical history of hypertension and diabetes mellitus was brought in by her son yesterday for recurrent falls, loss of appetite and unintentional weight loss. She also had incidental finding of urinary tract infection. As part of the workup for her cachexia abdomen and pelvis and chest CAT scan was done without contrast 09/05. Imaging findings suggest right severe hydronephrosis and hydroureter and a possible pelvic mass. The patient has chronic kidney disease stage III and the radiologist has recommended a repeat imaging with by mouth and IV contrast. She is seen and evaluated at the bedside this morning She is complaining of RLQ pain this mrn She denies nausea and vomiting I met with patient's son and [id number], Vicenta yesterday 09/07 and had a lengthy discussion about her diagnoses, The son , and patient want aggressive treatment and they would also like to know what this pelvic mass is We are unable to obtain contrast images due to renal function and We have held off further studies, in anticipation of possible improved renal function after stent placement I have also involved palliative care at this time - Exam Vitals: Temp Pulse Resp BP Pulse Ox 98.4 F 75 18 152/67 98 09/08/18 07:45 09/08/18 07:45 09/08/18 07:45 09/08/18 07:45 09/08/18 07:45 Exam: Gen: NAD, VSS, Awake, alert in bed, cachectic, evidence of muscle wasting noted HEENT: Left frontal bruising from fall, no hematoma Chest: CTAB Heart: S1, S2 only, no m/g/r Abdomen: Scaphoid, no palpable masses, RLQ tender++, no rebound, no gaurding Extremities: No pedal edema : kelly with clear urine Neuro: Awake, alert, oriented X3, no focal deficits - Assessment and Plan (1) Anorexia Current Visit: Yes Status: Acute Assessment and Plan: Likely due to severe depression, however, Abd and Pelvis CT shows possible pelvis mass with severe R hydronephrosis and hydroureter prealbumin is low Photographic Specialist consulted, eval appreciated Continue to monitor (2) Depression Current Visit: Yes Status: Chronic Assessment and Plan: Patient with severe depression based on history of anhedonia, anorexia, loss of appetite, no interest in social activities with associated unintentional weight loss. No suicidal ideation continue remeron Will consult psych prior to discharge (3) Malnutrition Current Visit: Yes Status: Acute Assessment and Plan: suspected, due to poor oral intake Consult spray painter-emily noted, patient has severe PCM (4) HTN (hypertension) Current Visit: Yes Status: Chronic Assessment and Plan: controlled at this time, continue home meds (5) Anemia Current Visit: Yes Status: Chronic Assessment and Plan: see iron deficiency anemia NO current source of bleeding identified (6) CKD (chronic kidney disease), stage III Current Visit: Yes Status: Chronic Assessment and Plan: renal function is at her baseline She follows with Dr. 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 (11) Hypercalcemia Current Visit: Yes Status: Resolved Assessment and Plan: hx of same, resolved, Ca is WNL this time, continue to monitor (12) UTI (urinary tract infection) Current Visit: Yes Status: Acute Assessment and Plan: urine culture with ramon-sensitive E.coli Continue Ceftriaxone-day 03/11, complicated UTI due to anatomic abnormality (13) Leukocytosis Current Visit: Yes Status: Acute Assessment and Plan: Persists, patient is afebrile, continue to monitor (14) Mass Current Visit: Yes Status: Acute Assessment and Plan: Repeat abdomen and pelvis imaging with po and IV contrast pending approval and improved renal function (15) Hydronephrosis Current Visit: Yes Status: Acute Assessment and Plan: urology consulted, input appreciated For cystoscopy and stent placement tmrw 09/09 (16) Iron deficiency anemia Current Visit: Yes Status: Acute Assessment and Plan: Patient received iron infusion daily X2 Vitamin B12 and folate WNL Hb 09/07 6.5 s/p 2 units of red cellsHB today 8.8 Continue to monitor Resume iron po (17) Dementia Current Visit: Yes Status: Chronic Assessment and Plan: continue home meds - Time Spent with Patient Total time spent is greater than 50% in coordination of care (as documented) at patient's floor/unit and/or counseling patient: Plan of Care Discussed with: patient Internal Medicine: Result - Labs CBC & Chem 7: 09/08/18 04:46 09/08/18 04:46 Labs: Short CBC 09/07/18 09/08/18 Range/Units 20:20 04:46 WBC 14.0 H (4.3-11.1) K/mcL Hgb 7.7 L 8.8 L (11.5-15.4) g/dL Hct 25.9 L 28.4 L (35.3-44.9) % Plt Count 321 (140-400) K/mcL Neutrophils # 11.7 H (1.6-8.9) K/mcL BMP 09/08/18 04:46 Sodium 140 Potassium 4.6 Chloride 114 H Carbon Dioxide 18 L BUN 25 H Creatinine 1.65 H Glucose 115 H Calcium 8.5 L - ABG Interpretation ABG results: PT/INR, D-dimer PT 17.0 Seconds (9.4-12.1) H 09/05/18 12:07 - Impressions Impressions Abdomen/Pelvis CT 09/05/18 16:09 IMPRESSION: 1. Severe right hydronephrosis and proximal hydroureter. In the right hemipelvis, there is a soft tissue density, not well seen due to absence of oral and intravenous contrast. It is unclear whether this finding is related to the hydronephrosis. In the clinical context provided, finding is worrisome for a soft tissue mass. Recommend further evaluation with oral and IV contrast. Delayed images should also be obtained to better assess the course of the ureter. 2. No acute abnormality in the thorax. 3. Coronary artery disease. 4. Mild cardiomegaly. 5. Status post cholecystectomy. 6. Bladder distension. Please correlate with clinical symptoms of urinary retention. D/ / 09/05/2018 18:08:29 Tahir Dinero MD / codi Interpreting Provider: Tahir Dinero MD Chest CT 09/05/18 16:09 IMPRESSION: 1. Severe right hydronephrosis and proximal hydroureter. In the right hemipelvis, there is a soft tissue density, not well seen due to absence of oral and intravenous contrast. It is unclear whether this finding is related to the hydronephrosis. In the clinical context provided, finding is worrisome for a soft tissue mass. Recommend further evaluation with oral and IV contrast. Delayed images should also be obtained to better assess the course of the ureter. 2. No acute abnormality in the thorax. 3. Coronary artery disease. 4. Mild cardiomegaly. 5. Status post cholecystectomy. 6. Bladder distension. Please correlate with clinical symptoms of urinary retention. D/ / 09/05/2018 18:08:29 Tahir Dinero MD / codi Interpreting Provider: Tahir Dinero MD Consult Discharge Plan - Plan Referrals: Jody Ellington MD [Primary Care Provider] - (2) Depression Qualifiers: Depression Type: major depressive disorder Major depression recurrence: unspecified whether recurrent Active/Remission status: currently active Major depression episode severity: severe Psychotic features: without psychotic features Qualified Code(s): F32.2 - Major depressive disorder, single episode, severe without psychotic features (3) Malnutrition Qualifiers: Malnutrition type: protein-calorie malnutrition Protein-calorie malnutrition severity: severe Qualified Code(s): E43 - Unspecified severe protein-calorie malnutrition (4) HTN (hypertension) Qualifiers: Hypertension type: essential hypertension Qualified Code(s): I10 - Essential (primary) hypertension (5) Anemia Qualifiers: Anemia type: unspecified type Qualified Code(s): D64.9 - Anemia, unspecified (7) Diabetes Qualifiers: Diabetes mellitus type: type 2 Diabetes mellitus rx specialist insulin use: without prison use Diabetes mellitus complication status: with kidney complications Diabetes mellitus complication detail: with chronic kidney disease Chronic kidney disease stage: stage 3 (moderate) Qualified Code(s): E11.22 - Type 2 diabetes mellitus with diabetic chronic kidney disease; N18.3 - Chronic kidney disease, stage 3 (moderate) (9) Fall Qualifiers: Encounter type: initial encounter Qualified Code(s): W19.XXXA - Unspecified fall, initial encounter (12) UTI (urinary tract infection) Qualifiers: Urinary tract infection type: site unspecified Hematuria presence: without hematuria Qualified Code(s): N39.0 - Urinary tract infection, site not specified (13) Leukocytosis Qualifiers: Leukocytosis type: unspecified Qualified Code(s): D72.829 - Elevated white blood cell count, unspecified (15) Hydronephrosis Qualifiers: Hydronephrosis type: unspecified Qualified Code(s): N13.30 - Unspecified hydronephrosis (16) Iron deficiency anemia Qualifiers: Iron deficiency anemia type: inadequate dietary iron intake Qualified Code(s) : D50.8 - Other iron deficiency anemias (17) Dementia Qualifiers: Dementia type: unspecified type Dementia behavioral disturbance: without behavioral disturbance Qualified Code(s): F03.90 - Unspecified dementia without behavioral disturbance
[2018-09-08] MEDS: Insulin LISPRO 300 UNITS/3 ML VIAL SQ SCH ×4 (09:33→21:40)
[2018-09-08] MEDS: cefTRIAXone 1,000 MG in Water for inj. (sterile) 20 ML 10 ML IVP SCH (09:34)
[2018-09-08] MEDS: amLODIPine 5 MG TABLET PO SCH (09:34)
[2018-09-08] MEDS: Multivit/Ca/Min/Fe/FA 1 TAB TABLET PO SCH (09:34)
[2018-09-08] MEDS: Ondansetron 4 MG/2 ML VIAL IVP PRN (09:40)
[2018-09-08] MEDS: Ascorbic Acid 500 MG TABLET PO SCH (09:40)
[2018-09-08] MEDS: *HR* Acetylcysteine 20% 600 MG/3 ML ORAL SYRINGE PO SCH ×2 (09:41→21:40)
[2018-09-08] MEDS: *HR* OxyCODONE/APAP 5/325 TABLET PO PRN (09:46)
--- NOTE | 2018-09-08 11:21 | Palliative - Consult Note ---
Date of Encounter: 09/08/18 Time of Encounter: 10:25 - Assessment and Plan (1) Generalized weakness Current Visit: Yes Status: Acute Assessment and plan: Patient came to [facility] with weakness and frequent falls. PT/OT consult recommendations appreciated; recommend ECF/SNF at time of discharge. (2) Failure to thrive in adult Current Visit: Yes Status: Acute Assessment and plan: Patient not eating; has lost greater than 20 pounds (15 of which were in last 3 weeks). (3) Anorexia Current Visit: Yes Status: Acute Assessment and plan: Patient is taking Remeron. Will add Marinol in an attempt to increase appetite. (4) Depression Current Visit: Yes Status: Acute Assessment and plan: Patient reports depression is linked to living with son and "interfering with his life." Patient has been taking Remeron. Primary team noted that they are going to refer to Psychiatry before discharge. Qualifiers: Depression Type: major depressive disorder Major depression recurrence: unspecified whether recurrent Active/Remission status: currently active Major depression episode severity: severe Psychotic features: without psychotic features Qualified Code(s): F32.2 - Major depressive disorder, single episode, severe without psychotic features (5) Leukocytosis Current Visit: Yes Status: Acute Qualifiers: Leukocytosis type: unspecified Qualified Code(s): D72.829 - Elevated white blood cell count, unspecified (6) CKD (chronic kidney disease), stage III Current Visit: Yes Status: Chronic Assessment and plan: GFR 30; BUN 25; and Cr 1.65. Unable to perform CT scan with contrast because of GFR. (7) Goals of care, counseling/discussion Current Visit: Yes Status: Acute Assessment and plan: Conducted goals of care discussion with patient. Des[place] and Michael to help her make decisions. Reports has Living will and MPOA; however, not on chart. Contacted Serafin Jalloh [facility] for goals of care discussion; reports will be here at 12 pm, to have goals of care discussion at that time. Upon arrival for family meeting, entry simultaneous with Urology. Patient and son agreed to stent placement with idea of draining kidney and improve kidney functioning. Discussed goals of care in regards to testing and procedures. Desire full aggressive treatment in hopes of identifying problems and fixing what is possible. Discussed holding off of CT with contrast at this time due to GFR; verbalized understanding. Family expressed desire of a wait and see post urology procedure tomorrow if can improve enough to have further work up on pelvic/colonic/lympoma mass. Discussed advanced directives. Patient has Living Will and MPOA completed; family to attempt to locate and bring in. Reports in the past had been DNR, but that has changed and desires to be a FULL CODE. Discussed risk and potential outcome of CPR/intubation; verbalized understanding. Patient expressed desire to talk CODE STATUS over with her sons this evening and may reconsider tomorrow. Reports does not want to be a burden, but desires to live as long as she can. Discussed some early discharge planning. Patient and family agreeable to ECF skilled placement should that be an option at discharge. Patient lives with her son, daughter in law, and grandson for the last 13 years. Son and daughter in law work and grandson just had knee surgery. Patient has had frequent falls and concerned for patient to get the best care she can. Palliative care will continue to participate in goals of care discussion throughout this hospital stay. Family requested follow up meeting tomorrow morning 11 am. Patient schedule for surgery at 12 pm. Palliative-CN HPI - Data of Consult Patient: new to practice Consult date: 09/07/18 Requesting Physician: James Vanessa MD Primary Care Provider: Jody Ellington MD - Consult Narrative Palliative Care/Comfort Measures: Palliative care Reason for consult: Goals of care/advanced directives History of present illness: Ms. Jalloh is a 83 year old female Arrived to [facility] ER on 09/05/18 for weakness, falling, lack of appetite, does not want to interact, and weight loss. Patient admitted for FTT, Generalized weakness and cachexia. PMH: Arthritis, DM, GERD, Hyperlipidemia, HTN, Osteoporosis, and renal disease. Chest x-ray showed no acute cardiopulmonary disease. EKG showed: Sinus rhythm and Anteroseptal infarct , old. CT head/brain without contrast showing: no acute intracranial abnormality. CT of chest without contrast; CT of abdomen and Pelvis without contrast showing: Severe right hydronephrosis and proximal hydroureter. In the right hemipelvis, there is a soft tissue density, not well seen due to absence of oral and intravenous contrast, worrisome for a soft tissue mass; No acute abnormality in the thorax; Coronary artery disease; Mild cardiomegaly; Status post cholecystectomy; and Bladder distension. Patient admitted and medically managed for: UTI, FTT, severe malnutrition, anorexia, leukocytosis, and severe depression. Urology consulted for Hydronephrosis; concern for ovarian versus colon cancer causing obstruction; plan for stent placement. Catheter placed for incomplete bladder emptying. Patient agreed to CT imaging with contrast, Radiology unable to perform testing as her GFR hinders scan. Palliative care consulted for Goals of care and advanced directives. Patient lying in bed with eyes closed upon arrival for assessment. Patient easily arouses with verbal stimulation. Alert and oriented times 3; no family present at bedside. Patient reports increase in pain when feels like having a bowel movement, then subsides. Patient denies anxiety, nausea, vomiting, and dyspnea. Reports continued lack of appetite as she is a very picky eater and nothing sounds good. CC: James Vanessa MD - Time Spent with Patient Time: Total time spent is greater than 50% in coordination of care (as documented) at patient's floor/unit and/or counseling patient: Past Med Surg Social Fam HX - Past Medical History Medical history: arthritis, diabetes, GERD, hyperlipidemia, hypertension, osteoporosis, renal disease, other Additional medical history: CKD Psychiatric history: no psych history - Past Surgical History Surgical History: cholecystectomy, orthopedic, other, other Additional surgical history: Back sx - Social History Smoking Status: Never smoker Smokeless Tobacco Status: No Alcohol use: none Drug use: none - Family History Mother History Unknown: Yes Living Status: Hx Family Cardiac Disorders: Yes Father History Unknown: Yes Living Status: Hx Family Cardiac Disorders: Yes Medications and Allergies Atorvastatin Calcium [Lipitor] 20 mg PO DAILY 08/14/16 [History] Denosumab [Prolia (For Outpatient Infusion)] 60 mg SQ [id number] 08/14/16 [History ] Ferrous Sulfate 325 mg PO BIDWM 08/14/16 [History] Gemfibrozil [Lopid] 600 mg PO BIDWM 08/14/16 [History] Multivitamin [Multi-Day Vitamins] 1 tab PO DAILY 08/14/16 [History] Omeprazole [PriLOSEC] 20 mg PO DAILY 08/14/16 [History] Sitagliptin Phosphate [Januvia] 50 mg PO DAILY 08/14/16 [History] Vit C/Vit E/Lutein/Min/[place]-3 [Ocuvite Softgel] 1 cap PO DAILY 08/14/16 [ History] Oxycodone HCl/Acetaminophen [Percocet 5-325 mg Tablet] 1 each PO Q6H PRN #20 tablet 02/06/17 [Rx] amLODIPine [Norvasc] 10 mg PO DAILY #30 tablet 02/06/17 [Rx] Memantine HCl/Donepezil HCl [Namzaric 28 mg-10 mg Capsule] 1 tab PO DAILY [History] glipiZIDE [Glucotrol] 2.5 mg PO HS 09/05/18 [History] glipiZIDE [Glucotrol] 5 mg PO QAM 09/05/18 [History] 3 Allergy/AdvReac Type Severity Reaction Status Date / Time Penicillins Allergy Intermediate Hives Verified 12/29/15 11:31 ROS unobtainable: due to mental status (Patient had difficulty, but able to participate. Reviewed chart also.) - Constitutional Constitutional ROS PAL: decreased appetite, anorexia, frequent falls, lethargy, malaise, weight loss - Cardiovascular Cardiovascular ROS: dyspnea on exertion, no chest pain - Respiratory Respiratory: dyspnea on exertion, no cough - Gastrointestinal Gastrointestinal: nausea, vomiting, no abdominal pain - Integumentary ROS Integumentary: dry skin - Neurological Neurological ROS: confusion, dizziness, frequent falls, lack of coordination, memory loss, weakness - Psychiatric Psychiatric general PM: depression, difficulty concentrating, memory loss Palliative Care-Exam - Constitutional Vitals: Temp Pulse Resp BP Pulse Ox 98.8 F 78 18 147/63 97 09/08/18 11:16 09/08/18 11:16 09/08/18 11:16 09/08/18 11:16 09/08/18 11:16 General appearance: Present: cooperative, no acute distress - Head Head Exam: Present: atraumatic, normal inspection - Eye Eye exam: Present: EOMI, normal appearance, conjuntiva pink. Absent: periorbital swelling, periorbital tenderness - ENT ENT exam: Present: mucous membranes dry, normal external ear exam - Expanded ENT Exam Mouth Exam: Absent: drooling - Neck Neck exam: Present: full ROM, normal inspection - Respiratory Respiratory exam: Present: CTAB. Absent: accessory muscle use, chest wall tenderness - Cardiovascular Cardiovascular exam: Present: +S1, +S2 - Expanded Cardiovascular Exam Peripheral pulses: 2+: Radial (L), Radial (R), Posterior Tibialis (L), Posterior Tibialis (R), Dorsalis Pedis (L) PM, Dorsalis Pedis (R) PM - GI/Abdominal Exam GI/Abdominal exam: Present: diminished bowel sounds, soft. Absent: tenderness - Rectal Rectal exam: Present: deferred - Catheter Type: Urethral (Mojica) - Extremities Exam Extremities exam: Absent: calf tenderness, pedal edema - Neurological Exam Neurological exam: Present: alert, oriented X3, strengths equal and symetr throughout - Expanded Neurological Exam Coma Scale Eye Opening: To Voice Coma Scale Motor Response: Obeys Commands Coma Scale Verbal Response: Oriented Coma Scale Total: 14 - Psychiatric Psychiatric exam: Present: depressed, flat affect - Skin Skin exam: Present: dry, intact Internal Medicine - CN: Reslt - Labs CBC & Chem 7: 09/08/18 04:46 09/08/18 04:46 - ABG Interpretation ABG results: PT/INR, D-dimer PT 17.0 Seconds (9.4-12.1) H 09/05/18 12:07 Consult Discharge Plan - Plan Referrals: Jody Ellington MD [Primary Care Provider] - Palliative Quality Palliative Quality: Screen for Code Status: Yes, Screen for Goals of Care: Yes, Screen for Pain: Yes, If Pain Regimen Started, Initiate Bowel Regimen: NA, Screen for Nausea/Vomitting: Yes
--- NOTE | 2018-09-08 13:44 | Urology Progress Note ---
Date of Encounter: 09/08/18 Time of Encounter: 13:42 - Assessment and Plan (1) Hydronephrosis Current Visit: Yes Status: Acute Assessment and plan: 83-year-old woman with right hydronephrosis. I recommend proceeding with a cystoscopy and right ureteral stent placement. She was informed of the risks of the procedure including but not limited to bleeding, infection, injury to other structures, need for further procedures, stent irritation, stent obstruction, ureteral perforation, need for nephrostomy tube, need for open repair, risks unforeseen, and the risk of anesthesia. She and her son are willing to proceed. Qualifiers: Hydronephrosis type: unspecified Qualified Code(s): N13.30 - Unspecified hydronephrosis (2) Cachexia Current Visit: Yes Status: Acute Progress Note Narrative: 83-year-old woman with a pelvic mass and right hydronephrosis. I discussed with her and her son today the CT scan findings and the implications of hydronephrosis. I recommend proceeding with a right ureteral stent. All risks were informed. Objective Initial Vital Signs Temp Pulse Resp BP Pulse Ox 98.4 F 88 16 165/68 100 09/05/18 11:55 09/05/18 11:55 09/05/18 11:55 09/05/18 11:55 09/05/18 11:55 - General physical appearance Present: well developed, well nourished, no distress - Abdomen Present: soft - Genitourinary Urine Appearance: Present: Clear - Labs 09/08/18 04:46 09/08/18 04:46 Consult Discharge Plan - Plan Referrals: Jody Ellington MD [Primary Care Provider] -
--- NOTE | 2018-09-08 20:02 | Anesthesia Evaluation PreOp ---
Date of Encounter: 09/08/18 Time of Encounter: 20:00 - Past History Planned Operation: Right ureteroscopic stone Extraction, stent Cardiac History: HTN Pulmonary History: Denies Any Significant HX [employer]ESSION[employer] History: Denies Any Significant HX Other Medical History: Diabetes Type II, GERD, Other (Osteoporosis, anorexic, failure to thrive, pelvic mass (lymphoma)) Anesthesia History: No Prior Anesthetic Complications, Past Anesthesia (GB,) : No Alcohol Use: none Drug use: none Medications and Allergies Atorvastatin Calcium [Lipitor] 20 mg PO DAILY 08/14/16 [History] Denosumab [Prolia (For Outpatient Infusion)] 60 mg SQ [id number] 08/14/16 [History ] Ferrous Sulfate 325 mg PO BIDWM 08/14/16 [History] Gemfibrozil [Lopid] 600 mg PO BIDWM 08/14/16 [History] Multivitamin [Multi-Day Vitamins] 1 tab PO DAILY 08/14/16 [History] Omeprazole [PriLOSEC] 20 mg PO DAILY 08/14/16 [History] Sitagliptin Phosphate [Januvia] 50 mg PO DAILY 08/14/16 [History] Vit C/Vit E/Lutein/Min/[place]-3 [Ocuvite Softgel] 1 cap PO DAILY 08/14/16 [ History] Oxycodone HCl/Acetaminophen [Percocet 5-325 mg Tablet] 1 each PO Q6H PRN #20 tablet 02/06/17 [Rx] amLODIPine [Norvasc] 10 mg PO DAILY #30 tablet 02/06/17 [Rx] Memantine HCl/Donepezil HCl [Namzaric 28 mg-10 mg Capsule] 1 tab PO DAILY [History] glipiZIDE [Glucotrol] 2.5 mg PO HS 09/05/18 [History] glipiZIDE [Glucotrol] 5 mg PO QAM 09/05/18 [History] 3 Allergy/AdvReac Type Severity Reaction Status Date / Time Penicillins Allergy Intermediate Hives Verified 12/29/15 11:31 - Meds/Allergy Pre-op Review Medications Reviewed: Yes Allergies Reviewed: Yes Beta Blockers on Current Med List: No Anesthesia Results - Labs 09/08/18 04:46 09/08/18 04:46 - Imaging EKG: report reviewed (Sinus rhythm Anteroseptal infarct, old) Anesthesia Exam Vital Signs/O2 Sat, Most Current Temp Pulse Resp BP Pulse Ox 98.9 F 80 15 136/63 98 09/08/18 19:17 09/08/18 19:17 09/08/18 19:17 09/08/18 19:17 09/08/18 19:17 NPO (# of Hours): > 8 hrs Pain Scale: 0 Pain Scale Used: Numeric (1 - 10) - HEENT Pupil (Motor): Pupils equal, EOMI Mallampati: II Teeth: Normal Oral Opening: Greater than 3 - [employer]ESSION[employer] LOC: Oriented [employer] Motor: Normal RUE, Normal LUE, Normal RLE, Normal LLE, Normal Face [employer] Sensory: Normal: RUE, LUE, RLE, LLE, Face - Cardiac Rhythm: Regular Murmur: None JVD: No Carotid Bruit: No - Pulmonary Breath Sounds: bilateral Clear Respiratory Effort: Symmetrical Anesthesia Assess/Plan ASA Score: 3 Modified Ludwin Scale for Level of Consciousness: Cooperative, oriented, and tranquil Anesthetic Plan: General Autologous Blood: Yes Monitoring Plan: Standard Monitors Recovery Plan: PACU
[2018-09-08] MEDS: Mirtazapine 15 MG TABLET PO SCH (21:39)
[2018-09-09 05:29] LABS: Basophils # 0.1 K/mcL (0.0-0.2); Basophils % 0.4 %; Eosinophils # 0.3 K/mcL (0.0-0.6); Eosinophils % 2.4 %; Hematocrit 28.9 % (35.3-44.9); Immature Granulocytes % 1.2 % (0-4); Mean Corpuscular HGB Conc 31.1 g/dL (31.6-35.5); Mean Corpuscular Hemoglobin 28.3 pg (28.0-33.3); Mean Corpuscular Volume 90.9 fL (83.0-100.0); Mean Platelet Volume 10.2 fL (9.4-12.4); Monocytes # 0.8 K/mcL (0.0-1.3); Monocytes % 6.5 %; Neutrophils # 9.6 K/mcL (1.6-8.9); Platelet Count 268 K/mcL (140-400); Red Blood Count 3.18 M/mcL (3.82-4.97); Red Cell Distribution Width 16.2 % (11.5-14.5); Segmented Neutrophils % 81.5 %
[2018-09-09 05:52] LABS: Calcium 8.2 mg/dL (8.6-10.3); Potassium 4.9 mEq/L (3.5-5.1)
--- NOTE | 2018-09-09 07:36 | Urology Progress Note ---
Date of Encounter: 09/09/18 Time of Encounter: 07:35 - Assessment and Plan (1) Hydronephrosis Current Visit: Yes Status: Acute Assessment and plan: 83-year-old woman with right hydronephrosis. Plan for cystoscopy and right ureteral stent placement today. She is on IV antibiotic. She has been nothing by mouth. All questions were answered. She is aware of all risks. Qualifiers: Hydronephrosis type: unspecified Qualified Code(s): N13.30 - Unspecified hydronephrosis (2) Cachexia Current Visit: Yes Status: Acute Progress Note Narrative: During well this morning. No issues. Objective Initial Vital Signs Temp Pulse Resp BP Pulse Ox 98.4 F 88 16 165/68 100 09/05/18 11:55 09/05/18 11:55 09/05/18 11:55 09/05/18 11:55 09/05/18 11:55 - General physical appearance Present: well developed, well nourished, no distress - Respiratory Present: normal respiratory effort - Abdomen Present: soft - Genitourinary Urine Appearance: Present: Clear - Labs 09/09/18 05:04 09/09/18 05:04 Diabetes panel 09/09/18 Range/Units 05:04 Sodium 135 L (136-145) mEq/L Potassium 4.9 (3.5-5.1) mEq/L Chloride 107 (98-107) mEq/L Carbon Dioxide 18 L (23-29) mEq/L BUN 29 H (8-23) mg/dL Creatinine 1.67 H (0.60-1.20) mg/dL Glucose 289 H (70-105) mg/dL Calcium 8.2 L (8.6-10.3) mg/dL Calcium panel 09/09/18 Range/Units 05:04 Calcium 8.2 L (8.6-10.3) mg/dL Pituitary panel 09/09/18 Range/Units 05:04 Sodium 135 L (136-145) mEq/L Potassium 4.9 (3.5-5.1) mEq/L Chloride 107 (98-107) mEq/L Carbon Dioxide 18 L (23-29) mEq/L BUN 29 H (8-23) mg/dL Creatinine 1.67 H (0.60-1.20) mg/dL Glucose 289 H (70-105) mg/dL Calcium 8.2 L (8.6-10.3) mg/dL Adrenal panel 09/09/18 Range/Units 05:04 Sodium 135 L (136-145) mEq/L Potassium 4.9 (3.5-5.1) mEq/L Chloride 107 (98-107) mEq/L Carbon Dioxide 18 L (23-29) mEq/L BUN 29 H (8-23) mg/dL Creatinine 1.67 H (0.60-1.20) mg/dL Glucose 289 H (70-105) mg/dL Calcium 8.2 L (8.6-10.3) mg/dL Consult Discharge Plan - Plan Referrals: Jody Ellington MD [Primary Care Provider] -
[2018-09-09] MEDS: Insulin LISPRO 300 UNITS/3 ML VIAL SQ SCH ×3 (08:25→16:52)
[2018-09-09] MEDS: amLODIPine 5 MG TABLET PO SCH (08:34)
[2018-09-09] MEDS: cefTRIAXone 1,000 MG in Water for inj. (sterile) 20 ML 10 ML IVP SCH (08:35)
[2018-09-09] MEDS: Multivit/Ca/Min/Fe/FA 1 TAB TABLET PO SCH (08:35)
[2018-09-09] MEDS: *HR* Acetylcysteine 20% 600 MG/3 ML ORAL SYRINGE PO SCH ×2 (08:36→20:20)
[2018-09-09] MEDS: Ascorbic Acid 500 MG TABLET PO SCH (08:39)
--- NOTE | 2018-09-09 09:58 | Palliative Progress Note ---
Date of Encounter: 09/09/18 Time of Encounter: 09:00 - Assessment and plan (1) Generalized weakness Current Visit: Yes Status: Acute Assessment and plan: Patient continues to have generalized weakness. PT/OT recommend ECF/SNF at discharge. Signature called yesterday to request if patient will receive chemotherapy; not confirmed diagnosis at this time. Pending result of GFR post- surgical intervention will decide if possible to have CT with contrast. (2) Failure to thrive in adult Current Visit: Yes Status: Acute Assessment and plan: Patient has lost significant amount of weight due to lack of appetite. NPO today for surgery. (3) Anorexia Current Visit: Yes Status: Acute Assessment and plan: Marinol ordered. NPO today. (4) Depression Current Visit: Yes Status: Chronic Qualifiers: Depression Type: major depressive disorder Major depression recurrence: unspecified whether recurrent Active/Remission status: currently active Major depression episode severity: severe Psychotic features: without psychotic features Qualified Code(s): F32.2 - Major depressive disorder, single episode, severe without psychotic features (5) Leukocytosis Current Visit: Yes Status: Acute Assessment and plan: WBC decreased to 11.8. Qualifiers: Leukocytosis type: unspecified Qualified Code(s): D72.829 - Elevated white blood cell count, unspecified (6) CKD (chronic kidney disease), stage III Current Visit: Yes Status: Chronic Assessment and plan: GFR decreased to 29. (7) Goals of care, counseling/discussion Current Visit: Yes Status: Acute Assessment and plan: 1100: Spoke with son and patient regarding goals of care. Gave son information for number goal of GFR for CT with contrast; verbalized understanding. Patient to have surgery today in hopes of improving GFR some. Requests updates on labs tomorrow. Palliative will continue to follow. - Time Spent With Patient Total time spent is greater than 50% in coordination of care (as documented) at patient's floor/unit and/or counseling patient: - Subjective Interval history: Patient resting in bed quietly upon arrival. Easily arouses with verbal stimulation. Alert and oriented times 3. No family present at bedside during assessment. Denies pain, anxiety, shortness of breath, nausea, or vomiting. Discussed plans for today surgery scheduled for 12 pm. Reports did have 2 bowel movements overnight and no longer has urge to have bowel movement, as she did yesterday. Prior to exam, spoke with Radiology whom informed sba underwriter that GFR needs to be high 30s or 40s prior to CT scan with Contrast. Updated patient with information ; verbalized understanding. Reports hopeful that surgery today will assist in improving kidney numbers to allow for further diagnostics. - Constitutional Vitals: Abnormal lab results WBC 11.8 K/mcL (4.3-11.1) H 09/09/18 05:04 RBC 3.18 M/mcL (3.82-4.97) L 09/09/18 05:04 Hgb 9.0 g/dL (11.5-15.4) L 09/09/18 05:04 Hct 28.9 % (35.3-44.9) L 09/09/18 05:04 MCHC 31.1 g/dL (31.6-35.5) L 09/09/18 05:04 RDW 16.2 % (11.5-14.5) H 09/09/18 05:04 Neutrophils # 9.6 K/mcL (1.6-8.9) H 09/09/18 05:04 Toxic Granulation Present (Not Present) A 09/06/18 03:28 Hypochromasia Present (Not Present) A 09/06/18 03:28 PT 17.0 Seconds (9.4-12.1) H 09/05/18 12:07 Sodium 135 mEq/L (136-145) L 09/09/18 05:04 Carbon Dioxide 18 mEq/L (23-29) L 09/09/18 05:04 BUN 29 mg/dL (8-23) H 09/09/18 05:04 Creatinine 1.67 mg/dL (0.60-1.20) H 09/09/18 05:04 Est GFR ( Amer) 35 (> 60) L 09/09/18 05:04 Est GFR (Non-Af Amer) 29 (> 60) L 09/09/18 05:04 Glucose 289 mg/dL (70-105) H 09/09/18 05:04 POC Glucose 291 mg/dL (70-99) H 09/09/18 05:44 Hemoglobin A1c 6.9 % (-5.6) H 09/06/18 03:28 Calcium 8.2 mg/dL (8.6-10.3) L 09/09/18 05:04 Iron 16 mcg/dL (50-170) L 09/06/18 03:28 % Saturation 8 % (15-50) L 09/06/18 03:28 Transferrin 148 mg/dL (203-362) L 09/06/18 03:28 Total Bilirubin 0.2 mg/dL (0.3-1.0) L 09/05/18 12:07 AST 11 Units/L (13-39) L 09/05/18 12:07 ALT 6 Units/L (7-52) L 09/05/18 12:07 Alkaline Phosphatase 131 Units/L (34-104) H 09/05/18 12:07 Creatine Kinase < 10 Units/L (30-223) L 09/05/18 12:07 Albumin 3.1 g/dL (3.5-5.7) L 09/05/18 12:07 Globulin 3.9 g/dL (2.4-3.5) H 09/05/18 12:07 Albumin/Globulin Ratio 0.8 (1.1-2.2) L 09/05/18 12:07 Prealbumin 10.4 mg/dL (17.0-34.0) L 09/06/18 03:28 Urine Clarity Cloudy (Clear) A 09/05/18 13:00 Ur Specific Lamy 1.008 (1.010-1.025) L 09/05/18 13:00 Urine Protein 100 mg/dL (Neg-Trace) H 09/05/18 13:00 Urine Blood Small (Negative) H 09/05/18 13:00 Ur Leukocyte Esterase Large (Negative) H 09/05/18 13:00 Urine Microscopic WBC TNTC per hpf (0-3) H 09/05/18 13:00 Urine Bacteria Many per hpf (None-Few) H 09/05/18 13:00 General appearance: Present: cooperative, no acute distress - Head Head exam: Present: atraumatic, normal inspection - Eye Eye exam: Present: normal appearance, PERRL, conjuntiva pink. Absent: periorbital swelling, periorbital tenderness Pupils: Present: normal accommodation - ENT ENT exam: Present: mucous membranes dry, normal external ear exam - Neck Neck exam: Present: full ROM, normal inspection - Respiratory Respiratory exam: Present: CTAB. Absent: accessory muscle use, respiratory distress - Cardiovascular Cardiovascular exam: Present: +S1, +S2 - GI/Abdominal GI/Abdominal exam: Present: normal bowel sounds, soft. Absent: tenderness - Rectal Rectal exam: Present: deferred - Extremities Exam Extremities exam: Present: full ROM. Absent: calf tenderness, pedal edema - Back Exam Back exam: Present: normal inspection - Neurological Exam Neurological exam: Present: alert, oriented X3, strengths equal and symetr throughout. Absent: altered - Psychiatric Psychiatric exam: Present: normal affect, normal mood (in pleasant spirits this morning.) - Skin Skin exam: Present: dry, intact, warm Palliative Quality Palliative Quality: Screen for Code Status: Yes, Screen for Goals of Care: Yes, Screen for Pain: Yes, If Pain Regimen Started, Initiate Bowel Regimen: NA, Screen for Nausea/Vomitting: Yes - Labs CBC & Chem 7: 09/09/18 05:04 09/09/18 05:04 Labs: Laboratory Results - last 24 hr 09/08/18 09/08/18 09/08/18 07:43 11:16 16:33 WBC RBC Hgb Hct MCV MCH MCHC RDW Plt Count MPV Immature Gran % Seg Neutrophils % Lymphocytes % Monocytes % Eosinophils % Basophils % Neutrophils # Lymphocytes # Monocytes # Eosinophils # Basophils # Sodium Potassium Chloride Carbon Dioxide BUN Creatinine Est GFR ( Amer) Est GFR (Non-Af Amer) BUN/Creatinine Ratio Glucose POC Glucose 88 212 H 201 H Calculated Osmolality Calcium 09/08/18 09/09/18 09/09/18 19:22 05:04 05:04 WBC 11.8 H RBC 3.18 L Hgb 9.0 L Hct 28.9 L MCV 90.9 MCH 28.3 MCHC 31.1 L RDW 16.2 H Plt Count 268 MPV 10.2 Immature Gran % 1.2 Seg Neutrophils % 81.5 Lymphocytes % 8.0 Monocytes % 6.5 Eosinophils % 2.4 Basophils % 0.4 Neutrophils # 9.6 H Lymphocytes # 1.0 Monocytes # 0.8 Eosinophils # 0.3 Basophils # 0.1 Sodium 135 L Potassium 4.9 Chloride 107 Carbon Dioxide 18 L BUN 29 H Creatinine 1.67 H Est GFR ( Amer) 35 L Est GFR (Non-Af Amer) 29 L BUN/Creatinine Ratio 17 Glucose 289 H POC Glucose 191 H Calculated Osmolality 296 Calcium 8.2 L 09/09/18 05:44 WBC RBC Hgb Hct MCV MCH MCHC RDW Plt Count MPV Immature Gran % Seg Neutrophils % Lymphocytes % Monocytes % Eosinophils % Basophils % Neutrophils # Lymphocytes # Monocytes # Eosinophils # Basophils # Sodium Potassium Chloride Carbon Dioxide BUN Creatinine Est GFR ( Amer) Est GFR (Non-Af Amer) BUN/Creatinine Ratio Glucose POC Glucose 291 H Calculated Osmolality Calcium - ABG Interpretation ABG results: PT/INR, D-dimer PT 17.0 Seconds (9.4-12.1) H 09/05/18 12:07 Consult Discharge Plan - Plan Referrals: Jody Ellington MD [Primary Care Provider] -
--- NOTE | 2018-09-09 11:40 | Internal Med Progress Note ---
Hospitalist Progress Note - Encounter Date of Encounter: 09/09/18 Time of Encounter: 11:40 - Subjective Interval History: 83-year-old female with medical history of hypertension and diabetes mellitus was brought in by her son yesterday for recurrent falls, loss of appetite and unintentional weight loss. She also had incidental finding of urinary tract infection. As part of the workup for her cachexia abdomen and pelvis and chest CAT scan was done without contrast 09/05. Imaging findings suggest right severe hydronephrosis and hydroureter and a possible pelvic mass. The patient has chronic kidney disease stage III and the radiologist has recommended a repeat imaging with by mouth and IV contrast. She is seen and evaluated at the bedside this morning Palliative care is following, scheduled for cystocopy with stent placement today I will again discuss with radiology regarding pelvic mass and imaging for it - Exam Vitals: Temp Pulse Resp BP Pulse Ox 99.2 F 77 19 151/72 98 09/09/18 07:36 09/09/18 07:36 09/09/18 07:36 09/09/18 07:36 09/09/18 07:36 Exam: Gen: NAD, VSS, Awake, alert in bed, cachectic, evidence of muscle wasting noted HEENT: Left frontal bruising from fall, no hematoma Chest: CTAB Heart: S1, S2 only, no m/g/r Abdomen: Scaphoid, no palpable masses, RLQ tender++, no rebound, no gaurding Extremities: No pedal edema : kelly with clear urine Neuro: Awake, alert, oriented X3, no focal deficits - Assessment and Plan (1) Anorexia Current Visit: Yes Status: Acute Assessment and Plan: Likely due to severe depression, however, Abd and Pelvis CT shows possible pelvis mass with severe R hydronephrosis and hydroureter prealbumin is low Automation Machine Operator consulted, eval appreciated Continue to monitor (2) Depression Current Visit: Yes Status: Chronic Assessment and Plan: Patient with severe depression based on history of anhedonia, anorexia, loss of appetite, no interest in social activities with associated unintentional weight loss. No suicidal ideation continue remeron Will consult psych prior to discharge (3) Malnutrition Current Visit: Yes Status: Acute Assessment and Plan: suspected, due to poor oral intake Consult job checker-recs noted, patient has severe PCM (4) HTN (hypertension) Current Visit: Yes Status: Chronic Assessment and Plan: controlled at this time, continue home meds (5) Anemia Current Visit: Yes Status: Chronic Assessment and Plan: see iron deficiency anemia NO current source of bleeding identified (6) CKD (chronic kidney disease), stage III Current Visit: Yes Status: Chronic Assessment and Plan: renal function is at her baseline She follows with Dr. 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 Assessment and Plan: as above, fall precautions (11) Hypercalcemia Current Visit: Yes Status: Resolved Assessment and Plan: hx of same, resolved, Ca is WNL this time, continue to monitor (12) UTI (urinary tract infection) Current Visit: Yes Status: Acute Assessment and Plan: urine culture with ramon-sensitive E.coli Continue Ceftriaxone-day 04/10, complicated UTI due to anatomic abnormality (13) Leukocytosis Current Visit: Yes Status: Acute Assessment and Plan: Persists but improving, patient is afebrile, continue to monitor (14) Mass Current Visit: Yes Status: Acute Assessment and Plan: I spoke with Dr. Tahir Dinero the radiologist, for recommendations for other possible imaging modality for this patient's pelvic mass He thinks the mass may be attached to the uterus and recommends a pelvic USS If the pelvic USS is negative, we may obtain a po contrast study of the abdomen and pelvis, without IV contrast, if unremarkable, or unhelpful, we will then be limited to no option but Abd and Pelvis CT scan with contrast. I will order a pelvic USS , will inform family as well (15) Hydronephrosis Current Visit: Yes Status: Acute Assessment and Plan: urology consulted, input appreciated For cystoscopy and stent placement today (16) Iron deficiency anemia Current Visit: Yes Status: Acute Assessment and Plan: Patient received iron infusion daily X2 Vitamin B12 and folate WNL Hb 10/7 6.5 s/p 2 units of red cells Hb imroved to 9 Resumed iron po, and continue to monitor (17) Dementia Current Visit: Yes Status: Chronic Assessment and Plan: continue home meds - Time Spent with Patient Total time spent is greater than 50% in coordination of care (as documented) at patient's floor/unit and/or counseling patient: Plan of Care Discussed with: patient Internal Medicine: Result - Labs CBC & Chem 7: 09/09/18 05:04 09/09/18 05:04 Labs: Short CBC 09/09/18 Range/Units 05:04 WBC 11.8 H (4.3-11.1) K/mcL Hgb 9.0 L (11.5-15.4) g/dL Hct 28.9 L (35.3-44.9) % Plt Count 268 (140-400) K/mcL Neutrophils # 9.6 H (1.6-8.9) K/mcL BMP 09/09/18 05:04 Sodium 135 L Potassium 4.9 Chloride 107 Carbon Dioxide 18 L BUN 29 H Creatinine 1.67 H Glucose 289 H Calcium 8.2 L - ABG Interpretation ABG results: PT/INR, D-dimer PT 17.0 Seconds (9.4-12.1) H 09/05/18 12:07 Consult Discharge Plan - Plan Referrals: Jody Ellington MD [Primary Care Provider] - (2) Depression Qualifiers: Depression Type: major depressive disorder Major depression recurrence: unspecified whether recurrent Active/Remission status: currently active Major depression episode severity: severe Psychotic features: without psychotic features Qualified Code(s): F32.2 - Major depressive disorder, single episode, severe without psychotic features (3) Malnutrition Qualifiers: Malnutrition type: protein-calorie malnutrition Protein-calorie malnutrition severity: severe Qualified Code(s): E43 - Unspecified severe protein-calorie malnutrition (4) HTN (hypertension) Qualifiers: Hypertension type: essential hypertension Qualified Code(s): I10 - Essential (primary) hypertension (5) Anemia Qualifiers: Anemia type: unspecified type Qualified Code(s): D64.9 - Anemia, unspecified (7) Diabetes Qualifiers: Diabetes mellitus type: type 2 Diabetes mellitus termite control representative insulin use: without assisted use Diabetes mellitus complication status: with kidney complications Diabetes mellitus complication detail: with chronic kidney disease Chronic kidney disease stage: stage 3 (moderate) Qualified Code(s): E11.22 - Type 2 diabetes mellitus with diabetic chronic kidney disease; N18.3 - Chronic kidney disease, stage 3 (moderate) (9) Fall Qualifiers: Encounter type: initial encounter Qualified Code(s): W19.XXXA - Unspecified fall, initial encounter (12) UTI (urinary tract infection) Qualifiers: Urinary tract infection type: site unspecified Hematuria presence: without hematuria Qualified Code(s): N39.0 - Urinary tract infection, site not specified (13) Leukocytosis Qualifiers: Leukocytosis type: unspecified Qualified Code(s): D72.829 - Elevated white blood cell count, unspecified (15) Hydronephrosis Qualifiers: Hydronephrosis type: unspecified Qualified Code(s): N13.30 - Unspecified hydronephrosis (16) Iron deficiency anemia Qualifiers: Iron deficiency anemia type: inadequate dietary iron intake Qualified Code(s) : D50.8 - Other iron deficiency anemias (17) Dementia Qualifiers: Dementia type: unspecified type Dementia behavioral disturbance: without behavioral disturbance Qualified Code(s): F03.90 - Unspecified dementia without behavioral disturbance
[2018-09-09] MEDS ORDERED: *HR* Propofol 200 MG/20 ML VIAL IVP ONE (12:32)
[2018-09-09] MEDS ORDERED: *HR* FentaNYL (PF) 100 MCG/2 ML VIAL ONE (12:32)
[2018-09-09] MEDS ORDERED: Ondansetron 4 MG/2 ML VIAL ONE (12:33)
[2018-09-09] MEDS ORDERED: Lidocaine -MPF 2% 2 ML VIAL ONE (12:33)
[2018-09-09] MEDS ORDERED: Dexamethasone 4 MG/ML VIAL ONE (12:33)
[2018-09-09] MEDS ORDERED: Famotidine 20 MG/2 ML VIAL ONE (12:41)
[2018-09-09] MEDS ORDERED: Isovue-300 50 ML VIAL IVP ONE (12:44)
[2018-09-09] MEDS ORDERED: *HR* PHENYLEPHRINE 1,000 MCG/10 ML SYRINGE IVP ONE (13:05)
[2018-09-09] MEDS ORDERED: Ondansetron 4 MG/2 ML VIAL IVP ONE (13:13)
[2018-09-09] MEDS ORDERED: *HR* FentaNYL (PF) 100 MCG/2 ML VIAL IVP PRN (13:13)
--- NOTE | 2018-09-09 13:29 | Operative Note ---
Date of procedure: 09/09/18 Pre-op diagnosis: Right hydronephrosis Post-op diagnosis: same Procedure: Cystoscopy, right ureteral stent placement Implants: 6 Nigerian x 24 cm JJ stent Complications: none Anesthesia: GETA Surgeon: Pipo Brown Was there an event sales assistant present: No Estimated blood loss (cc): 0 Specimen: none Condition: stable Disposition: PACU Procedure in Detail: Indications: Gerri is an 83-year-old woman who has a history of a pelvic mass and right hydronephrosis. She elected to undergo a cystoscopy and right ureteral stent placement. She was aware of the risks of the procedure including but not limited to bleeding, infection, injury to other structures, need for further procedures, stent irritation, need for nephrostomy tube, need for open repair, risks otherwise unforeseen, and the risk of anesthesia. She is willing to proceed. Procedure in Detail: After informed consent was obtained the patient was brought back to the operating room and placed in supine position. A time out was performed. General anesthesia was administered and an LMA was placed. She was then placed in the lithotomy position. She was prepped and draped in the usual sterile fashion. Cystoscopy was performed. The anterior urethra was normal. There was no evidence of bladder tumors. The ureteral orifices were in the normal orthotopic position. There was no duplication of the ureteral orifices. The sensor wire was placed in the right ureteral orifice and brought into the kidney. The open- ended catheter was placed over the wire into the kidney. A retrograde pyelogram was performed. There was significant hydronephrosis. The wire was then brought up into the kidney under fluoroscopic guidance. A 6 Nigerian by 24cm JJ stent was then placed. The dangle strings were removed. A Mojica catheter was placed. The patient was then awakened from general anesthesia and brought to recovery room in good condition. All sponge, needle, and instrument counts were correct.
--- NOTE | 2018-09-09 14:04 | Anesthesia Evaluation Post Op ---
Date of Encounter: 09/09/18 Time of Encounter: 14:02 - Vital Signs Vital Signs: Vital Signs/O2 Sat/Glucose, Most Recent Temp Pulse Resp BP Pulse Ox 99.5 F 84 19 160/81 93 09/09/18 12:02 09/09/18 12:02 09/09/18 12:02 09/09/18 12:02 09/09/18 12:02 Blood Glucose* 159 - Lungs Lungs: Clear Ascult./Percussion - Airway Airway: Non-obstructed - Cardiovascular Regular Rate - Mental Status Mental Status: Alert & Oriented, Answers Appropriately - Pain Pain Scale: 0 Pain Scale used: Numeric (1 - 10) - Nausea Vomiting Nausea Vomiting: Not Present - Hydration Hydration: Ice chips (Refuses ice chips at this time), Mojica catheter Notes: 09/09/18 14:03 AAOx3, VSS with no complaints - Discharge PostOp Status: Transfer Patient to floor
[2018-09-09] MEDS ORDERED: D5% in Water 1,000 ML IVC PRN (14:16)
[2018-09-09] MEDS ORDERED: Dextrose Gel 15 GM/37.5 ML TUBE PO PRN ×2 (14:16)
[2018-09-09] MEDS ORDERED: *HR* Dextrose 50 % in Water (Syg) 50 ML SYRINGE IVP PRN (14:16)
[2018-09-09] MEDS ORDERED: *HR* OxyCODONE/APAP 5/325 TABLET PO PRN (14:16)
[2018-09-09] MEDS ORDERED: Ondansetron 4 MG/2 ML VIAL IVP PRN (14:16)
[2018-09-09] MEDS ORDERED: Insulin LISPRO 300 UNITS/3 ML VIAL SQ SCH (21:00)
[2018-09-09] MEDS ORDERED: Mirtazapine 15 MG TABLET PO SCH (21:00)
[2018-09-10 05:34] LABS: Basophils % 0.1 %; Hematocrit 34.2 % (35.3-44.9); Hemoglobin 10.5 g/dL (11.5-15.4); Lymphocytes # 0.4 K/mcL (0.6-4.6); Mean Corpuscular HGB Conc 30.7 g/dL (31.6-35.5); Mean Corpuscular Hemoglobin 28.1 pg (28.0-33.3); Mean Corpuscular Volume 91.4 fL (83.0-100.0); Mean Platelet Volume 10.5 fL (9.4-12.4); Monocytes # 0.4 K/mcL (0.0-1.3); Monocytes % 2.7 %; Neutrophils # 12.6 K/mcL (1.6-8.9); Platelet Count 328 K/mcL (140-400); Red Blood Count 3.74 M/mcL (3.82-4.97); Red Cell Distribution Width 15.7 % (11.5-14.5); Segmented Neutrophils % 93.2 %
[2018-09-10 05:44] LABS: Calcium 8.6 mg/dL (8.6-10.3); Potassium 4.9 mEq/L (3.5-5.1)
[2018-09-10] MEDS: *HR* Acetylcysteine 20% 600 MG/3 ML ORAL SYRINGE PO SCH (08:40)
[2018-09-10] MEDS: Insulin LISPRO 300 UNITS/3 ML VIAL SQ SCH ×3 (08:41→16:58)
[2018-09-10] MEDS ORDERED: Multivit/Ca/Min/Fe/FA 1 TAB TABLET PO SCH (09:00)
[2018-09-10] MEDS ORDERED: cefTRIAXone 1,000 MG in Water for inj. (sterile) 20 ML 10 ML IVP SCH (09:00)
[2018-09-10] MEDS ORDERED: amLODIPine 5 MG TABLET PO SCH (09:00)
[2018-09-10] MEDS ORDERED: Ascorbic Acid 500 MG TABLET PO SCH (09:00)
--- NOTE | 2018-09-10 09:52 | Palliative Progress Note ---
Date of Encounter: 09/10/18 Time of Encounter: 08:45 - Assessment and plan (1) Generalized weakness Current Visit: Yes Status: Acute Assessment and plan: Patient continues to have generalized weakness. PT/OT recommend ECF/SNF at discharge. Continue to work with PT/OT while inpatient. (2) Failure to thrive in adult Current Visit: Yes Status: Acute Assessment and plan: Patient has lost significant amount of weight due to lack of appetite. Ate 50% of breakfast. (3) Anorexia Current Visit: Yes Status: Acute Assessment and plan: Marinol ordered. Continue diet. (4) Depression Current Visit: Yes Status: Chronic Qualifiers: Depression Type: major depressive disorder Major depression recurrence: unspecified whether recurrent Active/Remission status: currently active Major depression episode severity: severe Psychotic features: without psychotic features Qualified Code(s): F32.2 - Major depressive disorder, single episode, severe without psychotic features (5) Leukocytosis Current Visit: Yes Status: Acute Qualifiers: Leukocytosis type: unspecified Qualified Code(s): D72.829 - Elevated white blood cell count, unspecified (6) CKD (chronic kidney disease), stage III Current Visit: Yes Status: Chronic Assessment and plan: GFR increased to 32. (7) Goals of care, counseling/discussion Current Visit: Yes Status: Acute Assessment and plan: Spoke with patient regarding goals of care. Patient desires to know treatment options in regards to mass in Pelvis. (8) Pelvic mass in female Current Visit: Yes Status: Acute Assessment and plan: Pelvic Ultrasound performed showing: Normal sonographic appearance of the uterus ; No normal ovarian tissue identified; Abnormal soft tissue echogenicity lobulated mass in the right pelvis of uncertain etiology. Radiology recommend Further evaluation with CT abdomen and pelvis with intravenous and oral contrast would be helpful. - Time Spent With Patient Total time spent is greater than 50% in coordination of care (as documented) at patient's floor/unit and/or counseling patient: less than 15 minutes - Subjective Interval history: Patient sitting up in bed upon arrival. Consumed about 50% of breakfast. Alert and oriented times 3. No family present at bedside during assessment. Denies pain, anxiety, shortness of breath, nausea, or vomiting. Patient reports she has been "told lots of things from lots of people, but the short is she has a mass in her abdomen and desires to find out where and what can be done about it. " - Constitutional Vitals: Abnormal lab results WBC 13.5 K/mcL (4.3-11.1) H 09/10/18 04:53 RBC 3.74 M/mcL (3.82-4.97) L 09/10/18 04:53 Hgb 10.5 g/dL (11.5-15.4) L D 09/10/18 04:53 Hct 34.2 % (35.3-44.9) L 09/10/18 04:53 MCHC 30.7 g/dL (31.6-35.5) L 09/10/18 04:53 RDW 15.7 % (11.5-14.5) H 09/10/18 04:53 Neutrophils # 12.6 K/mcL (1.6-8.9) H 09/10/18 04:53 Lymphocytes # 0.4 K/mcL (0.6-4.6) L 09/10/18 04:53 Toxic Granulation Present (Not Present) A 09/06/18 03:28 Hypochromasia Present (Not Present) A 09/06/18 03:28 PT 17.0 Seconds (9.4-12.1) H 09/05/18 12:07 Sodium 132 mEq/L (136-145) L 09/10/18 04:53 Carbon Dioxide 17 mEq/L (23-29) L 09/10/18 04:53 BUN 31 mg/dL (8-23) H 09/10/18 04:53 Creatinine 1.55 mg/dL (0.60-1.20) H 09/10/18 04:53 Est GFR ( Amer) 39 (> 60) L 09/10/18 04:53 Est GFR (Non-Af Amer) 32 (> 60) L 09/10/18 04:53 Glucose 477 mg/dL (70-105) H 09/10/18 04:53 POC Glucose 349 mg/dL (70-99) H 09/09/18 20:04 Hemoglobin A1c 6.9 % (-5.6) H 09/06/18 03:28 Calculated Osmolality 302 (280-300) H 09/10/18 04:53 Iron 16 mcg/dL (50-170) L 09/06/18 03:28 % Saturation 8 % (15-50) L 09/06/18 03:28 Transferrin 148 mg/dL (203-362) L 09/06/18 03:28 Total Bilirubin 0.2 mg/dL (0.3-1.0) L 09/05/18 12:07 AST 11 Units/L (13-39) L 09/05/18 12:07 ALT 6 Units/L (7-52) L 09/05/18 12:07 Alkaline Phosphatase 131 Units/L (34-104) H 09/05/18 12:07 Creatine Kinase < 10 Units/L (30-223) L 09/05/18 12:07 Albumin 3.1 g/dL (3.5-5.7) L 09/05/18 12:07 Globulin 3.9 g/dL (2.4-3.5) H 09/05/18 12:07 Albumin/Globulin Ratio 0.8 (1.1-2.2) L 09/05/18 12:07 Prealbumin 10.4 mg/dL (17.0-34.0) L 09/06/18 03:28 Urine Clarity Cloudy (Clear) A 09/05/18 13:[address] [place] 1.008 (1.010-1.025) L 09/05/18 13:00 Urine Protein 100 mg/dL (Neg-Trace) H 09/05/18 13:00 Urine Blood Small (Negative) H 09/05/18 13:00 Ur Leukocyte Esterase Large (Negative) H 09/05/18 13:00 Urine Microscopic WBC TNTC per hpf (0-3) H 09/05/18 13:00 Urine Bacteria Many per hpf (None-Few) H 09/05/18 13:00 General appearance: Present: cooperative, no acute distress - Head Head exam: Present: atraumatic, normal inspection - Eye Eye exam: Present: EOMI, PERRL. Absent: periorbital swelling, periorbital tenderness Pupils: Present: normal accommodation, PERRL - ENT ENT exam: Present: mucous membranes moist, normal external ear exam - Neck Neck exam: Present: full ROM, normal inspection - Respiratory Respiratory exam: Present: CTAB - Cardiovascular Cardiovascular exam: Present: +S1, +S2 - GI/Abdominal GI/Abdominal exam: Present: diminished bowel sounds, distended. Absent: tenderness - Rectal Rectal exam: Present: deferred - Additional comments: Catheter in place. Yellow urine noted. - Extremities Exam Extremities exam: Present: full ROM, normal inspection. Absent: pedal edema - Back Exam Back exam: Present: full ROM, normal inspection - Neurological Exam Neurological exam: Present: alert, oriented X3. Absent: altered - Psychiatric Psychiatric exam: Present: normal affect, normal mood - Skin Skin exam: Present: dry, intact, warm Palliative Quality Palliative Quality: Screen for Code Status: Yes, Screen for Goals of Care: Yes, Screen for Pain: Yes, If Pain Regimen Started, Initiate Bowel Regimen: NA, Screen for Nausea/Vomitting: Yes - Labs CBC & Chem 7: 09/10/18 04:53 09/10/18 04:53 Labs: Laboratory Results - last 24 hr 09/09/18 09/09/18 09/09/18 12:00 16:51 20:04 WBC RBC Hgb Hct MCV MCH MCHC RDW Plt Count MPV Immature Gran % Seg Neutrophils % Lymphocytes % Monocytes % Eosinophils % Basophils % Neutrophils # Lymphocytes # Monocytes # Eosinophils # Basophils # Sodium Potassium Chloride Carbon Dioxide BUN Creatinine Est GFR ( Amer) Est GFR (Non-Af Amer) BUN/Creatinine Ratio Glucose POC Glucose 176 H 237 H 349 H Calculated Osmolality Calcium 09/10/18 09/10/18 04:53 04:53 WBC 13.5 H RBC 3.74 L Hgb 10.5 L D Hct 34.2 L MCV 91.4 MCH 28.1 MCHC 30.7 L RDW 15.7 H Plt Count 328 MPV 10.5 Immature Gran % 1.0 Seg Neutrophils % 93.2 Lymphocytes % 3.0 Monocytes % 2.7 Eosinophils % 0.0 Basophils % 0.1 Neutrophils # 12.6 H Lymphocytes # 0.4 L Monocytes # 0.4 Eosinophils # 0.0 Basophils # 0.0 Sodium 132 L Potassium 4.9 Chloride 102 Carbon Dioxide 17 L BUN 31 H Creatinine 1.55 H Est GFR ( Amer) 39 L Est GFR (Non-Af Amer) 32 L BUN/Creatinine Ratio 20 Glucose 477 H POC Glucose Calculated Osmolality 302 H Calcium 8.6 - Impressions Impressions Retrograde Pyelogram 09/09/18 00:00 IMPRESSION: Intraprocedural fluoroscopic spot images as above. See separate procedure report for more information. D/ / 09/09/2018 14:32:38 Tess Cox MD / johnnie Interpreting Provider: Tess Cox MD Pelvis Ultrasound 09/09/18 21:30 IMPRESSION: Normal sonographic appearance of the uterus. No normal ovarian tissue identified. Abnormal soft tissue echogenicity lobulated mass in the right pelvis of uncertain etiology. This finding was not well characterized on the noncontrast CT. This nonspecific sonographic finding could be related to adnexal, bowel and/or conceivably exophytic uterine mass. Further evaluation with CT abdomen and pelvis with intravenous and oral contrast would be helpful. D/ / Josefa Samayoa Cha, MD / Josefa Samayoa Cha, MD Interpreting Provider: Josefa Samayoa Cha, MD - ABG Interpretation ABG results: PT/INR, D-dimer PT 17.0 Seconds (9.4-12.1) H 09/05/18 12:07 Consult Discharge Plan - Plan Referrals: Jody Ellington MD [Primary Care Provider] -
--- NOTE | 2018-09-10 11:02 | Internal Med Progress Note ---
Hospitalist Progress Note - Encounter Date of Encounter: 09/10/18 Time of Encounter: 11:01 - Subjective Interval History: 83-year-old female with medical history of hypertension and diabetes mellitus was brought in by her son yesterday for recurrent falls, loss of appetite and unintentional weight loss. She also had incidental finding of urinary tract infection. As part of the workup for her cachexia abdomen and pelvis and chest CAT scan was done without contrast 09/05. Imaging findings suggest right severe hydronephrosis and hydroureter and a possible pelvic mass. The patient has chronic kidney disease stage III and the radiologist has recommended a repeat imaging with by mouth and IV contrast. s/p ureteral stent placement 09/09 She states her abdominal pain is improved this mrn Pelvic USS showed pelvic/adnexal mass, likely expophytic uterine mass, vs bowel abnormality We will obtain abd/pelvis CT with po contrast, as recommended by radiologist Addendum: Abd/Pelvis resulted, will consult surgery, spoke with Dr. Desai, he will see the patient in consult I called her son on [phone] to update him about imaging findings, left a voice message as he did not picking tech - Exam Vitals: Temp Pulse Resp BP Pulse Ox 97.6 F 73 18 154/55 99 09/10/18 08:25 09/10/18 08:25 09/10/18 08:25 09/10/18 08:25 09/10/18 08:25 Exam: Gen: NAD, VSS, Awake, alert in bed, cachectic, evidence of muscle wasting noted HEENT: Left frontal bruising from fall, no hematoma Chest: CTAB Heart: S1, S2 only, no m/g/r Abdomen: Scaphoid, no palpable masses, RLQ tender++, no rebound, no gaurding Extremities: No pedal edema : kelly with clear urine Neuro: Awake, alert, oriented X3, no focal deficits - Assessment and Plan (1) Mass Current Visit: Yes Status: Acute Assessment and Plan: Patient presented with unitentional weight loss Initial Abd/Pelvic CT on admission showed R hydronephrosis and R hydroureter I spoke with Dr. Tahir Dinero the radiologist, for recommendations for other possible imaging modality for this patient's pelvic mass He thinks the mass may be attached to the uterus and recommends a pelvic USS Pelvic USS done 09/09 Abnormal soft tissue echogenicity lobulated mass in the right pelvis of uncertain etiology. This finding was not well characterized on the non-contrast CT. This nonspecific sonographic finding could be related to adnexal, bowel and/or conceivably exophytic uterine mass. Abdomen and Pelvis CT with oral contrast shows : 1. Again noted is a 7.1 x 5.1 cm right pelvic mass. This abuts the uterine fundus as well as the right ureter resulting in obstruction seen on the prior exam. There is also involvement of the adjacent distal ileum for approximately 8 cm and demonstrates wall thickening with associated aneurysmal dilation versus contained perforation. Findings likely favor an adnexal or ovarian mass with invasion into the small bowel, however lymphoma or metastatic disease of the small bowel could have a similar appearance. Recommend gynecological or surgical consult. Percutaneous biopsy is not likely feasible due to suboptimal window. I have spoken to Dr. Desai, who recommends a gynecologic oncology consult as this looks more like an invasive ovarian mass. We do not have ovarian [facility] [employer] [facility] here, and they usually recommend transfer to [facility] , I have attempted to reach her son to update him If they plan to pursue treatment, this patient will benefit from transfer to [facility] (2) Anorexia Current Visit: Yes Status: Acute Assessment and Plan: Likely due to severe depression, however, Abd and Pelvis CT shows possible pelvis mass with severe R hydronephrosis and hydroureter prealbumin is low Laborer General consulted, gloria andrade Continue to monitor (3) Depression Current Visit: Yes Status: Chronic Assessment and Plan: Patient with severe depression based on history of anhedonia, anorexia, loss of appetite, no interest in social activities with associated unintentional weight loss. No suicidal ideation continue remeron Will consult psych prior to discharge (4) Malnutrition Current Visit: Yes Status: Acute Assessment and Plan: suspected, due to poor oral intake Consult pottery decorator-recs noted, patient has severe PCM (5) HTN (hypertension) Current Visit: Yes Status: Chronic Assessment and Plan: controlled at this time, continue home meds (6) Anemia Current Visit: Yes Status: Chronic (7) CKD (chronic kidney disease), stage III Current Visit: Yes Status: Chronic Assessment and Plan: renal function is at her baseline She follows with Dr. 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 Assessment and Plan: as above, fall precautions (12) Hypercalcemia Current Visit: Yes Status: Resolved Assessment and Plan: hx of same, resolved, Ca is WNL this time, continue to monitor (13) UTI (urinary tract infection) Current Visit: Yes Status: Acute Assessment and Plan: urine culture with ramon-sensitive E.coli Continue Ceftriaxone-day 05/11, complicated UTI due to anatomic abnormality (14) Leukocytosis Current Visit: Yes Status: Acute Assessment and Plan: Persists but improving, patient is afebrile, continue to monitor (15) Hydronephrosis Current Visit: Yes Status: Acute Assessment and Plan: urology consulted, input appreciated For cystoscopy and stent placement today (16) Iron deficiency anemia Current Visit: Yes Status: Acute Assessment and Plan: Patient received iron infusion daily X2 Vitamin B12 and folate WNL Hb / 6.5 s/p 2 units of red cells Hb imroved to 9 Resumed iron po, and continue to monitor (17) Dementia Current Visit: Yes Status: Chronic Assessment and Plan: continue home meds - Time Spent with Patient Total time spent is greater than 50% in coordination of care (as documented) at patient's floor/unit and/or counseling patient: Plan of Care Discussed with: patient Internal Medicine: Result - Labs CBC & Chem 7: 09/10/18 04:53 09/10/18 04:53 Labs: Short CBC 09/10/18 Range/Units 04:53 WBC 13.5 H (4.3-11.1) K/mcL Hgb 10.5 L D (11.5-15.4) g/dL Hct 34.2 L (35.3-44.9) % Plt Count 328 (140-400) K/mcL Neutrophils # 12.6 H (1.6-8.9) K/mcL BMP 09/10/18 04:53 Sodium 132 L Potassium 4.9 Chloride 102 Carbon Dioxide 17 L BUN 31 H Creatinine 1.55 H Glucose 477 H Calcium 8.6 - ABG Interpretation ABG results: PT/INR, D-dimer PT 17.0 Seconds (9.4-12.1) H 09/05/18 12:07 - Impressions Impressions Retrograde Pyelogram 09/09/18 00:00 IMPRESSION: Intraprocedural fluoroscopic spot images as above. See separate procedure report for more information. D/ / 09/09/2018 14:32:38 Tess Cox MD / johnnie Interpreting Provider: Tess Cox MD Pelvis Ultrasound 09/09/18 21:30 IMPRESSION: Normal sonographic appearance of the uterus. No normal ovarian tissue identified. Abnormal soft tissue echogenicity lobulated mass in the right pelvis of uncertain etiology. This finding was not well characterized on the noncontrast CT. This nonspecific sonographic finding could be related to adnexal, bowel and/or conceivably exophytic uterine mass. Further evaluation with CT abdomen and pelvis with intravenous and oral contrast would be helpful. D/ / Josefa Samayoa Cha, MD / Josefa Samayoa Cha, MD Interpreting Provider: Josefa Samayoa Cha, MD Consult Discharge Plan - Plan Referrals: Jody Ellington MD [Primary Care Provider] - (3) Depression Qualifiers: Depression Type: major depressive disorder Major depression recurrence: unspecified whether recurrent Active/Remission status: currently active Major depression episode severity: severe Psychotic features: without psychotic features Qualified Code(s): F32.2 - Major depressive disorder, single episode, severe without psychotic features (4) Malnutrition Qualifiers: Malnutrition type: protein-calorie malnutrition Protein-calorie malnutrition severity: severe Qualified Code(s): E43 - Unspecified severe protein-calorie malnutrition (5) HTN (hypertension) Qualifiers: Hypertension type: essential hypertension Qualified Code(s): I10 - Essential (primary) hypertension (6) Anemia Qualifiers: Anemia type: unspecified type Qualified Code(s): D64.9 - Anemia, unspecified (8) Diabetes Qualifiers: Diabetes mellitus type: type 2 Diabetes mellitus detention insulin use: without detention use Diabetes mellitus complication status: with kidney complications Diabetes mellitus complication detail: with chronic kidney disease Chronic kidney disease stage: stage 3 (moderate) Qualified Code(s): E11.22 - Type 2 diabetes mellitus with diabetic chronic kidney disease; N18.3 - Chronic kidney disease, stage 3 (moderate) (10) Fall Qualifiers: Encounter type: initial encounter Qualified Code(s): W19.XXXA - Unspecified fall, initial encounter (13) UTI (urinary tract infection) Qualifiers: Urinary tract infection type: site unspecified Hematuria presence: without hematuria Qualified Code(s): N39.0 - Urinary tract infection, site not specified (14) Leukocytosis Qualifiers: Leukocytosis type: unspecified Qualified Code(s): D72.829 - Elevated white blood cell count, unspecified (15) Hydronephrosis Qualifiers: Hydronephrosis type: unspecified Qualified Code(s): N13.30 - Unspecified hydronephrosis (16) Iron deficiency anemia Qualifiers: Iron deficiency anemia type: inadequate dietary iron intake Qualified Code(s) : D50.8 - Other iron deficiency anemias (17) Dementia Qualifiers: Dementia type: unspecified type Dementia behavioral disturbance: without behavioral disturbance Qualified Code(s): F03.90 - Unspecified dementia without behavioral disturbance
--- NOTE | 2018-09-10 15:04 | Transfer Summary ---
Date of Encounter: 09/10/18 Time of Encounter: 15:01 Transfer Discharge Sum: Diag - Discharge Diagnosis (1) Mass Status: Acute (2) Anorexia Status: Acute (3) Depression Status: Chronic (4) Malnutrition Status: Acute (5) HTN (hypertension) Status: Chronic (6) Anemia Status: Chronic (7) CKD (chronic kidney disease), stage III Status: Chronic (8) Diabetes Status: Chronic (9) Failure to thrive in adult Status: Acute (10) Fall Status: Acute (11) Frail elderly Status: Chronic (12) Hypercalcemia Status: Resolved (13) UTI (urinary tract infection) Status: Acute (14) Leukocytosis Status: Acute (15) Hydronephrosis Status: Acute (16) Iron deficiency anemia Status: Acute (17) Dementia Status: Chronic Transfer Discharge Sum: Med - Medications Active and Home Medications: Home Medications Atorvastatin Calcium [Lipitor] 20 mg PO DAILY 08/14/16 [History Confirmed ] Denosumab [Prolia (For Outpatient Infusion)] 60 mg SQ [id number] 08/14/16 [ History Confirmed 09/05/18] Ferrous Sulfate 325 mg PO BIDWM 08/14/16 [History Confirmed 09/05/18] Gemfibrozil [Lopid] 600 mg PO BIDWM 08/14/16 [History Confirmed 09/05/18] Multivitamin [Multi-Day Vitamins] 1 tab PO DAILY 08/14/16 [History Confirmed 04/18] Omeprazole [PriLOSEC] 20 mg PO DAILY 08/14/16 [History Confirmed 09/05/18] Sitagliptin Phosphate [Januvia] 50 mg PO DAILY 08/14/16 [History Confirmed 09/05] Vit C/Vit E/Lutein/Min/[place]-3 [Ocuvite Softgel] 1 cap PO DAILY 08/14/16 [ History Confirmed 09/05/18] Oxycodone HCl/Acetaminophen [Percocet 5-325 mg Tablet] 1 each PO Q6H PRN #20 tablet 02/06/17 [Rx Confirmed 09/05/18] amLODIPine [Norvasc] 10 mg PO DAILY #30 tablet 02/06/17 [Rx Confirmed 09/05/18] Memantine HCl/Donepezil HCl [Namzaric 28 mg-10 mg Capsule] 1 tab PO DAILY [History Confirmed 09/05/18] glipiZIDE [Glucotrol] 2.5 mg PO HS 09/05/18 [History Confirmed 09/05/18] glipiZIDE [Glucotrol] 5 mg PO QAM 09/05/18 [History Confirmed 09/05/18] Active Medications Amlodipine Besylate (Norvasc) 10 mg PO DAILY [facility] PRN Reason: Protocol Stop: 03/08/19 09:01 Last Admin: 09/10/18 08:40 Dose: 10 mg Ascorbic Acid (Vitamin C) 250 mg PO DAILY [facility] Stop: 03/08/19 09:01 Last Admin: 09/10/18 08:41 Dose: 250 mg Atorvastatin Calcium (Lipitor) 20 mg PO DAILY [facility] Stop: 03/08/19 09:01 Last Admin: 09/10/18 08:40 Dose: 20 mg Dextrose/Water (Dextrose 50% (Syg)) 25 ml IVP AD PRN PRN Reason: Hypoglycemia Stop: 03/07/19 15:33 Donepezil HCl (Aricept) 10 mg PO HS [facility] Stop: 03/10/19 21:01 Last Admin: 09/09/18 20:19 Dose: 10 mg Dronabinol (Marinol) 2.5 mg PO BIDLS [facility] Stop: 03/10/19 12:01 Last Admin: 09/10/18 12:25 Dose: 2.5 mg Ferrous Sulfate (Ferrous Sulfate) 325 mg PO DAILY@0800 [facility] Stop: 03/12/19 08:01 Last Admin: 09/10/18 08:40 Dose: 325 mg Gemfibrozil (Lopid) 600 mg PO BIDWM [facility] Stop: 03/07/19 17:01 Last Admin: 09/10/18 08:39 Dose: 600 mg Glucagon (Glucagen) 1 mg IM ONCE PRN PRN Reason: Hypoglycemia Stop: 03/07/19 15:33 Glucose (Gluctose) 15 gm PO ONCE PRN PRN Reason: Hypoglycemia Stop: 03/07/19 15:33 Glucose (Gluctose) 30 gm PO ONCE PRN PRN Reason: Hypoglycemia Stop: 03/07/19 15:33 Ceftriaxone Sodium 1,000 mg/ (Sterile Water) 10 mls @ 600 mls/hr IVP DAILY [facility]AME Stop: 09/14/18 10:00 Last Infusion: 09/10/18 10:21 Dose: Infused Dextrose (Dextrose 5%) 1,000 mls @ 100 mls/hr IVC .Q10H PRN PRN Reason: HYPOGLYCEMIA Stop: 03/07/19 15:33 Insulin Detemir (Levemir) 10 unit SQ HS [facility] Stop: 03/12/19 21:01 Insulin Human Lispro (Humalog) 0 units SQ TIDAC [facility] PRN Reason: Protocol Stop: 03/07/19 16:31 Last Admin: 09/10/18 12:25 Dose: 14 units Insulin Human Lispro (Humalog) 0 units SQ HS [facility] PRN Reason: Protocol Stop: 03/07/19 21:01 Last Admin: 09/09/18 20:20 Dose: 5 unit Memantine (Namenda) 10 mg PO BID [facility] Stop: 03/10/19 21:01 Last Admin: 09/10/18 08:39 Dose: 10 mg Mirtazapine (Remeron) 7.5 mg PO HS [facility] Stop: 03/07/19 21:01 Last Admin: 09/09/18 20:18 Dose: 7.5 mg Multivitamins/Calcium (Thera M Plus) 1 tab PO DAILY [facility] Stop: 03/08/19 09:01 Last Admin: 09/10/18 08:40 Dose: 1 tab Omeprazole (Prilosec) 20 mg PO DAILY@0730 [facility] PRN Reason: Protocol Stop: 03/12/19 07:31 Last Admin: 09/10/18 08:39 Dose: 20 mg Ondansetron HCl (Zofran) 4 mg IVP Q8HR PRN; Protocol PRN Reason: Nausea And Vomiting Stop: 03/07/19 17:50 Oxycodone/Acetaminophen (Percocet 5/325) 1 each PO Q6H PRN PRN Reason: Pain Stop: 03/07/19 15:30 Transfer Discharge Sum: Data Procedures and tests throughout hospitalization: Pending Orders 09/08/18 08:48 Consult to Occupational Therapy [CONS] Routine 09/09/18 13:13 Continuous pulse oximetry [RC] .ONCE Discharge from PACU when crite [RC] PROTOCOL Oxygen via nasal cannula Nasal Cannula 2 lpm RT has an order or consult [RC] NOW 09/09/18 14:16 D5% in Water [Dextrose 5%] 1,000 ml IVC 100 mls/hr Dextrose 50 % in Water (Syg) [Dextrose 50% (Syg)] 25 ml IVP AD PRN Dextrose Gel [Gluctose] 15 gm PO ONCE PRN Dextrose Gel [Gluctose] 30 gm PO ONCE PRN Glucagon, Human Recombinant [GlucaGen] 1 mg IM ONCE PRN Ondansetron [Zofran] 4 mg IVP Q8HR PRN OxyCODONE/APAP 5/325 [Percocet 5/325] 1 each PO Q6H PRN 09/09/18 16:30 Insulin LISPRO [HumaLOG] See Protocol SQ TIDAC 09/09/18 17:00 Dronabinol [Marinol] 2.5 mg PO BIDLS Gemfibrozil [Lopid] 600 mg PO BIDWM 09/09/18 21:00 Donepezil [Aricept] 10 mg PO HS Insulin LISPRO [HumaLOG] See Protocol SQ HS Memantine [Namenda] 10 mg PO BID Mirtazapine [Remeron] 7.5 mg PO HS 09/10/18 07:30 Omeprazole [PriLOSEC] 20 mg PO DAILY@0730 09/10/18 08:00 Ferrous Sulfate 325 mg PO DAILY@0800 09/10/18 09:00 Ascorbic Acid [Vitamin C] 250 mg PO DAILY Atorvastatin [Lipitor] 20 mg PO DAILY Multivit/Ca/Min/Fe/FA [Thera M Plus] 1 tab PO DAILY amLODIPine [Norvasc] 10 mg PO DAILY cefTRIAXone [Rocephin] 1,000 mg Water for inj. (sterile) 20 ML [Water for inj. (sterile)] 10 ml IVP DAILY 09/10/18 13:47 Consult to Surgery [CONS] Stat 09/10/18 21:00 Insulin DETEMIR [Levemir] 10 unit SQ HS 09/10/18 Lunch Diabetic Diet Dietary Supplement Mechanically Altered Diet Ground Meat - Impressions ITS Impressions Retrograde Pyelogram 09/09/18 00:00 IMPRESSION: Intraprocedural fluoroscopic spot images as above. See separate procedure report for more information. D/ / 09/09/2018 14:32:38 Tess Cox MD / [facility] Interpreting Provider: Tess Cox MD Pelvis Ultrasound 09/09/18 21:30 IMPRESSION: Normal sonographic appearance of the uterus. No normal ovarian tissue identified. Abnormal soft tissue echogenicity lobulated mass in the right pelvis of uncertain etiology. This finding was not well characterized on the noncontrast CT. This nonspecific sonographic finding could be related to adnexal, bowel and/or conceivably exophytic uterine mass. Further evaluation with CT abdomen and pelvis with intravenous and oral contrast would be helpful. D/ / Josefa Samayoa Cha, MD / Josefa Samayoa Cha, MD Interpreting Provider: Josefa Samayoa Cha, MD Abdomen/Pelvis CT 09/10/18 11:30 IMPRESSION: 1. Again noted is a 7.1 x 5.1 cm right pelvic mass. This abuts the uterine fundus as well as the right ureter resulting in obstruction seen on the prior exam. There is also involvement of the adjacent distal ileum for approximately 8 cm and demonstrates wall thickening with associated aneurysmal dilation versus contained perforation. Findings likely favor an adnexal or ovarian mass with invasion into the small bowel, however lymphoma or metastatic disease of the small bowel could have a similar appearance. Recommend gynecological or surgical consult. Percutaneous biopsy is not likely feasible due to suboptimal window. 2. Mild biliary duct dilation likely related to postcholecystectomy changes. 3. Interval placement of a right ureteral stent with interval improvement of right hydronephrosis. D/ / 09/10/2018 13:32:08 Tess Cox MD / [facility] Interpreting Provider: Tess Cox MD Transfer Discharge Sum: Prov Date of admission: 09/08/18 07:42 Primary care physician: Jody Ellington MD Admitting clinician: James Vanessa Attending physician on admission: James Vanessa Consults: 09/08/18 08:48 Consult to Occupational Therapy [CONS] Routine Comment: Evaluate, develop and implement POC Reason for Consult: eval for ecf Does patient have active BEDREST order?: No Is patient medically & hemodynamically stable?: Yes 09/10/18 13:47 Consult to Surgery [CONS] Stat Consulting Provider: [facility] Reason for Consult: Ileum perforation, suspected mass, mets, invasion of bowel by pelvic mass, pls evaluate, thank you. Time Notified: 13:50 Call Completed: Yes Attending physician on discharge: James Vanessa Discharging clinician: James Vanessa Anticipated date of transfer: 09/10/18 Receiving physician/facility: [facility] Transfer Discharge Sum: A/P - Plan Functional capacity at transfer: uses cane/walker Overall status at transfer: patient is not back to baseline Disposition: Transfer Critical Access Hosp Transfer Discharge Sum: Hosp Hospital course: Ms. Jalloh is a 83 year old female with medical history of hypertension and diabetes mellitus, dementia, history of hypercalcemia, osteoporosis on prolia She presented in company of her son for fall from her bed on 09/05/2018. According to the patient's son, she has been living with him for the past 13 years, however, in the past 12 weeks the patient has been refusing to get out of bed, refusing to eat her meals, stopped doing her daily activities which included reading books and Knitting, no social is in March with family, and acting more confused. He presented to the emergency room this morning because she fell from the bed or trying to get up. He also reports she has been having to hold on to objects while walking, in the past 2 weeks. Prior to this, she was able to ambulate independently. She has also lost a lot of weight her baseline weight is 120 pounds and currently prior to presentation he states she is less than 100 pounds. The patient" NOTHING SOUNDS GOOD TO EAT". She also reports not feeling hungry and that when she does eat, she feels food stuck in her throat. She also denies odynophagia, or change in bowel habits. She reports she has been having nausea and vomiting started 3 weeks ago and that has also made her afraid to eat. She denies hematemesis or hematochezia, she denies hematuria, she denies frequency and change in urinary continence. She did not remember her last screening in terms of mammogram and colonoscopy by primary care. However, she had a visit to her primary care 04/2018 and was told that her blood work was normal. In the ER, work up was initiated and showed Chest x-ray and head CT shows no acute intracranial abnormality. Urine analysis showed mild proteinuria, negative nitrites and large leukocyte esterase. She has leukocytosis with left shift. She has anemia with hemoglobin of 7.9 normocytic. Platelet count is elevated at 407. Renal function is at baseline, slightly elevated. 51. Liver function tests is normal. Ablation panel is normal. EKG was sinus. She was admitted for workup and started on empiric antibiotics for urinary tract infection, abdomen and pelvis CAT scan done 09/05 suggest right severe hydronephrosis and hydroureter and a possible pelvic mass. The patient has chronic kidney disease stage III and the radiologist has recommended a repeat imaging with by mouth and IV contrast. Urology was consulted and ureteral stent placement was done 09/09/18 Anemia workup showed normal vitamin B12 and folate with severely decreased iron levels, Patient received iron infusion daily X2. on 09/07 Hb was 6.5, iron transfusion was discontinued and patient was given 2 units of pure red cells. Hemoglobin has stabilized between 8 and 9 since then. ON 09/09, I spoke with Dr. Tahir Dinero the radiologist, for recommendations for other possible imaging modality for this patient's pelvic mass, he thinks the mass may be attached to the uterus and recommends a pelvic USS, If the pelvic USS is negative, we may obtain a po contrast study of the abdomen and pelvis, without IV contrast, if unremarkable, or unhelpful, we will then be limited to no option but Abd and Pelvis CT scan with contrast. Pelvic USS done 09/09 Abnormal soft tissue echogenicity lobulated mass in the right pelvis of uncertain etiology. This finding was not well characterized on the non-contrast CT. This nonspecific sonographic finding could be related to adnexal, bowel and/or conceivably exophytic uterine mass. Abdomen and Pelvis CT with oral contrast shows : 1. Again noted is a 7.1 x 5.1 cm right pelvic mass. This abuts the uterine fundus as well as the right ureter resulting in obstruction seen on the prior exam. There is also involvement of the adjacent distal ileum for approximately 8 cm and demonstrates wall thickening with associated aneurysmal dilation versus contained perforation. Findings likely favor an adnexal or ovarian mass with invasion into the small bowel, however lymphoma or metastatic disease of the small bowel could have a similar appearance. Recommend gynecological or surgical consult. Percutaneous biopsy is not likely feasible due to suboptimal window She had received Ceftriaxone for panensitive E.coli UTI, today is Day 6 She is also s/p R ureteral stent placement, POD 1 We have spoken with the general surgery team who recommends a multi- disciplinary approach and patient needs gynecology oncology evaluation. We do not have [facility] oncology services and this facility, therefore, I spoke with the patient and patient's family and they agreed for transfer to [facility]. - Time Spent with Patient Total time spent providing and/or coordinating transfer services: Greater than 30 minutes (60 mins spent on face to face encounter, specialist consultation, imaging request, call to transfer center, documentation and patient and family education.) Transfer Discharge Sum: Exam - Constitutional Vitals: Vital Signs Temp Pulse Resp BP Pulse Ox 09/10/18 11:08 97.5 F L 70 15 123/77 99 09/10/18 08:25 97.6 F 73 18 154/55 99 09/10/18 04:02 97.6 F 75 15 149/70 93 09/10/18 00:54 97.6 F 72 16 163/56 98 09/09/18 20:00 97.4 F L 72 15 125/61 98 09/09/18 16:10 97.8 F 67 18 127/66 97 09/09/18 15:25 96 16 127/65 96 Intake and Output 09/09/18 09/10/18 09/10/18 23:59 07:59 15:59 Intake Total 240 / 240 250 / 250 Output Total 400 / 400 1200 / 1200 600 / 600 Balance -160 / -160 -1200 / -1200 -350 / -350 Intake: IV Fluids Rocephin 1,000 MG In Water for inj. (sterile) 10 ML @ 600 mls/ hr IVP DAILY [facility] Rx#:[id number] Oral 240 / 240 240 / 240 Output: Urine 400 / 400 Catheter 1200 / 1200 600 / 600 Other: Meal Dinner Breakfast Percent of Meal Consumed 45% 45% Stool Size Small Moderate Stool Consistency formed loose Stool Color Brown Brown Black # Bowel Movements 1 1 # Bowel Movement Diapers 1 Weight 45.5 kg Blood Glucose* [phone] Patient Weight 09/10/18 23:59 Weight 45.5 kg Additional comments: Gen: NAD, VSS, Awake, alert in bed, cachectic, evidence of muscle wasting noted HEENT: Left frontal bruising from fall, no hematoma Chest: CTAB Heart: S1, S2 only, no m/g/r Abdomen: Scaphoid, no palpable masses, RLQ tender++, no rebound, no gaurding Extremities: No pedal edema : kelly with clear urine Neuro: Awake, alert, oriented X3, no focal deficits
--- NOTE | 2018-09-10 15:11 | General Surgery Consult Note ---
Date of Encounter: 09/10/18 Time of Encounter: 15:00 Assessment and Plan (1) Pelvic mass in female Current Visit: Yes Status: Acute CT reviewed per Dr. Desai and concerning for ovarian cancer with invasion into small bowel vs. lymphoma Recommend transfer to [facility] for further evaluation and treatment Gynecologic oncologist Thank you for allowing us to participate in the care of this patient. Please call with any further questions/concerns. History of Present Illness Consult date: 09/10/18 Reason for consult: other (Abnormal CT abdomen/pelvis) Requesting physician: James Vanessa History of present illness: Ms. Jalloh is an 83 year old female with a past medical history significant for HTN , CKD, dementia, GERD, Type 2 diabetes mellitus. She is a poor historian and she lives with her son for the past 13 years. Most of the history is taken from the medical record. The patient was initially brought to the hospital with increasing weakness, loss of appetite, unintentional weight loss (around 20 lb. ) and falls. During her work-up she has had imaging which is concerning for an intra-abdominal mass. The patient admits to right sided abdominal discomfort for the past couple of days but reports that this has improved. Denies any nausea/vomiting. She reports alternating diarrhea and constipation. She in unclear when she had her last bowel movement. 2 bowel movements have been documented in her chart for today. She is occasional passing flatus. Her last documented colonoscopy was complete in September of 2008 and the patient is unsure of the findings. She has had a CT of the abdomen/pelvis with contrast today which is concerning for an intra-abdominal soft tissue mass. We have been asked to see and evaluate the patient for recommendations. She also has Severe right hydronephrosis and proximal hydroureter and has been seen and evaluated by urology. POD ##1 from Cystoscopy, right ureteral stent placement with Dr. Brown Past Med Surg Social Fam HX - Past Medical History Source: old records reviewed Medical history: arthritis, dementia, diabetes, GERD, hyperlipidemia, hypertension, osteoporosis, renal disease, other Additional medical history: CKD Psychiatric history: no psych history - Past Surgical History Surgical History: cholecystectomy, orthopedic, other (back surgery), other ( Colonoscopy 2007) - Social History Smoking Status: Never smoker Smokeless Tobacco Status: No Alcohol use: none Drug use: none Current living situation: With Family Activity Level: Mostly sedentary - Family History Mother History Unknown: Yes Living Status: Hx Family Cardiac Disorders: Yes Father History Unknown: Yes Living Status: Hx Family Cardiac Disorders: Yes Medications and Allergies Atorvastatin Calcium [Lipitor] 20 mg PO DAILY 08/14/16 [History] Denosumab [Prolia (For Outpatient Infusion)] 60 mg SQ [id number] 08/14/16 [History ] Ferrous Sulfate 325 mg PO BIDWM 08/14/16 [History] Gemfibrozil [Lopid] 600 mg PO BIDWM 08/14/16 [History] Multivitamin [Multi-Day Vitamins] 1 tab PO DAILY 08/14/16 [History] Omeprazole [PriLOSEC] 20 mg PO DAILY 08/14/16 [History] Sitagliptin Phosphate [Januvia] 50 mg PO DAILY 08/14/16 [History] Vit C/Vit E/Lutein/Min/[place]-3 [Ocuvite Softgel] 1 cap PO DAILY 08/14/16 [ History] Oxycodone HCl/Acetaminophen [Percocet 5-325 mg Tablet] 1 each PO Q6H PRN #20 tablet 02/06/17 [Rx] amLODIPine [Norvasc] 10 mg PO DAILY #30 tablet 02/06/17 [Rx] Memantine HCl/Donepezil HCl [Namzaric 28 mg-10 mg Capsule] 1 tab PO DAILY [History] glipiZIDE [Glucotrol] 2.5 mg PO HS 09/05/18 [History] glipiZIDE [Glucotrol] 5 mg PO QAM 09/05/18 [History] 3 Allergy/AdvReac Type Severity Reaction Status Date / Time Penicillins Allergy Intermediate Hives Verified 12/29/15 11:31 Review of Systems ROS unobtainable: due to mental status (difficult to obtain an accurate HPI due to the patient mental state) All systems PM: The remainder of the systems were reviewed and are negative General Surgery Exam Initial Vital Signs Temp Pulse Resp BP Pulse Ox 98.4 F 88 16 165/68 100 09/05/18 11:55 09/05/18 11:55 09/05/18 11:55 09/05/18 11:55 09/05/18 11:55 - General physical appearance no distress, cachectic, chronically ill - Eyes PERRL, normal ocular movement - ENT dry mucosa, atraumatic, normocephalic - Neck trachea midline - Respiratory normal respiratory effort, clear to auscultation, other (diminished bibasilar bases) - Cardiovascular Cardiovascular exam: Present: RRR - Abdomen Abdomen general surgery: Present: bowel sounds present, soft, tender Abdominal Tenderness: Present: RLQ - Integumentary Integumentary general surgery: Present: warm and dry, other (Alopecia noted) - Neurologic Present: CN 2-12 grossly intact - Musculoskeletal Present: other (severe physical deconditioning) - Psychiatric Psychiatric general surgery: Present: oriented to person, oriented to place Exam Initial Vital Signs Temp Pulse Resp BP Pulse Ox 98.4 F 88 16 165/68 100 09/05/18 11:55 09/05/18 11:55 09/05/18 11:55 09/05/18 11:55 09/05/18 11:55 Results - Labs 09/10/18 04:53 09/10/18 04:53 Abnormal lab results WBC 13.5 K/mcL (4.3-11.1) H 09/10/18 04:53 RBC 3.74 M/mcL (3.82-4.97) L 09/10/18 04:53 Hgb 10.5 g/dL (11.5-15.4) L D 09/10/18 04:53 Hct 34.2 % (35.3-44.9) L 09/10/18 04:53 MCHC 30.7 g/dL (31.6-35.5) L 09/10/18 04:53 RDW 15.7 % (11.5-14.5) H 09/10/18 04:53 Neutrophils # 12.6 K/mcL (1.6-8.9) H 09/10/18 04:53 Lymphocytes # 0.4 K/mcL (0.6-4.6) L 09/10/18 04:53 Toxic Granulation Present (Not Present) A 09/06/18 03:28 Hypochromasia Present (Not Present) A 09/06/18 03:28 PT 17.0 Seconds (9.4-12.1) H 09/05/18 12:07 Sodium 132 mEq/L (136-145) L 09/10/18 04:53 Carbon Dioxide 17 mEq/L (23-29) L 09/10/18 04:53 BUN 31 mg/dL (8-23) H 09/10/18 04:53 Creatinine 1.55 mg/dL (0.60-1.20) H 09/10/18 04:53 Est GFR ( Amer) 39 (> 60) L 09/10/18 04:53 Est GFR (Non-Af Amer) 32 (> 60) L 09/10/18 04:53 Glucose 477 mg/dL (70-105) H 09/10/18 04:53 POC Glucose 349 mg/dL (70-99) H 09/09/18 20:04 Hemoglobin A1c 6.9 % (-5.6) H 09/06/18 03:28 Calculated Osmolality 302 (280-300) H 09/10/18 04:53 Iron 16 mcg/dL (50-170) L 09/06/18 03:28 % Saturation 8 % (15-50) L 09/06/18 03:28 Transferrin 148 mg/dL (203-362) L 09/06/18 03:28 Total Bilirubin 0.2 mg/dL (0.3-1.0) L 09/05/18 12:07 AST 11 Units/L (13-39) L 09/05/18 12:07 ALT 6 Units/L (7-52) L 09/05/18 12:07 Alkaline Phosphatase 131 Units/L (34-104) H 09/05/18 12:07 Creatine Kinase < 10 Units/L (30-223) L 09/05/18 12:07 Albumin 3.1 g/dL (3.5-5.7) L 09/05/18 12:07 Globulin 3.9 g/dL (2.4-3.5) H 09/05/18 12:07 Albumin/Globulin Ratio 0.8 (1.1-2.2) L 09/05/18 12:07 Prealbumin 10.4 mg/dL (17.0-34.0) L 09/06/18 03:28 Urine Clarity Cloudy (Clear) A 09/05/18 13:00 Ur Specific [place] 1.008 (1.010-1.025) L 09/05/18 13:00 Urine Protein 100 mg/dL (Neg-Trace) H 09/05/18 13:00 Urine Blood Small (Negative) H 09/05/18 13:00 Ur Leukocyte Esterase Large (Negative) H 09/05/18 13:00 Urine Microscopic WBC TNTC per hpf (0-3) H 09/05/18 13:00 Urine Bacteria Many per hpf (None-Few) H 09/05/18 13:00 Diabetes panel 09/10/18 Range/Units 04:53 Sodium 132 L (136-145) mEq/L Potassium 4.9 (3.5-5.1) mEq/L Chloride 102 (98-107) mEq/L Carbon Dioxide 17 L (23-29) mEq/L BUN 31 H (8-23) mg/dL Creatinine 1.55 H (0.60-1.20) mg/dL Glucose 477 H (70-105) mg/dL Calcium 8.6 (8.6-10.3) mg/dL Calcium panel 09/10/18 Range/Units 04:53 Calcium 8.6 (8.6-10.3) mg/dL Pituitary panel 09/10/18 Range/Units 04:53 Sodium 132 L (136-145) mEq/L Potassium 4.9 (3.5-5.1) mEq/L Chloride 102 (98-107) mEq/L Carbon Dioxide 17 L (23-29) mEq/L BUN 31 H (8-23) mg/dL Creatinine 1.55 H (0.60-1.20) mg/dL Glucose 477 H (70-105) mg/dL Calcium 8.6 (8.6-10.3) mg/dL Adrenal panel 09/10/18 Range/Units 04:53 Sodium 132 L (136-145) mEq/L Potassium 4.9 (3.5-5.1) mEq/L Chloride 102 (98-107) mEq/L Carbon Dioxide 17 L (23-29) mEq/L BUN 31 H (8-23) mg/dL Creatinine 1.55 H (0.60-1.20) mg/dL Glucose 477 H (70-105) mg/dL Calcium 8.6 (8.6-10.3) mg/dL All other labs normal. - Imaging Additional studies: Chest X-Ray 09/05/18 11:56 IMPRESSION: No acute cardiopulmonary disease D/ / Pipo Smrat MD / Pipo Smart MD Interpreting Provider: Pipo Smart MD Head CT 09/05/18 11:56 IMPRESSION: No acute intracranial abnormality. D/ / Franklin Resendez MD / Franklin Resendez MD Interpreting Provider: Franklin Resendez MD Chest CT 09/05/18 16:09 IMPRESSION: 1. Severe right hydronephrosis and proximal hydroureter. In the right hemipelvis, there is a soft tissue density, not well seen due to absence of oral and intravenous contrast. It is unclear whether this finding is related to the hydronephrosis. In the clinical context provided, finding is worrisome for a soft tissue mass. Recommend further evaluation with oral and IV contrast. Delayed images should also be obtained to better assess the course of the ureter. 2. No acute abnormality in the thorax. 3. Coronary artery disease. 4. Mild cardiomegaly. 5. Status post cholecystectomy. 6. Bladder distension. Please correlate with clinical symptoms of urinary retention. D/ / 09/05/2018 18:08:29 Tahir Dinero MD / [facility] Interpreting Provider: Tahir Dinero MD Retrograde Pyelogram 09/09/18 00:00 IMPRESSION: Intraprocedural fluoroscopic spot images as above. See separate procedure report for more information. D/ / 09/09/2018 14:32:38 Tess Cox MD / [facility] Interpreting Provider: Tess Cox MD Pelvis Ultrasound 09/09/18 21:30 IMPRESSION: Normal sonographic appearance of the uterus. No normal ovarian tissue identified. Abnormal soft tissue echogenicity lobulated mass in the right pelvis of uncertain etiology. This finding was not well characterized on the noncontrast CT. This nonspecific sonographic finding could be related to adnexal, bowel and/or conceivably exophytic uterine mass. Further evaluation with CT abdomen and pelvis with intravenous and oral contrast would be helpful. D/ / Josefa Samayoa Cha, MD / Josefa Samayoa Cha, MD Interpreting Provider: Josefa Samayoa Cha, MD Abdomen/Pelvis CT 09/10/18 11:30 IMPRESSION: 1. Again noted is a 7.1 x 5.1 cm right pelvic mass. This abuts the uterine fundus as well as the right ureter resulting in obstruction seen on the prior exam. There is also involvement of the adjacent distal ileum for approximately 8 cm and demonstrates wall thickening with associated aneurysmal dilation versus contained perforation. Findings likely favor an adnexal or ovarian mass with invasion into the small bowel, however lymphoma or metastatic disease of the small bowel could have a similar appearance. Recommend gynecological or surgical consult. Percutaneous biopsy is not likely feasible due to suboptimal window. 2. Mild biliary duct dilation likely related to postcholecystectomy changes. 3. Interval placement of a right ureteral stent with interval improvement of right hydronephrosis. D/ / 09/10/2018 13:32:08 Tess Cox MD / [facility] Interpreting Provider: Tess Cox MD Consult Discharge Plan - Plan Referrals: Jody Ellington MD [Primary Care Provider] - - Attending Attestation For this encounter, I have reviewed the TROUBLE OPERATOR or PA documentation, treatment plan, and medical decision making; and I have had face to face time with this patient.
[2018-09-10 16:38] VITALS: BP 135/68
[2018-09-10] MEDS ORDERED: Insulin DETEMIR 100 UNIT/ML X5UNITS SQ SCH (21:00)
== END 2018-09-10 18:50 | disposition critical access hospital (66) | DRG 659 ==
LOC: 2ANU 11:51 → EMEROOARM 11:51 → SUATTDRO 14:28 → 2ANU 15:10
PROVIDERS: ADMIT Internal Medicine; ATTEND Internal Medicine